=== PATIENT | male | born 1945 | race Caucasian/White ===

== ENCOUNTER 2019-06-19 06:55 | Outpatient (CLI) | payer MEDICARE, BC, OTHER, SELFPAY ==
[2019-06-19 07:14] VITALS: BMI 31.1
--- NOTE | 2019-06-19 07:23 | ECG_ITS ---
NAME OF STUDY: LEXISCAN SESTAMIBI STRESS TEST INDICATION: Chest Pain, PROCEDURE: At the baseline, the EKG revealed atrial fibrillation with a demand V paced rhythm. The baseline blood pressure was 126/98 mm Hg with a heart rate of 79 beats/min. Lexiscan was infused over a period of 20 seconds. A total of 0.4 milligrams of Lexiscan was infused. The stress phase was continued for a total of 5 minutes. Heart rate at the end of the stress phase was 100 with a blood pressure 103/78. The EKG at the peak infusion revealed no significant changes. Sestamibi was injected 20 seconds after the Lexiscan infusion. Blood pressure at the end of the recovery phase was 141/86 with a heart rate of 91 per minute. CONCLUSION: 1. No significant EKG changes with the LexiScan infusion 2. No LexiScan induced chest pain or cardiac arrhythmia 3. Normal blood pressure and heart rate response 4. Sestamibi/sestamibi perfusion scan pending; see separate report. Electronically Signed On 06-19-2019 20:36:27 PLUMBER PIPE FITTING by Alan Strickland M.D. [id number]
--- NOTE | 2019-06-19 07:24 | NMCV_ITS ---
NM sasha perf SPECT r/s* [id number] aRj Vega Age: 74 Gender: M : 1945 Exam Date: 06/19/2019 08:11 Ordering Phys: Alan Strickland MD ([email or web address]) Technologist: TEJAS Sparks Exam Location: [facility] Indications: CHEST PAIN STRESS TEST Please [facility] for [facility] IMAGE PROTOCOL Rest/Stress 1 Lexiscan Day Radiopharmaceutical Dose (mCi) Administration Site Administered by Rest: Tc-99m 10.6 IV TEJAS Welch Sestamibi Stress:Tc-99m 32.6 IV TEJAS Welch Sestamibi Rest: 19-Jun-2019 60 Discovery 630 Stress: 19-Jun-2019 30 Discovery 630 0.4mg Lexiscan. Images obtained in supine and prone position. SPECT RESULTS Technical Quality: Excellent Raw Data Analysis: Normal Image Corrections: No attenuation or motion correction applied Summed Stress Score: 23 Summed Rest Score: 14 Summed Difference Score: 9 PERFUSION FINDINGS Myocardial perfusion imaging revealing a large area of decreased aseptic, involving the basal, mid and apical inferior wall, basal and mid inferolateral, basal and mid anterolateral, apical segments including the apex. Some reversibility was noted in the mid anterolateral and inferolateral region. Very small area of reversible defects were noted in the apical segments. FUNCTIONAL RESULTS (calculated via Gated SPECT) Stress Image LV EF (%): 39 Stress EDV (mL):118 TID: 1 Stress ESV (mL):72 FUNCTIONAL FINDINGS: Segmental wall motion analysis revealed a somewhat dyskinetic septum and the apex with a hypokinetic inferior wall. IMPRESSIONS 1. Myocardial perfusion may revealing a large area of decreased tracer uptake in the inferior, inferolateral, anterolateral and apical segments with some reversibility in the inferolateral and anterolateral regions, suggestive of myocardial scarring with ischemia in the distribution of the right coronary artery and circumflex artery predominantly with some involvement the left and descending artery territory. 2. Diminished LV ejection fraction of 39%. 3. Wall motion normality as mentioned above. 4. Moderately dilated LV cavity with an end-systolic volume of 72 mL No similar previous studies are available for comparison Dr Alan Strickland MD FAC (Electronically Signed) Final Date: 19 June 2019 19:12 S
[2019-06-19] MEDS: regadenoson 0.4 Mg/5 ml Syringe IVP (08:55)
[2019-06-19 08:57] VITALS: BP 125/85; PULSE 82
== END 2019-06-19 06:56 | disposition home or self-care (01) ==
PROVIDERS: Family Provider Family Medicine; PCP Family Medicine; Visit Provider Internal Medicine Cardiovascular Disease
DX: R07.89 Other chest pain (principal)
CPT/HCPCS: 78452; 93017; A9500; J2785

== ENCOUNTER 2019-07-02 05:53 | Day surgery (SDC) | payer MEDICARE, BC, OTHER, SELFPAY ==
[2019-06-30 12:42] LABS: Basophils # 0.1 10^3/uL (0.0-0.1); Basophils % 1.3 %; Eosinophils # 0.2 10^3/uL (0.0-0.8); Hematocrit 43.3 % (42.0-52.0); Hemoglobin 14.3 g/dL (11.7-16.6); Lymphocytes # 2.6 10^3/uL (0.8-4.8); Lymphocytes % 32.2 %; Mean Corpuscular Hemoglobin 30.4 pg (28.0-34.0); Mean Corpuscular Volume 92.1 fL (80-94); Mean Platelet Volume 9.6 fL (7.4-10.4); Neutrophils % 50.2 %; Nucleated Red Blood Cells % 0 %; Platelet Count 223 10^3/cmm (130-400); Red Cell Distribution Width 13.3 % (12.1-15.1); White Blood Count 7.9 10^3/uL (4.0-10.0)
[2019-06-30 12:53] LABS: Alanine Aminotransferase 22 U/L (0-41); Albumin Level 4.4 g/dL (3.5-5.2); Alkaline Phosphatase 98 IU/L (40-130); Anion Gap 18.7 (5-19); Aspartate Amino Transferase 25 U/L (0-40); Blood Urea Nitrogen 36 mg/dL (8-23); Calcium 9.9 mg/dL (8.5-10.5); Carbon Dioxide 27 mmol/L (22-29); Chloride 98 mmol/L (98-107); Globulin 3.1 g/dL (1.3-4.6); Glucose 137 mg/dL (65-115); Potassium 4.7 mmol/L (3.5-5.1); Sodium 139 mmol/L (136-145); Total Bilirubin 0.9 mg/dL (0.15-1.2); Total Protein 7.5 g/dL (6.6-8.7)
[2019-07-01 13:00] VITALS: BMI 31.4
[2019-07-02] VITALS (15 sets, daily range): BP systolic 95–127; BP diastolic 65–85; PULSE 75–100; RESP 11–20; TEMP 36.8–36.9; O2SAT 93–99
--- NOTE | 2019-07-02 06:00 | XACV_ITS ---
Ht: 175 cm Wt: 97 kg BSA: 2.20 m2 Gender: Male : 1945 Any Known Allergies: Other Exam Priority: Routine Procedure(s): Procedure Description: Diagnostic procedure Procedure Description: Left ventriculography Procedure Description: Venous Graft Catheterization Procedure Description: SANCHEZ Graft Catheterization Procedure Description: Coronary Angiography Diagnostic Cath Status: Elective Diagnostic Findings LM has 0% stenosis. pLAD: Severe 80% stenosis, PÉREZ: 3 flow. 1st Diag: Moderate 70% stenosis, PÉREZ: 3 flow. pCIRC: Severe 100% stenosis, PÉREZ: 0 flow. mRCA: Severe 100% stenosis, PÉREZ: 0 flow. 4 grafts visualized. SANCHEZ to dLAD: patent. SVG to 1st Diag: patent. SVG to 1st OM: patent. SVG to dRCA: patent. Coronary angiography shows right dominance. PCI Status: Elective Conclusions This 74-year-old white male with history of coronary disease, status post coronary bypass surgery in 2015, present with increasing episodes of left-sided chest pain. He also been having shortness of breath and fatigue. The symptoms are somewhat atypical. He had a myocardial perfusion imaging which revealed areas of fixed defects with no significant reversible defects. Because of his ongoing symptoms and the history, for further evaluation of his coronary status as well as the graft status, a cardiac catheterization was recommended. Patient underwent left heart catheterization with left and right coronary angiogram and graft angiogram today. He had a SANCHEZ to the LAD, venous graft to the distal RCA, saphenous venous graft to the first diagonal and another venous graft to the obtuse marginal artery. The coronary angiogram revealed high-grade lesion in the proximal LAD and proximal segment of the first diagonal branch. The circumflex artery was found to be totally occluded after the first obtuse marginal branch. The right coronary artery also was found to be totally occluded after the first RV branch. All the venous grafts and SANCHEZ were found to be patent. The SANCHEZ was found to be attached to the distal LAD. The venetie ira coronary arteries were of relatively small caliber. Mild/moderate diffuse disease was noted in the other vessels. LVEDP was 5 mmHg. Diagnostic RX Recommendation: medical therapy and/or counseling LV EDP: 5 mmHg Left Ventriculography Findings: The LV gram was not performed because of the stage III renal failure. The LVEDP was 5 mmHg. Pressures Phase:Rest AO : 112 mmHg / 62 mmHg ( 80 mmHg ) @ 1:24:00 AM 120 mmHg / 66 mmHg ( 86 mmHg ) @ 1:47:00 AM 120 mmHg / 66 mmHg ( 86 mmHg ) @ 1:47:00 AM LV : 115 mmHg / -5 mmHg / @ 1:47:00 AM 116 mmHg / -4 mmHg / @ 1:47:00 AM Valves Phase:DefaultPhase AV : 0.0 mmHg @ 7:58:37 AM 0.0 mmHg @ 7:58:37 AM AV Mean Gradient: 0.0 mmHg @ 7:58:37 AM Clinical Evaluation EBL: 5mL-10mL Procedural Details Procedure Consent Obtained. Pre-Procedure Time Out. Identified patient by full name and date of as verbalized by the patient/guarantor. Does the consent match the physician's order: Yes. Accurate & Complete Informed Consent: Yes. Inpatient/Outpatient History & Physical on Chart: Yes. If H&P is completed, is and addenduem needed: No; If yes, is the addendum complete: N/A. Visualize and Verify Site with Patient/Guarantor: N/A. Relevant Radiology Images available: Yes. Pre-op teaching completed and patient verbalized understanding. The risks, benefits, and alternatives of sedation and/or procedure were discussed by physician. The patient agrees to continue. Procedure started. [facility] Clinical Fraility Score: 3: Managing Well. 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 Cardiovascular Instability: No. Correct patient, site and procedure confirmed by cath team. Current diagnosis: Chest Pain. PERRLA. Strong, equal hand roll form operator bilaterally. Lungs clear x 5 lobes. IV Site on Arrival: 18 gauge in the left forearm. IV Fluids: 0.9% NaCl at KVO. 0 mL infused prior to landscape laborer. Pre Procedural Pulses: bilateral dorsalis pedis was Doppled. Pre Procedural Pulses: bilateral posterior tibial was Doppled. Pre Procedural Pulses: bilateral radial was 2+. Oxygen started at 2liters/min via nasal canula. bilateral groins was prepped with chloroprep then draped in the usual sterile fashion. Baseline sample Acquired. HR: 75 BPM. Physician arrived. Equipment: 6F - Femoral. Cardiac Cath Pack. ACAppRedeem Manifold Kit Model BT 2000. Heparinized Saline (2 units/mL), 1000 mL bag. Kit, Micropuncture. Physician scrubbed in. Immediate Pre-Procedure Time Out. Correct Patient: Yes; Correct Procedure: Yes; Correct Site: Yes; Correct Patient Position: Yes; Correct Supplies: Yes; Dried Flammable Prep: Yes; Blood Products Available: No;. Lidocaine 1% infiltrated to the right groin. Arterial access obtained with micropuncture set. A 5 bhutanese JL4 catheter in over wire. Multiple views taken of left coronary artery. Catheter out. Multiple views taken of right coronary artery. SVG's to Diaganol visualized and patent. SVG's to OM visualized and patent. Catheter out. A 5 bhutanese IM catheter in over wire. SANCHEZ to LAD visualized. Catheter out. A 5 bhutanese RCB catheter in over wire. SVG's to RCA visualized and patent. Catheter out. A 5 bhutanese Angled Pig catheter in over wire. EDP Sample taken: LV 115/-5,5; HR: 68 BPM; SpO2: 97%. Pullback taken: LV 116/-5,8; AO 120/66(86); Mean: 0mmHg, Peak to Peak: 0mmHg, SEP: 7sec/min; HR: 73 BPM; SpO2: 97%. Sheath(s) sutured into position with 2-0 silk and sterile 4x4's and Op-site applied over the site. No oozing or signs and symptoms of hematoma noted. Arterial sheath flushed and connected to tranducer and pressure bag with heparinized saline. A Suture was successful obtaining hemostatsis at the Right Femoral artery insertion site. Post Procedure: Pulses reassessed and unchanged. PERRLA. Strong, equal hand roll form operator bilaterally. No VTE prophylaxis required. Medication's Wasted: Lidocaine 1% = 18 mL. Medication's Wasted: Heparin = 2500 units. Medication's Wasted: Other = Fentanyl 75mcg. Total IV fluids: 250 mL. Contrast type used: Omnipaque 300 mgI/mL, 500 mL bottle. Post-op diagnosis: CAD. Complications: None. Estimated blood loss: 5mL-10mL. Vital chart was stopped. Procedure completed. Patient transferred by bed to 1st floor. Site: Right Femoral artery Sheath Size: 5 Fr Hemostasis Method: Suture Hemostasis Success: Successful Procedure Medications Start: 7:09 AM Stop: 7:09 AM Medication: Benadryl Amount: 50 mg Route: I.V. Start: 7:12 AM Stop: 7:12 AM Medication: Versed Amount: 1 mg Route: I.V. Start: 7:27 AM Stop: 7:27 AM Medication: Heparin Amount: 1500 units Route: I.V. Start: 7:35 AM Stop: 7:35 AM Medication: Versed Amount: 1 mg Route: I.V. Start: 7:43 AM Stop: 7:43 AM Medication: Fentanyl Amount: 25 mcg Route: I.V. Start: 7:43 AM Stop: 7:43 AM Medication: 0.9% Saline Amount: 250 ml Route: I.V. bolus I, the attending physician, have reviewed and verified all procedure medications. Yes, all medications given per verbal order History/Risk Factors Hypertension: Yes Dyslipidemia: Yes Peripheral Arterial Disease (PAD): No Myocardial Infarction (PA): No Obesity: Yes Renal Disease: No Tobacco Use: Never Prior Interventions PCI: No CABG: Yes Valve Surgery: No Report Signatures Finalized by:Dr Alan Strickland MD [facility] on 07/02/2019 1:22:48 PM
[2019-07-02 06:59] LABS: Anion Gap 17.4 (5-19); Blood Urea Nitrogen 33 mg/dL (8-23); Calcium 9.6 mg/dL (8.5-10.5); Carbon Dioxide 24 mmol/L (22-29); Chloride 98 mmol/L (98-107); Glucose 152 mg/dL (65-115); Osmolality Calculated 280 mOsm/kg (285-295); Potassium 4.4 mmol/L (3.5-5.1); Sodium 135 mmol/L (136-145)
--- NOTE | 2019-07-02 08:07 | P.MISC_ITS ---
Miscellaneous Note Purpose of Documentation: This patient is being admitted to hospital following the cardiac authorization for IV hydration and close monitoring. He is known to have cardiomyopathy and chronic kidney disease. Note: Mr. Vega is a 74-year-old white male with a history of coronary disease and coronary artery bypass surgery in 2014. He had a SANCHEZ to the LAD, venous graft to the PDA, diagonal and obtuse marginal arteries. He was complaining of increasing episodes of atypical chest pains, fatigue and shortness of breath. He had a myocardial perfusion imaging which revealed areas of fixed defects with no significant reversible defects. Because of his ongoing symptoms, in order to further evaluate his coronary status as well as his graft status, he underwent left heart catheterization with left and right coronary angiogram and graft angiogram. He was found to have patent grafts. Severe diffuse disease of the [place] vessels. Based on the angiogram findings, it was opted to treat him medically. He was found to have an LVEDP of 5 mmHg. His BUN was 33 with a creatinine of 1.6. His labs are as follows Abnormal lab results 07/02/19 Range/Units 06:30 Sodium 135 L (136-145) mmol/L BUN 33 H (8-23) mg/dL Creatinine 1.6 H (0.7-1.2) mg/dL Glucose 152 H (65-115) mg/dL Calculated Osmolal ity 280 L (285-295) mOsm/k g Further details of his history and physical, please refer to the history and physical by me on 06/25/2019. Past medical history, family history, social history as outlined on 06/25/2019. On examination he is alert and oriented x3. Not in any acute distress. His blood pressure is 100/60 with a heart rate of 78/min respiratory rate of 16/min and he is afebrile. GENERAL: The patient is alert and oriented times three. Not in any acute distress. HEENT: No significant pallor, icterus or lymphadenopathy. Oral cavity: There are no mucous membrane lesions. NECK: Trachea appears to be central. No masses noted. No JVD or thyromegaly appreciated. No carotid bruit. RESPIRATORY: Chest is symmetrical. No intercostals muscle retraction or any accessory muscle activation. There is no chest wall tenderness. Breath sounds are heard bilaterally. No rales or rhonchi heard. No evidence of any consolidation. BREASTS: Deferred. HEART: The first heart sound is variable. Second heart sound is normal. Systolic murmur in the left sternal border. No diastolic murmurs. No pericardial rub. ABDOMEN: No vessel pulsations or distention. No tenderness. No organomegaly appreciated. No abdominal bruit. Bowel sounds are normally heard. : Deferred. RECTAL: Deferred. LYMPHATIC: No lymphadenopathy noted in the neck or groin. EXTREMITIES: No edema or cyanosis. No clubbing. Peripheral pulses are palpable and fairly good volume and amplitude MUSCULOSKELETAL: No acute joint deformities or swelling SKIN: There are no significant rashes. NEUROPSYCHIATRIC: The patient is alert and oriented x3. Appears to be in a good mood. The higher functions are grossly within normal limits. No tremors or rigidity noted. Assessment Atherosclerotic heart disease- bypass grafts with progression of disease in the bois [place]te vessels Chronic kidney disease Cardiomyopathy Atrial fibrillation History of hypertension History of dyslipidemia Plan Careful IV hydration Repeat BMP in the morning Possible discharge home in the morning
[2019-07-02] MEDS: fentaNYL 50 mcg/mL INJ 2mL 25 MCG IVP (10:08)
--- NOTE | 2019-07-02 10:49 | PC.NURSE ---
1015-SHEATH REMOVAL Explained procedure to pt. Pre-medicated w/ Fentanyl per order. Palpated right femoral artery. Hold pressure for 20 mins. Hemostasis achieved. No hematoma, swelling, bleeding noted. Instructed pt and at bedside to keep leg straight and bedrest for 6 hrs. to let nurse know for any bleeding, unusual pain or pressure at groin site. Pt ad verbalizes understanding. Pedal pulses palpable +3.
--- NOTE | 2019-07-02 11:40 | PC.CHAP ---
Pastoral Care Encounter/Spiritual Assessment Type of Contact [] Declined instrument tester visit [] Patient/Family/Request visit [] Outpatient visit [] Follow-up visit [] Physician referral [] Code/Alert [x] Routine visit [] Staff referral [] Actively dying [] Patient sleeping [x] Family support [] [] Out of room [] Palliative care [] [] Receiving care in room [] Pre-surgical visit [] Trauma [] Long length of stay [] ICU visit [] Other: Relational/Emotional Strength [] Patient feels connected with others/family/visitors/staff [] Distress [] Loneliness/isolation [] Abandonment Spirituality of Patient [x] Person of Lyric [] Attends Sikh of their Lyric [] Believes in Prayer [] Reads Bible or Mormonism materials [] There are Spiritual issues to be addressed Electric 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 Interventions [x] Prayer [] Active listening [] Non-anxious presence [] Spiritual/emotional support [] Crisis/trauma care [] Spiritual counseling [] Bereavement support [] Provided bereavement packet [] Provided Bible/devotional materials [] Provided toy/stuffed animal, coloring book to patient or family member [] Provided Communion [] Anointing/[place] [] Salvation [x] Completed spiritual assessment [] Other: Impact on Illness or Injury [] Angry [] Fearful [] Anxious [] Often cries [] Exhaustion [] Unable to work [] Unable to attend adventism [] Unable to walk/stand [] Unable to read [] Unable to drive [] Unable to eat/drink [] Unable to sleep [] Unable to be with family [] Patient intubated [] Other: Summary Time spent with patient 10min
[2019-07-02] MEDS: lactobacillus 1 Tablet 1 TAB PO (12:33)
[2019-07-02] MEDS: sodium chloride 0.9% 1,000 ML 150 ML IV (12:34)
[2019-07-02] MEDS: carvedilol 25 mg Tablet 37.5 MG PO (17:52)
[2019-07-02] MEDS: famotidine 20 mg Tablet 40 MG PO ×2 (17:53→21:15)
[2019-07-02] MEDS: magnesium oxide 400 mg tablet 800 MG PO (17:54)
--- NOTE | 2019-07-02 19:34 | PC.NURSE ---
Patient ambulated [address] down hallway and 175 feet back to room. Right groin site is without redness, dressing dry and intact, Pulse ox 96% on room air. Spouse at the patient's bedside. Call light within reach. Care Continued.
[2019-07-02] MEDS: ALPRAZolam 0.25 mg Tablet PO (21:16)
[2019-07-03] VITALS: BP 124/83; PULSE 90; RESP 17; TEMP 37; O2SAT 96
[2019-07-03 04:00] VITALS: BP 126/82; PULSE 86; RESP 22; TEMP 36.7; O2SAT 97
[2019-07-03 07:25] LABS: Anion Gap 15.1 (5-19); Blood Urea Nitrogen 25 mg/dL (8-23); Carbon Dioxide 25 mmol/L (22-29); Chloride 102 mmol/L (98-107); Glucose 133 mg/dL (65-115); Osmolality Calculated 285 mOsm/kg (285-295); Potassium 4.1 mmol/L (3.5-5.1); Sodium 138 mmol/L (136-145)
[2019-07-03 07:47] VITALS: BP 135/82; PULSE 90; RESP 15; O2SAT 96
[2019-07-03] MEDS: magnesium oxide 400 mg tablet 800 MG PO (09:27)
[2019-07-03] MEDS: cholecalciferol (vitamin D3) 1,000 unit Tablet 1000 UNIT PO (09:28)
[2019-07-03] MEDS: carvedilol 25 mg Tablet 37.5 MG PO (09:28)
[2019-07-03] MEDS: TORSEmide 20 mg Tablet 80 MG PO (09:28)
[2019-07-03] MEDS: lactobacillus 1 Tablet 1 TAB PO (09:28)
[2019-07-03] MEDS: aspirin 81 mg EC Tablet PO (09:29)
[2019-07-03] MEDS: spironolactone 25 mg Tablet PO (09:29)
[2019-07-03] MEDS: levothyroxine 100 mcg Tablet PO (09:29)
[2019-07-03] MEDS: atorvastatin 40 mg Tablet PO (09:29)
[2019-07-03] MEDS: iron polysaccharide complex 150 mg Capsule PO (09:36)
--- NOTE | 2019-07-03 09:52 | P.PN_ITS ---
Subjective Subjective: Interval history: This is a final progress note. Patient was admitted to hospital following his cardiac authorization, for IV hydration and close monitoring. He received IV hydration with normal saline. The BMP was repeated this morning. The BUN/creatinine has improved to 25/1.5. Vitals/I&O/Wt Last Vital Signs Temp 98.1 F 07/03/19 04:00 Pulse 90 07/03/19 07:47 Resp 15 07/03/19 07:47 BP 135/82 07/03/19 07:47 Pulse Ox 96 07/03/19 07:47 07/02/19 07/03/19 07/03/19 22:59 06:59 14:59 Intake Total 1240 / 1940 240 / 240 Output Total 400 / 2000 Balance 840 / -60 240 / 240 Weight last 48 hrs Weight 213 lb Physical Exam Narrative: EXAM NARRATIVE: GENERAL: The patient is alert and oriented times three. Not in any acute distress. HEENT: No significant pallor, icterus or lymphadenopathy.Oral cavity: There are no mucous membrane lesions. NECK: Trachea appears to be central. No masses noted. No JVD or thyromegaly appreciated. RESPIRATORY: Chest is symmetrical. No intercostals muscle retraction or any accessory muscle activation. There is no chest wall tenderness. Breath sounds are heard bilaterally. No rales or rhonchi heard. No evidence of any consolidation. BREASTS: Deferred. HEART: The heart sounds are normal. No S3 or S4. Short section systolic murmur at the base of the heart and an early systolic murmur in the left sternal border.]. No pericardial rub ABDOMEN: No vessel pulsations or distention. No tenderness. No organomegaly appreciated. Bowel sounds are normally heard. : Deferred. RECTAL: Deferred. LYMPHATIC: No lymphadenopathy noted in the neck or groin. EXTREMITIES: No edema or cyanosis. No clubbing. Peripheral pulses are palpated in fairly good volume and amplitude. Right groin has no hematoma or bleeding. MUSCULOSKELETAL: No acute joint deformities or swelling SKIN: There are no significant scars or skin rash noted. NEUROPSYCHIATRIC: The patient is alert and oriented x3. Appears to be in a good mood. No tremors or rigidity noted. Data : 06/30/19 12:30 07/03/19 06:31 Other Labs: Abnormal lab results 02/27/20 Range/Units 06:31 BUN 25 H (8-23) mg/dL Creatinine 1.5 H (0.7-1.2) mg/dL Glucose 133 H (65-115) mg/dL A&P Assessment and plan (1) Atherosclerotic heart disease of [place] coronary artery with other forms of angina pectoris: Currently stable. Advised to continue on the current medications. Status: Acute Code(s): I25.118 - Atherosclerotic heart disease of [place] coronary artery with other forms of angina pectoris (2) Atypical chest pain: Most likely related to GERD. Patient is on Pepcid. Advised to continue the same. Status: Acute Code(s): R07.89 - Other chest pain (3) Atrial fibrillation: Advised to go back on the Pradaxa. He may started taking the medicine this evening Status: Acute Qualifiers: Atrial fibrillation type: other persistent Qualified Code(s): I48.19 - Other persistent atrial fibrillation Code(s): I48.91 - Unspecified atrial fibrillation (4) Hyperlipidemia: Continue on the current medications Status: Acute Qualifiers: Hyperlipidemia type: mixed hyperlipidemia Qualified Code(s): E78.2 - Mixed hyperlipidemia Code(s): E78.5 - Hyperlipidemia, unspecified (5) Pacemaker: Patient will keep his follow-up appointments as scheduled Status: Acute Code(s): Z95.0 - Presence of cardiac pacemaker Additional A&P Information Patient may start taking the Pradaxa at this evening. The dose of the torsemide he is cut back to 40 mg p.o. 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
[2019-07-03] MEDS: ALPRAZolam 0.25 mg Tablet PO (10:30)
[2019-07-03 10:58] VITALS: BP 124/87; PULSE 86; RESP 23; O2SAT 95
[2019-07-03 12:40] VITALS: BP 130/85; PULSE 80; RESP 18; O2SAT 92
[2019-07-03 12:42] VITALS: BP 130/85; PULSE 80; RESP 18; TEMP 36.7; O2SAT 92
== END 2019-07-03 12:56 | disposition home or self-care (01) ==
LOC: CCL 05:53 → CSU 07-03 09:46 → OPCSU 07-04 10:21
PROVIDERS: Family Provider Family Medicine; PCP Family Medicine; Visit Provider Internal Medicine Cardiovascular Disease
DX: I25.118 Atherosclerotic heart disease of native coronary artery with other forms of angina pectoris (principal); R07.89 Other chest pain; I48.19 Other persistent atrial fibrillation; R78.5 Finding of other psychotropic drug in blood; Z95.0 Presence of cardiac pacemaker; Z95.1 Presence of aortocoronary bypass graft; I10 Essential (primary) hypertension; E66.9 Obesity, unspecified; Z68.31 Body mass index [BMI] 31.0-31.9, adult; E78.2 Mixed hyperlipidemia
CPT/HCPCS: 12345; 36415; 80048; 80053; 85025; 86850; 86900; 93459; C1769; C1887; C1894; J1200; J1644; J2001; J2250; J3010; J7030; Q9967

== ENCOUNTER → 2019-07-09 11:05 | Outpatient (BNVA) | payer MEDICARE, BC, OTHER, SELFPAY | PROVIDERS: Family Provider Family Medicine; PCP Family Medicine; Visit Provider Nurse Practitioner Family | DX: I25.118 Atherosclerotic heart disease of native coronary artery with other forms of angina pectoris (principal) | CPT/HCPCS: 80048 ==

== ENCOUNTER 2019-07-21 09:39 | Outpatient (REF) | payer MEDICARE, BC, OTHER, SELFPAY ==
[2019-07-21 09:55] LABS: Basophils # 0.2 10^3/uL (0.0-0.1); Basophils % 1.6 %; Eosinophils # 0.4 10^3/uL (0.0-0.8); Eosinophils % 3.9 %; Hematocrit 46.5 % (42.0-52.0); Hemoglobin 15.4 g/dL (11.7-16.6); Lymphocytes # 3.2 10^3/uL (0.8-4.8); Lymphocytes % 28.2 %; Mean Corpuscular HGB Conc 33.1 g/dL (30.0-36.0); Mean Corpuscular Hemoglobin 31.1 pg (28.0-34.0); Mean Corpuscular Volume 93.9 fL (80-94); Mean Platelet Volume 10.7 fL (7.4-10.4); Monocytes # 0.9 10^3/uL (0.2-0.9); Monocytes % 8.3 %; Neutrophils # 6.5 10^3/uL (1.8-7.7); Neutrophils % 57.7 %; Nucleated Red Blood Cells % 0 %; Platelet Count 218 10^3/cmm (130-400); Red Blood Count 4.95 10^6/uL (4.1-5.3); Red Cell Distribution Width 12.8 % (12.1-15.1); White Blood Count 11.3 10^3/uL (4.0-10.0)
[2019-07-21 10:05] LABS: Albumin Level 4.3 g/dL (3.5-5.2); Blood Urea Nitrogen 24 mg/dL (8-23); Calcium 9.8 mg/dL (8.5-10.5); Carbon Dioxide 28 mmol/L (22-29); Chloride 99 mmol/L (98-107); Glucose 208 mg/dL (65-115); Phosphorus 4.1 mg/dL (2.5-4.5); Sodium 139 mmol/L (136-145)
[2019-07-21 10:26] LABS: Urine Creatinine 92 mg/dL (39-259); Urine Protein Random 6 mg/dL
[2019-07-21 10:31] LABS: Calcium 9.8 mg/dL (8.5-10.5); Parathyroid Hormone 141.3 pg/mL (15-65)
[2019-07-21 10:39] LABS: UPRO/UCREAT Ratio 0.07 mg/mg CR
[2019-07-21 11:27] LABS: 25 Hydroxy Vitamin D 67 ng/mL (30-100)
== END 2019-07-21 09:40 | disposition home or self-care (01) ==
LOC: LAB 09:39
PROVIDERS: Family Provider Family Medicine; PCP Family Medicine; Visit Provider Internal Medicine Nephrology
DX: I25.118 Atherosclerotic heart disease of native coronary artery with other forms of angina pectoris (principal)
CPT/HCPCS: 80069; 82306; 82310; 82570; 83970; 84156; 85025

== ENCOUNTER → 2019-12-03 08:45 | Outpatient (BNVA) | payer MEDICARE, BC, OTHER, SELFPAY | PROVIDERS: Family Provider Family Medicine; PCP Family Medicine; Visit Provider Dermatology | DX: L21.9 Seborrheic dermatitis, unspecified (principal); L82.1 Other seborrheic keratosis; L57.0 Actinic keratosis; M1A.9XX1 Chronic gout, unspecified, with tophus (tophi); L85.3 Xerosis cutis; Z85.820 Personal history of malignant melanoma of skin | CPT/HCPCS: 17000; 17003; 99203; 99204 ==

== ENCOUNTER 2019-12-14 08:40 | Emergency (ER) | payer MEDICARE, BC, OTHER, SELFPAY ==
[2019-12-14] VITALS (10 sets, daily range): BP systolic 106–143; BP diastolic 64–96; PULSE 80–148; RESP 12–30; TEMP 36.9–38.8; O2SAT 95–99; BMI 32.5
--- NOTE | 2019-12-14 08:45 | CTR_ITS ---
PROCEDURE INFORMATION: Exam: CT Angiography Chest With Contrast Exam date and time: 12/14/2019 9:00 AM Age: 74 years old Clinical indication: Other: Hemoptysis; Prior surgery; Surgery date: 6+ months; Surgery type: Pacemaker TECHNIQUE: Imaging protocol: Computed tomographic angiography of the chest with intravenous contrast. 3D rendering: MIP and/or 3D reconstructed images were created by the technologist. Radiation optimization: All CT scans at this facility use at least one of these dose optimization techniques: automated exposure control; mA and/or kV adjustment per patient size (includes targeted exams where dose is matched to clinical indication); or iterative reconstruction. Contrast material: VISIPAQUE; Contrast volume: 320 ml; Contrast route: INTRAVENOUS (IV); COMPARISON: CT chest w con* [id number] 10/16/2014 10:39 AM RADIATION DOSE METRICS: Total DLP (mGy-cm): 633.13 FINDINGS: Tubes, catheters and devices: A dual lead AICD pacemaker is present. The right ventricular and coronary sinus leads appear to be in good position. Pulmonary arteries: Normal. No pulmonary emboli. Aorta: The pulmonary artery phase bolus is suboptimal for imaging of the aorta and systemic arteries, including coronary artery grafts. No thoracic aortic aneurysm. Mild aortic arch, branch, and descending thoracic aortic atherosclerotic calcification. Lungs: Multifocal consolidative densities right upper lobe. Bibasilar dependent mild pulmonary partial atelectasis is present. Pleural space: Minimal right pleural effusion. No pneumothorax. Heart: Flattening of the cardiac interventricular septum suggesting elevated right heart pressures. Cardiac left atrial enlargement measuring 6.4 cm AP dimension. LAD, LCx and RCA calcified coronary atherosclerosis. Lymph nodes: No enlarged lymph nodes. Gallbladder and bile ducts: The gallbladder is surgically absent, with metallic clips in the gallbladder fossa. Spleen: The spleen is borderline enlarged measuring 13.8 cm longitudinally. Intraperitoneal space: Free breathing artifacts are present throughout the examination. Bones/joints: The patient is status post median sternotomy with sternal cerclage wires. Diffuse osteopenia. Right lateral vertebral body marginal osteophytes are noted at lower thoracic spinal levels. Soft tissues: Moderate gynecomastia bilaterally. CT/CT angio chest PE protcl [id number] IMPRESSION: 1. Limitations of motion. 2. No central lower lobar pulmonary embolism identified, as visualized. Please see above limitations. 3. Multifocal consolidative densities right upper lobe. Pneumonitis versus alveolar hemorrhage. Clinical correlation is recommended. 4. Flattening of the cardiac interventricular septum suggesting elevated right heart pressures, new. 5. Cardiac left atrial enlargement. 6. Minimal right pleural effusion, interval decrease. 7. Coronary atherosclerosis. 8. Prior cholecystectomy. 9. Borderline splenomegaly. Radiation Dose CTDIVOL = (mGy): DLP = 633.13 (mGy-cm)
--- NOTE | 2019-12-14 08:46 | XRR_ITS ---
PROCEDURE INFORMATION: Exam: XR Chest, 1 View Exam date and time: 12/14/2019 8:58 AM Age: 74 years old Clinical indication: Cough TECHNIQUE: Imaging protocol: XR of the chest Views: Frontal portable upright view of the chest. COMPARISON: CR Chest 2 views* [id number] 12/03/2018 10:25 AM FINDINGS: Tubes, catheters and devices: A triple lead left subclavian permanent AICD pacemaker is present. The coronary sinus, right atrial and right ventricular leads appear to be in good position. Lungs: Dense consolidation right mid lung zone and parahilar region, additional mild airspace opacity medial right upper lobe and apex. The pulmonary vasculature remains congested. Mild right lateral basilar subsegmental atelectasis. Pleural space: Mild right pleural fibrosis, stable. No definite pleural effusion. No pneumothorax. Heart/Mediastinum: Coronary ostial markers are present. Borderline cardiomegaly. Vasculature: Mild aortic arch atherosclerotic calcification without ectasia. Bones/joints: The patient is status post median sternotomy with intact sternal cerclage wires. XR/XR chest 1V portable [id number] IMPRESSION: 1. Right-sided consolidative densities and pulmonary airspace infiltrates. Pneumonitis is difficult to exclude. Clinical correlation is recommended. 2. Persistent pulmonary vascular congestion. 3. Mild right pleural fibrosis, stable. 4. Mild right lateral basilar subsegmental atelectasis.
--- NOTE | 2019-12-14 08:47 | ECG_ITS ---
[facility] Test Date: 2019-12-14 Pat Name: Raj Vega Department: Room: Gender: Male Hall Clerk: : 1945 Requested By: Shira Schultz Order Number: [id number] Barlow MD: Margot Cardenas M.D. Measurements Intervals [place] Rate: 142 P: NV: -1 QRS: -35 QRSD: 126 T: 192 QT: 282 QTc: 435 Interpretive Statements Atrial fibrillation with rapid ventricular response ELECTRONIC VENTRICULAR PACEMAKER MODERATE INTRAVENTRICULAR CONDUCTION DELAY ST DEVIATION AND MODERATE T-WAVE ABNORMALITY, CONSIDER LATERAL ISCHEMIA ST DEVIATION AND MODERATE T-WAVE ABNORMALITY, CONSIDER INFERIOR ISCHEMIA Compared to ECG 12/03/2018 10:08:48 Left-axis deviation now present Intraventricular conduction delay now present T-wave abnormality now present Possible ischemia now present Electronically Signed On 12-15-2019 16:35:27 CDT by Margot Cardenas M.D. [id number]
[2019-12-14 09:04] LABS: ABG PCO2 36.2 mmHg (35-45); ABG PH Result 7.44 (7.35-7.45); Alveolar-Arterial Oxygen Gradi 2.3 mmHg (5-10); Arterial Blood Gas Hematocrit 41.6 % (42-52); Base Excess ABG 0.5 mmol/L (-2.0-2.0); Blood Gas Allen Test Pos; Blood Gas Operator Identificat MONRO; Blood Gas Sample Site Radial, left; Blood Gas Sample Type Arterial; Carboxyhemoglobin 1.3 %THgb (0.4-20.1); HCO3 ABG 24.4 mmol/L (22-26); HGB O2 Sat 95.8 % (95-100); Ionized Calcium Level - ABG 1.1 mmol/L (1.1-1.4); Methemoglobin 0.7 % (0.4-1.5); Oxygen Device NC; Oxygen Saturation ABG 97.8; PO2 ABG 87.2 mmHg (80.0-100.0); Total Hemoglobin 13.6 g/dL (14-18)
[2019-12-14 09:29] LABS: Basophils # 0.1 10^3/uL (0.0-0.1); Basophils % 0.6 %; Eosinophils # 0.1 10^3/uL (0.0-0.8); Eosinophils % 0.7 %; Hematocrit 41.1 % (42.0-52.0); Hemoglobin 13.2 g/dL (11.7-16.6); Lymphocytes # 1.9 10^3/uL (0.8-4.8); Lymphocytes % 10.7 %; Mean Corpuscular HGB Conc 32.1 g/dL (30.0-36.0); Mean Corpuscular Hemoglobin 31.4 pg (28.0-34.0); Mean Corpuscular Volume 97.6 fL (80-94); Mean Platelet Volume 9.8 fL (7.4-10.4); Monocytes # 0.9 10^3/uL (0.2-0.9); Monocytes % 5.1 %; Neutrophils # 14.94 10^3/uL (1.8-7.7); Neutrophils % 82.4 %; Nucleated Red Blood Cells % 0 %; Platelet Count 232 10^3/cmm (130-400); Red Blood Count 4.21 10^6/uL (4.1-5.3); Red Cell Distribution Width 14.6 % (12.1-15.1); White Blood Count 18.1 10^3/uL (4.0-10.0)
--- NOTE | 2019-12-14 09:40 | ED_ITS ---
HPI - SOB/Dyspnea General: Chief Complaint: Shortness of Breath/Dyspnea Stated Complaint: COUGHING UP BLOOD Time Seen by Provider: 12/14/19 08:41 Source: patient and EMS Mode of arrival: EMS Limitations: no limitations History of Present Illness: HPI Narrative: Raj is a nice 74-year-old male who comes in with report of coughing up blood. He states he is felt cold and chilled and subjectively feverish. EMS got a temperature of 102.[address] into the hospital. The patient is supposed to be on oxygen at home but they stated his concentrator was not working appropriately and the patient was found to be in the 80s with his pulse oximetry. The patient also has been coughing up small amounts of blood. He says he is on a blood thinner but he does not know the name. He denies any chest pain, back pain or headache. Patient states he felt fine when he went to bed the night before. He otherwise denies any complaints or concerns. Associated symptoms: Reports fever(s); Deny abdominal pain, chest congestion, chest pain, dizziness, extremity pain, lightheadedness, nausea, orthopnea, palpitations, syncope or vomiting Review of Systems Const: Reports: fever(s), chills, body aches, fatigue and malaise Eyes: Denies: change in vision, blurry vision, blind spots, photophobia, eye discharge or eye redness ENMT: Denies: throat pain, odynophagia, hoarseness, swelling of lips/tongue, oral sores, ear or mastoid pain, ear discharge, change in hearing or nasal discharge Card: Denies: chest pain, palpitations, irregular heart rhythm, edema, lightheadedness, syncope, pre-syncope, dyspnea on exertion or orthopnea Resp: Reports: dyspnea, productive cough and wheezing; Denies: non-productive cough or chest congestion GI: Denies: abdominal pain, nausea, vomiting, hematemesis, coffee ground emesis, heartburn, diarrhea, constipation, GI cramping, hematochezia or melena : Denies: flank pain, dysuria, urinary frequency, urinary urgency or hematuria Musc: Denies: neck pain, back pain, extremity pain, extremity swelling, joint pain, joint swelling, joint redness, joint warmth or joint stiffness Skin/Breast: Denies: rash, pruritus, erythema, skin tenderness or jaundice Neuro: Denies: headache(s), numbness in extremities, weakness in extremities, sensory changes, lack of coordination, difficulty walking, dizziness, vertigo, confusion, Slurred speech present or seizure-like activity Damien/Lymph: Denies: easy bruising, easy bleeding, petechiae, purpura or enlarged lymph nodes All/Imm: Denies: urticaria, throat swelling, tongue swelling, facial swelling or acute wheezing PFSH ED PFSH: Medical History Arthritis 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 Atrial fibrillation Cardiomyopathy Chronic kidney disease GERD (gastroesophageal reflux disease) History of malignant melanoma Hyperlipidemia Hyperparathyroidism Hypothyroid Pacemaker Pleural effusion Surgical History Hx of CABG Hx of cholecystectomy S/P removal of parathyroid gland Family History Other Cancer Stroke Social History Smoking and tobacco status: never smoked Alcohol intake: never Physical Exam Const: COMMON NORMALS: no acute distress, patient oriented x3, no limitations, healthy appearing and well nourished GENERAL APPEARANCE: cooperative, well kempt and well developed HENMT: COMMON NORMALS: normocephalic, atraumatic, external ears normal, EAC's normal and Normal external nose present HEAD & SCALP: normal to inspection, normocephalic and atraumatic FACE & SINUS: normal facial exam and face symmetric NOSE: Normal external nose present and Normal nares present EXTERNAL EAR: Yes external ears normal EXTERNAL AUDITORY CANAL: EAC's normal MOUTH: Normal oral and palatal mucosa present, lip normal and tongue normal Eye: COMMON NORMALS: Equal, round and reactive pupils present and conjunctivae normal GENERAL EYE: appearance normal, both eyes and all related structures ALIGNMENT: Yes alignment normal PERIORBITAL: periorbital findings normal EYELID: eyelids normal CONJUNCTIVA: Yes conjunctivae normal SCLERA: sclerae normal PUPIL: Yes Equal, round and reactive pupils present Neck/C-Spine: COMMON NORMALS: full ROM, no lymphadenopathy, supple, no meningeal signs and no JVD GENERAL: Yes normal visual inspection and Yes trachea midline Chest: COMMONS NORMALS: normal inspection of the chest and normal palpation of entire chest wall Resp: COMMON NORMALS: normal respiratory effort, No retractions and No use of accessory muscles EFFORT & INSPECTION: Yes able to speak in complete sentences and Yes symmetric chest movement AUSCULTATION: no crackles, no rales, rhonchi, wheezes and breath sounds absent Cardio: COMMON NORMALS: no JVD, regular rate, regular rhythm, S1 normal heart sound present and S2 normal heart sound present RATE: regular rate RHYTHM: regular rhythm HEART SOUNDS: S1 normal heart sound present, S2 normal heart sound present, no click, no gallops, no murmurs, no rubs and abnormal split S2 GI: COMMON NORMALS: Soft to palpation and No hepatosplenomegaly present PALPATION: Yes Soft to palpation, No Tenderness to palpation present (GI), No Guarding due to palpation present (GI), No Rigid due to palpation, Yes No hepatosplenomegaly present, No Hernia present, No Palpable mass present and No Pulsatile mass present : COMMON NORMALS: Yes no CVA tenderness BLADDER/KIDNEY EXAM: Yes no CVA tenderness Back/Pelvis: COMMON NORMALS: no CVA tenderness, thoracic and lumbar spine normal to inspection, no thoracic nor lumbar tenderness and thoraco-lumbar ROM normal Extremity: COMMON NORMALS: normal to inspection, full ROM, capillary refill normal, no joint enlargement, no clubbing, cyanosis or edema and no calf tenderness Neuro: COMMON NORMALS: patient oriented x3, CN's II-XII intact bilaterally, moves all extremities, no focal motor deficits and no sensory deficits noted MENINGEAL SIGNS: Yes no meningeal signs SPEECH: speech normal Psych: COMMON NORMALS: mental status grossly normal, Normal thought process present, cooperative, normal affect, speech normal and activity/motor behavior normal APPEARANCE: Yes well kempt SPEECH: Yes normal speech THOUGHT PROCESS: Normal thought process present Skin: COMMON NORMALS: no rashes or lesions noted, turgor normal, no jaundice, no petechiae and no mottling GENERAL SKIN EXAM: no rashes or lesions noted and turgor normal Course ED course: 1428 -patient still stable on 2 L nasal cannula oxygen. He still has had no further hemoptysis. Still awaiting a bed number from [facility]. Vital Signs: Vital signs: Vital Signs Temperature 98.5 F 12/14/19 10:35 Pulse Rate 108 H 12/14/19 11:29 Respiratory Rate 20 H 08/09/20 09:31 Blood Pressure 143/96 12/14/19 08:47 Pulse Oximetry 98 12/14/19 11:29 MDM - SOB/Dyspnea MDM Narrative: Medical decision making narrative: 914 -Case reviewed with Dr. Mehta, she will discussed the case with Dr. Renee to determine if the patient is okay to keep at this hospital. 1245 -Dr. Renee here to see the patient. The patient has been weaned off of BiPAP and now is on 2 L nasal cannula oxygen. Patient had no further hemopty sis. 0115 - Dr. Renee has seen and evaluated the patient here in the ER. He has discussed the case with the alliance director at [facility] and he agrees to accept the patient in transfer. Dr. Renee would like the patient to have [employer] to reverse his Pradaxa. Lab Data: Attestation: I reviewed the patient's lab results. Labs: Lab Results 12/14/19 12/14/19 12/14/19 Range/Units 08:50 09:15 09:15 WBC 18.1 H (4.0-10.0) 10^3/ uL RBC 4.21 (4.1-5.3) 10^6/u L Hgb 13.2 (11.7-16.6) g/dL Hct 41.1 L (42.0-52.0) % MCV 97.6 H (80-94) fL MCH 31.4 (28.0-34.0) pg MCHC 32.1 (30.0-36.0) g/dL RDW 14.6 (12.1-15.1) % Plt Count 232 (130-400) 10^3/c mm MPV 9.8 (7.4-10.4) fL Neut % (Auto) 82.4 % Lymph % (Auto) 10.7 % Calhoun % (Auto) 5.1 % Eos % (Auto) 0.7 % Baso % (Auto) 0.6 % Neut # (Auto) 14.94 H (1.8-7.7) 10^3/u L Lymph # (Auto) 1.9 (0.8-4.8) 10^3/u L Calhoun # (Auto) 0.9 (0.2-0.9) 10^3/u L Eos # (Auto) 0.1 (0.0-0.8) 10^3/u L Baso # (Auto) 0.1 (0.0-0.1) 10^3/u L Nucleated RBC % (a uto) 0 % Nucleated RBCs # 0.0 /100WBC PT 17.50 H (12.1-14.9) SECO NDS INR 1.38 H (0.8-1.2) APTT 73.8 H (23.9-36.7) SECO NDS D-Dimer 2.54 H (0-0.59) ug/mIFE U Specimen Type Arterial Sample Site Radial, left ABG pH 7.44 (7.35-7.45) ABG pCO2 36.2 (35-45) mmHg ABG pO2 87.2 (80.0-100.0) mmH g ABG HCO3 24.4 (22-26) mmol/L ABG O2 Saturation 97.8 ABG Base Excess 0.5 (-2.0-2.0) mmol/ L Benjamin Test Pos A-a O2 Gradient 2.3 L (5-10) mmHg Hematocrit 41.6 L (42-52) % Hgb O2 Saturation 95.8 (95-100) % Carboxyhemoglobin 1.3 (0.4-20.1) %THgb Methemoglobin 0.7 (0.4-1.5) % Total Hemoglobin 13.6 L (14-18) g/dL Sodium 141.0 (131-143) mmol/L Potassium 4.0 (3.5-5.0) mmol/L Glucose 170.0 H (70-115) mg/dL Ionized Calcium 1.1 (1.1-1.4) mmol/L O2 Delivery Device Nc O2 Liters/Min 2.0 % [employer] Finisher ID [place] Chloride (98-107) mmol/L Carbon Dioxide (22-29) mmol/L Anion Gap (5-19) BUN (8-23) mg/dL Creatinine (0.7-1.2) mg/dL GFR Calculation Calculated Osmolal ity (285-295) mOsm/k g Lactic Acid (0.5-2.2) mmol/L Lactic Acid (Sepsi s) (0.5-2.2) mmol/L Calcium (8.5-10.5) mg/dL Magnesium (1.7-2.3) mg/dL Total Bilirubin (0.15-1.2) mg/dL AST (0-40) U/L ALT (0-41) U/L Alkaline Phosphata se (40-130) IU/L Troponin T Baselin e (0-15) ng/L Troponin T 120 Min [place] (0-15) ng/L Delta Troponin T (0-10) ABS# Total Protein (6.6-8.7) g/dL Albumin (3.5-5.2) g/dL Globulin (1.3-4.6) g/dL Urine Color (Yellow) Urine Appearance (CLEAR) Urine pH (5-7) Ur Specific Gravit y (1.005-1.030) Urine Protein (Negative) Urine Glucose (UA) (Normal) Urine Ketones (Negative) Urine Blood (Negative) Urine Nitrate (Negative) Urine Bilirubin (NEGATIVE) Urine Urobilinogen (Negative) mg/dL Ur Leukocyte Jacklyn ase (Negative) Urine RBC (0-2) /hpf Urine WBC (0-5) /hpf Ur Squamous Epith Cells (0-5) Amorphous Sediment Urine Bacteria (NONE) Influenza Type A A g (Negative) Influenza Type B A g (Negative) SARS-CoV-2 Ag (Rap id) (Negative) 12/14/19 12/14/19 12/14/19 Range/Units 09:15 09:15 09:15 WBC (4.0-10.0) 10^3/ uL RBC (4.1-5.3) 10^6/u L Hgb (11.7-16.6) g/dL Hct (42.0-52.0) % MCV (80-94) fL MCH (28.0-34.0) pg MCHC (30.0-36.0) g/dL RDW (12.1-15.1) % Plt Count (130-400) 10^3/c mm MPV (7.4-10.4) fL Neut % (Auto) % Lymph % (Auto) % Calhoun % (Auto) % Eos % (Auto) % Baso % (Auto) % Neut # (Auto) (1.8-7.7) 10^3/u L Lymph # (Auto) (0.8-4.8) 10^3/u L Cal[place]oun # (Auto) (0.2-0.9) 10^3/u L Eos # (Auto) (0.0-0.8) 10^3/u L Baso # (Auto) (0.0-0.1) 10^3/u L Nucleated RBC % (a uto) % Nucleated RBCs # /100WBC PT (12.1-14.9) SECO NDS INR (0.8-1.2) APTT (23.9-36.7) SECO NDS D-Dimer (0-0.59) ug/mIFE U Specimen Type Sample Site ABG pH (7.35-7.45) ABG pCO2 (35-45) mmHg ABG pO2 (80.0-100.0) mmH g ABG HCO3 (22-26) mmol/L ABG O2 Saturation ABG Base Excess (-2.0-2.0) mmol/ L Benjamin Test A-a O2 Gradient (5-10) mmHg Hematocrit (42-52) % Hgb O2 Saturation (95-100) % Carboxyhemoglobin (0.4-20.1) %THgb Methemoglobin (0.4-1.5) % Total Hemoglobin (14-18) g/dL Sodium 139 (131-143) mmol/L Potassium 4.4 (3.5-5.0) mmol/L Glucose 168 H (70-115) mg/dL Ionized Calcium (1.1-1.4) mmol/L O2 Delivery Device O2 Liters/Min % [employer] Finisher ID Chloride 101 (98-107) mmol/L Carbon Dioxide 25 (22-29) mmol/L Anion Gap 17.4 (5-19) BUN 27 H (8-23) mg/dL Creatinine 1.7 H (0.7-1.2) mg/dL GFR Calculation Not Reportable Calculated Osmolal ity 289 (285-295) mOsm/k g Lactic Acid 2.3 H (0.5-2.2) mmol/L Lactic Acid (Sepsi s) (0.5-2.2) mmol/L Calcium 9.4 (8.5-10.5) mg/dL Magnesium 1.8 (1.7-2.3) mg/dL Total Bilirubin 1.1 (0.15-1.2) mg/dL AST 25 (0-40) U/L ALT 17 (0-41) U/L Alkaline Phosphata se 100 (40-130) IU/L Troponin T Baselin e (0-15) ng/L Troponin T 120 Min [place] (0-15) ng/L Delta Troponin T (0-10) ABS# Total Protein 7.2 (6.6-8.7) g/dL Albumin 4.1 (3.5-5.2) g/dL Globulin 3.1 (1.3-4.6) g/dL Urine Color (Yellow) Urine Appearance (CLEAR) Urine pH (5-7) Ur Specific Gravit y (1.005-1.030) Urine Protein (Negative) Urine Glucose (UA) (Normal) Urine Ketones (Negative) Urine Blood (Negative) Urine Nitrate (Negative) Urine Bilirubin (NEGATIVE) Urine Urobilinogen (Negative) mg/dL Ur Leukocyte Jacklyn ase (Negative) Urine RBC (0-2) /hpf Urine WBC (0-5) /hpf Ur Squamous Epith Cells (0-5) Amorphous Sediment Urine Bacteria (NONE) Influenza Type A A g (Negative) Influenza Type B A g (Negative) SARS-CoV-2 Ag (Rap id) Negative (Negative) 12/14/19 12/14/19 12/14/19 Range/Units 09:15 09:15 09:42 WBC (4.0-10.0) 10^3/ uL RBC (4.1-5.3) 10^6/u L Hgb (11.7-16.6) g/dL Hct (42.0-52.0) % MCV (80-94) fL MCH (28.0-34.0) pg MCHC (30.0-36.0) g/dL RDW (12.1-15.1) % Plt Count (130-400) 10^3/c mm MPV (7.4-10.4) fL Neut % (Auto) % Lymph % (Auto) % Calhoun % (Auto) % Eos % (Auto) % Baso % (Auto) % Neut # (Auto) (1.8-7.7) 10^3/u L Lymph # (Auto) (0.8-4.8) 10^3/u L [place]oun # (Auto) (0.2-0.9) 10^3/u L Eos # (Auto) (0.0-0.8) 10^3/u L Baso # (Auto) (0.0-0.1) 10^3/u L Nucleated RBC % (a uto) % Nucleated RBCs # /100WBC PT (12.1-14.9) SECO NDS INR (0.8-1.2) APTT (23.9-36.7) SECO NDS D-Dimer (0-0.59) ug/mIFE U Specimen Type Sample Site ABG pH (7.35-7.45) ABG pCO2 (35-45) mmHg ABG pO2 (80.0-100.0) mmH g ABG HCO3 (22-26) mmol/L ABG O2 Saturation ABG Base Excess (-2.0-2.0) mmol/ L Benjamin Test A-a O2 Gradient (5-10) mmHg Hematocrit (42-52) % Hgb O2 Saturation (95-100) % Carboxyhemoglobin (0.4-20.1) %THgb Methemoglobin (0.4-1.5) % Total Hemoglobin (14-18) g/dL Sodium (131-143) mmol/L Potassium (3.5-5.0) mmol/L Glucose (70-115) mg/dL Ionized Calcium (1.1-1.4) mmol/L O2 Delivery Device O2 Liters/Min % [employer] Finisher ID Chloride (98-107) mmol/L Carbon Dioxide (22-29) mmol/L Anion Gap (5-19) BUN (8-23) mg/dL Creatinine (0.7-1.2) mg/dL GFR Calculation Calculated Osmolal ity (285-295) mOsm/k g Lactic Acid (0.5-2.2) mmol/L Lactic Acid (Sepsi s) (0.5-2.2) mmol/L Calcium (8.5-10.5) mg/dL Magnesium (1.7-2.3) mg/dL Total Bilirubin (0.15-1.2) mg/dL AST (0-40) U/L ALT (0-41) U/L Alkaline Phosphata se (40-130) IU/L Troponin T Baselin e 37 H (0-15) ng/L Troponin T 120 Min [place] (0-15) ng/L Delta Troponin T (0-10) ABS# Total Protein (6.6-8.7) g/dL Albumin (3.5-5.2) g/dL Globulin (1.3-4.6) g/dL Urine Color Yellow (Yellow) Urine Appearance Clear (CLEAR) Urine pH 7 (5-7) Ur Specific Gravit y 1.005 (1.005-1.030) Urine Protein Neg (Negative) Urine Glucose (UA) Norm (Normal) Urine Ketones Negative (Negative) Urine Blood Neg (Negative) Urine Nitrate Negative (Negative) Urine Bilirubin Neg (NEGATIVE) Urine Urobilinogen Norm (Negative) mg/dL Ur Leukocyte Jacklyn ase Negative (Negative) Urine RBC None (0-2) /hpf Urine WBC None (0-5) /hpf Ur Squamous Epith Cells None (0-5) Amorphous Sediment Not Reportable Urine Bacteria None (NONE) Influenza Type A A g Negative (Negative) Influenza Type B A g Negative (Negative) SARS-CoV-2 Ag (Rap id) (Negative) 12/14/19 12/14/19 Range/Units 11:11 12:23 WBC (4.0-10.0) 10^3/ uL RBC (4.1-5.3) 10^6/u L Hgb (11.7-16.6) g/dL Hct (42.0-52.0) % MCV (80-94) fL MCH (28.0-34.0) pg MCHC (30.0-36.0) g/dL RDW (12.1-15.1) % Plt Count (130-400) 10^3/c mm MPV (7.4-10.4) fL Neut % (Auto) % Lymph % (Auto) % Calhoun % (Auto) % Eos % (Auto) % Baso % (Auto) % Neut # (Auto) (1.8-7.7) 10^3/u L Lymph # (Auto) (0.8-4.8) 10^3/u L Cal[place]oun # (Auto) (0.2-0.9) 10^3/u L Eos # (Auto) (0.0-0.8) 10^3/u L Baso # (Auto) (0.0-0.1) 10^3/u L Nucleated RBC % (a uto) % Nucleated RBCs # /100WBC PT (12.1-14.9) SECO NDS INR (0.8-1.2) APTT (23.9-36.7) SECO NDS D-Dimer (0-0.59) ug/mIFE U Specimen Type Sample Site ABG pH (7.35-7.45) ABG pCO2 (35-45) mmHg ABG pO2 (80.0-100.0) mmH g ABG HCO3 (22-26) mmol/L ABG O2 Saturation ABG Base Excess (-2.0-2.0) mmol/ L Benjamin Test A-a O2 Gradient (5-10) mmHg Hematocrit (42-52) % Hgb O2 Saturation (95-100) % Carboxyhemoglobin (0.4-20.1) %THgb Methemoglobin (0.4-1.5) % Total Hemoglobin (14-18) g/dL Sodium (131-143) mmol/L Potassium (3.5-5.0) mmol/L Glucose (70-115) mg/dL Ionized Calcium (1.1-1.4) mmol/L O2 Delivery Device O2 Liters/Min % [employer] Finisher ID Chloride (98-107) mmol/L Carbon Dioxide (22-29) mmol/L Anion Gap (5-19) BUN (8-23) mg/dL Creatinine (0.7-1.2) mg/dL GFR Calculation Calculated Osmolal ity (285-295) mOsm/k g Lactic Acid (0.5-2.2) mmol/L Lactic Acid (Sepsi s) 1.6 (0.5-2.2) mmol/L Calcium (8.5-10.5) mg/dL Magnesium (1.7-2.3) mg/dL Total Bilirubin (0.15-1.2) mg/dL AST (0-40) U/L ALT (0-41) U/L Alkaline Phosphata se (40-130) IU/L Troponin T Baselin e (0-15) ng/L Troponin T 120 Min [place] 34.93 H (0-15) ng/L Delta Troponin T -2.07 L (0-10) ABS# Total Protein (6.6-8.7) g/dL Albumin (3.5-5.2) g/dL Globulin (1.3-4.6) g/dL Urine Color (Yellow) Urine Appearance (CLEAR) Urine pH (5-7) Ur Specific Gravit y (1.005-1.030) Urine Protein (Negative) Urine Glucose (UA) (Normal) Urine Ketones (Negative) Urine Blood (Negative) Urine Nitrate (Negative) Urine Bilirubin (NEGATIVE) Urine Urobilinogen (Negative) mg/dL Ur Leukocyte Jacklyn ase (Negative) Urine RBC (0-2) /hpf Urine WBC (0-5) /hpf Ur Squamous Epith Cells (0-5) Amorphous Sediment Urine Bacteria (NONE) Influenza Type A A g (Negative) Influenza Type B A g (Negative) SARS-CoV-2 Ag (Rap id) (Negative) Imaging Data^: CXR: Attestation: I personally reviewed and interpreted this imaging study as follows: My impression: Focal right upper lobe infiltrate consistent with pneumonia. EKG Data^: EKG 1: Attestation: I personally reviewed and interpreted this EKG as follows: EKG Interpretation Date: 12/14/19 EKG interpretation time: 09:29 Interpretation: Atrial fibrillation with intermittently paced beats. ST segment depressions in aVF, V4 through V6. EKG 2: Attestation: I personally reviewed and interpreted this EKG as follows: EKG Interpretation Date: 12/14/19 EKG interpretation time: 11:17 Interpretation: Ventricular paced rhythm at 117 beats a minute, underlying beat shows ST segment depression and T wave inversion consistent with previous Discharge Plan Discharge Patient Disposition: Xfer Short-Term Hosp Clinical Impression: Pulmonary hemorrhage, Chronic anticoagulation Pneumonia Qualifiers: Pneumonia type: due to unspecified organism Laterality: right Lung location: upper lobe of lung Qualified Code(s): J18.9 - Pneumonia, unspecified organism Condition: Stable Referrals: Tiff Mckinney MD [Primary Care Provider] - Coding Level of Care Code ED Strap Cutter for [facility] Fwd Exam Comprehensive
[2019-12-14] MEDS: ipratropium-albuterol 3 mL Neb 9 ML INHALATION (09:46)
[2019-12-14 09:47] LABS: INR 1.38 (0.8-1.2)
[2019-12-14] MEDS: piperacillin-tazobactam 3.375 GM in sodium chloride 0.9% (plus) 50 ML IV (09:47)
[2019-12-14 09:51] LABS: D Dimer 2.54 ug/mIFEU (0-0.59)
[2019-12-14 09:55] LABS: Partial Thromboplastin Time 73.8 SECONDS (23.9-36.7)
[2019-12-14 09:56] LABS: Alanine Aminotransferase 17 U/L (0-41); Albumin Level 4.1 g/dL (3.5-5.2); Alkaline Phosphatase 100 IU/L (40-130); Anion Gap 17.4 (5-19); Aspartate Amino Transferase 25 U/L (0-40); Blood Urea Nitrogen 27 mg/dL (8-23); Calcium 9.4 mg/dL (8.5-10.5); Carbon Dioxide 25 mmol/L (22-29); Chloride 101 mmol/L (98-107); Globulin 3.1 g/dL (1.3-4.6); Glucose 168 mg/dL (65-115); Magnesium 1.8 mg/dL (1.7-2.3); Osmolality Calculated 289 mOsm/kg (285-295); Potassium 4.4 mmol/L (3.5-5.1); Sodium 139 mmol/L (136-145); Total Bilirubin 1.1 mg/dL (0.15-1.2); Total Protein 7.2 g/dL (6.6-8.7)
[2019-12-14 09:56] LABS: Bilirubin Urine Neg (NEGATIVE); Blood Urine Neg (Negative); Glucose Urine UA Norm (Normal); Ketones Urine Negative (Negative); Leukocyte Esterase Urine Negative (Negative); Nitrate Urine Negative (Negative); Protein Urine Neg (Negative); Specific Gravity, Urine 1.005 (1.005-1.030); Urine Appearance Clear (CLEAR); Urine Color Yellow (Yellow); Urobilinogen Urine Norm (Negative); pH Urine 7 (5-7)
[2019-12-14 09:57] LABS: Lactic Sepsis W/Reflex 2.3 mmol/L (0.5-2.2)
[2019-12-14 09:57] LABS: Add Urine Culture? No
[2019-12-14 09:59] LABS: Troponin(5th) Baseline 37 ng/L (0-15)
[2019-12-14 10:15] LABS: Influenza A by IFA Negative (Negative); Influenza B by IFA Negative (Negative); SARS Covid-2 Antigen Negative (Negative)
[2019-12-14] MEDS: iodixanol 320 mg/mL 100mL Btl IV (10:37)
--- NOTE | 2019-12-14 10:47 | ECG_ITS ---
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 Measurements Intervals [place] Rate: 117 P: 250 WA: 192 QRS: 248 QRSD: 155 T: 70 QT: 406 QTc: 567 Interpretive Statements Atrial fibrillation ELECTRONIC VENTRICULAR PACEMAKER ABNORMAL RHYTHM ECG Compared to ECG 12/14/2019 09:29:46 Left-axis deviation no longer present Intraventricular conduction delay no longer present T-wave abnormality no longer present Possible ischemia no longer present Electronically Signed On 12-15-2019 16:44:44 CDT by Margot Cardenas M.D. [id number]
[2019-12-14 11:07] LABS: Reflex Lactate Order REFLEX LACTIC ORDERD
[2019-12-14 11:47] LABS: Troponin 5 2HR 34.93 ng/L (0-15)
[2019-12-14 11:50] LABS: Troponin 5 2HR Delta -2.07 ABS# (0-10)
[2019-12-14 12:49] LABS: Lactic Acid level (Lactate) 1.6 mmol/L (0.5-2.2)
--- NOTE | 2019-12-14 14:47 | ECG_ITS ---
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 Measurements Intervals [place] Rate: 102 P: 248 SC: 257 QRS: 249 QRSD: 164 T: 63 QT: 435 QTc: 567 Interpretive Statements ELECTRONIC VENTRICULAR PACEMAKER ABNORMAL RHYTHM ECG Compared to ECG 12/14/2019 11:17:15 No significant changes Electronically Signed On 12-15-2019 16:41:22 CDT by Margot Cardenas M.D. [id number]
[2019-12-14 15:47] LABS: Troponin 5 6HR 28.65 ng/L (0-15)
[2019-12-14 15:56] LABS: Troponin 5 6HR Delta -8.35 ng/L (0-12)
--- NOTE | 2019-12-15 10:11 | P.CONIM_ITS ---
Providers/Reason For Consult Consulting Physican/Specialty*: Dr. Barry/ ER Reason for Consult*: Hemoptysis with possible DAH in a pt on chronic anticoagulation Primary Care Provider: Tiff Mckinney MD History of Present Illness History of Present Illness 74-year-old Mr. Raj Vega came to the hospital ED with the chief complaint of hemoptysis since last night. Patient has past medical history of significant CAD with history of CABG few years ago chronic atrial fibrillation on Pradaxa. Last time for Pradaxa is yesterday night. Patient also had fever 102 they need any chest pain shortness of breath, palpitations, leg swelling. Patient was saturating 88 and was placed on BiPAP ABG looked normal on 2 L oxygen. Still coughing out about 10 mL/h. Imaging revealed diffuse right infiltrate/GGO's suggestive of pneumonia/DAH. Laboratory testing negative in the emergency room. ED consulted to see if patient can be managed or needs transfer out. Review of Systems General: Reports: 10 or more systems reviewed and unremarkable except in HPI and below Meds/Allergies Home Medications and Allergies Home Medications Medication Instructions Recorded Confirmed Last Taken Type alprazolam 0.25 mg tablet 0.25 mg PO BID PRN 06/01/19 12/14/19 Unknown History aspirin 81 mg tablet,delayed 81 mg PO DAILY 06/01/19 12/14/19 07/02/19 05:00 History release dabigatran etexilate 150 mg capsule 150 mg PO BID 06/01/19 12/14/19 06/29/19 19:30 History levothyroxine 100 mcg capsule 100 mcg PO DAILY 06/01/19 12/14/19 12/14/19 Hi story nitroglycerin 0.4 mg sublingual 0.4 mg SUBLINGUAL Q5M PRN 06/01/19 12/14/19 Unknown History tablet spironolactone 25 mg tablet 25 mg PO DAILY 06/01/19 12/14/19 07/02/19 05:00 History polysaccharide iron complex 150 mg PO DAILY 07/01/19 12/14/19 07/02/19 05:00 History [Ferrex 150] magnesium oxide 400 mg (241.3 mg 400 mg PO BID #180 tab 07/28/19 12/14/19 Unknown Rx magnesium) tablet carvedilol 25 mg tablet 37.5 mg PO BID #90 tab 08/26/19 12/14/19 Unknown Rx allopurinol 100 mg tablet 200 mg PO DAILY tab 11/28/19 12/14/19 Unknown History ketoconazole 2 % shampoo 1 applic TOPICAL .3 times weekly 12/03/19 12/14/19 Unknown Rx #120 ml ketoconazole 2 % topical cream 1 applic TOPICAL BID #60 gm 12/03/19 12/14/19 Unknown Rx pantoprazole 20 mg tablet,delayed 20 mg PO DAILY 12/03/19 12/14/19 12/14/19 History release Crestor 10 mg PO DAILY 12/14/19 12/14/19 Unknown History L.acidoph,saliva-B.bif-S.therm 1 cap PO DAILY 12/14/19 12/14/19 Unknown History [Acidophilus Probiotic Blend] torsemide See Rx Instructions .ROUTE .COMPLEX 12/14/19 12/14/19 Unknown History Allergies Allergy/AdvReac Type Severity Reaction Status Date / Time metoclopramide [From Reglan] Allergy Unknown unknown Verified 09/30/19 08:13 pseudoephedrine Allergy Unknown nausea Verified 09/30/19 08:13 potassium Allergy ALGY-Rash Verified 09/30/19 08:13 prednisone Allergy Rash Verified 12/03/19 09:14 PFSH Acute PFSH: Medical History Arthritis Atherosclerotic heart disease of [place] coronary artery with other forms of angina pectoris Atrial fibrillation Cardiomyopathy Chronic kidney disease GERD (gastroesophageal reflux disease) History of malignant melanoma Hyperlipidemia Hyperparathyroidism Hypothyroid Pacemaker Pleural effusion Surgical History Hx of CABG Hx of cholecystectomy S/P removal of parathyroid gland Family History Other Cancer Stroke Social History Smoking and tobacco status: never smoked Alcohol intake: never Vitals/I&O/Wt Last Vital Signs Temp 98.5 F 12/14/19 10:35 Pulse 80 12/14/19 15:19 Resp 12 12/14/19 15:19 BP 143/70 12/14/19 15:19 Pulse Ox 97 12/14/19 15:19 Weight last 48 hrs Weight 220 lb Physical Exam Narrative: EXAM NARRATIVE: Physical exam: General: alert, NAD, on 2L NC HEENT: conj clear, EOMI, PERRL, mmm, Neck: supple, no meningismus Heme: no cervical LAP Pulmonary: CTAB, no wheezing, rhonchi, crackles Cardiovascular: rrr, nl s1s2, no mrg Abdomen: soft, nt, nd, no r/g, bs+ Extremities: pulses +, no edema, no c/c : no CVA tenderness MSK: no back or neck pain Neurologic: grossly intact Data Micro: Micro: Microbiology 12/14/19 09:18 Blood Culture - Pr eliminary Blood NEGATIVE TO FABIOLA E 12/14/19 09:15 Blood Culture - Pr eliminary Blood NEGATIVE TO FABIOLA E 12/14/19 09:15 Gram Stain - Final Sputum - Expector ated Sputum Sputum Culture - P reliminary A&P Assessment and plan (1) Pulmonary hemorrhage: Status: Acute (2) Chronic anticoagulation: Status: Acute (3) Pneumonia: Status: Acute Qualifiers: Laterality: right Lung location: upper lobe of lung Pneumonia type: due to unspecified organism Qualified Code(s): J18.9 - Pneumonia, unspecified organism Assessment and recommendations: #Hemoptysis likely secondary to pneumonia in patient who is on chronic anticoagulation # Pneumonia Imaging showed diffuse right lung GGO/infiltrate suggestive of pneumonia/DAH. Held Pradaxa; recommended ED physician to reverse Pradaxa For now patient is not in acute respiratory distress-saturating 97 on 2 L oxygen. Still coughing up 10 mL every hour. If hemoptysis worsens, given recent anticoagulation and half-life of Pradaxa 12-17 hours, compromising airway and leading to patient desaturation then pt needs emergency intubation with bronchial blockers or bronchial artery embolization. Safe to observe patient in an ICU setting with advanced interventions available. Personally spoke to [facility] and he agreed to accept the patient to their ICU. Also started on Zosyn to cover for pneumonia. Recommendations conveyed to ED physician. Consult Attestations Medical Necessity Statement: Hemoptysis in pt. on chronic anticoagulation and with possibel DAH Time Spent in Patient Care: Greater than 35 minutes (>than 50% of time spent in counselling and/or direct pt care on unit) . Critical Care Time: Critical Care Time (min): 45 Coding Level of Care Code New Pt Acute Exhaust Emissions Inspector for Chg Fwd Patient Type New History Detailed Exam Comprehensive Medical Decision Making High Complexity Diagnoses Pulmonary hemorrhage R04.89 Chronic anticoagulation Z79.01 Pneumonia J18.9 Laterality: right Lung location: upper lobe of lung Pneumonia type: due to unspecified organism Time Spent (min) 45
== END 2019-12-14 15:20 | disposition short-term general hospital (02) ==
PROVIDERS: Emergency Provider Emergency Medicine; PCP Family Medicine
DX: R04.89 Hemorrhage from other sites in respiratory passages (principal); J18.9 Pneumonia, unspecified organism; Z79.01 Long term (current) use of anticoagulants; I48.91 Unspecified atrial fibrillation; E78.5 Hyperlipidemia, unspecified; Z95.0 Presence of cardiac pacemaker; Z95.1 Presence of aortocoronary bypass graft
CPT/HCPCS: 12345; 36415; 36600; 71045; 71275; 80051; 80053; 81001; 82810; 83605; 83735; 83986; 84484; 85025; 85378; 85610; 85730; 87040; 87070; 87205; 87426; 87804; 93005; 94640; 96365; 96375; 99283; 99291; J0131; J2543; J2930; J7030; Q9967

== ENCOUNTER 2020-01-06 15:32 | Outpatient (CLI) | payer MEDICARE, BC, SELFPAY ==
--- NOTE | 2020-01-06 15:43 | XR_ITS ---
WS: [id number] ABDOMEN SERIES Supine and upright views of the abdomen CLINICAL INFORMATION: RIGHT LOWER QUADRANT PAIN COMPARISON: None. FINDINGS: Cholecystectomy clips. Osteopenia. Partially visualized cardiac pacer. Mild fecal retention in the ri ght colon and cecum. Lumbar curve convex left. Sternotomy. No free air on the upright view. A few air -fluid levels in small bowel on the upright view.. XR/XR abdomen min 2V [id number] IMPRESSION: 1. Mild constipation right colon and cecum. 2. No free air on the upright view. 3. A few air-fluid levels in small bowel in the upright view. No significant b owel distention. 4. Cholecystectomy clips.
== END 2020-01-06 15:33 | disposition home or self-care (01) ==
LOC: RADWPI 15:36
PROVIDERS: Family Provider Family Medicine; PCP Family Medicine; Visit Provider Nurse Practitioner Family
DX: R10.31 Right lower quadrant pain (principal); K59.00 Constipation, unspecified
CPT/HCPCS: 74019

== ENCOUNTER → 2021-07-18 09:27 | Outpatient (BNVA) | payer MEDICARE, BC, OTHER, SELFPAY | PROVIDERS: Family Provider Family Medicine; PCP Family Medicine; Visit Provider Internal Medicine Cardiovascular Disease | DX: E11.42 Type 2 diabetes mellitus with diabetic polyneuropathy (principal); I25.118 Atherosclerotic heart disease of native coronary artery with other forms of angina pectoris; I48.91 Unspecified atrial fibrillation; I25.5 Ischemic cardiomyopathy | CPT/HCPCS: 99214 ==

== ENCOUNTER → 2021-08-26 08:30 | Outpatient (BNVA) | payer MEDICARE, BC, OTHER, SELFPAY | PROVIDERS: Family Provider Family Medicine; PCP Family Medicine; Visit Provider Internal Medicine Cardiovascular Disease | DX: Z45.02 Encounter for adjustment and management of automatic implantable cardiac defibrillator (principal) | CPT/HCPCS: 93284 ==

== ENCOUNTER → 2021-11-25 08:50 | Outpatient (BNVA) | payer MEDICARE, BC, OTHER, SELFPAY | PROVIDERS: Family Provider Family Medicine; PCP Family Medicine; Visit Provider Internal Medicine Cardiovascular Disease | DX: Z45.02 Encounter for adjustment and management of automatic implantable cardiac defibrillator (principal) | CPT/HCPCS: 93284 ==

== ENCOUNTER 2022-01-13 08:57 | Emergency (ER) | payer MEDICARE, OTHER, BC, SELFPAY ==
--- NOTE | 2022-01-13 08:58 | XR_ITS ---
WS: [id number] Chest 2 views, 01/13/2022 Clinical Data: short of breath Comparison: Portable chest, 12/14/2019. Findings: No nodules or masses are seen. There is a minimal patchy opacity in the right upper lobe wh ich could represent minimal pneumonia. There is a right pleural effusion with atelectasis over the [place] rface of the right diaphragm. The heart is mildly enlarged. The pulmonary vascularity is not increase d. No pneumonia or pneumothorax is seen. Midline sternotomy sutures are present. There is a permanent pacemaker in good position with the generator overlying the left lateral chest. XR/XR chest 2V* [id number] Impression: 1. Atherosclerosis and cardiomegaly. 2. Minimal patchy right upper lobe opacity which may represent pneumonia. 3. Small right pleural effusion with linear atelectasis or surface of right sharon phragm.
[2022-01-13 09:00] VITALS: BP 113/75; PULSE 101; RESP 20; TEMP 36.1; O2SAT 94; BMI 30.1
--- NOTE | 2022-01-13 09:15 | W.ED.SOB ---
HPI - SOB/Dyspnea General: Chief Complaint: Shortness of Breath/Dyspnea Stated Complaint: SOB Time Seen by Provider: 01/13/22 09:15 Source: patient Mode of arrival: ambulatory Limitations: no limitations History of Present Illness: HPI Narrative: 76-year-old male presents emergency room complaining of shortness of breath. Patient states he is chronically short of breath he had bypass surgery in 2014 he states it began then. Patient has severe cardio myopathy and has an ICD in place.Angiogram done in 2019 showed bypass grafts were still patent had severe stenosis of [place] coronary arteries. Angiogram done at that time was due to increasing shortness of breath and fatigue. Patient is stating that today his symptoms seem to worsen some. He did not take any sublingual nitro. He denies any vomiting or diarrhea has not had any orthopnea. MD elicited complaint: shortness of breath Pertinent past history: congestive heart failure Onset (ago): minute(s) Timing: constant Severity: mild Exacerbating factors: nothing Relieving factors: nothing Associated symptoms: Reports chest pain; Deny abdominal pain, chest congestion, cough, diaphoresis, dizziness, extremity pain, fever(s), hemoptysis, lightheadedness, myalgias, nausea, orthopnea, palpitations, paresthesias, polydipsia, polyuria, rash, sense of impending doom, syncope or vomiting Treatment prior to arrival: none Review of Systems Const: Denies: fever(s), chills or diaphoresis ENMT: Denies: throat pain, ear or mastoid pain, nasal discharge or nasal congestion Card: Reports: chest pain; Denies: palpitations, lightheadedness, syncope or orthopnea Resp: Denies: hemoptysis or chest congestion GI: Denies: abdominal pain, nausea or vomiting : Denies: flank pain, dysuria, urinary frequency or urinary urgency Musc: Denies: neck pain, back pain, extremity pain or extremity swelling Skin/Breast: Denies: rash or pruritus Neuro: Denies: dizziness Endo: Denies: polyuria or polydipsia PFSH ED PFSH: Medical History Arthritis Atherosclerotic heart disease of [place] coronary artery with other forms of angina pectoris Atrial fibrillation Cardiomyopathy Chronic kidney disease GERD (gastroesophageal reflux disease) Hematuria History of malignant melanoma Hyperlipidemia Hyperparathyroidism Hypothyroid Pacemaker Pleural effusion Surgical History Hx of CABG Hx of cholecystectomy S/P removal of parathyroid gland Family History Mother Cancer Father Stroke Denies family history of Diabetes CAD (coronary artery disease) Clotting disorder Dementia Chronic kidney disease (CKD) Suicide Anesthesia complication Bleeding disorder Lung disease Social History Smoking and tobacco status: never smoked Alcohol intake: never Physical Exam Const: GENERAL APPEARANCE: cooperative and comfortable ORIENTATION/CONSCIOUSNESS: Yes awake, Yes oriented to person, Yes oriented to place and Yes oriented to time HENMT: COMMON NORMALS: normocephalic, atraumatic and hearing grossly normal bilaterally HEAD & SCALP: normocephalic and atraumatic Resp: COMMON NORMALS: normal respiratory effort, No retractions, No use of accessory muscles and clear to auscultation bilaterally AUSCULTATION: clear to auscultation bilaterally Cardio: COMMON NORMALS: regular rate, regular rhythm and No murmurs present (Cardio) RATE: regular rate RHYTHM: regular rhythm GI: COMMON NORMALS: Soft to palpation and No hepatosplenomegaly present AUSCULTATION: Yes normoactive bowel sounds PALPATION: Yes Soft to palpation, No Tenderness to palpation present (GI), No Guarding due to palpation present (GI) and Yes No hepatosplenomegaly present Extremity: COMMON NORMALS: normal to inspection, capillary refill normal, no clubbing, cyanosis or edema, no calf tenderness and no pedal edema Neuro: SENSORIUM/ORIENTATION: Yes oriented to person, Yes oriented to place and Yes oriented to time Skin: COMMON NORMALS: no rashes or lesions noted GENERAL SKIN EXAM: no rashes or lesions noted Course Vital Signs: Vital signs: Vital Signs Temperature 97.0 F L 01/13/22 09:00 Pulse Rate 90 01/13/22 14:26 Respiratory Rate 17 01/13/22 14:26 Blood Pressure 120/81 01/13/22 13:41 Pulse Oximetry 96 01/13/22 14:26 Oxygen Delivery Me thod 01/13/22 13:41 MDM - SOB/Dyspnea Medical Decision Making Patient has severe cardiomyopathy has end-stage renal disease labs imaging and EKG reviewed as found in the chart. Patient had angiogram in 2019 which they found no new lesions no lesions amenable to intervention and recommended medical management. Patient asymptomatic at this time discharge home follow-up with cardiology as soon as he is able. Suspect his shortness of breath is due to hisIschemic cardiomyopathy and congestive heart failure. Medical Records I reviewed the patient's medical records. Lab Data I reviewed the patient's lab results. : 01/13/22 09:40 01/13/22 09:40 Labs/Radiology: Radiology Impressions Chest X-Ray 01/13/22 08:58 Impression: 1. Atherosclerosis and cardiomegaly. 2. Minimal patchy right upper lobe opacity which may represent pneumonia. 3. Small right pleural effusion with linear atelectasis or surface of right diaphragm. Laboratory Results WBC 12.6 10^3/uL (4.0-10.0) H 01/13/22 09:40 RBC 4.34 10^6/uL (4.1-5.3) 01/13/22 09:40 Hgb 14.4 g/dL (11.7-16.6) 01/13/22 09:40 Hct 42.5 % (42.0-52.0) 01/13/22 09:40 MCV 97.9 fl (80-94) H 01/13/22 09:40 MCH 33.2 pg (28.0-34.0) 01/13/22 09:40 MCHC 33.9 g/dL (30.0-36.0) 01/13/22 09:40 RDW 13.9 % (12.1-15.1) 01/13/22 09:40 Plt Count 164 10^3/cmm (130-400) 01/13/22 09:40 MPV 10.6 fL (7.4-10.4) H 01/13/22 09:40 Neut % (Auto) 71.7 % 01/13/22 09:40 Lymph % (Auto) 20.0 % 01/13/22 09:40 [place] % (Auto) 6.3 % 01/13/22 09:40 Eos % (Auto) 0.7 % 01/13/22 09:40 Baso % (Auto) 0.8 % 01/13/22 09:40 Neut # (Auto) 9.07 10^3/uL (1.8-7.7) H 01/13/22 09:40 Lymph # (Auto) 2.5 10^3/uL (0.8-4.8) 01/13/22 09:40 [place] # (Auto) 0.8 10^3/uL (0.2-0.9) 01/13/22 09:40 Eos # (Auto) 0.1 10^3/uL (0.0-0.8) 01/13/22 09:40 Baso # (Auto) 0.1 10^3/uL (0.0-0.1) 01/13/22 09:40 Nucleated RBC % (auto) 0 % 01/13/22 09:40 Nucleated RBCs # 0.0 /100WBC 01/13/22 09:40 Sodium 132 mmol/L (136-145) L 01/13/22 09:40 Potassium 4.2 mmol/L (3.5-5.1) 01/13/22 09:40 Chloride 98 mmol/L (98-107) 01/13/22 09:40 Carbon Dioxide 19 mmol/L (22-29) L 01/13/22 09:40 Anion Gap 19.2 (5-19) H 01/13/22 09:40 BUN 32 mg/dL (8-23) H 01/13/22 09:40 Creatinine 1.5 mg/dL (0.7-1.2) H 01/13/22 09:40 GFR Calculation Not Reportable 01/13/22 09:40 Glucose 257 mg/dL (65-115) H 01/13/22 09:40 Calculated Osmolality 290 mOsm/kg (285-295) 01/13/22 09:40 Calcium 9.2 mg/dL (8.5-10.5) 01/13/22 09:40 Total Bilirubin 1.1 mg/dL (0.15-1.2) 01/13/22 09:40 AST 25 U/L (0-40) 01/13/22 09:40 ALT 19 U/L (0-41) 01/13/22 09:40 Alkaline Phosphatase 107 U/L (40-130) 01/13/22 09:40 Troponin T Baseline 28 ng/L (0-15) H 01/13/22 09:40 Troponin T 120 Minute 27.44 ng/L (0-15) H 01/13/22 11:45 Delta Troponin T -0.56 ABS# (0-10) L 01/13/22 11:45 NT-Pro-B Natriuret Pep 2063 pg/mL (0-450) H 01/13/22 09:40 Total Protein 7.1 g/dL (6.6-8.7) 01/13/22 09:40 Albumin 4.0 g/dL (3.5-5.2) 01/13/22 09:40 Globulin 3.1 g/dL (1.3-4.6) 01/13/22 09:40 Discharge Plan Discharge Patient Disposition: Home Clinical Impression: Cardiomyopathy, Congestive heart failure Condition: Stable Prescriptions: No Action alprazolam 0.25 mg tablet 0.25 mg PO BID PRN (Reason: Anxiety) nitroglycerin [Nitrostat] 0.4 mg tablet, sublingual 0.4 mg SUBLINGUAL Q5M PRN (Reason: Pain) pantoprazole [Protonix] 20 mg tablet,delayed release (DR/EC) 20 mg PO DAILY levothyroxine 112 mcg tablet 125 mcg PO DAILY allopurinol 100 mg tablet 200 mg PO DAILY carvedilol 25 mg tablet See Rx Instructions .ROUTE .COMPLEX Qty: 270 3RF Dose Instruction: TAKE 1&1/2 BY MOUTH TWICE DAILY Rx Instructions: TAKE 1&1/2 BY MOUTH TWICE DAILY Eliquis 5 mg tablet 5 mg PO BID torsemide 20 mg tablet See Rx Instructions .ROUTE .COMPLEX Qty: 270 2RF Dose Instruction: TAKE 2 TABLETS BY MOUTH EVERY MORNING alternating with FOUR EVERY MORNING EVERY OTHER DAY Rx Instructions: TAKE 2 TABLETS BY MOUTH EVERY MORNING alternating with FOUR EVERY MORNING EVERY OTHER DAY polysaccharide iron complex [Ferrex 150] 150 mg iron Capsule 150 mg PO DAILY L.acidoph,saliva-B.bif-S.therm [Acidophilus Probiotic Blend] 175 mg Capsule 1 cap PO DAILY albuterol sulfate 2.5 mg /3 mL (0.083 %) solution for nebulization 2.5 mg inhalation QID PRN (Reason: Shortness Of Breath Or Wheezing) magnesium oxide 400 mg (241.3 mg magnesium) tablet 400 mg PO BID rosuvastatin 10 mg tablet 10 mg PO BEDTIME Discharge Orders: Discharge ED (Routine); Ordered 01/13/22 Ordered By: Eduard Oseguera Referrals: Tiff Mckinney MD [Primary Care Provider] - Patient Instructions: Opioid Safety Activity Restrictions/Additional Instructions: Follow-up with cardiology as soon as you are able to schedule an appointment. Coding Level of Care Code ED Special Forces Engineer Sergeant for Chg Fwd Exam Detailed
--- NOTE | 2022-01-13 09:24 | ECG_ITS ---
[facility] Test Date: 2022-01-13 Pat Name: Raj Vega Department: Room: Gender: Male Insurance Account Representative: : 1945 Requested By: Eduard Lance Order Number: [id number] Cain MD: Elio Santos M.D. Measurements Intervals [place] Rate: 91 P: MO: QRS: 12 QRSD: 175 T: 251 QT: 439 QTc: 540 Interpretive Statements ELECTRONIC VENTRICULAR PACEMAKER -- CONTOUR ANALYSIS BASED ON INTRINSIC RHYTHM INTRAVENTRICULAR CONDUCTION DELAY [130+ ms QRS DURATION] Compared to ECG 12/14/2019 14:51:45 Intraventricular conduction delay now present Electronically Signed On 01-13-2022 14:26:21 CDT by Elio Santos M.D. [email or web address] ([email or web address]) [email or web address] va medical centerRainier Softwarekettering health preble.Undesk/store/OM/[id number]
[2022-01-13 09:35] VITALS: BP 129/80; PULSE 84; RESP 18; O2SAT 96
--- NOTE | 2022-01-13 09:41 | PC.PHAR ---
PT AND HIS STATE DR HAS PLACED SPIRONOLACTONE 25MG DAILY ON HOLD STARTING 01/10/22
[2022-01-13 09:49] LABS: Basophils # 0.1 10^3/uL (0.0-0.1); Basophils % 0.8 %; Eosinophils # 0.1 10^3/uL (0.0-0.8); Eosinophils % 0.7 %; Hematocrit 42.5 % (42.0-52.0); Hemoglobin 14.4 g/dL (11.7-16.6); Lymphocytes # 2.5 10^3/uL (0.8-4.8); Mean Corpuscular HGB Conc 33.9 g/dL (30.0-36.0); Mean Corpuscular Hemoglobin 33.2 pg (28.0-34.0); Mean Corpuscular Volume 97.9 fl (80-94); Mean Platelet Volume 10.6 fL (7.4-10.4); Monocytes # 0.8 10^3/uL (0.2-0.9); Monocytes % 6.3 %; Neutrophils # 9.07 10^3/uL (1.8-7.7); Neutrophils % 71.7 %; Nucleated Red Blood Cells % 0 %; Platelet Count 164 10^3/cmm (130-400); Red Blood Count 4.34 10^6/uL (4.1-5.3); Red Cell Distribution Width 13.9 % (12.1-15.1); White Blood Count 12.6 10^3/uL (4.0-10.0)
[2022-01-13 10:19] LABS: Troponin(5th) Baseline 28 ng/L (0-15)
[2022-01-13 10:26] LABS: Alanine Aminotransferase 19 U/L (0-41); Alkaline Phosphatase 107 U/L (40-130); Blood Urea Nitrogen 32 mg/dL (8-23); Calcium 9.2 mg/dL (8.5-10.5); Carbon Dioxide 19 mmol/L (22-29); Chloride 98 mmol/L (98-107); Globulin 3.1 g/dL (1.3-4.6); Glucose 257 mg/dL (65-115); NT Pro B Type Natriuretic Pept 2063 pg/mL (0-450); Osmolality Calculated 290 mOsm/kg (285-295); Sodium 132 mmol/L (136-145); Total Bilirubin 1.1 mg/dL (0.15-1.2); Total Protein 7.1 g/dL (6.6-8.7)
[2022-01-13 10:28] LABS: Anion Gap 19.2 (5-19); Aspartate Amino Transferase 25 U/L (0-40); Potassium 4.2 mmol/L (3.5-5.1)
[2022-01-13 11:49] VITALS: BP 110/81; PULSE 90; RESP 21; O2SAT 94
[2022-01-13 12:13] LABS: Troponin 5 2HR 27.44 ng/L (0-15)
[2022-01-13 12:16] LABS: Troponin 5 2HR Delta -0.56 ABS# (0-10)
[2022-01-13 13:41] VITALS: BP 120/81; PULSE 81; RESP 18; O2SAT 98
[2022-01-13 13:56] VITALS: O2SAT 94; O2SAT 95
[2022-01-13 14:26] VITALS: PULSE 90; RESP 17; O2SAT 96
== END 2022-01-13 14:29 | disposition home or self-care (01) ==
PROVIDERS: Physician Assistant; Emergency Provider Family Medicine; PCP Family Medicine
DX: I42.9 Cardiomyopathy, unspecified (principal); I11.0 Hypertensive heart disease with heart failure; I50.9 Heart failure, unspecified; Z79.01 Long term (current) use of anticoagulants; I25.10 Atherosclerotic heart disease of native coronary artery without angina pectoris; E78.5 Hyperlipidemia, unspecified; Z95.0 Presence of cardiac pacemaker; Z95.1 Presence of aortocoronary bypass graft
CPT/HCPCS: 71046; 80053; 83880; 84484; 85025; 93005; 94760; 99285

== ENCOUNTER → 2022-01-19 09:16 | Outpatient (BNVA) | payer MEDICARE, OTHER, BC, SELFPAY | PROVIDERS: PCP Family Medicine; Visit Provider Nurse Practitioner Family | DX: I50.9 Heart failure, unspecified (principal); Z95.0 Presence of cardiac pacemaker; I25.118 Atherosclerotic heart disease of native coronary artery with other forms of angina pectoris; I48.91 Unspecified atrial fibrillation; Z79.01 Long term (current) use of anticoagulants; Z95.1 Presence of aortocoronary bypass graft | CPT/HCPCS: 93284; 99214 ==

== ENCOUNTER → 2022-01-31 07:45 | Outpatient (BNVA) | payer MEDICARE, OTHER, BC, SELFPAY | PROVIDERS: PCP Family Medicine; Visit Provider Podiatrist Foot & Ankle Surgery | DX: E11.8 Type 2 diabetes mellitus with unspecified complications (principal); I73.9 Peripheral vascular disease, unspecified; L60.3 Nail dystrophy | CPT/HCPCS: 11721 ==

== ENCOUNTER → 2022-02-21 12:35 | Outpatient (BNVA) | payer MEDICARE, BC, OTHER, SELFPAY | PROVIDERS: PCP Family Medicine; Visit Provider Internal Medicine Cardiovascular Disease | DX: R06.02 Shortness of breath (principal); I42.9 Cardiomyopathy, unspecified; I48.91 Unspecified atrial fibrillation; I50.9 Heart failure, unspecified; I25.118 Atherosclerotic heart disease of native coronary artery with other forms of angina pectoris; Z95.0 Presence of cardiac pacemaker; E78.2 Mixed hyperlipidemia; E03.9 Hypothyroidism, unspecified; N18.30 Chronic kidney disease, stage 3 unspecified | CPT/HCPCS: 36415; 80048; 83880; 99214 ==

== ENCOUNTER → 2022-03-03 09:02 | Outpatient (BNVA) | payer MEDICARE, BC, OTHER, SELFPAY | PROVIDERS: PCP Family Medicine; Visit Provider Internal Medicine Cardiovascular Disease | DX: Z45.02 Encounter for adjustment and management of automatic implantable cardiac defibrillator (principal) | CPT/HCPCS: 93284 ==

== ENCOUNTER → 2022-03-09 09:44 | Outpatient (BNVA) | payer MEDICARE, BC, OTHER, SELFPAY | PROVIDERS: PCP Family Medicine; Visit Provider Nurse Practitioner Family | DX: I50.9 Heart failure, unspecified (principal); I42.9 Cardiomyopathy, unspecified; E78.5 Hyperlipidemia, unspecified | CPT/HCPCS: 36415; 80048; 83880; 99214 ==

== ENCOUNTER → 2022-03-23 09:46 | Outpatient (BNVA) | payer MEDICARE, BC, OTHER, SELFPAY | PROVIDERS: PCP Family Medicine; Visit Provider Nurse Practitioner Family | DX: I50.9 Heart failure, unspecified (principal); I42.9 Cardiomyopathy, unspecified; Z95.810 Presence of automatic (implantable) cardiac defibrillator | CPT/HCPCS: 93284; 99213 ==

== ENCOUNTER 2022-03-25 17:43 | Inpatient (IN) | payer MEDICARE, OTHER, BC, SELFPAY ==
[2022-03-25] VITALS (46 sets, daily range): BP systolic 64–133; BP diastolic 52–92; PULSE 78–210; RESP 12–32; TEMP 36.8; O2SAT 95–98; BMI 33.3
--- NOTE | 2022-03-25 17:59 | XRR_ITS ---
PROCEDURE INFORMATION: Exam: XR Chest Exam date and time: 03/25/2022 7:06 PM Age: 77 years old Clinical indication: Dyspnea TECHNIQUE: Imaging protocol: Radiologic exam of the chest. Views: 1 view. COMPARISON: CT angio chest PE protcl [id number] 12/14/2019 10:30 AM FINDINGS: Tubes, catheters and devices: Stable left pacemaker. Lungs: Resolution of previously noted severe right upper lobe pneumonia. Stable COPD . Pleural spaces: Unremarkable. No pleural effusion. No pneumothorax. Heart/Mediastinum: Unremarkable. No cardiomegaly. Bones/joints: Stable sternotomy. XR/XR chest 1V portable [id number] IMPRESSION: 1. Resolution of previously noted severe right upper lobe pneumonia. 2. Stable COPD .
--- NOTE | 2022-03-25 17:59 | ECG_ITS ---
[facility] Test Date: 2022-03-25 Pat Name: Raj Vega Department: Room: Gender: Male Financial Market Dealer: : 1945 Requested By: Cal Slater Order Number: [id number] Cain MD: Elio Santos M.D. Measurements Intervals [place] Rate: 98 P: 0 MD: 0 QRS: 266 QRSD: 172 T: 80 QT: 419 QTc: 535 Interpretive Statements ELECTRONIC VENTRICULAR PACEMAKER Compared to ECG 01/13/2022 09:24:43 Intraventricular conduction delay no longer present Electronically Signed On 03-27-2022 18:20:37 TOOL/DIE MAKER by Elio Santos M.D. [email or web address] Commerce/store/[id number] f
--- NOTE | 2022-03-25 18:00 | ECG_ITS ---
[facility] Test Date: 2022-03-25 Pat Name: Raj Vega Department: Room: Gender: Male Stagecraft Teacher: : 1945 Requested By: Cal Slater Order Number: [id number] Cain MD: Elio Santos M.D. Measurements Intervals [place] Rate: 219 P: 0 MO: 0 QRS: 99 QRSD: 253 T: -68 QT: 307 QTc: 587 Interpretive Statements VENTRICULAR TACHYCARDIA Compared to ECG 01/13/2022 09:24:43 VENTRICULAR TACHYCARDIA IS NOW PRESENT Electronically Signed On 03-27-2022 18:21:50 CONTROL ANALYST by Elio Santos M.D. [email or web address] Capitalfranklin county memorial hospitalSST Inc. (Formerly [employer])nationwide children's hospitalSalesGossip/store/NU/[id number] f
[2022-03-25 18:09] LABS: Basophils % 1.2 %; Eosinophils % 1.7 %; Hematocrit 41.7 % (42.0-52.0); Hemoglobin 13.5 g/dL (11.7-16.6); Lymphocytes # 1.6 10^3/uL (0.8-4.8); Lymphocytes % 65.6 %; Mean Corpuscular HGB Conc 32.4 g/dL (30.0-36.0); Mean Corpuscular Volume 98.8 fl (80-94); Monocytes # 0.2 10^3/uL (0.2-0.9); Monocytes % 6.6 %; Neutrophils % 24.1 %; Nucleated Red Blood Cells % 0 %; Platelet Count 158 10^3/cmm (130-400); Red Blood Count 4.22 10^6/uL (4.1-5.3); Red Cell Distribution Width 13.3 % (12.1-15.1); White Blood Count 2.4 10^3/uL (4.0-10.0)
--- NOTE | 2022-03-25 18:20 | PC.NURSE ---
Pt arrives via EMS, pacemaker malfunctioning. Pt states he was shocked 7 times before arrival. EMS attempted cardioversion as pt HR was 210. Pt arrived to ER in [place], HR 223. Pt was given 6 adenosine 1746. Pt was given 12 adenosine 175. Pt was given 150mg amiodarone 175. Pt converted to normal sinus rhythm, HR 83.
[2022-03-25 18:21] LABS: Partial Thromboplastin Time 51.7 SECONDS (23.9-36.7)
--- NOTE | 2022-03-25 18:23 | W.ED.ARRPALP ---
Documented by User: Cal Mckenzie MD 03/25/22 18:32 HPI - Arrhythmia/Palpitations General: Chief Complaint: Arrhythmia/Palpitations Stated Complaint: ELEVATED HEART RATE Time Seen by Provider: 03/25/22 17:59 Source: patient and EMS Mode of arrival: EMS Limitations: other (Moderate malaise) History of Present Illness: See nursing assessment. Patient presents with severe tachycardia and general malaise and mild shortness of breath. States he felt like he had tachycardia starting around 430 this afternoon. He does have an AICD. He reports that the AICD fired a few times. states that he is scheduled for battery replacement of his AICD soon. Patient denies any chest pain. Denies any additional electrolyte medications. States he did have a change in one of his cardiac medications recently but he does not know which 1 of that is. EMS states that they did attempt cardioversion at [facility] Aide states that no change in rhythm after the cardioversion. Associated symptoms: Reports anxiety (Mild); Deny nausea or vomiting Review of Systems Const: Denies: fever(s) or chills Eyes: Denies: change in vision ENMT: Denies: throat pain Card: Reports: palpitations and other (Tachycardia); Denies: chest pain Resp: Reports: dyspnea; Denies: non-productive cough or wheezing GI: Denies: abdominal pain, nausea or vomiting : Denies: flank pain Musc: Denies: neck pain or back pain Skin/Breast: Denies: rash or pruritus Neuro: Denies: headache(s) or numbness in extremities Psych: Reports: anxiety (Mild) Damien/Lymph: Denies: enlarged lymph nodes [facility] ED PFSH: Medical History (Updated 03/26/22 @ 14:05 by Fausto Martinez MD) Arthritis 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 Atrial fibrillation Cardiomyopathy Chronic kidney disease GERD (gastroesophageal reflux disease) Hematuria History of malignant melanoma Hyperlipidemia Hyperparathyroidism Hypothyroid ICD (implantable cardioverter-defibrillator), biventricular, in situ Pacemaker Pleural effusion Surgical History Hx of CABG Hx of cholecystectomy S/P removal of parathyroid gland Family History Mother Cancer Father Stroke Denies family history of Diabetes CAD (coronary artery disease) Clotting disorder Dementia Chronic kidney disease (CKD) Suicide Anesthesia complication Bleeding disorder Lung disease Social History Smoking and tobacco status: never smoked Alcohol intake: never Physical Exam Const: COMMON NORMALS: patient oriented x3, alert and well nourished GENERAL APPEARANCE: cooperative HENMT: COMMON NORMALS: normocephalic and atraumatic HEAD & SCALP: normocephalic and atraumatic Eye: COMMON NORMALS: EOMs intact bilaterally Neck/C-Spine: COMMON NORMALS: full ROM, no lymphadenopathy, supple and no JVD Lymph: LYMPHATIC: no lymphadenopathy noted Chest: COMMONS NORMALS: normal inspection of the chest and normal palpation of entire chest wall Resp: COMMON NORMALS: normal respiratory effort, No retractions, No use of accessory muscles and clear to auscultation bilaterally AUSCULTATION: clear to auscultation bilaterally Cardio: COMMON NORMALS: no JVD, regular rhythm and Peripheral pulses 2+ throughout RHYTHM: regular rhythm PERIPHERAL PULSES: Peripheral pulses 2+ throughout OTHER: Patient has severe tachycardia with heart rate around 210-220. Peripheral pulses are normal. GI: COMMON NORMALS: Normal to inspection, nondistended, normoactive bowel sounds present, Soft to palpation and non-tender PALPATION: Yes Soft to palpation Extremity: COMMON NORMALS: normal to inspection and full ROM Neuro: COMMON NORMALS: patient oriented x3, CN's II-XII intact bilaterally, moves all extremities, no focal motor deficits and no sensory deficits noted SENSORIUM/ORIENTATION: Yes alert Psych: COMMON NORMALS: mental status grossly normal, Normal thought process present, cooperative, normal affect and speech normal SPEECH: Yes normal speech THOUGHT PROCESS: Normal thought process present Skin: COMMON NORMALS: no rashes or lesions noted GENERAL SKIN EXAM: no rashes or lesions noted Course Vital Signs: Vital signs: Vital Signs Temperature 98.4 F 03/26/22 04:00 Pulse Rate 82 03/26/22 13:48 Respiratory Rate 21 H 03/26/22 13:00 Blood Pressure 112/82 03/26/22 12:00 Pulse Oximetry 100 03/26/22 12:00 Oxygen Delivery Me thod 03/26/22 10:19 Oxygen Flow Rate 1.5 03/26/22 10:19 MDM - Arrhythmia/Palpitations Medical Decision Making SVT versus rapid atrial fibrillation versus ventricular tachycardia with pulse. Patient was hypotensive with the tachycardia when in manual blood pressure was taken. Manual blood pressure was 60s over 50s. I was about to attempt cardioversion after initial amiodarone 150 mg IV dose was given. However, patient converted to paced rhythm with heart rate of 90 before Versed or cardioversion was given. Patient improved immediately with blood pressure 117 over 60s. Patient either was in rapid A. fib or ventricular tachycardia with pulse 1830: Care transition to Dr. Cervantes at shift change. Lab Data 03/25/22 18:01 03/25/22 18:01 Radiology Impressions Chest X-Ray 03/25/22 17:59 IMPRESSION: 1. Resolution of previously noted severe right upper lobe pneumonia. 2. Stable COPD . Laboratory Results WBC 2.4 10^3/uL (4.0-10.0) L 03/25/22 18: RBC 4.22 10^6/uL (4.1-5.3) 03/25/22 18:01 Hgb 13.5 g/dL (11.7-16.6) 03/25/22 18: Hct 41.7 % (42.0-52.0) L 03/25/22 18: MCV 98.8 fl (80-94) H 03/25/22 18:01 MCH 32.0 pg (28.0-34.0) 03/25/22 18: MCHC 32.4 g/dL (30.0-36.0) 03/25/22 18: RDW 13.3 % (12.1-15.1) 03/25/22 18: Plt Count 158 10^3/cmm (130-400) 03/25/22 18:01 MPV 10.0 fL (7.4-10.4) 03/25/22 18: Neut % (Auto) 24.1 % 03/25/22 18: Lymph % (Auto) 65.6 % 03/25/22 18: Bee % (Auto) 6.6 % 03/25/22 18: Eos % (Auto) 1.7 % 03/25/22 18: Baso % (Auto) 1.2 % 03/25/22 18:01 Neut # (Auto) 0.58 10^3/uL (1.8-7.7) L* 03/25/22 18: Lymph # (Auto) 1.6 10^3/uL (0.8-4.8) 03/25/22 18:01 Bee # (Auto) 0.2 10^3/uL (0.2-0.9) 03/25/22 18:01 Eos # (Auto) 0.0 10^3/uL (0.0-0.8) 03/25/22 18:01 Baso # (Auto) 0.0 10^3/uL (0.0-0.1) 03/25/22 18: Nucleated RBC % (auto) 0 % 03/25/22 18: Nucleated RBCs # 0.0 /100WBC 03/25/22 18: APTT 51.7 SECONDS (23.9-36.7) H 03/25/22 18:01 Sodium 127 mmol/L (136-145) L 03/25/22 18: Potassium 4.1 mmol/L (3.5-5.1) 03/25/22 18: Chloride 92 mmol/L (98-107) L 03/25/22 18:01 Carbon Dioxide 23 mmol/L (22-29) 03/25/22 18:01 Anion Gap 16.1 (5-19) 03/25/22 18:01 BUN 26 mg/dL (8-23) H 03/25/22 18: Creatinine 1.2 mg/dL (0.7-1.2) 03/25/22 18: GFR Calculation Not Reportable 03/25/22 18: Glucose 236 mg/dL (65-115) H 03/25/22 18: Calculated Osmolality 276 mOsm/kg (285-295) L 03/25/22 18: Calcium 8.9 mg/dL (8.5-10.5) 03/25/22 18: Phosphorus 3.0 mg/dL (2.5-4.5) 03/25/22 18:01 Magnesium 1.8 mg/dL (1.7-2.3) 03/25/22 18:01 Troponin T Baseline 30 ng/L (0-15) H 03/25/22 18:01 NT-Pro-B Natriuret Pep 3504 pg/mL (0-450) H 03/25/22 18:01 TSH 5.05 uIU/mL (0.27-4.20) H 03/25/22 18:01 EKG Data EKG 1: I personally reviewed and interpreted this EKG as follows: EKG interpretation date: 03/25/22 EKG interpretation time: 17:53 Prior EKG tracings: not available for review Interpretation: Initial EKG shows tachycardia with wide-complex that appears to be possibly SVT versus rapid A. fib. However possibility of V. tach is possible. Left bundle branch block. Right axis. Nonspecific ST-T changes. Other EKG comments: Chest X-Ray 03/25/22 17:59 IMPRESSION: 1. Resolution of previously noted severe right upper lobe pneumonia. 2. Stable COPD . EKG 2: I personally reviewed and interpreted this EKG as follows: EKG interpretation date: 03/25/22 EKG interpretation time: 18:29 Prior EKG tracings: available for review Interpretation: Repeat EKG at 1755 shows conversion from tachycardia to paced rhythm. Ventricular pacemaker spikes evident. Patient has left bundle branch block. Nonspecific ST-T changes throughout. Other EKG comments: Chest X-Ray 03/25/22 17:59 IMPRESSION: 1. Resolution of previously noted severe right upper lobe pneumonia. 2. Stable COPD . Critical Care Time Critical Care Time: Critical Care Time: Yes Total Critical Care Time: 45 Attestation: See orders. IV amiodarone. Discussion with EMS. 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 Atrial fibrillation Cardiomyopathy Chronic kidney disease GERD (gastroesophageal reflux disease) Hematuria History of malignant melanoma Hyperlipidemia Hyperparathyroidism Hypothyroid ICD (implantable cardioverter-defibrillator), biventricular, in situ Pacemaker Pleural effusion Surgical History Hx of CABG Hx of cholecystectomy S/P removal of parathyroid gland Family History Mother Cancer Father Stroke Denies family history of Diabetes CAD (coronary artery disease) Clotting disorder Dementia Chronic kidney disease (CKD) Suicide Anesthesia complication Bleeding disorder Lung disease Social History Smoking and tobacco status: never smoked Alcohol intake: never Course Vital Signs: Vital signs: Vital Signs Temperature 98.4 F 03/26/22 04:00 Pulse Rate 82 03/26/22 13:48 Respiratory Rate 21 H 03/26/22 13:00 Blood Pressure 112/82 03/26/22 12:00 Pulse Oximetry 100 03/26/22 12:00 Oxygen Delivery Me thod 03/26/22 10:19 Oxygen Flow Rate 1.5 03/26/22 10:19 MDM - Arrhythmia/Palpitations Medical Decision Making SVT versus rapid atrial fibrillation versus ventricular tachycardia with pulse. Patient was hypotensive with the tachycardia when in manual blood pressure was taken. Manual blood pressure was 60s over 50s. I was about to attempt cardioversion after initial amiodarone 150 mg IV dose was given. However, patient converted to paced rhythm with heart rate of 90 before Versed or cardioversion was given. Patient improved immediately with blood pressure 117 over 60s. Patient either was in rapid A. fib or ventricular tachycardia with pulse 1830: Care transition to Dr. Cervantes at shift change. Patient checked out to me by the previous physician at shift change. amiodarone drip had not been started yet, and the patient had several runs of nonsustained ventricular tachycardia. Because of this, another bolus of 150 milligrams of amiodarone was given prior to starting the drip. Following this, he did not seem to have any more sustained or significant nonsustained runs of arrhythmia. He left for the ICU in sinus rhythm. He was feeling much improved. His white blood cell count is low with a low neutrophil count, although not critically. His sodium is low at 127. Potassium is normal at 4.1. Magnesium and phosphorus are normal. Baseline troponin is elevated at 30. BNP is 3500. Hospitalist aware, and cardiology has been consulted. Pacer interrogation is underway. Lab Data 03/25/22 18:03/25/22 18: Radiology Impressions Chest X-Ray 03/25/22 17:59 IMPRESSION: 1. Resolution of previously noted severe right upper lobe pneumonia. 2. Stable COPD . Laboratory Results WBC 2.4 10^3/uL (4.0-10.0) L 03/25/22 18: RBC 4.22 10^6/uL (4.1-5.3) 03/25/22 18: Hgb 13.5 g/dL (11.7-16.6) 03/25/22 18: Hct 41.7 % (42.0-52.0) L 03/25/22 18: MCV 98.8 fl (80-94) H 03/25/22 18: MCH 32.0 pg (28.0-34.0) 03/25/22 18: MCHC 32.4 g/dL (30.0-36.0) 03/25/22 18: RDW 13.3 % (12.1-15.1) 03/25/22 18: Plt Count 158 10^3/cmm (130-400) 03/25/22 18: MPV 10.0 fL (7.4-10.4) 03/25/22 18: Neut % (Auto) 24.1 % 03/25/22 18: Lymph % (Auto) 65.6 % 03/25/22 18: Bee % (Auto) 6.6 % 03/25/22 18: Eos % (Auto) 1.7 % 03/25/22 18: Baso % (Auto) 1.2 % 03/25/22 18: Neut # (Auto) 0.58 10^3/uL (1.8-7.7) L* 03/25/22 18: Lymph # (Auto) 1.6 10^3/uL (0.8-4.8) 03/25/22 18:01 Bee # (Auto) 0.2 10^3/uL (0.2-0.9) 03/25/22 18:01 Eos # (Auto) 0.0 10^3/uL (0.0-0.8) 03/25/22 18: Baso # (Auto) 0.0 10^3/uL (0.0-0.1) 03/25/22 18:01 Nucleated RBC % (auto) 0 % 03/25/22 18: Nucleated RBCs # 0.0 /100WBC 03/25/22 18: APTT 51.7 SECONDS (23.9-36.7) H 03/25/22 18:01 Sodium 127 mmol/L (136-145) L 03/25/22 18: Potassium 4.1 mmol/L (3.5-5.1) 03/25/22 18: Chloride 92 mmol/L (98-107) L 03/25/22 18: Carbon Dioxide 23 mmol/L (22-29) 03/25/22 18: Anion Gap 16.1 (5-19) 03/25/22 18: BUN 26 mg/dL (8-23) H 03/25/22 18: Creatinine 1.2 mg/dL (0.7-1.2) 03/25/22 18: GFR Calculation Not Reportable 03/25/22 18: Glucose 236 mg/dL (65-115) H 03/25/22 18: Calculated Osmolality 276 mOsm/kg (285-295) L 03/25/22 18: Calcium 8.9 mg/dL (8.5-10.5) 03/25/22 18: Phosphorus 3.0 mg/dL (2.5-4.5) 03/25/22 18: Magnesium 1.8 mg/dL (1.7-2.3) 03/25/22 18: Troponin T Baseline 30 ng/L (0-15) H 03/25/22 18: NT-Pro-B Natriuret Pep 3504 pg/mL (0-450) H 03/25/22 18: TSH 5.05 uIU/mL (0.27-4.20) H 03/25/22 18:01 EKG Data EKG 1: Other EKG comments: Chest X-Ray 03/25/22 17:59 IMPRESSION: 1. Resolution of previously noted severe right upper lobe pneumonia. 2. Stable COPD . EKG 2: Other EKG comments: Chest X-Ray 03/25/22 17:59 IMPRESSION: 1. Resolution of previously noted severe right upper lobe pneumonia. 2. Stable COPD . Discharge Plan Discharge Patient Disposition: Admitted As Inpatient Admit Provider: Mia Mehta Clinical Impression: Ventricular tachycardia Condition: Stable Coding Level of Care Code ED Senior Database Administrator for Chg Fwd Exam Comprehensive
[2022-03-25 18:29] LABS: Troponin(5th) Baseline 30 ng/L (0-15)
[2022-03-25] MEDS: aspirin 325 mg Tablet PO (18:35)
[2022-03-25 18:38] LABS: Anion Gap 16.1 (5-19); Blood Urea Nitrogen 26 mg/dL (8-23); Calcium 8.9 mg/dL (8.5-10.5); Carbon Dioxide 23 mmol/L (22-29); Chloride 92 mmol/L (98-107); Glucose 236 mg/dL (65-115); Magnesium 1.8 mg/dL (1.7-2.3); NT Pro B Type Natriuretic Pept 3504 pg/mL (0-450); Osmolality Calculated 276 mOsm/kg (285-295); Potassium 4.1 mmol/L (3.5-5.1); Sodium 127 mmol/L (136-145); Thyroid Stimulating Hormone 5.05 uIU/mL (0.27-4.20)
[2022-03-25] MEDS: amiodarone 50 mg/mL SDV 3 mL 150 MG IVP (18:43)
[2022-03-25 19:11] LABS: Slide Review Slide Review Perform
[2022-03-25 19:12] LABS: Neutrophils # 0.58 10^3/uL (1.8-7.7)
--- NOTE | 2022-03-25 20:00 | ECG_ITS ---
[facility] Test Date: 2022-03-25 Pat Name: Raj Vega Department: Room: Gender: Male [place]: : 1945 Requested By: Cal Slater Order Number: [id number] Cain MD: Elio Santos M.D. Measurements Intervals [place] Rate: 86 P: 94 [place]: 268 QRS: -66 QRSD: 126 T: 224 QT: 391 QTc: 470 Interpretive Statements ELECTRONIC VENTRICULAR PACEMAKER Compared to ECG 03/25/2022 17:55:57 No significant changes Electronically Signed On 03-27-2022 18:30:01 AMPOULE FILLER by Elio Santos M.D. [id number]
[2022-03-25 20:58] LABS: Troponin 5 2HR 59.39 ng/L (0-15)
[2022-03-25 21:08] LABS: Troponin 5 2HR Delta 29.39 ABS# (0-10)
--- NOTE | 2022-03-25 23:02 | PC.NURSE ---
Patient arrived in ICU from ED at 2203. CM shows paced rhythm at 85 beats per minute. No reports of chest pain or shortness of breath. O2 saturation 95-98% on 2L NC. at bedside. Notified Dr. Mehta at 2228 that patient had arrived in ICU.
--- NOTE | 2022-03-25 23:23 | PC.NURSE ---
Notified Dr. Mehta that patient also does not have a code status or VTE prevention ordered.
[2022-03-26] VITALS (31 sets, daily range): BP systolic 99–133; BP diastolic 63–96; PULSE 75–102; RESP 13–32; TEMP 36.8–37.1; O2SAT 92–100
--- NOTE | 2022-03-26 | ECG_ITS ---
[facility] Test Date: 2022-03-25 Pat Name: Raj Vega Department: Room: [facility] Gender: Male Color Expert: : 1945 Requested By: Cal Slater Order Number: [id number] Cain MD: Elio Santos M.D. Measurements Intervals [place] Rate: 83 P: 63 [place]: 257 QRS: -56 QRSD: 138 T: 196 QT: 417 QTc: 491 Interpretive Statements ELECTRONIC VENTRICULAR PACEMAKER ABNORMAL RHYTHM ECG Compared to ECG 03/25/2022 20:20:58 No significant changes Electronically Signed On 03-27-2022 18:29:28 PHARMACIST IN CHARGE OWNER by Elio Santos M.D. [id number]
[2022-03-26 00:09] LABS: Adenovirus Not Detected (NOT DETECT); Chlamydia Pneumoniae Not Detected (NOT DETECT); Coronavirus 229E,HKU1,NL63,OC4 Not Detected (NOT DETECT); Human Metapneumovirus Not Detected (NOT DETECT); Human Rhinovirus/Enterovirus Not Detected (NOT DETECT); Influenza A Not Detected (NOT DETECT); Influenza A H1 Not Detected (NOT DETECT); Influenza A H1-2009 Not Detected (NOT DETECT); Influenza A H3 Not Detected (NOT DETECT); Influenza B Not Detected (NOT DETECT); Mycoplasma Pneumoniae Not Detected (NOT DETECT); Parainfluenza Virus Type 1 Not Detected (NOT DETECT); Parainfluenza Virus Type 2 Not Detected (NOT DETECT); Parainfluenza Virus Type 3 Not Detected (NOT DETECT); Parainfluenza Virus Type 4 Not Detected (NOT DETECT); Respiratory Syncytial Virus A Not Detected (NOT DETECT); Respiratory Syncytial Virus B Not Detected (NOT DETECT); SARS-COV-2 Not Detected (NOT DETECT)
[2022-03-26 01:27] LABS: Troponin 5 6HR 84.36 ng/L (0-15)
[2022-03-26 01:32] LABS: Troponin 5 6HR Delta 54.36 ng/L (0-12)
--- NOTE | 2022-03-26 03:07 | P.HP_ITS ---
Providers/Chief Complaint Admitting Physician: Mia Mehta MD Primary Care Provider: Tiff Mckinney MD Chief Complaint: ELEVATED HEART RATE History of Present Illness Raj Vega is a 77 year old male atherosclerotic heart disease, CKD stage 3, Afib, cardiomyopathy echo from 2020 at 25%, AICD/pacemaker in place, and hyperlipidemia. He presents to the emergency room as he started experiencing palpitations, chest discomfort and shortness of breath at home, heart rate was in excess of 200 and he felt his AICD shocked shocked him at least 4-5 times. Upon EMS arrival he was found to be in V. tach for which they attempted cardioversion at 200 J, however there was no change in rhythm after the cardioversion. Upon arrival here patient was noted to be in V. tach he was hypotensive with systolic blood pressure ranging 50-60. prior to attempting cardioversion he received initial amiodarone 150 mg IV bolus following which patient converted into a paced rhythm and since then has been ranging a heart rate between 70-90 and blood pressure ranging between 100-1 10 systolic now. He has been brought to ICU on an amiodarone infusion for further evaluation and management. Review of system is positive for runny nose, slight cough, hoarseness of voice,subjective fever over the last 3 to 4 days. Per review of outpatient records it appears that plans were being made to uptitrate his Entresto for which he had been recommended to reduce carvedilol to 12.5 mg p.o. twice daily. An echocardiogram has also been ordered over the past month but has not yet completed. He denies any fever. Review of Systems General: Reports: 10 or more systems reviewed and unremarkable except in HPI and below Const: Denies: fever(s), chills or body aches Eyes: Denies: change in vision, blurry vision or photophobia ENMT: Reports: hoarseness; Denies: throat pain, enlarged tonsils, odynophagia or nasal congestion Card: Denies: chest pain, palpitations, irregular heart rhythm, edema, swelling of feet/ankles, lightheadedness, pre-syncope, dyspnea on exertion or orthopnea Resp: Denies: dyspnea, productive cough, non-productive cough, wheezing, stridor, pain on inspiration, change in phlegm color, hemoptysis or chest congestion GI: Denies: abdominal pain, nausea, vomiting, hematemesis, coffee ground emesis, dysphagia, heartburn, diarrhea, constipation, GI cramping, change in stool character, hematochezia or melena : Denies: flank pain, dysuria, urinary frequency, urinary urgency, urinary hesitancy or hematuria Musc: Denies: neck pain, back pain, extremity pain, joint swelling, joint warmth or deformity Neuro: Denies: headache(s), numbness in extremities, weakness in extremities, sensory changes, difficulty walking, frequent falls, dizziness, vertigo, behavioral changes, Slurred speech present or seizure-like activity Psych: Denies: anxiety, depression, suicidal ideation or homicidal ideation Endo: Denies: polyuria, polydipsia, tired all the time, cold intolerance or hot flashes Damien/Lymph: Denies: easy bruising or easy bleeding Medications/Allergies Home Medications Medication Instructions Recorded Confirmed Last Taken Type alprazolam 0.25 mg tablet 0.25 mg PO BID PRN Anxiety 06/01/19 03/25/22 03/25/22 History nitroglycerin 0.4 mg sublingual 0.4 mg sublingual Q5M PRN Pain 06/01/19 03/25/22 Unknown History tablet (Nitrostat) polysaccharide iron complex 150 mg 150 mg PO DAILY 07/01/19 03/25/22 03/25/22 History iron capsule (Ferrex) allopurinol 100 mg tablet 200 mg PO DAILY 11/28/19 03/25/22 03/25/22 History pantoprazole 20 mg tablet,delayed 20 mg PO DAILY 12/03/19 03/25/22 03/25/22 History release (Protonix) L.acidophil,salivari-Bifido 1 cap PO DAILY 12/14/19 03/25/22 03/25/22 History bifidum-Strep thermoph 175 mg capsule (Acidophilus Probiotic Blend) levothyroxine 112 mcg tablet 125 mcg PO DAILY 06/28/21 03/25/22 03/25/22 History apixaban 5 mg tablet (Eliquis) 5 mg PO BID 07/21/21 03/25/22 03/25/22 History torsemide 20 mg tablet See Rx Instructions .Route 10/10/21 03/25/22 03/25/22 Rx .COMPLEX #270 tabs 2 TABS albuterol sulfate 2.5 mg/3 mL 2.5 mg inhalation QID PRN 01/13/22 03/25/22 01/13/22 History (0.083 %) solution for nebulization Shortness Of Breath Or Wheezing magnesium oxide 400 mg (241.3 mg 400 mg PO BID 01/13/22 03/25/22 03/25/22 History magnesium) tablet rosuvastatin 10 mg tablet 10 mg PO BEDTIME 01/13/22 03/25/22 03/24/22 History spironolactone 25 mg tablet 25 mg PO DAILY 02/21/22 03/25/22 03/25/22 History carvedilol 12.5 mg tablet 12.5 mg PO BID #180 tabs 03/09/22 03/25/22 Unknown Rx carvedilol 25 mg tablet 37.5 mg PO BID 03/25/22 03/25/22 03/25/22 History doxycycline hyclate 100 mg tablet 100 mg PO BID 5 days #10 tabs 03/25/22 03/25/22 Unknown Rx Allergies Allergy/AdvReac Type Severity Reaction Status Date / Time metoclopramide [From Reglan] Allergy Unknown unknown Verified 03/25/22 12:10 pseudoephedrine Allergy Unknown nausea Verified 03/25/22 12:10 potassium Allergy ALGY-Rash Verified 03/25/22 12:10 prednisone Allergy Rash Verified 03/25/22 12:10 PFSH Acute PFSH: Medical History Arthritis Atherosclerotic heart disease of [place] coronary artery with other forms of angina pectoris Atrial fibrillation Cardiomyopathy Chronic kidney disease GERD (gastroesophageal reflux disease) Hematuria History of malignant melanoma Hyperlipidemia Hyperparathyroidism Hypothyroid Pacemaker Pleural effusion Surgical History Hx of CABG Hx of cholecystectomy S/P removal of parathyroid gland Family History Mother Cancer Father Stroke Denies family history of Diabetes CAD (coronary artery disease) Clotting disorder Dementia Chronic kidney disease (CKD) Suicide Anesthesia complication Bleeding disorder Lung disease Social History Smoking and tobacco status: never smoked Alcohol intake: never Vitals/I&O/Wt Last Vital Signs Temp 98.8 F 03/26/22 02:00 Pulse 75 03/26/22 02:30 Resp 23 H 03/26/22 02:30 BP 102/72 03/26/22 02:30 Pulse Ox 97 03/26/22 02:30 O2 Del Method 03/26/22 02:00 O2 Flow Rate 2 03/26/22 02:00 Weight last 48 hrs Weight 102.285 kg Physical Exam Narrative: General: No acute distress, AO x3 HEENT: PERRLA, pupils bilaterally equal and reactive, pallors not present Chest: Normal vesicular breath sounds, no added sounds, equal good air entry bilaterally CVS: S1-S2 regular, no murmurs, no tachycardia, no gallops, no rubs Abdomen: Soft, nontender, no organomegaly, bowel sounds present Neuro: No focal deficits, no facial deformity, AO x3, power 5/5 in all limbs Data 03/25/22 18:01 03/25/22 18:01 A&P Assessment and plan (1) Ventricular tachycardia: (2) Congestive heart failure with cardiomyopathy: Plan Patient with past medical history as above, AICD pacemaker in place, presenting today with palpitations, V. fib at home, shocked by AICD multiple times prior to ER presentation. Here noted to be in V. tach with heart rate in the 200s, converted back to paced rhythm with amiodarone infusion which continues till now. AICD interrogation ordered. Continue amiodarone infusion Recently reduced dose of carvedilol from 37.5 mg twice daily to 12.5 mg twice daily in anticipation of increasing Entresto. However I do not see Entresto on his current list of medications. For now we will continue Coreg 37.5 mg twice a day and monitor his blood pressure. Last echocardiogram with a EF of 25%, does not appear to have been repeated since 2019. We will check echocardiogram now to assess for any interval worsening. Troponins elevated with delta as of 29 and 54 at 2 and 6 hours. Mild elevation may be related to being shocked, having V. fib, however due to concerns for ACS, will change his Eliquis to full dose Lovenox for now while awaiting cardiology evaluation. Noted to have new neutropenia with ANC of 0.58, WBC 2.4 of unclear duration. Also has symptoms of upper respiratory tract infection with runny nose, mild cough and sore throat. Will check COVID and influenza panel. Check tick panel. Chest x-ray without any gross consolidation. Started on levofloxacin 500 mg daily as prophylactic therapy while persistent neutropenia. Hold allopurinol until neutropenia improves. Cardiology consult placed. Attestations Medical Necessity Statement*: Anticipate greater than 2 midnight admission for above defined care. Critical Care Time: The high probability of a clinically significant, sudden or life threatening deterioration of the patient's [cardiac] system(s) required my full and direct attention, intervention and personal management. The critical care time is as shown. This time is in addition to time spent performing any reported procedures but includes the following: [x] Data and vital sign review and interpretation [x] Patient assessment, examination and intervention [x] Documentation [x] Medication orders and management Critical Care Time (min): 35 Coding Level of Care Code Acute Shoemaker Custom for g Fwd Diagnoses Ventricular tachycardia I47.20 Congestive heart failure with cardiomyopathy I50.9; I42.9
[2022-03-26 05:38] LABS: Alanine Aminotransferase 22 U/L (0-41); Albumin Level 3.7 g/dL (3.5-5.2); Alkaline Phosphatase 107 U/L (40-130); Aspartate Amino Transferase 28 U/L (0-40); Blood Urea Nitrogen 27 mg/dL (8-23); Calcium 8.8 mg/dL (8.5-10.5); Carbon Dioxide 26 mmol/L (22-29); Chloride 98 mmol/L (98-107); Globulin 2.9 g/dL (1.3-4.6); Glucose 159 mg/dL (65-115); Magnesium 1.9 mg/dL (1.7-2.3); Osmolality Calculated 286 mOsm/kg (285-295); Sodium 134 mmol/L (136-145); Total Bilirubin 1.3 mg/dL (0.15-1.2); Total Protein 6.6 g/dL (6.6-8.7)
--- NOTE | 2022-03-26 06:06 | PC.NURSE ---
Dr. Mehta to bedside for update on patient. Current v/s and heart rhythm reviewed, pacemaker interrogation report reviewed.
--- NOTE | 2022-03-26 06:39 | USCV_ITS ---
Raj Vega Age: 77 Gender: M : 1945 Exam Date: 03/26/2022 11:15 Ordering Phys: Mia Mehta MD Technologist: JIMMIE Exam Location: [facility] [place] Indication: CHF NSTEMI BP: 113 / 77 HR: 61 Rhythm: Sinus Technical Quality: Adequate MEASUREMENTS (Male / Female) Normal Values 2D ECHO LV Diastolic Diameter PLAX 5.8 cm 4.2 - 5.9 / 3.9 - 5.3 cm LV Systolic Diameter PLAX 4.8 cm IVS Diastolic Thickness 0.9 cm 0.6 - 1.0 / 0.6 - 0.9 cm IVS Systolic Thickness 1.0 cm LVPW Diastolic Thickness 0.9 cm 0.6 - 1.0 / 0.6 - 0.9 cm LVPW Systolic Thickness 1.1 cm LVOT Diameter 2.2 cm LV Ejection Fraction 2D Teich 34.3 % LV Ejection Fraction MOD 2C 36.6 % LV Ejection Fraction 2C AL 36.2 % LA Diameter 6.3 cm IVC Diameter 2.6 cm M-MODE Aortic Annulus Diameter 3.2 cm LA Ao Ratio MM 2.0 MV E Point Septal Separation 1.2 cm DOPPLER AV Peak Velocity 121.0 cm/s LVOT Peak Velocity 74.0 cm/s AV Area Cont Eq vti 2.6 cm squared AV Area Cont Eq pk 2.3 cm squared MV Area PHT 4.0 cm squared Mitral E to A Ratio 2.0 MV E' Velocity 59.5 cm/s Mitral E to MV E' Ratio 10.7 Mitral E to LV E' Lateral Ratio 10.2 Mitral E to LV E' Septal Ratio 11.4 TR Peak Velocity 252.7 cm/s TR Peak Gradient 25.5 mmHg TV Peak E Velocity 73.0 cm/s Right Atrial Pressure 3.0 mmHg Pulmonary Artery Systolic Pressu 28.5 mmHg PV Peak Velocity 62.0 cm/s FINDINGS Left Ventricle Left ventricle is dilated. LV systolic function is severely reduced with EF of 25 to 30%. Severe global hypokinesis is seen. Right Ventricle RV is dilated and severely hypokinetic. Pacemaker lead is seen. Right Atrium Dilated Left Atrium Dilated Mitral Valve Structurally normal mitral valve. Moderate mitral regurgitation. Aortic Valve Structurally normal aortic valve. No significant stenosis or regurgitation seen. Tricuspid Valve Mild to moderate tricuspid regurgitation. RVSP is 25 to 30 mmHg. Pulmonary artery systolic pressure is normal. Pulmonic Valve Mild pulmonic regurgitation. Pericardium Normal Aorta Normal in size IVC IVC appears to be normal CONCLUSIONS Left ventricle is dilated. LV systolic function is severely reduced with EF of 25 to 30% RV is dilated and severely hypokinetic Biatrial enlargement Moderate mitral regurgitation Mild to moderate tricuspid regurgitation. Mild pulmonic regurgitation Compared to prior echocardiogram from 2015, mitral regurgitation is more significant and is moderate now. Elio Santos MD (Electronically Signed) Final Date: 26 March 2022 12:40 S
[2022-03-26 07:09] LABS: Basophils # 0.1 10^3/uL (0.0-0.1); Basophils % 0.9 %; Eosinophils % 0.3 %; Hematocrit 38.4 % (42.0-52.0); Hemoglobin 12.5 g/dL (11.7-16.6); Lymphocytes # 2.6 10^3/uL (0.8-4.8); Lymphocytes % 39.6 %; Mean Corpuscular HGB Conc 32.6 g/dL (30.0-36.0); Mean Corpuscular Hemoglobin 32.1 pg (28.0-34.0); Mean Corpuscular Volume 98.5 fl (80-94); Mean Platelet Volume 10.1 fL (7.4-10.4); Monocytes # 0.8 10^3/uL (0.2-0.9); Monocytes % 12.4 %; Neutrophils # 3.01 10^3/uL (1.8-7.7); Neutrophils % 46.3 %; Nucleated Red Blood Cells % 0 %; Platelet Count 134 10^3/cmm (130-400); Red Cell Distribution Width 13.4 % (12.1-15.1); White Blood Count 6.5 10^3/uL (4.0-10.0)
[2022-03-26 07:28] LABS: Alanine Aminotransferase 21 U/L (0-41); Albumin Level 3.8 g/dL (3.5-5.2); Alkaline Phosphatase 103 U/L (40-130); Anion Gap 14.8 (5-19); Aspartate Amino Transferase 28 U/L (0-40); Blood Urea Nitrogen 27 mg/dL (8-23); Calcium 8.8 mg/dL (8.5-10.5); Carbon Dioxide 25 mmol/L (22-29); Chloride 99 mmol/L (98-107); Globulin 2.6 g/dL (1.3-4.6); Glucose 165 mg/dL (65-115); Osmolality Calculated 289 mOsm/kg (285-295); Potassium 3.8 mmol/L (3.5-5.1); Sodium 135 mmol/L (136-145); Total Bilirubin 1.1 mg/dL (0.15-1.2); Total Protein 6.4 g/dL (6.6-8.7)
[2022-03-26 07:35] LABS: Slide Review Slide Review Perform
[2022-03-26] MEDS: levothyroxine 125 mcg Tablet PO (08:11)
[2022-03-26] MEDS: carvedilol 25 mg Tablet 37.5 MG PO ×2 (08:11→17:29)
[2022-03-26] MEDS: spironolactone 25 mg Tablet PO (08:11)
[2022-03-26] MEDS: magnesium oxide 400 mg tablet PO ×2 (08:11→17:29)
[2022-03-26] MEDS: levoFLOXacin 500 mg Tablet PO (08:11)
[2022-03-26] MEDS: enoxaparin 100 mg/mL Syringe SUBCUT ×2 (08:11→18:00)
[2022-03-26] MEDS: pantoprazole DR 40 mg Tablet PO (08:11)
[2022-03-26] MEDS: TORSEmide 20 mg Tablet 80 MG PO (08:59)
[2022-03-26] MEDS: iron polysaccharide complex 150 mg Capsule PO (09:00)
[2022-03-26 10:12] LABS: Iron 39 ug/dL (59-158); Percent Saturation 12.1 % (20-50); Total Iron Binding Capacity 320 mcg/dl; Unsaturated Iron Binding 281 ug/dL (112-347)
[2022-03-26 10:45] LABS: Free T4 Free Thyroxine 1.26 ng/dL (0.82-1.77); T3 Free 1.9 PG/ML (2.0-4.4)
--- NOTE | 2022-03-26 12:52 | PM.CONSULT ---
Providers/Reason For Consult Consulting Physician/Specialty*: Elio Santos MD/ Cardiology Reason for Consult*: Ventricular tachycardia/ ICD shocks Requesting Physician: Dr Martinez Attending Physician: Fausto Martinez MD Primary Care Provider: Tiff Mckinney MD History of Present Illness History of Present Illness Raj Vega is a 77 year old male with past medical history of atrial fibrillation, CKD, ICD in place, ischemic cardiomyopathy with EF of 25%, history of CABFG who presented to the hospital after experiencing shortness of breath and heart rates in the 200s. He felt a multiple shocks. In the emergency room he was found to be in VT and cardioversion was unsuccessful. However after initiation of amiodarone drip, his rhythm became sinus rhythm. Patient had gone to urgent care earlier in the day for symptoms of runny nose and hoarseness of his voice. Also was not feeling well. Repeat echocardiogram shows similar EF of 25% compared to 2015. He is denying any chest pain. Feeling well overall. Review of Systems General: Reports: 10 or more systems reviewed and unremarkable except in HPI and below Const: Denies: fever(s), chills or body aches Eyes: Denies: change in vision, blurry vision or photophobia ENMT: Reports: hoarseness; Denies: throat pain, enlarged tonsils, odynophagia or nasal congestion Card: Denies: chest pain, palpitations, irregular heart rhythm, edema, swelling of feet/ankles, lightheadedness, pre-syncope, dyspnea on exertion or orthopnea Resp: Denies: dyspnea, productive cough, non-productive cough, wheezing, stridor, pain on inspiration, change in phlegm color, hemoptysis or chest congestion GI: Denies: abdominal pain, nausea, vomiting, hematemesis, coffee ground emesis, dysphagia, heartburn, diarrhea, constipation, GI cramping, change in stool character, hematochezia or melena : Denies: flank pain, dysuria, urinary frequency, urinary urgency, urinary hesitancy or hematuria Musc: Denies: neck pain, back pain, extremity pain, joint swelling, joint warmth or deformity Neuro: Denies: headache(s), numbness in extremities, weakness in extremities, sensory changes, difficulty walking, frequent falls, dizziness, vertigo, behavioral changes, Slurred speech present or seizure-like activity Psych: Denies: anxiety, depression, suicidal ideation or homicidal ideation Endo: Denies: polyuria, polydipsia, tired all the time, cold intolerance or hot flashes Damien/Lymph: Denies: easy bruising or easy bleeding Medications/Allergies Home Medications Medication Instructions Recorded Confirmed Last Taken Type alprazolam 0.25 mg tablet 0.25 mg PO BID PRN Anxiety 06/01/19 03/25/22 03/25/22 History nitroglycerin 0.4 mg sublingual 0.4 mg sublingual Q5M PRN Pain 06/01/19 03/25/22 Unknown History tablet (Nitrostat) polysaccharide iron complex 150 mg 150 mg PO DAILY 07/01/19 03/25/22 03/25/22 History iron capsule (Ferrex) allopurinol 100 mg tablet 200 mg PO DAILY 11/28/19 03/25/22 03/25/22 History pantoprazole 20 mg tablet,delayed 20 mg PO DAILY 12/03/19 03/25/22 03/25/22 History release (Protonix) L.acidophil,salivari-Bifido 1 cap PO DAILY 12/14/19 03/25/22 03/25/22 History bifidum-Strep thermoph 175 mg capsule (Acidophilus Probiotic Blend) levothyroxine 112 mcg tablet 125 mcg PO DAILY 06/28/21 03/25/22 03/25/22 History apixaban 5 mg tablet (Eliquis) 5 mg PO BID 07/21/21 03/25/22 03/25/22 History torsemide 20 mg tablet See Rx Instructions .Route 10/10/21 03/25/22 03/25/22 Rx .COMPLEX #270 tabs 2 TABS albuterol sulfate 2.5 mg/3 mL 2.5 mg inhalation QID PRN 01/13/22 03/25/22 01/13/22 History (0.083 %) solution for nebulization Shortness Of Breath Or Wheezing magnesium oxide 400 mg (241.3 mg 400 mg PO BID 01/13/22 03/25/22 03/25/22 History magnesium) tablet rosuvastatin 10 mg tablet 10 mg PO BEDTIME 01/13/22 03/25/22 03/24/22 History spironolactone 25 mg tablet 25 mg PO DAILY 02/21/22 03/25/22 03/25/22 History carvedilol 12.5 mg tablet 12.5 mg PO BID #180 tabs 03/09/22 03/25/22 Unknown Rx carvedilol 25 mg tablet 37.5 mg PO BID 03/25/22 03/25/22 03/25/22 History doxycycline hyclate 100 mg tablet 100 mg PO BID 5 days #10 tabs 03/25/22 03/25/22 Unknown Rx Allergies Allergy/AdvReac Type Severity Reaction Status Date / Time metoclopramide [From Reglan] Allergy Unknown unknown Verified 03/25/22 12:10 pseudoephedrine Allergy Unknown nausea Verified 03/25/22 12:10 potassium Allergy ALGY-Rash Verified 03/25/22 12:10 prednisone Allergy Rash Verified 03/25/22 12:10 Current Medications Generic Name Dose Route Start Last Admin Trade Name Freq PRN Reason Stop Dose Admin Carvedilol 37.5 mg 03/26/22 09:00 03/26/22 08:11 Carvedilol 25 Mg Tablet PO 03/27/22 23:00 37.5 mg BID [facility] Administration Enoxaparin Sodium 100 mg 03/26/22 07:00 03/26/22 08:11 Enoxaparin 100 Mg/Ml Syringe 1 mg/kg (100 mg) 100 mg SUBCUT Administration Q12H [facility] Amiodarone HCl 900 mg/ 518 mls @ 17.267 mls/hr 03/25/22 18:30 03/25/22 18:43 Dextrose/ IV Miscellaneous IV 0.5 mg/min Supplies CONT DOROTHY 17.27 mls/hr Administration 0.5 MG/MIN Levofloxacin 500 mg 03/26/22 06:45 03/26/22 08:11 Levofloxacin 500 Mg Tablet PO 500 mg DAILY@0600 [facility] Administration Protocol Levothyroxine Sodium 125 mcg 03/26/22 09:00 03/26/22 08:11 Levothyroxine 125 Mcg Tablet PO 125 mcg DAILY [facility] Administration Magnesium Oxide 400 mg 03/26/22 09:00 03/26/22 08:11 Magnesium Oxide 400 Mg Tablet PO 400 mg BID DOROTHY Administration Pantoprazole Sodium 40 mg 03/26/22 09:00 03/26/22 08:[address] 40 Mg Tablet PO 40 mg DAILY [facility] Administration Polysaccharide Iron Complex 150 mg 03/26/22 09:00 03/26/22 09:00 Iron Polysaccharide Complex 150 Mg Capsule PO 150 mg DAILY DOROTHY Administration Spironolactone 25 mg 03/26/22 09:00 03/26/22 08:11 Spironolactone 25 Mg Tablet PO 25 mg DAILY DOROTHY Administration Torsemide 80 mg 03/26/22 09:00 03/26/22 08:59 Torsemide 20 Mg Tablet PO 80 mg EVERY OTHER DAY DOROTHY Administration PFSH Acute PFSH: Medical History Arthritis Atherosclerotic heart disease of [place] coronary artery with other forms of angina pectoris Atrial fibrillation Cardiomyopathy Chronic kidney disease GERD (gastroesophageal reflux disease) Hematuria History of malignant melanoma Hyperlipidemia Hyperparathyroidism Hypothyroid ICD (implantable cardioverter-defibrillator), biventricular, in situ Pacemaker Pleural effusion Surgical History Hx of CABG Hx of cholecystectomy S/P removal of parathyroid gland Family History Mother Cancer Father Stroke Denies family history of Diabetes CAD (coronary artery disease) Clotting disorder Dementia Chronic kidney disease (CKD) Suicide Anesthesia complication Bleeding disorder Lung disease Social History Smoking and tobacco status: never smoked Alcohol intake: never Vitals/I&O/Wt Last Vital Signs Temp 98.4 F 03/26/22 04:00 Pulse 79 03/26/22 10:19 Resp 24 H 03/26/22 09:00 BP 119/69 03/26/22 09:00 Pulse Ox 99 03/26/22 10:19 O2 Del Method 03/26/22 10:19 O2 Flow Rate 1.5 03/26/22 10:19 03/25/22 03/26/22 03/26/22 22:59 06:59 14:59 Intake Total 750 / 750 360 / 360 Output Total 475 / 475 Balance 275 / 275 360 / 360 Weight last 48 hrs Weight 225 lb 14.4 oz Weight 225 lb 8 oz Physical Exam Narrative: GENERAL: Patient is alert, awake and oriented x3. [] NECK: No jugular vein distension. [] HEENT: No cyanosis. No icterus. No pallor. [] HEART: Regular S1 and S2. No murmur, rub or gallop. [] LUNGS: Clear to auscultate bilaterally. [] ABDOMEN: Soft, nontender and nondistended. Positive bowel sounds. No guarding, rebound or tenderness. [] CENTRAL NERVOUS SYSTEM: Grossly nonfocal. [] EXTREMITIES: Lower extremities with 1+ edema bilaterally. Pulses palpable in the lower extremities, both dorsalis pedis and posterior tibial. [] Data 03/26/22 06:46 03/26/22 06:46 Micro: Microbiology 03/26/22 06:47 Blood Culture - Preliminary Blood SPECIMEN COLLECTED 03/26/22 06:46 Blood Culture - Preliminary Blood SPECIMEN COLLECTED A&P Assessment and plan (1) AICD discharge: (2) Ventricular tachycardia: (3) Congestive heart failure with cardiomyopathy: (4) Peripheral arterial disease: (5) Atrial fibrillation: Qualifiers: Atrial fibrillation type: unspecified Qualified Code(s): I48.91 - Unspecified atrial fibrillation (6) Cardiomyopathy: (7) Hyperlipidemia: Qualifiers: Hyperlipidemia type: mixed hyperlipidemia Qualified Code(s): E78.2 - Mixed hyperlipidemia Plan Patient had 3 shocks delivered on day of admission. Also had 3-4 rounds of ATP. Underlying rhythm was V. fib/V. tach. Troponins have trended up mildly however can be secondary to demand ischemia in setting of very fast heart rates. Denies any chest pain prior or after the arrhythmias. Device interrogation also shows explant signal. Will discuss with his primary director funeral, Dr Strickland, regarding timing for generator change out Heart rate and rhythm are controlled on amiodarone drip. We will continue with it for now. Keep electrolytes in normal range with K> 4 and Mg> 2 Continue Coreg If no chest pain or further arrhythmias, can consider ischemic workup with stress test Thank you for involving us with care of this patient. We will continue to follow. Please call with questions Consult Attestations Medical Necessity Statement: Care expected to cross 2 midnights. Coding Level of Care Code Acute Preschool Teacher'S Assistant for g Fwd Diagnoses AICD discharge Z45.02 Ventricular tachycardia I47.20 Congestive heart failure with cardiomyopathy I50.9; I42.9 Peripheral arterial disease I73.9 Atrial fibrillation I48.91 Atrial fibrillation type: unspecified Cardiomyopathy I42.9 Hyperlipidemia E78.2 Hyperlipidemia type: mixed hyperlipidemia
--- NOTE | 2022-03-26 13:43 | P.PN_ITS ---
Subjective Subjective: Admitted overnight. H&P and labs appreciated. Seen in ICU today with spouse at bedside. Patient denies any nausea, vomiting, headache. Continued on amiodarone drip of 0.5. No further episodes of sustained or nonsustained V. tach. Does have occasional VPCs. Patient himself denies of any complaints. Vitals/I&O/Wt Last Vital Signs Temp 98.4 F 03/26/22 04:00 Pulse 86 03/26/22 13:00 Resp 21 H 03/26/22 13:00 BP 112/82 03/26/22 12:00 Pulse Ox 100 03/26/22 12:00 O2 Del Method 03/26/22 10:19 O2 Flow Rate 1.5 03/26/22 10:19 03/25/22 03/26/22 03/26/22 22:59 06:59 14:59 Intake Total 750 / 750 600 / 600 Output Total 475 / 475 Balance 275 / 275 600 / 600 Weight last 48 hrs Weight 102.467 kg Weight 102.285 kg Physical Exam Narrative: General: No acute distress, AO x3 HEENT: PERRLA, pupils bilaterally equal and reactive, pallors not present Chest: Normal vesicular breath sounds, no added sounds, equal good air entry bilaterally CVS: S1-S2 regular, no murmurs, no tachycardia, no gallops, no rubs Abdomen: Soft, nontender, no organomegaly, bowel sounds present Neuro: No focal deficits, no facial deformity, AO x3, power 5/5 in all limbs Data 03/26/22 06:46 03/26/22 06:46 Micro: Microbiology 03/26/22 06:47 Blood Culture - Preliminary Blood SPECIMEN COLLECTED 03/26/22 06:46 Blood Culture - Preliminary Blood SPECIMEN COLLECTED A&P Assessment and plan (1) AICD discharge: (2) Ventricular tachycardia: (3) Congestive heart failure with cardiomyopathy: (4) ICD (implantable cardioverter-defibrillator), biventricular, in situ: (5) Atrial fibrillation: Qualifiers: Atrial fibrillation type: unspecified Qualified Code(s): I48.91 - Unspecified atrial fibrillation (6) Chronic kidney disease: Qualifiers: Chronic kidney disease stage: stage 3 (moderate) Qualified Code(s): N18.3 - Chronic kidney disease, stage 3 (moderate) (7) Cardiomyopathy: (8) Pacemaker: (9) Diabetic peripheral neuropathy associated with type 2 diabetes mellitus: Plan Patient with past medical history as above, AICD pacemaker in place, presenting today with palpitations, V. fib at home, shocked by AICD multiple times prior to ER presentation. Here noted to be in V. tach with heart rate in the 200s, converted back to paced rhythm with amiodarone infusion which continues till now. Monitor electrolytes. Keep potassium around 4, magnesium over 2. Will replete 20 mg of oral potassium and 1 mg of IV magnesium. AICD interrogation requested. Continue with amiodarone infusion. Repeat echocardiogram. Cardiology recommendations appreciated. Will discuss with cardiology regarding the possibility of a repeat angiogram. Last angiogram from June 2019. Respiratory viral negative. Tick panel elevated. Continue with home dose of Coreg of 37.5 mg twice daily for now. Patient was been transitioned to higher dose of Entresto while lowering the dose of Coreg as an outpatient. As per patient and spouse he is still taking Coreg at 37.5 mg twice daily as he is awaiting for approval of a higher dose of Entresto. Last Entresto taken on . Today is Sunday. Neutropenia: Seem to have resolved. Unsure of etiology. Hold off on any further prophylactic levofloxacin for now. Continue to holding off on allopurinol. Continue other chronic medications including home dose of torsemide, levothyroxine, Xanax. Full code. Cardiac diet. Protonix for PUD prophylaxis. Full dose Lovenox will suffice for DVT prophylaxis. Attestations Medical Necessity Statement*: Requires further hospitalization for management of recurrent episodes of ventricular tachycardia leading to ICD firing Critical Care Time: The high probability of a clinically significant, sudden or life threatening deterioration of the patient's [Cardiac] system(s) required my full and direct attention, intervention and personal management. The critical care time is as shown. This time is in addition to time spent performing any reported procedures but includes the following: [x] Data and vital sign review and interpretation [x] Patient assessment, examination and intervention [x] Documentation [x] Medication orders and management 60 Coding Level of Care Code Acute Farm Equipment Maintenance Supervisor for [facility] Fwd Diagnoses AICD discharge Z45.02 Ventricular tachycardia I47.20 Congestive heart failure with cardiomyopathy I50.9; I42.9 ICD (implantable cardioverter-defibrillator), biventricular, in situ Z95.810 Atrial fibrillation I48.91 Atrial fibrillation type: unspecified Chronic kidney disease N18.3 Chronic kidney disease stage: stage 3 (moderate) Cardiomyopathy I42.9 Pacemaker Z95.0 Diabetic peripheral neuropathy associated with type 2 diabetes mellitus E11.42
[2022-03-26] MEDS: potassium chloride ER 20 mEq Tablet 40 MEQ PO (15:59)
[2022-03-26] MEDS: atorvastatin 40 mg Tablet PO (20:16)
--- NOTE | 2022-03-26 20:21 | PC.NURSE ---
Pt is concerned about their gout medication. Dr. Mehta updated. No new orders at this time.
[2022-03-26 22:50] LABS: Add Urine Microscopic? NO; Charge for UA Resulting for Rev
[2022-03-26 23:03] LABS: Bilirubin Urine Neg (Negative); Blood Urine Neg (Negative); Glucose Urine UA Norm (Normal); Ketones Urine Negative (Negative); Nitrate Urine Negative (Negative); Protein Urine Neg (Negative); Urine Appearance Clear (CLEAR); Urine Color Colorless (Yellow); Urobilinogen Urine Neg (Negative); pH Urine 5 (5-7)
[2022-03-26 23:04] LABS: Leukocyte Esterase Urine Negative (Negative)
[2022-03-26] MEDS: acetaminophen 325 mg Tablet 650 MG PO (23:15)
[2022-03-27] VITALS (25 sets, daily range): BP systolic 96–131; BP diastolic 66–91; PULSE 78–885; RESP 18–29; TEMP 36.9; O2SAT 92–96
[2022-03-27] MEDS: levoFLOXacin 500 mg Tablet PO (05:10)
[2022-03-27 05:20] LABS: Basophils # 0.1 10^3/uL (0.0-0.1); Basophils % 0.7 %; Eosinophils % 0.3 %; Hematocrit 39.9 % (42.0-52.0); Hemoglobin 12.9 g/dL (11.7-16.6); Lymphocytes # 3.4 10^3/uL (0.8-4.8); Lymphocytes % 37.5 %; Mean Corpuscular HGB Conc 32.3 g/dL (30.0-36.0); Mean Corpuscular Hemoglobin 32.3 pg (28.0-34.0); Mean Corpuscular Volume 99.8 fl (80-94); Mean Platelet Volume 10.9 fL (7.4-10.4); Monocytes # 1.4 10^3/uL (0.2-0.9); Monocytes % 15.6 %; Neutrophils % 45.6 %; Nucleated Red Blood Cells % 0 %; Platelet Count 143 10^3/cmm (130-400); Red Cell Distribution Width 13.5 % (12.1-15.1)
[2022-03-27 05:45] LABS: Chol HDL Ratio 3.12 mg/dL (1.0-5.00); Cholesterol 103 mg/dL (0-200); HDL Cholesterol 33 mg/dL (60-100); LDL Cholesterol Calculated 49 mg/dL (50-129); Magnesium 1.8 mg/dL (1.7-2.3); Triglycerides 107 mg/dL (0-150); VLDL Cholestrol Calculation 21 mg/dL (0-30)
[2022-03-27 05:46] LABS: Alanine Aminotransferase 25 U/L (0-41); Albumin Level 3.8 g/dL (3.5-5.2); Alkaline Phosphatase 109 U/L (40-130); Anion Gap 14.5 (5-19); Aspartate Amino Transferase 25 U/L (0-40); Blood Urea Nitrogen 31 mg/dL (8-23); Calcium 9.4 mg/dL (8.5-10.5); Carbon Dioxide 29 mmol/L (22-29); Chloride 98 mmol/L (98-107); Globulin 3.3 g/dL (1.3-4.6); Glucose 142 mg/dL (65-115); Osmolality Calculated 293 mOsm/kg (285-295); Potassium 4.5 mmol/L (3.5-5.1); Sodium 137 mmol/L (136-145); Total Protein 7.1 g/dL (6.6-8.7)
[2022-03-27 05:53] LABS: Estmated Average Glucose 128; Hemoglobin A1C 6.1 % (4.0-6.0)
[2022-03-27] MEDS: enoxaparin 100 mg/mL Syringe SUBCUT ×2 (06:21→18:19)
--- NOTE | 2022-03-27 08:30 | P.PN_ITS ---
Subjective Subjective: This patient is admitted to the hospital over the weekend with recurrent ICD discharges. Device had ATP x4 followed by DC shock x3. Apparently it could not convert the rhythm. External cardioversion also was attempted in the ambulance, according to reports. He was started on IV amiodarone in the emergency room which finally converted the rhythm back into the baseline atrial fibrillation with a demand V pacing. Patient has not had a recurrence of VT since the hospital admission. Medications: Medication Review Details: Current Medications Acetaminophen (Acetaminophen 325 Mg Tablet) 650 mg PO Q6H PRN PRN Reason: Mild/Mod Pain Or Temp >/= 101 Last Admin: 03/26/22 23:15 Dose: 650 mg Albuterol Sulfate (Albuterol 2.5 Mg/3 Ml Neb) 2.5 mg INHALATION QID PRN PRN Reason: Shortness Of Breath Or Wheezing Alprazolam (Alprazolam 0.5 Mg Tablet) 0.25 mg PO BID PRN PRN Reason: Anxiety Atorvastatin Calcium (Atorvastatin 40 Mg Tablet) 40 mg PO BEDTIME [facility] Last Admin: 03/26/22 20:16 Dose: 40 mg Carvedilol (Carvedilol 25 Mg Tablet) 37.5 mg PO BID [facility] Stop: 03/27/22 23:00 Last Admin: 03/26/22 17:29 Dose: 37.5 mg Enoxaparin Sodium (Enoxaparin 100 Mg/Ml Syringe) 100 mg 1 mg/kg (100 mg) SUBCUT Q12H [facility] Last Admin: 03/27/22 06:21 Dose: 100 mg Amiodarone HCl 900 mg/Dextrose/ IV Miscellaneous Supplies 518 mls @ 17.267 mls/hr IV CONT [facility] Last Admin: 03/27/22 02:45 Dose: 0.5 mg/min, 17.27 mls/hr Levofloxacin (Levofloxacin 500 Mg Tablet) 500 mg PO DAILY@0600 [facility]; Protocol Last Admin: 03/27/22 05:10 Dose: 500 mg Levothyroxine Sodium (Levothyroxine 125 Mcg Tablet) 125 mcg PO DAILY [facility] Last Admin: 03/26/22 08:11 Dose: 125 mcg Magnesium Oxide (Magnesium Oxide 400 Mg Tablet) 400 mg PO BID [facility] Last Admin: 03/26/22 17:29 Dose: 400 mg Nitroglycerin (Nitroglycerin 0.4 Mg Sublingual Tablet) 0.4 mg SUBLINGUAL Q5M PRN PRN Reason: Pain Ondansetron HCl (Ondansetron 2 Mg/Ml Sdv 2 Ml) 4 mg IVP Q8H PRN PRN Reason: vomiting, or N/V if npo Pantoprazole Sodium (Pantoprazole Dr 40 Mg Tablet) 40 mg PO DAILY [facility] Last Admin: 03/26/22 08:11 Dose: 40 mg Polysaccharide Iron Complex (Iron Polysaccharide Complex 150 Mg Capsule) 150 mg PO DAILY [facility] Last Admin: 03/26/22 09:00 Dose: 150 mg Spironolactone (Spironolactone 25 Mg Tablet) 25 mg PO DAILY [facility] Last Admin: 03/26/22 08:11 Dose: 25 mg Torsemide (Torsemide 20 Mg Tablet) 80 mg PO EVERY OTHER DAY [facility] Last Admin: 03/26/22 08:59 Dose: 80 mg Torsemide (Torsemide 20 Mg Tablet) 40 mg PO EVERY OTHER DAY [facility] Vitals/I&O/Wt Last Vital Signs Temp 98.5 F 03/27/22 04:00 Pulse 78 03/27/22 06:00 Resp 23 H 03/27/22 05:00 BP 103/72 03/27/22 05:00 Pulse Ox 94 03/27/22 05:00 O2 Del Method 03/27/22 05:00 O2 Flow Rate 1.5 03/26/22 10:19 03/26/22 03/27/22 03/27/22 22:59 06:59 14:59 Intake Total 292 / 892 518 / 1410 Output Total 400 / 400 Balance -108 / 492 518 / 1010 Weight last 48 hrs Weight 225 lb 9.6 oz Weight 225 lb 14.4 oz Weight 225 lb 8 oz Physical Exam Narrative: GENERAL: The patient is alert and oriented times three. Not in any acute distress. HEENT: No significant pallor, icterus or lymphadenopathy.Oral cavity: There are no mucous membrane lesions. NECK: Trachea appears to be central. No masses noted. No JVD or thyromegaly appreciated. RESPIRATORY: Chest is symmetrical. No intercostals muscle retraction or any acc essory muscle activation. There is no chest wall tenderness. Breath sounds are heard bilaterally. No rales or rhonchi heard. No evidence of any consolidation. BREASTS: Deferred. HEART: The heart sounds are normal. No S3 or S4. No significant murmurs. No pericardial rub ABDOMEN: No vessel pulsations or distention. No tenderness. No organomegaly appreciated. Bowel sounds are normally heard. : Deferred. RECTAL: Deferred. LYMPHATIC: No lymphadenopathy noted in the neck. EXTREMITIES: No edema or cyanosis. No clubbing. MUSCULOSKELETAL: No acute joint deformities or swelling SKIN: There are no significant rashes or ecchymosis NEUROPSYCHIATRIC: The patient is alert and oriented x3. Appears to be in a good mood. No tremors or rigidity noted. Data 03/27/22 03:35 03/27/22 03:35 Other Labs: Laboratory Last Values WBC 9.0 10^3/uL (4.0-10.0) 03/27/22 03:35 RBC 4.00 10^6/uL (4.1-5.3) L 03/27/22 03:35 Hgb 12.9 g/dL (11.7-16.6) 03/27/22 03:35 Hct 39.9 % (42.0-52.0) L 03/27/22 03:35 MCV 99.8 fl (80-94) H 03/27/22 03:35 MCH 32.3 pg (28.0-34.0) 03/27/22 03:35 MCHC 32.3 g/dL (30.0-36.0) 03/27/22 03:35 RDW 13.5 % (12.1-15.1) 03/27/22 03:35 Plt Count 143 10^3/cmm (130-400) 03/27/22 03:35 MPV 10.9 fL (7.4-10.4) H 03/27/22 03:35 Neut % (Auto) 45.6 % 03/27/22 03:35 Lymph % (Auto) 37.5 % 03/27/22 03:35 Sharp % (Auto) 15.6 % 03/27/22 03:35 Eos % (Auto) 0.3 % 03/27/22 03:35 Baso % (Auto) 0.7 % 03/27/22 03:35 Neut # (Auto) 4.10 10^3/uL (1.8-7.7) 03/27/22 03:35 Lymph # (Auto) 3.4 10^3/uL (0.8-4.8) 03/27/22 03:35 Sharp # (Auto) 1.4 10^3/uL (0.2-0.9) H 03/27/22 03:35 Eos # (Auto) 0.0 10^3/uL (0.0-0.8) 03/27/22 03:35 Baso # (Auto) 0.1 10^3/uL (0.0-0.1) 03/27/22 03:35 Nucleated RBC % (auto) 0 % 03/27/22 03:35 Nucleated RBCs # 0.0 /100WBC 03/27/22 03:35 APTT 51.7 SECONDS (23.9-36.7) H 03/25/22 18:01 Sodium 137 mmol/L (136-145) 03/27/22 03:35 Potassium 4.5 mmol/L (3.5-5.1) 03/27/22 03:35 Chloride 98 mmol/L (98-107) 03/27/22 03:35 Carbon Dioxide 29 mmol/L (22-29) 03/27/22 03:35 Anion Gap 14.5 (5-19) 03/27/22 03:35 BUN 31 mg/dL (8-23) H 03/27/22 03:35 Creatinine 1.4 mg/dL (0.7-1.2) H 03/27/22 03:35 GFR Calculation Not Reportable 03/27/22 03:35 Glucose 142 mg/dL (65-115) H 03/27/22 03:35 Estimat Average Glucose 128 03/27/22 03:35 Hemoglobin A1c 6.1 % (4.0-6.0) H 03/27/22 03:35 Calculated Osmolality 293 mOsm/kg (285-295) 03/27/22 03:35 Calcium 9.4 mg/dL (8.5-10.5) 03/27/22 03:35 Phosphorus 3.0 mg/dL (2.5-4.5) 03/25/22 18:01 Magnesium 1.8 mg/dL (1.7-2.3) 03/27/22 03:35 Iron 39 ug/dL (59-158) L 03/26/22 06:46 TIBC 320 mcg/dl 03/26/22 06:46 % Saturation 12.1 % (20-50) L 03/26/22 06:46 Unsat Iron Binding 281 ug/dL (112-347) 03/26/22 06:46 Total Bilirubin 1.0 mg/dL (0.15-1.2) 03/27/22 03:35 AST 25 U/L (0-40) 03/27/22 03:35 ALT 25 U/L (0-41) 03/27/22 03:35 Alkaline Phosphatase 109 U/L (40-130) 03/27/22 03:35 Troponin T Baseline 30 ng/L (0-15) H 03/25/22 18:01 Troponin T 120 Minute 59.39 ng/L (0-15) H 03/25/22 20:34 Delta Troponin T 29.39 ABS# (0-10) H* 03/25/22 20:34 Troponin T Hi Sens 6Hr 84.36 ng/L (0-15) H 03/26/22 00:40 Troponin T Hi Sens 6Hr Delta 54.36 ng/L (0-12) H* 03/26/22 00:40 NT-Pro-B Natriuret Pep 3504 pg/mL (0-450) H 03/25/22 18:01 Total Protein 7.1 g/dL (6.6-8.7) 03/27/22 03:35 Albumin 3.8 g/dL (3.5-5.2) 03/27/22 03:35 Globulin 3.3 g/dL (1.3-4.6) 03/27/22 03:35 Triglycerides 107 mg/dL (0-150) 03/27/22 03:35 Cholesterol 103 mg/dL (0-200) 03/27/22 03:35 LDL Cholesterol, Calc 49 mg/dL (50-129) L 03/27/22 03:35 Total VLDL Cholesterol 21 mg/dL (0-30) 03/27/22 03:35 HDL Cholesterol 33 mg/dL (60-100) L 03/27/22 03:35 Cholesterol/HDL Ratio 3.12 mg/dL (1.0-5.00) 03/27/22 03:35 TSH 5.05 uIU/mL (0.27-4.20) H 03/25/22 18:01 Free T4 1.26 ng/dL (0.82-1.77) 03/26/22 06:46 Free T3 1.9 PG/ML (2.0-4.4) L 03/26/22 06:46 Urine Color Colorless (Yellow) 03/26/22 22:40 Urine Appearance Clear (CLEAR) 03/26/22 22:40 Urine pH 5 (5-7) 03/26/22 22:40 Ur Specific [place] 1.010 (1.005-1.030) 03/26/22 22:40 Urine Protein Neg (Negative) 03/26/22 22:40 Urine Glucose (UA) Norm (Normal) 03/26/22 22:40 Urine Ketones Negative (Negative) 03/26/22 22:40 Urine Blood Neg (Negative) 03/26/22 22:40 Urine Nitrate Negative (Negative) 03/26/22 22:40 Urine Bilirubin Neg (Negative) 03/26/22 22:40 Urine Urobilinogen Neg mg/dL (Negative) 03/26/22 22:40 Ur Leukocyte Esterase Negative (Negative) 03/26/22 22:40 Nasal Influ A H1 2009 PCR Not detected (NOT DETECT) 03/25/22 22:15 Adenovirus (PCR) Not detected (NOT DETECT) 03/25/22 22:15 C. pneumoniae DNA (PCR) Not detected (NOT DETECT) 03/25/22 22:15 Coronavirus 229E (PCR) Not detected (NOT DETECT) 03/25/22 22:15 Human Metapneumovir PCR Not detected (NOT DETECT) 03/25/22 22:15 Influenza A (H1) PCR Not detected (NOT DETECT) 03/25/22 22:15 Influenza A (H3) PCR Not detected (NOT DETECT) 03/25/22 22:15 Influenza Type A (PCR) Not detected (NOT DETECT) 03/25/22 22:15 Influenza Type B (PCR) Not detected (NOT DETECT) 03/25/22 22:15 M. pneumoniae (PCR) Not detected (NOT DETECT) 03/25/22 22:15 Parainfluenza 1 (PCR) Not detected (NOT DETECT) 03/25/22 22:15 Parainfluenza 2 (PCR) Not detected (NOT DETECT) 03/25/22 22:15 Parainfluenza 3 (PCR) Not detected (NOT DETECT) 03/25/22 22:15 Parainfluenza 4 (PCR) Not detected (NOT DETECT) 03/25/22 22:15 RSV Type A (PCR) Not detected (NOT DETECT) 03/25/22 22:15 RSV Type B (PCR) Not detected (NOT DETECT) 03/25/22 22:15 Entero/Rhino (PCR) Not detected (NOT DETECT) 03/25/22 22:15 SARS-CoV-2 (PCR) Not detected (NOT DETECT) 03/25/22 22:15 Micro: Microbiology 03/26/22 06:47 Blood Culture - Preliminary Blood NEGATIVE TO DATE 03/26/22 06:46 Blood Culture - Preliminary Blood NEGATIVE TO DATE A&P Assessment and plan (1) Failure of cardiac resynchronization therapy defibrillator (TIMBER SETTER-D) lead: This is the first time that his device had a discharge since its implantation. Apparently the ICD shocks during work. Exact reasons are not known. The device also has FIONA. Device requires a DFT, due to device exchange. If there is a problem with the RV lead that may need to be revised. (2) Ventricular tachycardia: Patient is currently on amiodarone .has not had a recurrence of V. tach. Possibility of underlying coronary ischemia causing the arrhythmia is a consideration. We may consider doing a Myocardial perfusion imaging versus cardiac catheterization to evaluate for any significant ischemia. For the time being, he may be continued on the IV amiodarone (3) Congestive heart failure with cardiomyopathy: Patient is known to have LV ejection fraction around 25%. Currently has no evidence of any decompensation. (4) Atherosclerotic heart disease of [place] coronary artery with other forms of angina pectoris: As mentioned above. Patient may require a cardiac catheterization to evaluate for any underlying coronary ischemia. I will go ahead do EKG to look for any new ischemic changes. He had most recent cardiac catheterization in 2019 and w as found to have no revascularizable lesions at that time. It was opted to treat her medically. (5) Chronic kidney disease: Patient is known to have chronic stage III kidney disease. BUN and creatinine seems to be stable. Qualifiers: Chronic kidney disease stage: stage 3 (moderate) Qualified Code(s): N18.3 - Chronic kidney disease, stage 3 (moderate) (6) Atrial fibrillation: Patient is on long-term oral anticoagulation. He took the last dose of Eliquis on Sunday morning. Currently is on Lovenox. Qualifiers: Atrial fibrillation type: unspecified Qualified Code(s): I48.91 - Unspecified atrial fibrillation Plan We will keep him n.p.o. for the time being. May consider cardiac catheterization this evening Attestations Medical Necessity Statement*: Patient requires continued hospital stay for close monitoring and further management Coding Level of Care Code Acute Technician Test Systems for [facility] Fwd History Detailed Exam Detailed Medical Decision Making High Complexity Diagnoses Failure of cardiac resynchronization therapy defibrillator (TIMBER SETTER-D) lead T82.198A Ventricular tachycardia I47.20 Congestive heart failure with cardiomyopathy I50.9; I42.9 Atherosclerotic heart disease of [place] coronary artery with other forms of angina pectoris I25.118 Chronic kidney disease N18.3 Chronic kidney disease stage: stage 3 (moderate) Atrial fibrillation I48.91 Atrial fibrillation type: unspecified
[2022-03-27] MEDS: spironolactone 25 mg Tablet PO (08:32)
[2022-03-27] MEDS: magnesium oxide 400 mg tablet PO ×2 (08:32→17:27)
[2022-03-27] MEDS: pantoprazole DR 40 mg Tablet PO (08:32)
[2022-03-27] MEDS: carvedilol 25 mg Tablet 37.5 MG PO ×2 (08:32→17:27)
[2022-03-27] MEDS: iron polysaccharide complex 150 mg Capsule PO (08:32)
[2022-03-27] MEDS: levothyroxine 125 mcg Tablet PO (08:33)
[2022-03-27] MEDS: TORSEmide 20 mg Tablet 40 MG PO (08:33)
[2022-03-27 09:17] LABS: Troponin T (5th) Once 68 ng/L (0-15)
--- NOTE | 2022-03-27 10:21 | PC.CHAP ---
Pastoral Care Encounter/Spiritual Assessment Type of Contact [] Declined ticketer visit [] Patient/Family/Request visit [] Outpatient visit [] Follow-up visit [] Physician referral [] Code/Alert [x] Routine visit [] Staff referral [] Actively dying [] Patient sleeping [x] Family support [] [] Out of room [] Palliative care [] [] Receiving care in room [] Pre-surgical visit [] Trauma [] Long length of stay [x] ICU visit [x] Other: rested well.. preparing for additional tests Relational/Emotional Strength [] Patient feels connected with others/family/visitors/staff [] Distress [] Loneliness/isolation [] Abandonment Spirituality of Patient [x] Person of Lyric [] Attends Rastafarian of their Lyric [] Believes in Prayer [] Reads Bible or Tenriism materials [] There are Spiritual issues to be addressed In Classroom Tutor Interventions [x] Prayer [] Active listening [] Non-anxious presence [] Spiritual/emotional support [] Crisis/trauma care [] Spiritual counseling [] Bereavement support [] Provided bereavement packet [] Provided Bible/devotional materials [] Provided toy/stuffed animal, coloring book to patient or family member [] Provided Communion [] Anointing/[place] [] Salvation [x] Completed spiritual assessment [] Other: Impact on Illness or Injury [] Angry [] Fearful [] Anxious [] Often cries [] Exhaustion [] Unable to work [] Unable to attend mandaen [] Unable to walk/stand [] Unable to read [] Unable to drive [] Unable to eat/drink [] Unable to sleep [] Unable to be with family [] Patient intubated [] Other: Summary Time spent with patient
--- NOTE | 2022-03-27 11:16 | ECG_ITS ---
[facility] Test Date: 2022-03-27 Pat Name: Raj Vega Department: Room: ICU07 Gender: Male Director [place] [employer]: : 1945 Requested By: Alan Strickland Order Number: [id number] Cain MD: Elio Santos M.D. Measurements Intervals Strang Rate: 79 P: 0 ME: 0 QRS: 259 QRSD: 178 T: 48 QT: 480 QTc: 552 Interpretive Statements ELECTRONIC VENTRICULAR PACEMAKER Compared to ECG 03/25/2022 23:41:44 No significant changes Electronically Signed On 03-27-2022 18:28:23 COMMUNITY SUPPORT PROFESSIONAL by Elio Santos M.D. [id number]
[2022-03-27] MEDS: acetaminophen 325 mg Tablet 650 MG PO ×3 (12:04→23:35)
[2022-03-27 14:54] LABS: Lyme AB Screen <0.90 index
--- NOTE | 2022-03-27 16:58 | PM.PN ---
Subjective Subjective: Having some mild discomfort in his chest but hesitated to even characterize it as pain or pressure, not palpitations. Denies trouble breathing. Vitals/I&O/Wt Last Vital Signs Temp 98.5 F 03/27/22 04:00 Pulse 84 03/27/22 16:00 Resp 22 H 03/27/22 16:00 BP 115/79 03/27/22 16:00 Pulse Ox 95 03/27/22 16:00 O2 Del Method 03/27/22 05:00 O2 Flow Rate 1.5 03/26/22 10:19 03/27/22 03/27/22 03/27/22 06:59 14:59 22:59 Intake Total 518 / 1410 360 / 360 Balance 518 / 1010 360 / 360 Weight last 48 hrs Weight 102.33 kg Weight 102.467 kg Weight 102.285 kg Physical Exam Narrative: Accompanied by his . Const: COMMON NORMALS: patient oriented x3 and alert GENERAL APPEARANCE: cooperative ORIENTATION/CONSCIOUSNESS: Yes awake HENMT: COMMON NORMALS: oropharynx normal Neck/C-Spine: COMMON NORMALS: no JVD Resp: COMMON NORMALS: normal respiratory effort AUSCULTATION: diminished lung sounds Cardio: COMMON NORMALS: no JVD, regular rhythm, S1 normal heart sound present, S2 normal heart sound present and No murmurs present (Cardio) RHYTHM: regular rhythm HEART SOUNDS: S1 normal heart sound present and S2 normal heart sound present GI: COMMON NORMALS: Normal to inspection, nondistended, normoactive bowel sounds present, Soft to palpation and non-tender PALPATION: Yes Soft to palpation Extremity: COMMON NORMALS: no joint enlargement and no pedal edema Neuro: COMMON NORMALS: patient oriented x3 and moves all extremities SENSORIUM/ORIENTATION: Yes alert Skin: COMMON NORMALS: no rashes or lesions noted GENERAL SKIN EXAM: no rashes or lesions noted Data 03/27/22 03:35 03/27/22 03:35 Micro: Microbiology 03/26/22 06:47 Blood Culture - Preliminary Blood NEGATIVE TO DATE 03/26/22 06:46 Blood Culture - Preliminary Blood NEGATIVE TO DATE A&P Assessment and plan (1) AICD discharge: Discussions with cardiology, consideration of additional evaluation possibly with angiogram were considered, although for now per cardiology would likely culprit given recent angiogram in the beginning of 2020. Further consideration of other causes of ICD discharge, including consideration whether there could be RV lead malfunction. Further consideration of assessment by EP with consideration whether device revision may be needed. Noted FIONA. Per cardiology requires DFT due to device exchange. Cardiology considering whether transfer may be necessary for these reasons to higher level facility. (2) Ventricular tachycardia: As per cardiology recommendations continue amiodarone. Will give 1 g magnesium. Recheck mag level. (3) Congestive heart failure with cardiomyopathy: Monitor for decompensation. Underlying EF 25-20%. (4) ICD (implantable cardioverter-defibrillator), biventricular, in situ: (5) Atrial fibrillation: Qualifiers: Atrial fibrillation type: unspecified Qualified Code(s): I48.91 - Unspecified atrial fibrillation (6) Chronic kidney disease: Qualifiers: Chronic kidney disease stage: stage 3 (moderate) Qualified Code(s): N18.3 - Chronic kidney disease, stage 3 (moderate) (7) Cardiomyopathy: Continue with home dose of Coreg of 37.5 mg twice daily for now. Patient was been transitioned to higher dose of Entresto while lowering the dose of Coreg as an outpatient. As per patient and spouse he is still taking Coreg at 37.5 mg twice daily as he is awaiting for approval of a higher dose of Entresto. Last Entresto taken on . Today is Sunday. (8) Pacemaker: Device interrogation revealed 3 shocks delivered on day of admission, as well as 3-4 rounds of ATP. Underlying rhythm of V. fib/V. tach. Device tradition also indicating FIONA. (9) Diabetic peripheral neuropathy associated with type 2 diabetes mellitus: Diabetes, A1c 6.1. Plan Respiratory viral negative. Tick panel pending. Neutropenia: resolved. Unsure of etiology. Hold off on any further prophylactic levofloxacin for now. Gout: Allopurinol has been on hold Continue other chronic medications including home dose of torsemide, levothyroxine, Xanax. Full code. Cardiac diet. Protonix for PUD prophylaxis. Full dose Lovenox will suffice for DVT prophylaxis. Attestations Medical Necessity Statement*: Continue admission for further cardiac evaluation due to recurrent ICD shocks in a gentleman with underlying cardiomyopathy, EF 25-30%. CAD. A. fib. And other comorbidities. Coding Level of Care Code Acute Rural Mail Carrier for [facility] Fwd Exam Comprehensive Diagnoses AICD discharge Z45.02 Ventricular tachycardia I47.20 Congestive heart failure with cardiomyopathy I50.9; I42.9 ICD (implantable cardioverter-defibrillator), biventricular, in situ Z95.810 Atrial fibrillation I48.91 Atrial fibrillation type: unspecified Chronic kidney disease N18.3 Chronic kidney disease stage: stage 3 (moderate) Cardiomyopathy I42.9 Pacemaker Z95.0 Diabetic peripheral neuropathy associated with type 2 diabetes mellitus E11.42
[2022-03-27] MEDS: atorvastatin 40 mg Tablet PO (20:12)
--- NOTE | 2022-03-27 20:47 | PC.NURSE ---
Unable to accurately measure urine output, pt refusing to use a urinal or a bedside commode, pt insisting that they use the toilet. Pt educated on their fall precautions and call light use.
--- NOTE | 2022-03-27 20:57 | PC.NURSE ---
Pt has expiratory wheezes. SpO2 95%. Pt states that they use a nebulizer once a day @ home. Dr. Otto notified. No new orders at this time.
[2022-03-28] VITALS (26 sets, daily range): BP systolic 109–160; BP diastolic 67–95; PULSE 79–119; RESP 15–31; TEMP 36.9; O2SAT 91–95
[2022-03-28 03:31] LABS: Basophils # 0.1 10^3/uL (0.0-0.1); Eosinophils # 0.1 10^3/uL (0.0-0.8); Hematocrit 40.1 % (42.0-52.0); Hemoglobin 12.6 g/dL (11.7-16.6); Lymphocytes # 3.4 10^3/uL (0.8-4.8); Lymphocytes % 40.6 %; Mean Corpuscular HGB Conc 31.4 g/dL (30.0-36.0); Mean Corpuscular Hemoglobin 31.4 pg (28.0-34.0); Mean Platelet Volume 10.4 fL (7.4-10.4); Monocytes # 1.2 10^3/uL (0.2-0.9); Neutrophils # 3.59 10^3/uL (1.8-7.7); Nucleated Red Blood Cells % 0 %; Platelet Count 144 10^3/cmm (130-400); Red Blood Count 4.01 10^6/uL (4.1-5.3); Red Cell Distribution Width 13.5 % (12.1-15.1); White Blood Count 8.3 10^3/uL (4.0-10.0)
[2022-03-28 03:48] LABS: Blood Urea Nitrogen 38 mg/dL (8-23); Calcium 9.5 mg/dL (8.5-10.5); Carbon Dioxide 26 mmol/L (22-29); Chloride 98 mmol/L (98-107); Glucose 145 mg/dL (65-115); Osmolality Calculated 296 mOsm/kg (285-295); Sodium 137 mmol/L (136-145)
[2022-03-28] MEDS: levoFLOXacin 500 mg Tablet PO (06:31)
[2022-03-28] MEDS: acetaminophen 325 mg Tablet 650 MG PO ×2 (06:31→20:59)
[2022-03-28] MEDS: enoxaparin 100 mg/mL Syringe SUBCUT (06:32)
--- NOTE | 2022-03-28 06:43 | NMCV_ITS ---
NM sasha perf SPECT r/s* [id number] Raj Vega Age: 77 Gender: M : 1945 Exam Date: 03/28/2022 09:39 Ordering Phys: Alan Strickland MD ([email or web address]) Technologist: TEJAS Sparks Exam Location: [facility] Indications: CHEST PAIN STRESS TEST Please [facility] IMAGE PROTOCOL Rest/Stress 1 Lexiscan Day Radiopharmaceutical Dose (mCi) Administration Site Administered by Rest: Tc-99m 10.8 IV TEJAS Welch Sestamibi Stress:Tc-99m 32.1 IV TEJAS Welch Sestamibi Rest: 28-Mar-2022 60 Discovery 630 Stress: 28-Mar-2022 30 Discovery 630 0.4mg Lexiscan. Images obtained in supine and prone position. SPECT RESULTS Technical Quality: Excellent Raw Data Analysis: Normal Image Corrections: No attenuation or motion correction applied Summed Stress Score: 24 Summed Rest Score: 21 Summed Difference Score: 5 PERFUSION FINDINGS A large area of moderate to severely decreased tracer uptake was noted in the anterolateral, inferolateral, inferior, apical and mid inferoseptal regions. Small areas of reversibility was noted in the anterolateral, basal inferior and apical anterior regions. FUNCTIONAL RESULTS (calculated via Gated SPECT) Stress Image LV EF (%): 35 Stress EDV (mL):161 TID: 0.95 Stress ESV (mL):104 FUNCTIONAL FINDINGS: Segmental wall motion analysis revealed a severe diffuse hypokinesia of the inferior wall, apex and septum. The LV cavity is moderately dilated. IMPRESSIONS 1. Myocardial perfusion imaging revealing large area of persistent decreases uptake in the inferior, inferolateral, anterolateral and apical regions with small areas of reversibility in the anterolateral, basal inferior and apical anterior regions, suggesting extensive myocardial scarring in the distribution of all the 3 coronary arteries with some small areas of keila-infarction ischemia. 2. Diminished LV ejection fraction of 35%. 3. Multiple wall motion abnormalities as mentioned above. 4. Moderately dilated LV cavity with an end-systolic volume of 104 mm Compared to the study from 06/19/2019, the ischemic burden appears to be less Dr Alan Strickland MD FAC (Electronically Signed) Final Date: 28 March 2022 12:50 S
--- NOTE | 2022-03-28 06:45 | ECG_ITS ---
[facility] Test Date: 2022-03-28 Pat Name: Raj Vega Department: Room: ICU07 Gender: Male Medical Housekeeper: : 1945 Requested By: Alan Strickland Order Number: [id number] Cain MD: Alan Strickland M.D. Interpretive Statements NAME OF STUDY: LEXISCAN SESTAMIBI STRESS TEST INDICATION: Chest Pain, PROCEDURE: At the baseline, the EKG revealed atrial fibrillation with a demand V paced rhythm. Diffuse nonspecific ST-T changes. The baseline heart was 83 bpm with a blood pressue of 135/86 mm of Hg Lexiscan was infused over a period of 20 seconds. A total of 0.4 milligrams of Lexiscan was infused. The stress phase was continued for a total of 5 minutes. Heart rate at the end of the stress phase was 86 bpm with a blood pressure 114/60 mm of Hg. The EKG at the peak infusion revealed no significant changes Sestamibi was injected 20 seconds after the Lexiscan infusion. Heart rate at the end of the recovery phase was 86 bpm with a blood pressure of 116/68 mm of Hg. CONCLUSION: 1. No significant EKG changes with the LexiScan infusion 2. No LexiScan induced chest pain or cardiac arrhythmia 3. Normal blood pressure and heart rate response 4. Sestamibi/sestamibi perfusion scan pending; see separate report. Electronically Signed On 03-30-2022 12:21:54 BUG TRIMMER by Alan Strickland M.D. [id number]
--- NOTE | 2022-03-28 06:47 | PC.NURSE ---
Dr. Strickland called unit and gave new orders for Marquita scan stress test. Pt is now NPO. Orders entered.
[2022-03-28] MEDS: TORSEmide 20 mg Tablet 80 MG PO (07:59)
[2022-03-28] MEDS: spironolactone 25 mg Tablet PO (07:59)
[2022-03-28] MEDS: levothyroxine 125 mcg Tablet PO (07:59)
[2022-03-28] MEDS: pantoprazole DR 40 mg Tablet PO (07:59)
[2022-03-28] MEDS: iron polysaccharide complex 150 mg Capsule PO (08:00)
[2022-03-28] MEDS: magnesium oxide 400 mg tablet PO ×2 (08:00→17:19)
--- NOTE | 2022-03-28 09:57 | PC.NURSE ---
Patient is in CDL for stress test
[2022-03-28] MEDS: regadenoson 0.4 Mg/5 ml Syringe IVP (10:24)
--- NOTE | 2022-03-28 11:33 | PC.CHAP ---
Pastoral Care Encounter/Spiritual Assessment Type of Contact [] Declined physical therapy nurse visit [] Patient/Family/Request visit [] Outpatient visit [] Follow-up visit [] Physician referral [] Code/Alert [x] Routine visit [] Staff referral [] Actively dying [] Patient sleeping [x] Family support [] [x] Out of room [] Palliative care [] [] Receiving care in room [] Pre-surgical visit [] Trauma [] Long length of stay [x] ICU visit [] Other: Relational/Emotional Strength [] Patient feels connected with others/family/visitors/staff [] Distress [] Loneliness/isolation [] Abandonment Spirituality of Patient [] Person of Lyric [] Attends Religious of their Lyric [] Believes in Prayer [] Reads Bible or Zoroastrian materials [] There are Spiritual issues to be addressed Director [place] Interventions [x] Prayer [] Active listening [] Non-anxious presence [] Spiritual/emotional support [] Crisis/trauma care [] Spiritual counseling [] Bereavement support [] Provided bereavement packet [] Provided Bible/devotional materials [] Provided toy/stuffed animal, coloring book to patient or family member [] Provided Communion [] Anointing/[place] [] Salvation [x] Completed spiritual assessment [] Other: Impact on Illness or Injury [] Angry [] Fearful [] Anxious [] Often cries [] Exhaustion [] Unable to work [] Unable to attend roman catholic [] Unable to walk/stand [] Unable to read [] Unable to drive [] Unable to eat/drink [] Unable to sleep [] Unable to be with family [] Patient intubated [] Other: Summary Time spent with patient
--- NOTE | 2022-03-28 15:28 | PM.PN ---
Subjective Subjective: Today he is not having chest pain or pressure. However, has been having nasal congestion, due to this also could not sleep very well. He has had a wheeze. Prefers to take breathing treatment, and due to recent episodes of tachycardia. Currently prefers not to take a sleeping medicine. Vitals/I&O/Wt Last Vital Signs Temp 98.5 F 03/27/22 20:00 Pulse 88 03/28/22 15:04 Resp 21 H 03/28/22 12:00 BP 109/83 03/28/22 12:00 Pulse Ox 92 03/28/22 15:04 O2 Del Method 03/28/22 15:04 O2 Flow Rate 1.5 03/26/22 10:19 03/28/22 03/28/22 03/28/22 06:59 14:59 22:59 Intake Total 423.403 / 1195.403 240 / 240 Output Total 500 / 800 Balance -76.597 / 395.403 240 / 240 Weight last 48 hrs Weight 116.029 kg Weight 102.33 kg Physical Exam Narrative: Accompanied by his . Const: COMMON NORMALS: patient oriented x3 and alert GENERAL APPEARANCE: cooperative ORIENTATION/CONSCIOUSNESS: Yes awake HENMT: COMMON NORMALS: oropharynx normal Neck/C-Spine: COMMON NORMALS: no JVD Resp: COMMON NORMALS: normal respiratory effort and clear to auscultation bilaterally AUSCULTATION: clear to auscultation bilaterally and diminished lung sounds Cardio: COMMON NORMALS: no JVD, regular rhythm, S1 normal heart sound present, S2 normal heart sound present and No murmurs present (Cardio) RHYTHM: regular rhythm HEART SOUNDS: S1 normal heart sound present and S2 normal heart sound present GI: COMMON NORMALS: Normal to inspection, nondistended, normoactive bowel sounds present, Soft to palpation and non-tender PALPATION: Yes Soft to palpation Extremity: COMMON NORMALS: no joint enlargement and no pedal edema Neuro: COMMON NORMALS: patient oriented x3 and moves all extremities SENSORIUM/ORIENTATION: Yes alert Skin: COMMON NORMALS: no rashes or lesions noted GENERAL SKIN EXAM: no rashes or lesions noted Data 03/28/22 02:45 03/28/22 02:45 A&P Assessment and plan (1) AICD discharge: He discussed with cardiology further assessment with stress testing which she underwent today. Noted area diffusion of tracer uptake in inferior, inferolateral and anterolateral apical regions with small areas of reversibility. Small risk for infection ischemia suspected prescription for aortic mechanical ischemia not the likely trigger of his arrhythmias. Cardiology further looking into transfer to higher level facility for further assessment of his device in consultation with EP. Discussions with cardiology, consideration of additional evaluation possibly with angiogram were considered, although for now per cardiology would likely culprit given recent angiogram in the beginning of 2019. Further consideration of other causes of ICD discharge, including consideration whether there could be RV lead malfunction. Further consideration of assessment by EP with consideration whether device revision may be needed. Noted FIONA. Per cardiology requires DFT due to device exchange. Cardiology considering whether transfer may be necessary for these reasons to higher level facility. (2) Ventricular tachycardia: As per cardiology recommendations continue amiodarone. Received magnesium replacement. (3) Congestive heart failure with cardiomyopathy: Monitor for decompensation. Underlying EF 25-20%. (4) ICD (implantable cardioverter-defibrillator), biventricular, in situ: (5) Atrial fibrillation: Qualifiers: Atrial fibrillation type: unspecified Qualified Code(s): I48.91 - Unspecified atrial fibrillation (6) Chronic kidney disease: Qualifiers: Chronic kidney disease stage: stage 3 (moderate) Qualified Code(s): N18.3 - Chronic kidney disease, stage 3 (moderate) (7) Cardiomyopathy: Continue with home dose of Coreg of 37.5 mg twice daily for now. Patient was been transitioned to higher dose of Entresto while lowering the dose of Coreg as an outpatient. As per patient and spouse he is still taking Coreg at 37.5 mg twice daily as he is awaiting for approval of a higher dose of Entresto. Last Entresto taken on . (8) Pacemaker: Device interrogation revealed 3 shocks delivered on day of admission, as well as 3-4 rounds of ATP. Underlying rhythm of V. fib/V. tach. Device tradition also indicating FIONA. (9) Diabetic peripheral neuropathy associated with type 2 diabetes mellitus: Diabetes, A1c 6.1. Plan Respiratory viral panel negative. Tick panel pending. Neutropenia: resolved. Unsure of etiology. Hold off on any further prophylactic levofloxacin for now. Gout: Allopurinol has been on hold Continue other chronic medications including home dose of torsemide, levothyroxine, Xanax. Full code. Cardiac diet. Protonix for PUD prophylaxis. Full dose Lovenox will suffice for DVT prophylaxis. Attestations Medical Necessity Statement*: Continue assessment management by cardiology due to multiple defibrillator discharges, concern for lead malfunction, device with FIONA, continue IV amiodarone. Coding Level of Care Code Acute Bus Repair Supervisor for [facility] Fwd Diagnoses AICD discharge Z45.02 Ventricular tachycardia I47.20 Congestive heart failure with cardiomyopathy I50.9; I42.9 ICD (implantable cardioverter-defibrillator), biventricular, in situ Z95.810 Atrial fibrillation I48.91 Atrial fibrillation type: unspecified Chronic kidney disease N18.3 Chronic kidney disease stage: stage 3 (moderate) Cardiomyopathy I42.9 Pacemaker Z95.0 Diabetic peripheral neuropathy associated with type 2 diabetes mellitus E11.42
[2022-03-28] MEDS: fluticasone nasal spray 16gm Btl 1 SPRAY NASAL (16:17)
[2022-03-28] MEDS: ALPRAZolam 0.5 mg Tablet 0.25 MG PO (16:17)
--- NOTE | 2022-03-28 17:06 | P.PN_ITS ---
Subjective Subjective: Patient had a Myocardial perfusion imaging today. He was found to have small areas of possible keila-infarction ischemia. The ischemic burden was much less compared to what he had in 2020. Patient remains asymptomatic with no chest pain or any other specific ischemic symptoms. Telemetry shows atrial fibrillation with demand V pacing. Has not had any recurrence of V. tach. He is back on the IV amiodarone. Medications: Medication Review Details: Current Medications Acetaminophen (Acetaminophen 325 Mg Tablet) 650 mg PO Q6H PRN PRN Reason: Mild/Mod Pain Or Temp >/= 101 Last Admin: 03/28/22 06:31 Dose: 650 mg Albuterol Sulfate (Albuterol 2.5 Mg/3 Ml Neb) 2.5 mg INHALATION QID PRN PRN Reason: Shortness Of Breath Or Wheezing Alprazolam (Alprazolam 0.5 Mg Tablet) 0.25 mg PO BID PRN PRN Reason: Anxiety Last Admin: 03/28/22 16:17 Dose: 0.25 mg Aminophylline (Aminophylline 25 Mg/Ml Sdv 10 Ml) 25 mg IVP Q2M PRN PRN Reason: see dose instructions Stop: 03/29/22 07:01 Atorvastatin Calcium (Atorvastatin 40 Mg Tablet) 40 mg PO BEDTIME [facility] Last Admin: 03/27/22 20:12 Dose: 40 mg Enoxaparin Sodium (Enoxaparin 100 Mg/Ml Syringe) 100 mg 1 mg/kg (100 mg) SUBCUT Q12H [facility] Last Admin: 03/28/22 06:32 Dose: 100 mg Fluticasone Propionate (Fluticasone Nasal [place] 16gm Btl) 1 spray NASAL DAILY S Last Admin: 03/28/22 16:17 Dose: 1 spray Amiodarone HCl 900 mg/Dextrose/ IV Miscellaneous Supplies 518 mls @ 17.267 mls/hr IV CONT [facility] Last Admin: 03/28/22 03:16 Dose: 0.5 mg/min, 17.27 mls/hr Levofloxacin (Levofloxacin 500 Mg Tablet) 500 mg PO DAILY@0600 [facility]; Protocol Last Admin: 03/28/22 06:31 Dose: 500 mg Levothyroxine Sodium (Levothyroxine 125 Mcg Tablet) 125 mcg PO DAILY [facility] Last Admin: 03/28/22 07:59 Dose: 125 mcg Magnesium Oxide (Magnesium Oxide 400 Mg Tablet) 400 mg PO BID [facility] Last Admin: 03/28/22 08:00 Dose: 400 mg Nitroglycerin (Nitroglycerin 0.4 Mg Sublingual Tablet) 0.4 mg SUBLINGUAL Q5M PRN PRN Reason: Pain Nitroglycerin (Nitroglycerin 0.4 Mg Sublingual Tablet) 0.4 mg SUBLINGUAL Q5M PRN PRN Reason: CHEST PAIN Stop: 03/29/22 07:01 Ondansetron HCl (Ondansetron 2 Mg/Ml Sdv 2 Ml) 4 mg IVP Q8H PRN PRN Reason: vomiting, or N/V if npo Ondansetron HCl (Ondansetron 2 Mg/Ml Sdv 2 Ml) 4 mg IVP Q2M PRN PRN Reason: NAUSEA Pantoprazole Sodium (Pantoprazole Dr 40 Mg Tablet) 40 mg PO DAILY [facility] Last Admin: 03/28/22 07:59 Dose: 40 mg Polysaccharide Iron Complex (Iron Polysaccharide Complex 150 Mg Capsule) 150 mg PO DAILY [facility] Last Admin: 03/28/22 08:00 Dose: 150 mg Sodium Chloride (Saline Nasal [place] 44ml Btl) 1 spray NASAL PRN PRN PRN Reason: DRYNESS Spironolactone (Spironolactone 25 Mg Tablet) 25 mg PO DAILY [facility] Last Admin: 03/28/22 07:59 Dose: 25 mg Torsemide (Torsemide 20 Mg Tablet) 80 mg PO EVERY OTHER DAY [facility] Last Admin: 03/28/22 07:59 Dose: 80 mg Torsemide (Torsemide 20 Mg Tablet) 40 mg PO EVERY OTHER DAY [facility] Last Admin: 03/27/22 08:33 Dose: 40 mg Vitals/I&O/Wt Last Vital Signs Temp 98.5 F 03/27/22 20:00 Pulse 83 03/28/22 16:00 Resp 19 H 03/28/22 16:00 BP 126/76 03/28/22 16:00 Pulse Ox 93 03/28/22 16:00 O2 Del Method 03/28/22 15:04 O2 Flow Rate 1.5 03/26/22 10:19 03/28/22 03/28/22 03/28/22 06:59 14:59 22:59 Intake Total 423.403 / 1195.403 240 / 240 Output Total 500 / 800 Balance -76.597 / 395.403 240 / 240 Weight last 48 hrs Weight 255 lb 12.8 oz Weight 225 lb 9.6 oz Physical Exam Narrative: GENERAL: The patient is alert and oriented times three. Not in any acute distress. HEENT: No significant pallor, icterus or lymphadenopathy.Oral cavity: There are no mucous membrane lesions. NECK: Trachea appears to be central. No masses noted. No JVD or thyromegaly appreciated. RESPIRATORY: Chest is symmetrical. No intercostals muscle retraction or any accessory muscle activation. There is no chest wall tenderness. Breath sounds are heard bilaterally. No rales or rhonchi heard. No evidence of any consolidation. BREASTS: Deferred. HEART: The heart sounds are normal. No S3 or S4. No significant murmurs. No pericardial rub ABDOMEN: No vessel pulsations or distention. No tenderness. No organomegaly appreciated. Bowel sounds are normally heard. : Deferred. RECTAL: Deferred. LYMPHATIC: No lymphadenopathy noted in the neck. EXTREMITIES: No edema or cyanosis. No clubbing. MUSCULOSKELETAL: No acute joint deformities or swelling SKIN: There are no significant rashes or ecchymosis NEUROPSYCHIATRIC: The patient is alert and oriented x3. Appears to be in a good mood. No tremors or rigidity noted. Data 03/28/22 02:45 03/28/22 02:45 A&P Assessment and plan (1) Failure of cardiac resynchronization therapy defibrillator (SALES ASSOCIATE KEY HOLDER-D) lead: Since ICD discharges did not help the cardioversion the patient requests DFT testing prior to the revision of the device. I contacted the EP service of the [facility]. They do not have any beds available at this time. The [facility] also do not have any beds available for transfer. I talked to elastic assembler at the [facility] in [facility]. I was told that the usual practice is to wait for a week or two with the amiodarone treatment before going ahead with the DFT. So at this point, we will start the patient on oral amiodarone once the current IV infusion is finished. If he continues to remain stable, he may be discharged home on oral amiodarone. Then we will make arrangements for him to be seen by an EP physician for the DFT and and the device revision. (2) Ventricular tachycardia: We will start on amiodarone 400 mg p.o. twice daily once the IV infusion is finished. Patient will be closely monitored. (3) Congestive heart failure with cardiomyopathy: Patient is known to have LV ejection fraction around 25%. Currently has no ev idence of any decompensation. We will continue on the current medications. (4) Atherosclerotic heart disease of [place] coronary artery with other forms of angina pectoris: The results of the myocardial perfusion imaging were discussed with the patient and family in detail which they understood well. Patient apparently did not have any revascularizable lesions by the cardiac catheterization in 2019. Since he remains stable, it was decided to continue on the current treatment. (5) Chronic kidney disease: Patient is known to have chronic stage III kidney disease. BUN and creatinine seems to be stable. Qualifiers: Chronic kidney disease stage: stage 3 (moderate) Qualified Code(s): N18.3 - Chronic kidney disease, stage 3 (moderate) (6) Atrial fibrillation: We will discontinue the Lovenox and start him on Eliquis 5 mg p.o. twice daily. Qualifiers: Atrial fibrillation type: unspecified Qualified Code(s): I48.91 - Unspecified atrial fibrillation Plan Patient will be watched on telemetry with the p.o. amiodarone tomorrow Attestations Medical Necessity Statement*: Possible discharge home tomorrow evening or morning Coding Level of Care Code Acute Aircraft Skin Burnisher for Chg Fwd History Expanded Problem Focused Exam Expanded Problem Focused Medical Decision Making Moderate Complexity Diagnoses Failure of cardiac resynchronization therapy defibrillator (SALES ASSOCIATE KEY HOLDER-D) lead T82.198A Ventricular tachycardia I47.20 Congestive heart failure with cardiomyopathy I50.9; I42.9 Atherosclerotic heart disease of [place] coronary artery with other forms of angina pectoris I25.118 Chronic kidney disease N18.3 Chronic kidney disease stage: stage 3 (moderate) Atrial fibrillation I48.91 Atrial fibrillation type: unspecified
--- NOTE | 2022-03-28 19:03 | PC.NURSE ---
Dr. Strickland notified of 5 minute run of v-tach. Telephone order for Metoprolol 5 mg IVP ONCE NOW start Metoprolol 25mg PO BID now.
[2022-03-28] MEDS: metoprolol tartrate 1 mg/1 mL SDV 5 mL 5 MG IVP (19:19)
[2022-03-28] MEDS: apixaban 5 mg Tablet PO (20:58)
[2022-03-28] MEDS: atorvastatin 40 mg Tablet PO (20:58)
[2022-03-28] MEDS: metoprolol tartrate 25 mg Tablet PO (20:59)
[2022-03-29] VITALS (41 sets, daily range): BP systolic 102–135; BP diastolic 63–90; PULSE 75–86; RESP 12–29; TEMP 36.4–36.7; O2SAT 90–96
[2022-03-29] MEDS: acetaminophen 325 mg Tablet 650 MG PO ×3 (03:26→23:38)
[2022-03-29 03:49] LABS: Basophils # 0.1 10^3/uL (0.0-0.1); Basophils % 0.9 %; Eosinophils # 0.1 10^3/uL (0.0-0.8); Hematocrit 40.1 % (42.0-52.0); Hemoglobin 13.1 g/dL (11.7-16.6); Lymphocytes # 4.2 10^3/uL (0.8-4.8); Lymphocytes % 48.6 %; Mean Corpuscular HGB Conc 32.7 g/dL (30.0-36.0); Mean Corpuscular Hemoglobin 32.2 pg (28.0-34.0); Mean Corpuscular Volume 98.5 fl (80-94); Mean Platelet Volume 10.7 fL (7.4-10.4); Monocytes # 1.2 10^3/uL (0.2-0.9); Monocytes % 13.6 %; Neutrophils # 3.07 10^3/uL (1.8-7.7); Neutrophils % 35.6 %; Nucleated Red Blood Cells % 0 %; Platelet Count 161 10^3/cmm (130-400); Red Blood Count 4.07 10^6/uL (4.1-5.3); Red Cell Distribution Width 13.5 % (12.1-15.1); White Blood Count 8.6 10^3/uL (4.0-10.0)
[2022-03-29 04:09] LABS: Anion Gap 17.8 (5-19); Blood Urea Nitrogen 42 mg/dL (8-23); Calcium 9.5 mg/dL (8.5-10.5); Carbon Dioxide 28 mmol/L (22-29); Chloride 96 mmol/L (98-107); Glucose 126 mg/dL (65-115); Osmolality Calculated 298 mOsm/kg (285-295); Potassium 3.8 mmol/L (3.5-5.1); Sodium 138 mmol/L (136-145)
[2022-03-29] MEDS: levoFLOXacin 500 mg Tablet PO (05:50)
[2022-03-29] MEDS: ALPRAZolam 0.5 mg Tablet 0.25 MG PO (05:50)
[2022-03-29] MEDS: apixaban 5 mg Tablet PO ×2 (09:05→20:48)
[2022-03-29] MEDS: pantoprazole DR 40 mg Tablet PO (09:05)
[2022-03-29] MEDS: metoprolol tartrate 25 mg Tablet PO ×2 (09:05→20:48)
[2022-03-29] MEDS: spironolactone 25 mg Tablet PO (09:05)
[2022-03-29] MEDS: iron polysaccharide complex 150 mg Capsule PO (09:05)
[2022-03-29] MEDS: fluticasone nasal spray 16gm Btl 1 SPRAY NASAL (09:06)
[2022-03-29] MEDS: magnesium oxide 400 mg tablet PO ×2 (09:06→17:56)
[2022-03-29] MEDS: amiodarone 200 mg Tablet 400 MG PO ×2 (09:06→20:47)
[2022-03-29] MEDS: levothyroxine 125 mcg Tablet PO (09:06)
--- NOTE | 2022-03-29 09:27 | PM.PN ---
Subjective Subjective: This patient had a few episodes of ventricular tachycardia last evening. He spontaneously converted to atrial fibrillation/paced ventricular rhythm. He was given 5 mg of IV Lopressor followed by oral metoprolol 25 mg p.o. twice daily. Has not had a recurrence of V. tach since then. Currently he seems to be doing okay. No chest pain or shortness of breath. Medications: Medication Review Details: Current Medications Acetaminophen (Acetaminophen 325 Mg Tablet) 650 mg PO Q6H PRN PRN Reason: Mild/Mod Pain Or Temp >/= 101 Last Admin: 03/29/22 03:26 Dose: 650 mg Albuterol Sulfate (Albuterol 2.5 Mg/3 Ml Neb) 2.5 mg INHALATION QID PRN PRN Reason: Shortness Of Breath Or Wheezing Alprazolam (Alprazolam 0.5 Mg Tablet) 0.25 mg PO BID PRN PRN Reason: Anxiety Last Admin: 03/29/22 05:50 Dose: 0.25 mg Amiodarone HCl (Amiodarone 200 Mg Tablet) 400 mg PO Q12H [facility] Last Admin: 03/29/22 09:06 Dose: 400 mg Apixaban (Apixaban 5 Mg Tablet) 5 mg PO BID@0900,2100 [facility] Last Admin: 03/29/22 09:05 Dose: 5 mg Atorvastatin Calcium (Atorvastatin 40 Mg Tablet) 40 mg PO BEDTIME [facility] Last Admin: 03/28/22 20:58 Dose: 40 mg Fluticasone Propionate (Fluticasone Nasal [place] 16gm Btl) 1 spray NASAL DAILY [facility] Last Admin: 03/29/22 09:06 Dose: 1 spray Levofloxacin (Levofloxacin 500 Mg Tablet) 500 mg PO DAILY@0600 [facility]; Protocol Last Admin: 03/29/22 05:50 Dose: 500 mg Levothyroxine Sodium (Levothyroxine 125 Mcg Tablet) 125 mcg PO DAILY [facility] Last Admin: 03/29/22 09:06 Dose: 125 mcg Magnesium Oxide (Magnesium Oxide 400 Mg Tablet) 400 mg PO BID [facility] Last Admin: 03/29/22 09:06 Dose: 400 mg Metoprolol Tartrate (Metoprolol Tartrate 25 Mg Tablet) 25 mg PO BID@0900,2100 [facility] Last Admin: 03/29/22 09:05 Dose: 25 mg Nitroglycerin (Nitroglycerin 0.4 Mg Sublingual Tablet) 0.4 mg SUBLINGUAL Q5M PRN PRN Reason: Pain Ondansetron HCl (Ondansetron 2 Mg/Ml Sdv 2 Ml) 4 mg IVP Q8H PRN PRN Reason: vomiting, or N/V if npo Ondansetron HCl (Ondansetron 2 Mg/Ml Sdv 2 Ml) 4 mg IVP Q2M PRN PRN Reason: NAUSEA Pantoprazole Sodium (Pantoprazole Dr 40 Mg Tablet) 40 mg PO DAILY [facility] Last Admin: 03/29/22 09:05 Dose: 40 mg Polysaccharide Iron Complex (Iron Polysaccharide Complex 150 Mg Capsule) 150 mg PO DAILY [facility] Last Admin: 03/29/22 09:05 Dose: 150 mg Sodium Chloride (Saline Nasal [place] 44ml Btl) 1 spray NASAL PRN PRN PRN Reason: DRYNESS Spironolactone (Spironolactone 25 Mg Tablet) 25 mg PO DAILY [facility] Last Admin: 03/29/22 09:05 Dose: 25 mg Torsemide (Torsemide 20 Mg Tablet) 80 mg PO EVERY OTHER DAY [facility] Last Admin: 03/28/22 07:59 Dose: 80 mg Torsemide (Torsemide 20 Mg Tablet) 40 mg PO EVERY OTHER DAY [facility] Last Admin: 03/27/22 08:33 Dose: 40 mg Vitals/I&O/Wt Last Vital Signs Temp 97.8 F 03/29/22 04:30 Pulse 81 03/29/22 09:00 Resp 18 03/29/22 09:00 BP 121/76 03/29/22 09:00 Pulse Ox 95 03/29/22 08:00 O2 Del Method 03/29/22 01:00 O2 Flow Rate 1.5 03/26/22 10:19 03/28/22 03/29/22 03/29/22 22:59 06:59 14:59 Intake Total 240 / 480 480 / 960 400 / 400 Balance 240 / 480 480 / 960 400 / 400 Weight last 48 hrs Weight 214 lb 8 oz Weight 255 lb 12.8 oz Physical Exam Narrative: GENERAL: The patient is alert and oriented times three. Not in any acute distress. HEENT: No significant pallor, icterus or lymphadenopathy.Oral cavity: There are no mucous membrane lesions. NECK: Trachea appears to be central. No masses noted. No JVD or thyromegaly appreciated. RESPIRATORY: Chest is symmetrical. No intercostals muscle retraction or any accessory muscle activation. There is no chest wall tenderness. Breath sounds are heard bilaterally. No rales or rhonchi heard. No evidence of any consolidation. BREASTS: Deferred. HEART: The heart sounds are normal. No S3 or S4. No significant murmurs. No pericardial rub ABDOMEN: No vessel pulsations or distention. No tenderness. No organomegaly appreciated. Bowel sounds are normally heard. : Deferred. RECTAL: Deferred. LYMPHATIC: No lymphadenopathy noted in the neck. EXTREMITIES: No edema or cyanosis. No clubbing. MUSCULOSKELETAL: No acute joint deformities or swelling SKIN: There are no significant rashes or ecchymosis NEUROPSYCHIATRIC: The patient is alert and oriented x3. Appears to be in a good mood. No tremors or rigidity noted. Data 03/29/22 02:31 03/29/22 02:31 A&P Assessment and plan (1) Failure of cardiac resynchronization therapy defibrillator (MANDOLIN REPAIRER-D) lead: Since ICD discharges did not help the cardioversion the patient requires DFT testing prior to the revision of the device. I contacted the EP service of the [facility]. They do not have any beds available at this time. The [facility] also do not have any beds available for transfer. I talked to line closer at the [facility] in [facility]. I was told that the usual practice is to wait for a week or two with the amiodarone treatment before going ahead with the DFT. We are going to start him on amiodarone 400 mg p.o. twice daily along with metoprolol 25 mg p.o. twice daily. Since he had the recurrence of V. tach yesterday, we may watch him on telemetry with the medications today. If he has no more recurrence, may be discharged home tomorrow. Then we will make arrangements for him to be evaluated by the line closer (2) Ventricular tachycardia: We will start on amiodarone 400 mg p.o. twice daily once the IV infusion is finished. Patient will be closely monitored. Patient also started on metoprolol 25 mg p.o. twice daily. Depending on the blood pressure tolerance, we may try to gradually advance the dose (3) Congestive heart failure with cardiomyopathy: Patient is known to have LV ejection fraction around 25%. Currently has no evidence of any decompensation. We will continue on the current medications. (4) Atherosclerotic heart disease of [place] coronary artery with other forms of angina pectoris: The results of the myocardial perfusion imaging were discussed with the patient and family in detail which they understood well. Patient apparently did not have any revascularizable lesions by the cardiac catheterization in 2019. Since he remains stable, it was decided to continue on the current treatment. (5) Chronic kidney disease: Patient is known to have chronic stage III kidney disease. BUN and creatinine seems to be stable. Qualifiers: Chronic kidney disease stage: stage 3 (moderate) Qualified Code(s): N18.3 - Chronic kidney disease, stage 3 (moderate) (6) Atrial fibrillation: May be continued on the Eliquis Qualifiers: Atrial fibrillation type: unspecified Qualified Code(s): I48.91 - Unspecified atrial fibrillation Plan Patient may be transferred to the medical for this afternoon. We will let him ambulate on telemetry. If he continues to remain stable, may be discharged home tomorrow. Attestations Medical Necessity Statement*: Patient requires continued hospital stay for close monitoring and further management Coding Level of Care Code Acute Microbiological Laboratory Technician for [facility] Fwd Medical Decision Making Moderate Complexity Diagnoses Failure of cardiac resynchronization therapy defibrillator (MANDOLIN REPAIRER-D) lead T82.198A Ventricular tachycardia I47.20 Congestive heart failure with cardiomyopathy I50.9; I42.9 Atherosclerotic heart disease of [place] coronary artery with other forms of angina pectoris I25.118 Chronic kidney disease N18.3 Chronic kidney disease stage: stage 3 (moderate) Atrial fibrillation I48.91 Atrial fibrillation type: unspecified
--- NOTE | 2022-03-29 10:22 | PC.CHAP ---
Pastoral Care Encounter/Spiritual Assessment Type of Contact [] Declined log hauler visit [] Patient/Family/Request visit [] Outpatient visit [] Follow-up visit [] Physician referral [] Code/Alert [x] Routine visit [] Staff referral [] Actively dying [x] Patient sleeping [x] Family support [] [] Out of room [] Palliative care [] [] Receiving care in room [] Pre-surgical visit [] Trauma [] Long length of stay [x] ICU visit [] Other: Relational/Emotional Strength [] Patient feels connected with others/family/visitors/staff [] Distress [] Loneliness/isolation [] Abandonment Spirituality of Patient [] Person of Lyric [] Attends Spiritism of their Lyric [] Believes in Prayer [] Reads Bible or Restorationism materials [] There are Spiritual issues to be addressed Sports Bookmaker Interventions [x] Prayer [] Active listening [] Non-anxious presence [] Spiritual/emotional support [] Crisis/trauma care [] Spiritual counseling [] Bereavement support [] Provided bereavement packet [] Provided Bible/devotional materials [] Provided toy/stuffed animal, coloring book to patient or family member [] Provided Communion [] Anointing/[place] [] Salvation [x] Completed spiritual assessment [] Other: Impact on Illness or Injury [] Angry [] Fearful [] Anxious [] Often cries [] Exhaustion [] Unable to work [] Unable to attend druze [] Unable to walk/stand [] Unable to read [] Unable to drive [] Unable to eat/drink [] Unable to sleep [] Unable to be with family [] Patient intubated [] Other: Summary Time spent with patient
--- NOTE | 2022-03-29 14:53 | P.PN_ITS ---
Subjective Subjective: Continues feeling little bit better. No chest pain or pressure. Chest congestion, wheezing has improved. Nasal congestion has improved. He did get some sleep last night. Vitals/I&O/Wt Last Vital Signs Temp 97.8 F 03/29/22 04:30 Pulse 79 03/29/22 13:30 Resp 23 H 03/29/22 13:30 BP 128/79 03/29/22 13:30 Pulse Ox 93 03/29/22 08:00 O2 Del Method 03/29/22 08:00 O2 Flow Rate 1.5 03/26/22 10:19 03/28/22 03/29/22 03/29/22 22:59 06:59 14:59 Intake Total 240 / 480 480 / 960 900 / 900 Balance 240 / 480 480 / 960 900 / 900 Weight last 48 hrs Weight 97.296 kg Weight 116.029 kg Physical Exam Narrative: Accompanied by his . Const: COMMON NORMALS: patient oriented x3 and alert GENERAL APPEARANCE: cooperative ORIENTATION/CONSCIOUSNESS: Yes awake HENMT: COMMON NORMALS: oropharynx normal Neck/C-Spine: COMMON NORMALS: no JVD Resp: COMMON NORMALS: normal respiratory effort and clear to auscultation bilaterally AUSCULTATION: clear to auscultation bilaterally Cardio: COMMON NORMALS: no JVD, regular rhythm, S1 normal heart sound present, S2 normal heart sound present and No murmurs present (Cardio) RHYTHM: regular rhythm HEART SOUNDS: S1 normal heart sound present and S2 normal heart sound present GI: COMMON NORMALS: Normal to inspection, nondistended, normoactive bowel sounds present, Soft to palpation and non-tender PALPATION: Yes Soft to palpation Extremity: COMMON NORMALS: no joint enlargement and no pedal edema Neuro: COMMON NORMALS: patient oriented x3 and moves all extremities SENSORIUM/ORIENTATION: Yes alert Skin: COMMON NORMALS: no rashes or lesions noted GENERAL SKIN EXAM: no rashes or lesions noted Data 03/29/22 02:31 03/29/22 02:31 A&P Assessment and plan (1) AICD discharge: He had discussed stress testing results with his software validation technician this morning, we went over them again today. They had also planned additionally to transition to oral amiodarone today, continue monitoring through today. Last night 2 episodes of ventricular tachycardia, converted to atrial fibrillation/paced ventricular rhythm. Was given 5 mg IV Lopressor followed by 25 mg p.o. metoprolol twice daily. Without further episodes. Kidney continue care on cardiac stepdown. He will need further assessment of ICD device, and per discussions with cardiology for assistance with plan to occur on outpatient basis after a week of oral treatment with amiodarone, metoprolol. In case he continues to do well, tentatively possible discharge tomorrow. (2) Ventricular tachycardia: Continue p.o. amiodarone 400 mg twice daily. Continue metoprolol 25 mg twice daily. May be advanced as per cardiac recommendation. (3) Congestive heart failure with cardiomyopathy: Monitor for decompensation. Underlying EF 25-20%. (4) ICD (implantable cardioverter-defibrillator), biventricular, in situ: (5) Atrial fibrillation: Qualifiers: Atrial fibrillation type: unspecified Qualified Code(s): I48.91 - Unspecified atrial fibrillation (6) Chronic kidney disease: Qualifiers: Chronic kidney disease stage: stage 3 (moderate) Qualified Code(s): N18.3 - Chronic kidney disease, stage 3 (moderate) (7) Cardiomyopathy: Continue with home dose of Coreg of 37.5 mg twice daily for now. Patient was been transitioned to higher dose of Entresto while lowering the dose of Coreg as an outpatient. As per patient and spouse he is still taking Coreg at 37.5 mg twice daily as he is awaiting for approval of a higher dose of Entresto. Last Entresto taken on . (8) Pacemaker: Device interrogation revealed 3 shocks delivered on day of admission, as well as 3-4 rounds of ATP. Underlying rhythm of V. fib/V. tach. Device tradition also indicating FIONA. (9) Diabetic peripheral neuropathy associated with type 2 diabetes mellitus: Diabetes, A1c 6.1. (10) Acute kidney injury superimposed on CKD: Creatinine up to 1.8. Baseline appears to be around 1.6. BUN with increased to 42. Does not appear in fluid overload. Hold torsemide for now. Plan Rhinosinusitis, bronchitis: Yesterday complained of some worsening congestion of sinuses, worsening chest congestion, wheezing, cough, today this is cleared up. Complains of congested sinuses yesterday, was given saline spray as needed, fluticasone. Respiratory viral panel negative. Albuterol as needed. Neutropenia: resolved. Unsure of etiology. Hold off on any further prophylactic levofloxacin for now. Gout: Allopurinol has been on hold Continue other chronic medications including home dose of torsemide, levothyro xine, Xanax. Full code. Cardiac diet. Protonix for PUD prophylaxis. Full dose Lovenox will suffice for DVT prophylaxis. Attestations Medical Necessity Statement*: Continue admission for optimization of control of recurrent ventricular tachycardia, AICD discharge, arrangements for further postdischarge assessment and care. Coding Level of Care Code Acute Napper Grinder for Chg Fwd Diagnoses AICD discharge Z45.02 Ventricular tachycardia I47.20 Congestive heart failure with cardiomyopathy I50.9; I42.9 ICD (implantable cardioverter-defibrillator), biventricular, in situ Z95.810 Atrial fibrillation I48.91 Atrial fibrillation type: unspecified Chronic kidney disease N18.3 Chronic kidney disease stage: stage 3 (moderate) Cardiomyopathy I42.9 Pacemaker Z95.0 Diabetic peripheral neuropathy associated with type 2 diabetes mellitus E11.42 Acute kidney injury superimposed on CKD N17.9; N18.9
[2022-03-29] MEDS: atorvastatin 40 mg Tablet PO (20:48)
[2022-03-30] VITALS: PULSE 80; RESP 17; O2SAT 96
[2022-03-30 04:01] LABS: Basophils # 0.1 10^3/uL (0.0-0.1); Basophils % 0.6 %; Eosinophils # 0.1 10^3/uL (0.0-0.8); Eosinophils % 1.5 %; Hematocrit 40.3 % (42.0-52.0); Hemoglobin 13.2 g/dL (11.7-16.6); Lymphocytes # 4.1 10^3/uL (0.8-4.8); Lymphocytes % 44.1 %; Mean Corpuscular HGB Conc 32.8 g/dL (30.0-36.0); Mean Corpuscular Volume 97.8 fl (80-94); Mean Platelet Volume 10.3 fL (7.4-10.4); Monocytes # 1.1 10^3/uL (0.2-0.9); Monocytes % 11.2 %; Neutrophils # 3.96 10^3/uL (1.8-7.7); Neutrophils % 42.4 %; Nucleated Red Blood Cells % 0 %; Platelet Count 164 10^3/cmm (130-400); Red Blood Count 4.12 10^6/uL (4.1-5.3); Red Cell Distribution Width 13.4 % (12.1-15.1); White Blood Count 9.4 10^3/uL (4.0-10.0)
[2022-03-30 04:22] LABS: Blood Urea Nitrogen 38 mg/dL (8-23); Calcium 9.4 mg/dL (8.5-10.5); Carbon Dioxide 28 mmol/L (22-29); Chloride 96 mmol/L (98-107); Glucose 139 mg/dL (65-115); Magnesium 2.2 mg/dL (1.7-2.3); Osmolality Calculated 293 mOsm/kg (285-295); Sodium 136 mmol/L (136-145)
[2022-03-30 05:10] LABS: Slide Review Slide Review Perform
[2022-03-30] MEDS: acetaminophen 325 mg Tablet 650 MG PO (05:56)
[2022-03-30 06:00] VITALS: PULSE 81
[2022-03-30] MEDS: ALPRAZolam 0.5 mg Tablet 0.25 MG PO (06:41)
[2022-03-30] MEDS: levoFLOXacin 500 mg Tablet 250 MG PO (06:41)
[2022-03-30 07:17] VITALS: BP 122/82; PULSE 79; RESP 22; TEMP 37.2; O2SAT 94
[2022-03-30 08:10] VITALS: PULSE 85; RESP 16; O2SAT 96
[2022-03-30] MEDS: iron polysaccharide complex 150 mg Capsule PO (09:00)
[2022-03-30] MEDS: apixaban 5 mg Tablet PO (09:00)
[2022-03-30] MEDS: pantoprazole DR 40 mg Tablet PO (09:00)
[2022-03-30] MEDS: spironolactone 25 mg Tablet PO (09:01)
[2022-03-30] MEDS: magnesium oxide 400 mg tablet PO (09:01)
[2022-03-30] MEDS: amiodarone 200 mg Tablet 400 MG PO (09:01)
[2022-03-30] MEDS: levothyroxine 125 mcg Tablet PO (09:01)
[2022-03-30] MEDS: metoprolol tartrate 25 mg Tablet PO (09:01)
[2022-03-30] MEDS: fluticasone nasal spray 16gm Btl 1 SPRAY NASAL ×2 (09:04→09:05)
--- NOTE | 2022-03-30 10:05 | PM.PN ---
Subjective Subjective: The patient is remaining stable with no recurrence of ventricular arrhythmia. No chest pain or shortness of breath. Vital signs remained stable. Has been ambulating on telemetry without any specific complaints. Medications: Medication Review Details: Current Medications Acetaminophen (Acetaminophen 325 Mg Tablet) 650 mg PO Q6H PRN PRN Reason: Mild/Mod Pain Or Temp >/= 101 Last Admin: 03/30/22 05:56 Dose: 650 mg Albuterol Sulfate (Albuterol 2.5 Mg/3 Ml Neb) 2.5 mg INHALATION QID PRN PRN Reason: Shortness Of Breath Or Wheezing Amiodarone HCl (Amiodarone 200 Mg Tablet) 400 mg PO Q12H [facility] Last Admin: 03/30/22 09:01 Dose: 400 mg Apixaban (Apixaban 5 Mg Tablet) 5 mg PO BID@0900,2100 [facility] Last Admin: 03/30/22 09:00 Dose: 5 mg Atorvastatin Calcium (Atorvastatin 40 Mg Tablet) 40 mg PO BEDTIME [facility] Last Admin: 03/29/22 20:48 Dose: 40 mg Fluticasone Propionate (Fluticasone Nasal [place] 16gm Btl) 1 spray NASAL DAILY [facility] Last Admin: 03/30/22 09:05 Dose: 1 spray Levofloxacin (Levofloxacin 500 Mg Tablet) 250 mg PO DAILY@0600 [facility]; Protocol Last Admin: 03/30/22 06:41 Dose: 250 mg Levothyroxine Sodium (Levothyroxine 125 Mcg Tablet) 125 mcg PO DAILY [facility] Last Admin: 03/30/22 09:01 Dose: 125 mcg Magnesium Oxide (Magnesium Oxide 400 Mg Tablet) 400 mg PO BID [facility] Last Admin: 03/30/22 09:01 Dose: 400 mg Metoprolol Tartrate (Metoprolol Tartrate 25 Mg Tablet) 25 mg PO BID@0900,2100 [facility] Last Admin: 03/30/22 09:01 Dose: 25 mg Nitroglycerin (Nitroglycerin 0.4 Mg Sublingual Tablet) 0.4 mg SUBLINGUAL Q5M PRN PRN Reason: Pain Ondansetron HCl (Ondansetron 2 Mg/Ml Sdv 2 Ml) 4 mg IVP Q8H PRN PRN Reason: vomiting, or N/V if npo Ondansetron HCl (Ondansetron 2 Mg/Ml Sdv 2 Ml) 4 mg IVP Q2M PRN PRN Reason: NAUSEA Pantoprazole Sodium (Pantoprazole Dr 40 Mg Tablet) 40 mg PO DAILY [facility] Last Admin: 03/30/22 09:00 Dose: 40 mg Polysaccharide Iron Complex (Iron Polysaccharide Complex 150 Mg Capsule) 150 mg PO DAILY [facility] Last Admin: 03/30/22 09:00 Dose: 150 mg Sodium Chloride (Saline Nasal [place] 44ml Btl) 1 spray NASAL PRN PRN PRN Reason: DRYNESS Spironolactone (Spironolactone 25 Mg Tablet) 25 mg PO DAILY [facility] Last Admin: 03/30/22 09:01 Dose: 25 mg Torsemide (Torsemide 20 Mg Tablet) 80 mg PO EVERY OTHER DAY [facility] Last Admin: 03/28/22 07:59 Dose: 80 mg Torsemide (Torsemide 20 Mg Tablet) 40 mg PO EVERY OTHER DAY [facility] Last Admin: 03/27/22 08:33 Dose: 40 mg Vitals/I&O/Wt Last Vital Signs Temp 98.9 F 03/30/22 07:17 Pulse 85 03/30/22 08:10 Resp 16 03/30/22 08:10 BP 122/82 03/30/22 07:17 Pulse Ox 96 03/30/22 08:10 O2 Del Method 03/30/22 08:10 O2 Flow Rate 1.5 03/26/22 10:19 03/29/22 03/30/22 03/30/22 22:59 06:59 14:59 Intake Total 480 / 1380 480 / 480 Balance 480 / 1380 480 / 480 Weight last 48 hrs Weight 217 lb 2 oz Weight 214 lb 8 oz Physical Exam Narrative: GENERAL: The patient is alert and oriented times three. Not in any acute distress. HEENT: No significant pallor, icterus or lymphadenopathy.Oral cavity: There are no mucous membrane lesions. NECK: Trachea appears to be central. No masses noted. No JVD or thyromegaly appreciated. RESPIRATORY: Chest is symmetrical. No intercostals muscle retraction or any accessory muscle activation. There is no chest wall tenderness. Breath sounds are heard bilaterally. No rales or rhonchi heard. No evidence of any consolidation. BREASTS: Deferred. HEART: The heart sounds are normal. No S3 or S4. No significant murmurs. No pericardial rub ABDOMEN: No vessel pulsations or distention. No tenderness. No organomegaly appreciated. Bowel sounds are normally heard. : Deferred. RECTAL: Deferred. LYMPHATIC: No lymphadenopathy noted in the neck. EXTREMITIES: No edema or cyanosis. No clubbing. MUSCULOSKELETAL: No acute joint deformities or swelling SKIN: There are no significant rashes or ecchymosis NEUROPSYCHIATRIC: The patient is alert and oriented x3. Appears to be in a good mood. No tremors or rigidity noted. Data 03/30/22 03:40 03/30/22 03:40 A&P Assessment and plan (1) Failure of cardiac resynchronization therapy defibrillator (COW WASHER-D) lead: The patient requires ICD revision. He also requires a DFT testing prior to revision. Since he is remaining stable, may be discharged home today on amiodarone and metoprolol. We will make the arrangements for him to be seen by an art conservator in [place] or [place] to have further intervention for the device. (2) Ventricular tachycardia: The patient seems to be tolerating the amiodarone so far well. May currently on the current dose and need to taper down the dose as described below. Also may take the metoprolol 37.5 mg p.o. twice daily (3) Congestive heart failure with cardiomyopathy: Patient is known to have LV ejection fraction around 25%. Currently has no evidence of any decompensation. We will continue on the current medications. (4) Atherosclerotic heart disease of [place] coronary artery with other forms of angina pectoris: Since the patient is remaining stable, may not require any further intervention. May continue on the current treatment measures. (5) Chronic kidney disease: Patient is known to have chronic stage III kidney disease. BUN and creatinine seems to be stable. Qualifiers: Chronic kidney disease stage: stage 3 (moderate) Qualified Code(s): N18.3 - Chronic kidney disease, stage 3 (moderate) (6) Atrial fibrillation: May be continued on the Eliquis Qualifiers: Atrial fibrillation type: unspecified Qualified Code(s): I48.91 - Unspecified atrial fibrillation Plan If the patient continues remain stable, may be discharged home today. May be discharged home on the following medications in addition to the other ones Amiodarone 400 mg p.o. twice daily for 7 days, followed by 400 mg p.o. daily Metoprolol 37.5 mg p.o. twice daily Stay off the carvedilol Appointment the [facility] to be seen by nurse practitioner in 1 week Will make arrangements for him to be seen by the art conservator by my office Attestations Medical Necessity Statement*: Possible discharge home today Coding Level of Care Code Acute Cushion Stuffer for Ianjaylene Hickey Medical Decision Making Moderate Complexity Diagnoses Failure of cardiac resynchronization therapy defibrillator (COW WASHER-D) lead T82.198A Ventricular tachycardia I47.20 Congestive heart failure with cardiomyopathy I50.9; I42.9 Atherosclerotic heart disease of [place] coronary artery with other forms of angina pectoris I25.118 Chronic kidney disease N18.3 Chronic kidney disease stage: stage 3 (moderate) Atrial fibrillation I48.91 Atrial fibrillation type: unspecified
--- NOTE | 2022-03-30 10:39 | PM.DCS ---
Discharge Providers Date of Admission: 03/25/22 20:28 Date of Discharge: March 30, 2022 Attending Provider at Admission: Mia Mehta MD Attending Provider at Discharge: Juan Thorpe Primary Care Provider: Tiff Mckinney MD Diagnoses at Discharge Discharge Diagnosis (1) Failure of cardiac resynchronization therapy defibrillator (CONTRACT GRAPHIC DESIGNER-D) lead: Status: Acute (2) Ventricular tachycardia: Status: Acute (3) Congestive heart failure with cardiomyopathy: Status: Acute (4) Atherosclerotic heart disease of [place] coronary artery with other forms of angina pectoris: Status: Acute Permanent problem details: Patient had a cardiac catheterization followed by four-vessel coronary bypass surgery in 2015. #1.? Placement of intra-aortic balloon pump utilizing modified Seldinger technique through right femoral artery #2.? Stapling of left atrial appendage #3.? Coronary artery bypass grafting x4 (1 artery and 3 veins) utilizing in situ left internal mammary artery to left anterior descending artery, reverse saphenous vein graft from aorta to distal right coronary artery, reverse saphenous vein graft from aorta to the diagonal artery, and reverse saphenous vein graft from aorta to the obtuse marginal branch of the circumflex artery. #4.? Endoscopic saphenous vein harvesting from the left thigh and leg. (5) Chronic kidney disease: Status: Acute Qualifiers: Chronic kidney disease stage: stage 3 (moderate) Qualified Code(s): N18.3 - Chronic kidney disease, stage 3 (moderate) (6) Atrial fibrillation: Status: Acute Qualifiers: Atrial fibrillation type: unspecified Qualified Code(s): I48.91 - Unspecified atrial fibrillation Reason for Visit Reason for Visit: ELEVATED HEART RATE Hospital Course Hospital Course Pleasant 77-year-old gentleman with history of CAD, CABG, ischemic cardiomyopathy, HFrEF 25%, AICD in place, A. fib on anticoagulation with Eliquis, CKD 3, HLD, other comorbidities, presented to the hospital after experiencing shortness of breath, heart rates in the 200s, multiple ICD discharges. In ER found to be in [place] with unsuccessful cardioversion attempt in EMS. Started on amiodarone subsequently converted into NSR. Earlier had visit to urgent care with some malaise, runny nose, dysphonia. Minimal chest discomfort, no chest pain or pressure. Respiratory viral panel was negative. Tick panel was obtained and pending. Minimal abnormality of electrolytes, potassium, magnesium, replaced, but not likely etiology. Coreg dose was going to be decreased outpatient while home dose Entresto was being increased. Still taking higher dose of Coreg 37.5 mg twice daily. Currently not taking Entresto. Was assessed by cardiology, echocardiogram was obtained. Device interrogation revealed 3 shocks delivered on day of admission, as well as 3-4 rounds of ATP. Underlying rhythm of V. fib/V. tach. Mild uptrend of troponins thought to be likely due to tachycardia. Device tradition also indicating FIONA. Additional evaluation with coronary angiography was considered as well, but he has had evaluation in June 2019 and given on overall clinical picture yield was considered to be likely low not outweighing the risk with coronary angiogram initially considered, but deferred currently. However, considering to be in need of further evaluation and would benefit from ablation by EP, with consideration of whether there may be dysfunction contributing to the multiple discharges, device needing DFT given also FIONA, cardiology currently. Considering transfer to higher level facility for evaluation by EP, consideration of need of device revision. While in the hospital was treated with amiodarone drip, carvedilol switched over to metoprolol 25 mg twice daily. Evaluated by cardiology, underwent assessment by TTE which showed EF 25 to 30%, RV dilated and severely hypokinetic, biatrial enlargement, moderate mitral regurgitation, mild to moderate tricuspid regurgitation, pulmonic regurgitation, with worsening of mitral regurgitation compared to prior echo. Additional consideration was given to coronary angiography for further assessment with history of CAD, but has had 1 done in 2019. Underwent stress testing which showed large area of persistent decreased uptake in inferior, inferolateral, anterolateral and apical regions with small areas of reversibility in the anterolateral, basal inferior and apical anterior regions suggesting extensive myocardial scarring in the distribution of all 3 coronary arteries with some small areas of keila-infarction ischemia. This was not thought likely because of recurrent V. fib/V. tach. Consideration of malfunctioning ICD lead, on interrogation ICD also showing FIONA. Recommendation per cardiology to undergo DFT as well as generator exchange.: Amiodarone infusion was transitioned to oral amiodarone, and asked to continue at 400 mg twice daily for 7 days then transition to 400 mg daily. Continues on oral metoprolol escalated to 37.5 mg twice daily. Arrangements underway for him to follow-up with electrophysiology. Tick panel is pending. Mild BARBIE noted in the hospital creatinine up to 1.8, currently better down to 1.7 after holding diuretics yesterday. For now torsemide dose is decreased to 40 mg daily. Please reassess renal function, volume status, adjust medications accordingly. Continue follow-up regarding CKD and other chronic conditions. While in the hospital also had complaint of cough, noted to have mild wheezing, diagnosed with bronchitis. Also rhinosinusitis with nasal congestion. Viral respiratory panel was negative. Symptoms improved with symptomatic measures with nasal saline, nasal fluticasone. He preferred to avoid breathing treatment. Physical Exam Narrative: with him at bedside. Const: COMMON NORMALS: patient oriented x3 and alert GENERAL APPEARANCE: cooperative ORIENTATION/CONSCIOUSNESS: Yes awake HENMT: COMMON NORMALS: oropharynx normal Neck/C-Spine: COMMON NORMALS: no JVD Resp: COMMON NORMALS: normal respiratory effort and clear to auscultation bilaterally AUSCULTATION: clear to auscultation bilaterally Cardio: COMMON NORMALS: no JVD, regular rhythm, S1 normal heart sound present, S2 normal heart sound present and No murmurs present (Cardio) RHYTHM: regular rhythm HEART SOUNDS: S1 normal heart sound present and S2 normal heart sound present GI: COMMON NORMALS: Normal to inspection, nondistended, normoactive bowel sounds present, Soft to palpation and non-tender PALPATION: Yes Soft to palpation Extremity: COMMON NORMALS: no joint enlargement and no pedal edema Neuro: COMMON NORMALS: patient oriented x3 and moves all extremities SENSORIUM/ORIENTATION: Yes alert Skin: COMMON NORMALS: no rashes or lesions noted GENERAL SKIN EXAM: no rashes or lesions noted Discharge Data Studies Completed and Pending Completed Studies During Hospitalization Category Date Time Status Cardiac Stress Test MIBI [Sestamibi Stress Test Request Exams 03/28/22 06:45 Draft ] Routine XR chest 1V portable [id number] Urgent Exams 03/25/22 17:59 Completed NM sasha perf SPECT r/s* [id number] Routine Nuc Med 03/28/22 06:43 Completed CV. echo complete* [id number] Routine Ultrasound 03/26/22 06:39 Completed Pending at discharge Category Date Time Status Cardiac Stress Test MIBI [Sestamibi Stress Test Request Exams 03/28/22 06:45 Ordered ] Routine Blood Culture Stat Lab 03/26/22 06:47 Results Tick Panel Routine Lab 03/26/22 06:46 Results Radiology Impressions Chest X-Ray 03/25/22 17:59 IMPRESSION: 1. Resolution of previously noted severe right upper lobe pneumonia. 2. Stable COPD . Laboratory Results WBC 9.4 10^3/uL (4.0-10.0) 03/30/22 03:40 RBC 4.12 10^6/uL (4.1-5.3) 03/30/22 03:40 Hgb 13.2 g/dL (11.7-16.6) 03/30/22 03:40 Hct 40.3 % (42.0-52.0) L 03/30/22 03:40 MCV 97.8 fl (80-94) H 03/30/22 03:40 MCH 32.0 pg (28.0-34.0) 03/30/22 03:40 MCHC 32.8 g/dL (30.0-36.0) 03/30/22 03:40 RDW 13.4 % (12.1-15.1) 03/30/22 03:40 Plt Count 164 10^3/cmm (130-400) 03/30/22 03:40 MPV 10.3 fL (7.4-10.4) 03/30/22 03:40 Neut % (Auto) 42.4 % 03/30/22 03:40 Lymph % (Auto) 44.1 % 03/30/22 03:40 White % (Auto) 11.2 % 03/30/22 03:40 Eos % (Auto) 1.5 % 03/30/22 03:40 Baso % (Auto) 0.6 % 03/30/22 03:40 Neut # (Auto) 3.96 10^3/uL (1.8-7.7) 03/30/22 03:40 Lymph # (Auto) 4.1 10^3/uL (0.8-4.8) 03/30/22 03:40 White # (Auto) 1.1 10^3/uL (0.2-0.9) H 03/30/22 03:40 Eos # (Auto) 0.1 10^3/uL (0.0-0.8) 03/30/22 03:40 Baso # (Auto) 0.1 10^3/uL (0.0-0.1) 03/30/22 03:40 Nucleated RBC % (auto) 0 % 03/30/22 03:40 Nucleated RBCs # 0.0 /100WBC 03/30/22 03:40 APTT 51.7 SECONDS (23.9-36.7) H 03/25/22 18:01 Sodium 136 mmol/L (136-145) 03/30/22 03:40 Potassium 4.0 mmol/L (3.5-5.1) 03/30/22 03:40 Chloride 96 mmol/L (98-107) L 03/30/22 03:40 Carbon Dioxide 28 mmol/L (22-29) 03/30/22 03:40 Anion Gap 16.0 (5-19) 03/30/22 03:40 BUN 38 mg/dL (8-23) H 03/30/22 03:40 Creatinine 1.7 mg/dL (0.7-1.2) H 03/30/22 03:40 GFR Calculation Not Reportable 03/30/22 03:40 Glucose 139 mg/dL (65-115) H 03/30/22 03:40 Estimat Average Glucose 128 03/27/22 03:35 Hemoglobin A1c 6.1 % (4.0-6.0) H 03/27/22 03:35 Calculated Osmolality 293 mOsm/kg (285-295) 03/30/22 03:40 Calcium 9.4 mg/dL (8.5-10.5) 03/30/22 03:40 Phosphorus 3.0 mg/dL (2.5-4.5) 03/25/22 18:01 Magnesium 2.2 mg/dL (1.7-2.3) 03/30/22 03:40 Iron 39 ug/dL (59-158) L 03/26/22 06:46 TIBC 320 mcg/dl 03/26/22 06:46 % Saturation 12.1 % (20-50) L 03/26/22 06:46 Unsat Iron Binding 281 ug/dL (112-347) 03/26/22 06:46 Total Bilirubin 1.0 mg/dL (0.15-1.2) 03/27/22 03:35 AST 25 U/L (0-40) 03/27/22 03:35 ALT 25 U/L (0-41) 03/27/22 03:35 Alkaline Phosphatase 109 U/L (40-130) 03/27/22 03:35 Troponin T Gen 5 ng/L 68 ng/L (0-15) H 03/27/22 03:35 Troponin T Baseline 30 ng/L (0-15) H 03/25/22 18:01 Troponin T 120 Minute 59.39 ng/L (0-15) H 03/25/22 20:34 Delta Troponin T 29.39 ABS# (0-10) H* 03/25/22 20:34 Troponin T Hi Sens 6Hr 84.36 ng/L (0-15) H 03/26/22 00:40 Troponin T Hi Sens 6Hr Delta 54.36 ng/L (0-12) H* 03/26/22 00:40 NT-Pro-B Natriuret Pep 3504 pg/mL (0-450) H 03/25/22 18:01 Total Protein 7.1 g/dL (6.6-8.7) 03/27/22 03:35 Albumin 3.8 g/dL (3.5-5.2) 03/27/22 03:35 Globulin 3.3 g/dL (1.3-4.6) 03/27/22 03:35 Triglycerides 107 mg/dL (0-150) 03/27/22 03:35 Cholesterol 103 mg/dL (0-200) 03/27/22 03:35 LDL Cholesterol, Calc 49 mg/dL (50-129) L 03/27/22 03:35 Total VLDL Cholesterol 21 mg/dL (0-30) 03/27/22 03:35 HDL Cholesterol 33 mg/dL (60-100) L 03/27/22 03:35 Cholesterol/HDL Ratio 3.12 mg/dL (1.0-5.00) 03/27/22 03:35 TSH 5.05 uIU/mL (0.27-4.20) H 03/25/22 18:01 Free T4 1.26 ng/dL (0.82-1.77) 03/26/22 06:46 Free T3 1.9 PG/ML (2.0-4.4) L 03/26/22 06:46 Urine Color Colorless (Yellow) 03/26/22 22:40 Urine Appearance Clear (CLEAR) 03/26/22 22:40 Urine pH 5 (5-7) 03/26/22 22:40 Ur Specific [place] 1.010 (1.005-1.030) 03/26/22 22:40 Urine Protein Neg (Negative) 03/26/22 22:40 Urine Glucose (UA) Norm (Normal) 03/26/22 22:40 Urine Ketones Negative (Negative) 03/26/22 22:40 Urine Blood Neg (Negative) 03/26/22 22:40 Urine Nitrate Negative (Negative) 03/26/22 22:40 Urine Bilirubin Neg (Negative) 03/26/22 22:40 Urine Urobilinogen Neg mg/dL (Negative) 03/26/22 22:40 Ur Leukocyte Esterase Negative (Negative) 03/26/22 22:40 Nasal Influ A H1 2009 PCR Not detected (NOT DETECT) 03/25/22 22:15 Adenovirus (PCR) Not detected (NOT DETECT) 03/25/22 22:15 Lyme Ab (Western Blot) <0.90 index 03/26/22 06:46 C. pneumoniae DNA (PCR) Not detected (NOT DETECT) 03/25/22 22:15 Coronavirus 229E (PCR) Not detected (NOT DETECT) 03/25/22 22:15 Human Metapneumovir PCR Not detected (NOT DETECT) 03/25/22 22:15 Influenza A (H1) PCR Not detected (NOT DETECT) 03/25/22 22:15 Influenza A (H3) PCR Not detected (NOT DETECT) 03/25/22 22:15 Influenza Type A (PCR) Not detected (NOT DETECT) 03/25/22 22:15 Influenza Type B (PCR) Not detected (NOT DETECT) 03/25/22 22:15 M. pneumoniae (PCR) Not detected (NOT DETECT) 03/25/22 22:15 Parainfluenza 1 (PCR) Not detected (NOT DETECT) 03/25/22 22:15 Parainfluenza 2 (PCR) Not detected (NOT DETECT) 03/25/22 22:15 Parainfluenza 3 (PCR) Not detected (NOT DETECT) 03/25/22 22:15 Parainfluenza 4 (PCR) Not detected (NOT DETECT) 03/25/22 22:15 RSV Type A (PCR) Not detected (NOT DETECT) 03/25/22 22:15 RSV Type B (PCR) Not detected (NOT DETECT) 03/25/22 22:15 Entero/Rhino (PCR) Not detected (NOT DETECT) 03/25/22 22:15 SARS-CoV-2 (PCR) Not detected (NOT DETECT) 03/25/22 22:15 Vitals Last Vital Signs Temp 98.9 F 03/30/22 07:17 Pulse 85 03/30/22 08:10 Resp 16 03/30/22 08:10 BP 122/82 03/30/22 07:17 Pulse Ox 96 03/30/22 08:10 O2 Del Method 03/30/22 08:10 O2 Flow Rate 1.5 03/26/22 10:19 Discharge Plan Discharge Patient Disposition: Home Condition: Stable Prescriptions: New fluticasone propionate 50 mcg/actuation Mathews,Suspension 1 spray nasal DAILY 14 Days Qty: 16 0RF amiodarone [Pacerone] 200 mg Tablet See Rx Instructions .ROUTE .COMPLEX Qty: 360 0RF Rx Instructions: 400 mg twice daily for 7 days, followed by 400 mg daily metoprolol tartrate 25 mg Tablet 37.5 mg PO BID@0900,2100 Qty: 270 0RF [place] Nasal 0.65 % Aerosol,M[place]ws 1 spray nasal PRN PRN (Reason: Dryness) Qty: 44 0RF Continued alprazolam 0.25 mg tablet 0.25 mg PO BID PRN (Reason: Anxiety) nitroglycerin [Nitrostat] 0.4 mg tablet, sublingual 0.4 mg SUBLINGUAL Q5M PRN (Reason: Pain) pantoprazole [Protonix] 20 mg tablet,delayed release (DR/EC) 20 mg PO DAILY levothyroxine 112 mcg tablet 125 mcg PO DAILY spironolactone 25 mg tablet 25 mg PO DAILY allopurinol 100 mg tablet 200 mg PO DAILY Eliquis 5 mg tablet 5 mg PO BID polysaccharide iron complex [Ferrex 150] 150 mg iron Capsule 150 mg PO DAILY L.acidoph,saliva-B.bif-S.therm [Acidophilus Probiotic Blend] 175 mg Capsule 1 cap PO DAILY albuterol sulfate 2.5 mg /3 mL (0.083 %) solution for nebulization 2.5 mg inhalation QID PRN (Reason: Shortness Of Breath Or Wheezing) magnesium oxide 400 mg (241.3 mg magnesium) tablet 400 mg PO BID rosuvastatin 10 mg tablet 10 mg PO BEDTIME Changed torsemide 20 mg tablet See Rx Instructions .ROUTE .COMPLEX Qty: 270 2RF Dose Instruction: TAKE 2 TABLETS BY MOUTH EVERY MORNING alternating with FOUR EVERY MORNING EVERY OTHER DAY Rx Instructions: 2 TABLETS PO EVERY DAY Discontinued doxycycline hyclate 100 mg tablet 100 mg PO BID 5 Days Qty: 10 0RF carvedilol 12.5 mg tablet 12.5 mg PO BID Qty: 180 3RF Rx Instructions: TO START ON 03/28 AND DISCONTINUE 25 MG carvedilol 25 mg tablet 37.5 mg PO BID Rx Instructions: STOP TAKING ON 03/28 AND BEGIN TAKING 12.5MG BID Discharge Orders: Discharge Order (Routine); Ordered 03/30/22 Ordered By: Juan Thorpe Referrals: Tiff Mckinney MD [Primary Care Provider] - 4-7 days Yumi Del Toro FNP [Nurse Practitioner] - 1 week Discharge Diet: Cardiac Patient Instructions: Amiodarone (By mouth), Acute Bronchitis (GEN), Tachycardia (GEN), Opioid Safety Activity Restrictions/Additional Instructions: Amiodarone 400 mg p.o. twice daily for 7 days, followed by 400 mg p.o. daily Metoprolol 37.5 mg p.o. twice daily Stay off the carvedilol Dr Strickland will make arrangements by his office for you to be seen by the elevator troubleshooter Follow-up with your primary doctor for reassessment recovery from acute bronchitis, rhinosinusitis. For now decreased diuretic dose to 40 mg torsemide daily. Have your primary doctor reassess kidney function and volume status and reassess diuretic dose. Continue follow-up regarding chronic kidney disease and other chronic issues. Follow-up with primary doctor and java j2ee application developer for reassessment while on amiodarone therapy, with reassessments of any adverse effects on lungs, liver, eyes, thyroid due to risks of injury to his organs. Discharge Attestations Time Spent in Discharge Care*: greater than 30 min Quality Metrics Clinical Quality Measures [ No reported AMI, CVA or VTE this stay] Coding Level of Care Code Acute Chg FW DC note Diagnoses Failure of cardiac resynchronization therapy defibrillator (CONTRACT GRAPHIC DESIGNER-D) lead T82.198A Ventricular tachycardia I47.20 Congestive heart failure with cardiomyopathy I50.9; I42.9 Atherosclerotic heart disease of [place] coronary artery with other forms of angina pectoris I25.118 Chronic kidney disease N18.3 Chronic kidney disease stage: stage 3 (moderate) Atrial fibrillation I48.91 Atrial fibrillation type: unspecified
[2022-03-30 11:08] VITALS: PULSE 85; RESP 16; O2SAT 96
[2022-03-30 11:11] VITALS: BP 138/82; PULSE 78; RESP 16; TEMP 37; O2SAT 98
--- NOTE | 2022-03-30 11:54 | PC.NURSE ---
Patient was discharged at 1154 AM. Patient was given discharge instructions and education as well as home medications he will need tonight since all pharmacies are closed. patient verbalized understanding. Patient was taken via wheelchair to the surgical services entrance.
[2022-04-01 21:53] LABS: RMSF IGG NOT DETECTED; RMSF IGM NOT DETECTED
[2022-04-03 17:33] LABS: E. Chaffeensis AB IGG <1:64; E. Chaffeensis AB IGM <1:20
== END 2022-03-30 11:53 | disposition home or self-care (01) | DRG 308 ==
LOC: ER 20:04 → ICU 20:58 → CSU 03-29 17:45
PROVIDERS: Family Medicine; Internal Medicine Cardiovascular Disease; Student in an Organized Health Care Education/Training Program; Admitting Provider Student in an Organized Health Care Education/Training Program; Emergency Provider Emergency Medicine; PCP Family Medicine; Visit Provider Internal Medicine
DX: T82.190A Other mechanical complication of cardiac electrode, initial encounter (principal); I49.01 Ventricular fibrillation; I24.8 Other forms of acute ischemic heart disease; I42.9 Cardiomyopathy, unspecified; I47.20 Ventricular tachycardia, unspecified; I50.22 Chronic systolic (congestive) heart failure; N17.9 Acute kidney failure, unspecified; Y71.8 Miscellaneous cardiovascular devices associated with adverse incidents, not elsewhere classified; I25.10 Atherosclerotic heart disease of native coronary artery without angina pectoris; Z95.1 Presence of aortocoronary bypass graft; E11.22 Type 2 diabetes mellitus with diabetic chronic kidney disease; N18.30 Chronic kidney disease, stage 3 unspecified; I48.91 Unspecified atrial fibrillation; Z95.810 Presence of automatic (implantable) cardiac defibrillator; E78.2 Mixed hyperlipidemia; K21.9 Gastro-esophageal reflux disease without esophagitis; Z85.820 Personal history of malignant melanoma of skin; E89.2 Postprocedural hypoparathyroidism; E11.51 Type 2 diabetes mellitus with diabetic peripheral angiopathy without gangrene; D70.9 Neutropenia, unspecified; Z79.51 Long term (current) use of inhaled steroids; Z79.01 Long term (current) use of anticoagulants; J32.9 Chronic sinusitis, unspecified; J40 Bronchitis, not specified as acute or chronic; M10.9 Gout, unspecified
CPT/HCPCS: 36415; 71045; 78452; 80048; 80053; 80061; 81003; 83036; 83540; 83550; 83735; 83880; 84100; 84439; 84443; 84481; 84484; 85025; 85730; 86618; 86666; 86757; 87040; 87486; 87581; 87633; 93005; 93017; 93284; 93306; 96372; 96374; 99213; 99285; A9500; J0282; J1650; J2785; J3475; J3490; J7060

== ENCOUNTER → 2022-04-12 08:45 | Outpatient (BNVA) | payer MEDICARE, OTHER, BC, SELFPAY | PROVIDERS: PCP Family Medicine; Visit Provider Nurse Practitioner Family | DX: I47.20 Ventricular tachycardia, unspecified (principal); Z95.810 Presence of automatic (implantable) cardiac defibrillator; I50.9 Heart failure, unspecified; I42.9 Cardiomyopathy, unspecified; E78.5 Hyperlipidemia, unspecified | CPT/HCPCS: 36415; 80048; 83880; 99214 ==

== ENCOUNTER → 2022-05-09 07:52 | Outpatient (BNVA) | payer MEDICARE, OTHER, BC, SELFPAY | PROVIDERS: PCP Family Medicine; Visit Provider Podiatrist Foot & Ankle Surgery | DX: I73.9 Peripheral vascular disease, unspecified (principal); L60.3 Nail dystrophy; E11.8 Type 2 diabetes mellitus with unspecified complications | CPT/HCPCS: 11721 ==

== ENCOUNTER → 2022-06-02 09:20 | Outpatient (BNVA) | payer MEDICARE, OTHER, BC, SELFPAY | PROVIDERS: PCP Family Medicine; Visit Provider Internal Medicine Cardiovascular Disease | DX: Z45.02 Encounter for adjustment and management of automatic implantable cardiac defibrillator (principal) | CPT/HCPCS: 93284 ==

== ENCOUNTER → 2022-06-28 11:18 | Outpatient (BNVA) | payer MEDICARE, OTHER, BC, SELFPAY | PROVIDERS: PCP Family Medicine; Visit Provider Internal Medicine Cardiovascular Disease | DX: R06.02 Shortness of breath (principal); I25.10 Atherosclerotic heart disease of native coronary artery without angina pectoris; I25.118 Atherosclerotic heart disease of native coronary artery with other forms of angina pectoris; Z95.810 Presence of automatic (implantable) cardiac defibrillator; I47.20 Ventricular tachycardia, unspecified; I50.9 Heart failure, unspecified; I42.9 Cardiomyopathy, unspecified; I73.9 Peripheral vascular disease, unspecified; E11.42 Type 2 diabetes mellitus with diabetic polyneuropathy; N18.30 Chronic kidney disease, stage 3 unspecified | CPT/HCPCS: 36415; 80048; 83880; 99214 ==

== ENCOUNTER 2022-07-14 08:10 | Outpatient (CLI) | payer MEDICARE, OTHER, BC, SELFPAY ==
[2022-07-14 09:18] LABS: Anion Gap 12.2 (5-19); Blood Urea Nitrogen 34 mg/dL (8-23); Calcium 9.5 mg/dL (8.5-10.5); Carbon Dioxide 30 mmol/L (22-29); Chloride 96 mmol/L (98-107); Glucose 153 mg/dL (65-115); NT Pro B Type Natriuretic Pept 1862 pg/mL (0-450); Osmolality Calculated 289 mOsm/kg (285-295); Potassium 4.2 mmol/L (3.5-5.1); Sodium 134 mmol/L (136-145)
== END 2022-07-14 08:11 | disposition home or self-care (01) ==
LOC: LAB 08:14
PROVIDERS: PCP Family Medicine; Visit Provider Internal Medicine Cardiovascular Disease
DX: I42.9 Cardiomyopathy, unspecified (principal); I50.9 Heart failure, unspecified; I73.9 Peripheral vascular disease, unspecified
CPT/HCPCS: 36415; 80048; 83880

== ENCOUNTER → 2022-08-10 07:49 | Outpatient (BNVA) | payer MEDICARE, OTHER, BC, SELFPAY | PROVIDERS: PCP Family Medicine; Visit Provider Podiatrist Foot & Ankle Surgery | DX: I73.9 Peripheral vascular disease, unspecified (principal); E11.8 Type 2 diabetes mellitus with unspecified complications; L60.3 Nail dystrophy | CPT/HCPCS: 11721 ==

== ENCOUNTER 2022-09-12 12:48 | Emergency (ER) | payer MEDICARE, OTHER, BC, SELFPAY ==
[2022-09-12] VITALS (8 sets, daily range): BP systolic 118–128; BP diastolic 86–89; PULSE 85; RESP 14–18; TEMP 36.5; O2SAT 93–96
--- NOTE | 2022-09-12 13:17 | ECG_ITS ---
[facility] Test Date: 2022-09-12 Pat Name: Raj Vega Department: Room: Gender: Male [employer] Protection Specialist: : 1945 Requested By: Benny Caraballo Order Number: [id number] Cain MD: Elio Santos M.D. Measurements Intervals [place] Rate: 84 P: 0 VT: 0 QRS: -58 QRSD: 175 T: 119 QT: 457 QTc: 543 Interpretive Statements SINUS RHYTHM WITH UNDERSENSING INTRAVENTRICULAR CONDUCTION DELAY [130+ ms QRS DURATION] INFERIOR MYOCARDIAL INFARCTION , OF INDETERMINATE AGE [40+ ms Q WAVE AND/OR ST/T ABNORMALITY IN II/aVF] Compared to ECG 03/27/2022 11:16:57 Intraventricular conduction delay now present Myocardial infarct finding now present Ventricular-paced complex(es) or rhythm no longer present Electronically Signed On 09-12-2022 16:56:27 CDT by Elio Santos M.D. [email or web address]
[2022-09-12 14:50] LABS: Hemoglobin 16.7 g/dL (11.7-16.6); Mean Corpuscular HGB Conc 32.7 g/dL (30.0-36.0); Mean Corpuscular Hemoglobin 31.6 pg (28.0-34.0); Mean Corpuscular Volume 96.6 fl (80-94); Mean Platelet Volume 9.7 fL (7.4-10.4); Platelet Count 192 10^3/cmm (130-400); Red Blood Count 5.28 10^6/uL (4.1-5.3); Red Cell Distribution Width 14.1 % (12.1-15.1); White Blood Count 11.8 10^3/uL (4.0-10.0)
[2022-09-12 15:15] LABS: Absolute Eosinophils 0.1 10^3/cmm (0.0-0.7); Absolute Segmented Neutrophil 4.2 10/cmm (1.6-7.1); Band Neutrophils Absolute 0.2 10^3/cmm (0.0-1.2); Eosinophils 1 %; Lymphocytes 30 %; Monocytes Absolute 0.6 10^3/cmm (0.1-0.6); Segmented Neutrophils 36 %; Slide Review Slide Review Perform; Total Cells Counted 100 (0-100)
[2022-09-12 15:16] LABS: Absolute Neutrophil 4.5 10^3/cmm (1.4-6.5); Lymphocytes Absolute 6.6 10^3/cmm (1.2-3.4); Platelet Estimate Decreased (Normal)
[2022-09-12 15:31] LABS: Alanine Aminotransferase 62 U/L (0-41); Albumin Level 4.3 g/dL (3.5-5.2); Alkaline Phosphatase 117 U/L (40-130); Anion Gap 16.5 (5-19); Aspartate Amino Transferase 63 U/L (0-40); Blood Urea Nitrogen 41 mg/dL (8-23); Calcium 9.4 mg/dL (8.5-10.5); Carbon Dioxide 28 mmol/L (22-29); Chloride 96 mmol/L (98-107); Glucose 150 mg/dL (65-115); Magnesium 2.4 mg/dL (1.7-2.3); NT Pro B Type Natriuretic Pept 2216 pg/mL (0-450); Osmolality Calculated 295 mOsm/kg (285-295); Potassium 4.5 mmol/L (3.5-5.1); Sodium 136 mmol/L (136-145); Total Protein 7.3 g/dL (6.6-8.7)
[2022-09-12 15:35] LABS: Creatinine Clr Calc Pharmacy 41.3517
--- NOTE | 2022-09-12 16:33 | ED_ITS ---
Documented by User: Eduard Oseguera DO 09/13/22 06:07 HPI - Weakness General: Chief complaint: Weakness Stated complaint: abnomoral Pacemaker readings, dizzy, head pain Time Seen by Provider: 09/12/22 16:21 Source: patient Mode of arrival: ambulatory History of Present Illness: 77-year-old male presents emergency room complaining of weakness generalized fatigue. He felt his heart rate has been varying quite a bit it goes from at times to the 70s with activity of go up to 110. He has a known ischemic cardiomyopathy with ejection fraction 25 to 30% he has a ICD in place that was recently put there. He complains of numbness in his legs and on for 3 weeks that is not new or changed for over 3 weeks he has some discomfort in his left axilla. He did have an angiogram in 2020 which showed bypass grafts patent. He had a stress test in March 2022 that did not show any significant revers ibility but did show significant dilation of the left ventricle and diminished ejection fraction. He is not having any chest pain at this time he does have some moderate orthopnea. MD Complaint: generalized weakness Onset (ago): week(s) Duration: intermittent Location: generalized Relieving factors: none Exacerbating factors: none Associated symptoms: Denies chest pain, chills, confusion, melena, decreased appetite, diaphoresis, dysuria, easy bruising, fever(s), headache(s), myalgias, nausea, rash, short of breath, syncope or vomiting Review of Systems Const: Denies: fever(s), chills, fatigue, malaise or diaphoresis ENMT: Denies: throat pain, ear or mastoid pain, nasal discharge or nasal congestion Card: Reports: dyspnea on exertion and orthopnea; Denies: chest pain, palpitations, irregular heart rhythm, edema, swelling of feet/ankles or syncope Resp: Denies: dyspnea, productive cough or non-productive cough GI: Denies: nausea, vomiting or melena : Denies: dysuria Skin/Breast: Denies: rash or pruritus Neuro: Denies: headache(s) or confusion Damien/Lymph: Denies: easy bruising PFSH ED PFSH: Medical History Arthritis Atherosclerotic heart disease of [place] coronary artery with other forms of angina pectoris Patient had a cardiac catheterization followed by four-vessel coronary bypass surgery in 2015. #1.? Placement of intra-aortic balloon pump utilizing modified Seldinger technique through right femoral artery #2.? Stapling of left atrial appendage #3.? Coronary artery bypass grafting x4 (1 artery and 3 veins) utilizing in situ left internal mammary artery to left anterior descending artery, reverse saphenous vein graft from aorta to distal right coronary artery, reverse saphenous vein graft from aorta to the diagonal artery, and reverse saphenous vein graft from aorta to the obtuse marginal branch of the circumflex artery. #4.? Endoscopic saphenous vein harvesting from the left thigh and leg. Atrial fibrillation Cardiomyopathy Chronic kidney disease GERD (gastroesophageal reflux disease) Hematuria History of malignant melanoma Hyperlipidemia Hyperparathyroidism Hypothyroid ICD (implantable cardioverter-defibrillator), biventricular, in situ Pacemaker Pleural effusion Surgical History Hx of CABG Hx of cholecystectomy S/P removal of parathyroid gland Family History Mother Cancer Father Stroke Denies family history of Diabetes CAD (coronary artery disease) Clotting disorder Dementia Chronic kidney disease (CKD) Suicide Anesthesia complication Bleeding disorder Lung disease Social History Smoking and tobacco status: never smoked Alcohol intake: never Substance/Drug Use: never Physical Exam Const: COMMON NORMALS: no acute distress GENERAL APPEARANCE: cooperative and comfortable ORIENTATION/CONSCIOUSNESS: Yes awake, Yes oriented to person, Yes oriented to place and Yes oriented to time HENMT: COMMON NORMALS: normocephalic, atraumatic and hearing grossly normal bilaterally HEAD & SCALP: normocephalic and atraumatic Resp: COMMON NORMALS: normal respiratory effort, No retractions, No use of accessory muscles and clear to auscultation bilaterally AUSCULTATION: clear to auscultation bilaterally Cardio: COMMON NORMALS: regular rate, regular rhythm and No murmurs present (Cardio) RATE: regular rate RHYTHM: regular rhythm GI: COMMON NORMALS: Soft to palpation and No hepatosplenomegaly present AUSCULTATION: Yes normoactive bowel sounds PALPATION: Yes Soft to palpation, No Tenderness to palpation present (GI), No Guarding due to palpation present (GI) and Yes No hepatosplenomegaly present Extremity: COMMON NORMALS: normal to inspection, capillary refill normal, no clubbing, cyanosis or edema, no calf tenderness and no pedal edema Neuro: SENSORIUM/ORIENTATION: Yes oriented to person, Yes oriented to place and Yes oriented to time Skin: COMMON NORMALS: no rashes or lesions noted GENERAL SKIN EXAM: no rashes or lesions noted Course Vital Signs: Vital signs: Vital Signs Temperature 97.7 F 09/12/22 12:54 Pulse Rate 85 09/12/22 19:00 Respiratory Rate 14 09/12/22 19:00 Blood Pressure 118/86 09/12/22 19:00 Pulse Oximetry 94 09/12/22 19:00 Oxygen Delivery Me thod Room Air 09/12/22 19:00 MDM - Weakness Medical Decision Making Care signed out to Dr. Barriga at change of shift. See final notes for diagnosis and disposition. Patient presents there is some weakness along with concerns about his AICD his interrogation here is normal blood work here is all normal he is well-appearing here and stable for discharge she is to follow-up with spring encaser Dr. Strickland and return if worsening. Lab Data 09/12/22 14:40 09/12/22 14:40 Radiology Impressions Chest X-Ray 09/12/22 16:47 IMPRESSION: 1. No acute findings. 2. Elevated right hemidiaphragm 3. Metallic sternotomy wires are present 4. Cardiac device left anterior chest in good position Laboratory Results WBC 11.8 10^3/uL (4.0-10.0) H 09/12/22 14:40 RBC 5.28 10^6/uL (4.1-5.3) 09/12/22 14:40 Hgb 16.7 g/dL (11.7-16.6) H 09/12/22 14:40 Hct 51.0 % (42.0-52.0) 09/12/22 14:40 MCV 96.6 fl (80-94) H 09/12/22 14:40 MCH 31.6 pg (28.0-34.0) 09/12/22 14:40 MCHC 32.7 g/dL (30.0-36.0) 09/12/22 14:40 RDW 14.1 % (12.1-15.1) 09/12/22 14:40 Plt Count 192 10^3/cmm (130-400) 09/12/22 14:40 MPV 9.7 fL (7.4-10.4) 09/12/22 14:40 Lymph % (Auto) Not Reportable 09/12/22 14:40 [place] % (Auto) Not Reportable 09/12/22 14:40 Lymph # (Auto) Not Reportable 09/12/22 14:40 [place] # (Auto) Not Reportable 09/12/22 14:40 Total Counted 100 (0-100) 09/12/22 14:40 Atypical Lymphs % 26.0 % (0-5) H 09/12/22 14:40 Absolute Neutrophils 4.5 10^3/cmm (1.4-6.5) 09/12/22 14:40 Segmented Neutrophils 36 % 09/12/22 14:40 Abs Segm Neuts (Man) 4.2 10/cmm (1.6-7.1) 09/12/22 14:40 Band Neutrophils 2.0 % 09/12/22 14:40 Abs Band Neuts (Man) 0.2 10^3/cmm (0.0-1.2) 09/12/22 14:40 Absolute Lymphocytes 6.6 10^3/cmm (1.2-3.4) H 09/12/22 14:40 Lymphocytes (Manual) 30 % 09/12/22 14:40 Monocytes (Manual) 5.0 % 09/12/22 14:40 Absolute Monocytes 0.6 10^3/cmm (0.1-0.6) 09/12/22 14:40 Eosinophils (Manual) 1 % 09/12/22 14:40 Absolute Eosinophils 0.1 10^3/cmm (0.0-0.7) 09/12/22 14:40 Basophils (Manual) 0.0 % 09/12/22 14:40 Absolute Basophils 0.0 10^3/cmm (0.0-0.2) 09/12/22 14:40 Platelet Estimate Decreased (Normal) 09/12/22 14:40 Sodium 136 mmol/L (136-145) 09/12/22 14:40 Potassium 4.5 mmol/L (3.5-5.1) 09/12/22 14:40 Chloride 96 mmol/L (98-107) L 09/12/22 14:40 Carbon Dioxide 28 mmol/L (22-29) 09/12/22 14:40 Anion Gap 16.5 (5-19) 09/12/22 14:40 BUN 41 mg/dL (8-23) H 09/12/22 14:40 Creatinine 1.7 mg/dL (0.7-1.2) H 09/12/22 14:40 GFR Calculation Not Reportable 09/12/22 14:40 Glucose 150 mg/dL (65-115) H 09/12/22 14:40 Calculated Osmolality 295 mOsm/kg (285-295) 09/12/22 14:40 Calcium 9.4 mg/dL (8.5-10.5) 09/12/22 14:40 Magnesium 2.4 mg/dL (1.7-2.3) H 09/12/22 14:40 Total Bilirubin 1.0 mg/dL (0.15-1.2) 09/12/22 14:40 AST 63 U/L (0-40) H 09/12/22 14:40 ALT 62 U/L (0-41) H 09/12/22 14:40 Alkaline Phosphatase 117 U/L (40-130) 09/12/22 14:40 NT-Pro-B Natriuret Pep 2216 pg/mL (0-450) H 09/12/22 14:40 Total Protein 7.3 g/dL (6.6-8.7) 09/12/22 14:40 Albumin 4.3 g/dL (3.5-5.2) 09/12/22 14:40 Globulin 3.0 g/dL (1.3-4.6) 09/12/22 14:40 Discharge Plan Discharge Patient Disposition: Home Clinical Impression: Weakness Condition: Stable Prescriptions: No Action alprazolam 0.25 mg tablet 0.125 mg PO QAM pantoprazole [Protonix] 20 mg tablet,delayed release (DR/EC) 20 mg PO QAM spironolactone 25 mg tablet 25 mg PO QAM allopurinol 100 mg tablet 200 mg PO QPM Eliquis 5 mg tablet 5 mg PO BID polysaccharide iron complex [Ferrex 150] 150 mg iron Capsule 150 mg PO QAM L.acidoph,saliva-B.bif-S.therm [Acidophilus Probiotic Blend] 175 mg Capsule 1 cap PO QAM rosuvastatin 10 mg tablet 10 mg PO BEDTIME albuterol sulfate 2.5 mg /3 mL (0.083 %) solution for nebulization 2.5 mg inhalation Q4H PRN (Reason: Shortness Of Breath) Tylenol Ex Str Rapid Release 500 mg Tablet 1,000 mg PO QAM levothyroxine 125 mcg tablet 125 mcg PO QAM Nitrostat 0.4 mg Tablet, Sublingual 0.4 mg SUBLINGUAL Q5M PRN (Reason: Chest Pain) Rx Instructions: do not exceed 3 doses per episode albuterol sulfate 90 mcg/actuation Hfa Aerosol Inhaler 2 puff INHALATION QID PRN (Reason: Shortness Of Breath) torsemide 20 mg tablet See Rx Instructions .ROUTE .COMPLEX Rx Instructions: 60mg (3 tabs) po qam and 40mg (2 tabs) po qpm Pacerone 200 mg tablet 400 mg PO QAM magnesium oxide 400 mg (241.3 mg magnesium) tablet 400 mg PO BID metoprolol tartrate 25 mg tablet 50 mg PO BID potassium chloride 20 mEq tablet extended release 20 meq PO QAM Deep Sea Nasal 0.65 % Aerosol,[place] 1 spray nasal PRN PRN (Reason: Dryness) Qty: 44 0RF Discharge Orders: Discharge ED (Routine); Ordered 09/12/22 Ordered By: Milena Barriga Referrals: Tiff Mckinney MD [Primary Care Provider] - 1-3 days Discharge Diet: Advance as tolerated Discharge Activity: Resume usual activity Patient Instructions: Weakness (ED) Coding Level of Care Code ED Winding Rack Operator for Chg Fwd Documented by User: Milena Barriga MD 09/12/22 19:16 HPI - Weakness General: Chief complaint: Weakness Stated complaint: abnomoral Pacemaker readings, dizzy, head pain Time Seen by Provider: 09/12/22 16:21 PFSH ED PFSH: Medical History Arthritis Atherosclerotic heart disease of [place] coronary artery with other forms of angina pectoris Patient had a cardiac catheterization followed by four-vessel coronary bypass surgery in 2015. #1.? Placement of intra-aortic balloon pump utilizing modified Seldinger technique through right femoral artery #2.? Stapling of left atrial appendage #3.? Coronary artery bypass grafting x4 (1 artery and 3 veins) utilizing in s itu left internal mammary artery to left anterior descending artery, reverse saphenous vein graft from aorta to distal right coronary artery, reverse saphenous vein graft from aorta to the diagonal artery, and reverse saphenous vein graft from aorta to the obtuse marginal branch of the circumflex artery. #4.? Endoscopic saphenous vein harvesting from the left thigh and leg. Atrial fibrillation Cardiomyopathy Chronic kidney disease GERD (gastroesophageal reflux disease) Hematuria History of malignant melanoma Hyperlipidemia Hyperparathyroidism Hypothyroid ICD (implantable cardioverter-defibrillator), biventricular, in situ Pacemaker Pleural effusion Surgical History Hx of CABG Hx of cholecystectomy S/P removal of parathyroid gland Family History Mother Cancer Father Stroke Denies family history of Diabetes CAD (coronary artery disease) Clotting disorder Dementia Chronic kidney disease (CKD) Suicide Anesthesia complication Bleeding disorder Lung disease Social History Smoking and tobacco status: never smoked Alcohol intake: never Substance/Drug Use: never Course Vital Signs: Vital signs: Vital Signs Temperature 97.7 F 09/12/22 12:54 Pulse Rate 85 09/12/22 19:00 Respiratory Rate 14 09/12/22 19:00 Blood Pressure 118/86 09/12/22 19:00 Pulse Oximetry 94 09/12/22 19:00 Oxygen Delivery Me thod Room Air 09/12/22 19:00 MDM - Weakness Medical Decision Making Patient presents there is some weakness along with concerns about his AICD his interrogation here is normal blood work here is all normal he is well-appearing here and stable for discharge she is to follow-up with spring encaser Dr. Strickland and return if worsening. Medical Records I reviewed the patient's medical records. Lab Data 09/12/22 14:40 09/12/22 14:40 Radiology Impressions Chest X-Ray 09/12/22 16:47 IMPRESSION: 1. No acute findings. 2. Elevated right hemidiaphragm 3. Metallic sternotomy wires are present 4. Cardiac device left anterior chest in good position Laboratory Results WBC 11.8 10^3/uL (4.0-10.0) H 09/12/22 14:40 RBC 5.28 10^6/uL (4.1-5.3) 09/12/22 14:40 Hgb 16.7 g/dL (11.7-16.6) H 09/12/22 14:40 Hct 51.0 % (42.0-52.0) 09/12/22 14:40 MCV 96.6 fl (80-94) H 09/12/22 14:40 MCH 31.6 pg (28.0-34.0) 09/12/22 14:40 MCHC 32.7 g/dL (30.0-36.0) 09/12/22 14:40 RDW 14.1 % (12.1-15.1) 09/12/22 14:40 Plt Count 192 10^3/cmm (130-400) 09/12/22 14:40 MPV 9.7 fL (7.4-10.4) 09/12/22 14:40 Lymph % (Auto) Not Reportable 09/12/22 14:40 [place] % (Auto) Not Reportable 09/12/22 14:40 Lymph # (Auto) Not Reportable 09/12/22 14:40 [place] # (Auto) Not Reportable 09/12/22 14:40 Total Counted 100 (0-100) 09/12/22 14:40 Atypical Lymphs % 26.0 % (0-5) H 09/12/22 14:40 Absolute Neutrophils 4.5 10^3/cmm (1.4-6.5) 09/12/22 14:40 Segmented Neutrophils 36 % 09/12/22 14:40 Abs Segm Neuts (Man) 4.2 10/cmm (1.6-7.1) 09/12/22 14:40 Band Neutrophils 2.0 % 09/12/22 14:40 Abs Band Neuts (Man) 0.2 10^3/cmm (0.0-1.2) 09/12/22 14:40 Absolute Lymphocytes 6.6 10^3/cmm (1.2-3.4) H 09/12/22 14:40 Lymphocytes (Manual) 30 % 09/12/22 14:40 Monocytes (Manual) 5.0 % 09/12/22 14:40 Absolute Monocytes 0.6 10^3/cmm (0.1-0.6) 09/12/22 14:40 Eosinophils (Manual) 1 % 09/12/22 14:40 Absolute Eosinophils 0.1 10^3/cmm (0.0-0.7) 09/12/22 14:40 Basophils (Manual) 0.0 % 09/12/22 14:40 Absolute Basophils 0.0 10^3/cmm (0.0-0.2) 09/12/22 14:40 Platelet Estimate Decreased (Normal) 09/12/22 14:40 Sodium 136 mmol/L (136-145) 09/12/22 14:40 Potassium 4.5 mmol/L (3.5-5.1) 09/12/22 14:40 Chloride 96 mmol/L (98-107) L 09/12/22 14:40 Carbon Dioxide 28 mmol/L (22-29) 09/12/22 14:40 Anion Gap 16.5 (5-19) 09/12/22 14:40 BUN 41 mg/dL (8-23) H 09/12/22 14:40 Creatinine 1.7 mg/dL (0.7-1.2) H 09/12/22 14:40 GFR Calculation Not Reportable 09/12/22 14:40 Glucose 150 mg/dL (65-115) H 09/12/22 14:40 Calculated Osmolality 295 mOsm/kg (285-295) 09/12/22 14:40 Calcium 9.4 mg/dL (8.5-10.5) 09/12/22 14:40 Magnesium 2.4 mg/dL (1.7-2.3) H 09/12/22 14:40 Total Bilirubin 1.0 mg/dL (0.15-1.2) 09/12/22 14:40 AST 63 U/L (0-40) H 09/12/22 14:40 ALT 62 U/L (0-41) H 09/12/22 14:40 Alkaline Phosphatase 117 U/L (40-130) 09/12/22 14:40 NT-Pro-B Natriuret Pep 2216 pg/mL (0-450) H 09/12/22 14:40 Total Protein 7.3 g/dL (6.6-8.7) 09/12/22 14:40 Albumin 4.3 g/dL (3.5-5.2) 09/12/22 14:40 Globulin 3.0 g/dL (1.3-4.6) 09/12/22 14:40 Discharge Plan Discharge Patient Disposition: Home Clinical Impression: Weakness Condition: Stable Prescriptions: No Action alprazolam 0.25 mg tablet 0.125 mg PO QAM pantoprazole [Protonix] 20 mg tablet,delayed release (DR/EC) 20 mg PO QAM spironolactone 25 mg tablet 25 mg PO QAM allopurinol 100 mg tablet 200 mg PO QPM Eliquis 5 mg tablet 5 mg PO BID polysaccharide iron complex [Ferrex 150] 150 mg iron Capsule 150 mg PO QAM L.acidoph,saliva-B.bif-S.therm [Acidophilus Probiotic Blend] 175 mg Capsule 1 cap PO QAM rosuvastatin 10 mg tablet 10 mg PO BEDTIME albuterol sulfate 2.5 mg /3 mL (0.083 %) solution for nebulization 2.5 mg inhalation Q4H PRN (Reason: Shortness Of Breath) Tylenol Ex Str Rapid Release 500 mg Tablet 1,000 mg PO QAM levothyroxine 125 mcg tablet 125 mcg PO QAM Nitrostat 0.4 mg Tablet, Sublingual 0.4 mg SUBLINGUAL Q5M PRN (Reason: Chest Pain) Rx Instructions: do not exceed 3 doses per episode albuterol sulfate 90 mcg/actuation Hfa Aerosol Inhaler 2 puff INHALATION QID PRN (Reason: Shortness Of Breath) torsemide 20 mg tablet See Rx Instructions .ROUTE .COMPLEX Rx Instructions: 60mg (3 tabs) po qam and 40mg (2 tabs) po qpm Pacerone 200 mg tablet 400 mg PO QAM magnesium oxide 400 mg (241.3 mg magnesium) tablet 400 mg PO BID metoprolol tartrate 25 mg tablet 50 mg PO BID potassium chloride 20 mEq tablet extended release 20 meq PO QAM [place] Nasal 0.65 % Aerosol,[place] 1 spray nasal PRN PRN (Reason: Dryness) Qty: 44 0RF Discharge Orders: Discharge ED (Routine); Ordered 09/12/22 Ordered By: Milena Barriga Referrals: Tiff Mckinney MD [Primary Care Provider] - 1-3 days Discharge Diet: Advance as tolerated Discharge Activity: Resume usual activity Patient Instructions: Weakness (ED) Coding Level of Care Code ED Winding Rack Operator for [place]ic[place]
--- NOTE | 2022-09-12 16:45 | PC.PHAR ---
pts verified pts medications-pts states the pt takes metoprolol tartrate 50mg bid ext med history show last filled 07/18/22 90d/s 37.5mg bid-rx filled for toremide 40mg bid on 07/18/22 90d/s pts states Dr.L Mckinney increased to 60mg qam and 40mg qpm-notes are made in the pharmacy comments
--- NOTE | 2022-09-12 16:47 | XRR_ITS ---
PROCEDURE INFORMATION: Exam: XR Chest Exam date and time: 09/12/2022 4:54 PM Age: 77 years old Clinical indication: Other: Pacemaker issues; Prior surgery; Surgery date: 6+ months; Surgery type: Pacer; Additional info: Dyspnea/cough TECHNIQUE: Imaging protocol: Radiologic exam of the chest. Views: 1 view. COMPARISON: CR XR chest 1V portable [id number] 03/25/2022 7:06 PM FINDINGS: Tubes, catheters and devices: Cardiac device left anterior chest in good position Lungs: Unremarkable. No consolidation. Pleural spaces: Elevated right hemidiaphragm No pleural effusion. No pneumothorax. Heart/Mediastinum: Unremarkable. No cardiomegaly. Bones/joints: Metallic sternotomy wires are present. XR/XR chest 1V portable [id number] IMPRESSION: 1. No acute findings. 2. Elevated right hemidiaphragm 3. Metallic sternotomy wires are present 4. Cardiac device left anterior chest in good position
--- NOTE | 2022-09-12 19:00 | PC.NURSE ---
Report from PAOLO Drummond. Repositioned pt in bed. Pacemaker interrogation report given to Dr. Barriga.
== END 2022-09-12 19:26 | disposition home or self-care (01) ==
PROVIDERS: Emergency Medicine; Emergency Provider Emergency Medicine; PCP Family Medicine
DX: R53.1 Weakness (principal); Z79.01 Long term (current) use of anticoagulants; I25.10 Atherosclerotic heart disease of native coronary artery without angina pectoris; N18.9 Chronic kidney disease, unspecified; E78.5 Hyperlipidemia, unspecified; Z95.0 Presence of cardiac pacemaker; Z95.1 Presence of aortocoronary bypass graft
CPT/HCPCS: 36415; 71045; 80053; 83735; 83880; 85007; 85025; 93005; 99285

== ENCOUNTER → 2022-09-19 13:37 | Outpatient (BNVA) | payer MEDICARE, OTHER, BC, SELFPAY | PROVIDERS: PCP Family Medicine; Visit Provider Internal Medicine Cardiovascular Disease | DX: R53.1 Weakness (principal); I25.118 Atherosclerotic heart disease of native coronary artery with other forms of angina pectoris; Z95.810 Presence of automatic (implantable) cardiac defibrillator; I47.20 Ventricular tachycardia, unspecified; I48.91 Unspecified atrial fibrillation; E78.2 Mixed hyperlipidemia; E03.9 Hypothyroidism, unspecified; I50.9 Heart failure, unspecified; I42.9 Cardiomyopathy, unspecified; Z95.1 Presence of aortocoronary bypass graft | CPT/HCPCS: 99214 ==

== ENCOUNTER → 2022-11-09 07:36 | Outpatient (BNVA) | payer MEDICARE, OTHER, BC, SELFPAY | PROVIDERS: PCP Family Medicine; Visit Provider Podiatrist Foot & Ankle Surgery | DX: I73.9 Peripheral vascular disease, unspecified (principal); L60.8 Other nail disorders; L60.3 Nail dystrophy | CPT/HCPCS: 11721 ==

== ENCOUNTER 2022-11-21 08:48 | Observation (INO) | payer MEDICARE, OTHER, BC, SELFPAY ==
[2022-11-20 08:48] VITALS: BMI 32.0
[2022-11-21] VITALS (8 sets, daily range): BP systolic 105–129; BP diastolic 76–98; PULSE 74–87; RESP 15–22; TEMP 36.6–36.7; O2SAT 91–96; BMI 32.0
[2022-11-21] MEDS: diphenhydrAMINE 50 mg Capsule PO (06:01)
[2022-11-21 06:21] LABS: Hematocrit 49.1 % (42.0-52.0); Hemoglobin 15.9 g/dL (11.7-16.6); Mean Corpuscular HGB Conc 32.4 g/dL (30.0-36.0); Mean Corpuscular Hemoglobin 31.9 pg (28.0-34.0); Mean Corpuscular Volume 98.4 fl (80-94); Platelet Count 190 10^3/cmm (130-400); Red Blood Count 4.99 10^6/uL (4.1-5.3); Red Cell Distribution Width 14.1 % (12.1-15.1); White Blood Count 12.8 10^3/uL (4.0-10.0)
[2022-11-21 06:21] LABS: Glucose Point of Care 159 mg/dL (70-110)
[2022-11-21 06:43] LABS: Anion Gap 18.5 (5-19); Blood Urea Nitrogen 34 mg/dL (8-23); Calcium 9.7 mg/dL (8.5-10.5); Carbon Dioxide 27 mmol/L (22-29); Chloride 100 mmol/L (98-107); Glucose 157 mg/dL (65-115); Osmolality Calculated 303 mOsm/kg (285-295); Potassium 4.5 mmol/L (3.5-5.1); Sodium 141 mmol/L (136-145)
[2022-11-21 06:56] LABS: Slide Review Slide Review Perform
[2022-11-21 06:57] LABS: Absolute Segmented Neutrophil 5.2 10/cmm (1.6-7.1); Lymphocytes 27 %; Segmented Neutrophils 41 %; Total Cells Counted 100 (0-100)
[2022-11-21 06:58] LABS: Absolute Neutrophil 5.2 10^3/cmm (1.4-6.5); Eosinophils 0 %; Lymphocytes Absolute 6.4 10^3/cmm (1.2-3.4); Monocytes Absolute 1.2 10^3/cmm (0.1-0.6); Platelet Estimate Normal (Normal)
--- NOTE | 2022-11-21 07:00 | XACV_ITS ---
Exam Room: 2 Ht: 175 cm Wt: 98 kg BSA: 2.22 m2 Gender: Male : 1945 Any Known Allergies: Other Exam Priority: Routine Procedure(s): Procedure Description: Diagnostic procedure Procedure Description: Left Heart Catheterization Procedure Description: Venous Graft Catheterization Procedure Description: SANCHEZ Graft Catheterization Procedure Description: Coronary Angiography Marco A LANDAVERDE; Diagnostic Cath Status: Elective Diagnostic Findings * Left main is a medium caliber vessel with Leno was found to have minimal intimal irregularities with no significant stenosis. * The left anterior descending artery is a small to medium caliber vessel with moderate diffuse disease in the midsegment. Relative flow was noted in the distal vessel. The artery appears to taper off to his the LV apex. The first diagonal branch was found to have moderate diffuse disease proximally. The second diagonal branch was found to have the distal anastomosis of the venous graft with some retrograde flow into the graft. * The. * The circumflex artery is a medium caliber vessel which gives off a high obtuse marginal branch which is found mild diffuse disease proximally. Artery appears to be totally occluded at the mid segment.. * Right coronary artery is a medium to large caliber vessel which was found to have mild to moderate disease proximally. After the second RV branch, the artery appears to be totally occluded. * The venous graft to the diagonal branch was found to be widely patent with no significant stenotic lesions. * The venous graft to the obtuse marginal artery was found to be patent with no significant stenotic lesions. * The saphenous venous graft to the distal RCA was found to be widely patent. The PDA and the PLV branches are found to mild diffuse disease with no significant stenotic lesions. * SANCHEZ to LAD was found to be a relatively small caliber vessel which was found to be widely patent and was attached to the distal LAD. No significant lesions were noted at the anastomotic site or distal to the anastomosis. Conclusions 1. 77-year-old white male with history of coronary disease, high blood pressure, dyslipidemia, type 2 diabetes and chronic kidney disease, presenting with increasing shortness of breath, left arm numbness and fatigue. He had a Myocardial perfusion imaging which revealed areas of fixed events with some small areas of reversible defect. In view of the patient's worsening symptoms, in order to further evaluate the coronary status as well as the graft status, a repeat cardiac catheterization was recommended. Patient underwent left heart catheterization with a left and right coronary angiogram and graft angiogram today. The findings are as follows. 2. 1. Mild disease in the left main. #2 moderate diffuse disease in the mid LAD and first diagonal branch. 3. Total occlusion of the mid circumflex artery. 4. Total occlusion of the mid RCA. 5. Patent venous graft to the diagonal, obtuse marginal and right coronary artery. Patent SANCHEZ to the distal LAD. Diagnostic RX Recommendation: medical therapy and/or counseling LV EDP: 9 mmHg Left Ventriculography Findings: * LV gram was not performed because the patient is a chronic kidney disease. Pressures Phase:Rest AO : 102 / 77 ( 89 ) @ 8:38:00 AM 102 / 78 ( 90 ) @ 8:52:00 AM 118 / 67 ( 87 ) @ 9:00:00 AM 123 / 56 ( 86 ) @ 9:00:00 AM LV : 119 / -2 / 9 @ 9:00:00 AM 117 / -2 / 9 @ 9:00:00 AM Valves Phase:DefaultPhase AV : 0.0 @ 8:10:13 AM 0.0 @ 8:10:13 AM AV Mean Gradient: 0.0 @ 8:10:13 AM 0.0 @ 8:10:13 AM Clinical Evaluation EBL: 5mL-10mL Procedural Details Procedure Consent Obtained. Pre-Procedure Time Out. Identified patient by full name and date of as verbalized by the patient/guarantor. Does the consent match the physician's order: Yes. Accurate & Complete Informed Consent: Yes. Inpatient/Outpatient History & Physical on Chart: Yes. If H&P is completed, is and addenduem needed: No. Visualize and Verify Site with Patient/Guarantor: N/A. Relevant Radiology Images available: Yes. The risks, benefits, and alternatives of sedation and/or procedure were discussed by physician. The patient agrees to continue. [facility] Clinical Fraility Score: 4: Vulnerable. Real Estate Services Coordinator Indications: Worsening Angina. Chest Pain Symptom Assessment: Atypical Angina. Cardiovascular Instability: No. Correct patient, site and procedure confirmed by cath team. PERRLA. 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 Lungs clear x 5 lobes. IV Site on Arrival: 20 gauge in the right anticubital. IV Fluids: 0.9% NaCl at KVO. 0 mL infused prior to medical laboratory assistant. Pre Procedural Pulses: bilateral dorsalis pedis was 2+. Pre Procedural Pulses: bilateral posterior tibial was 1+. Oxygen started at 2liters/min via nasal canula. bilateral groins was prepped with chloroprep then draped in the usual sterile fashion. Physician notified. Procedure started. Patient's family in CPRU room 3. Dr. Strickland will update at the completion of the procedure. Equipment: 5F - Femoral. Heparinized Saline (2 units/mL), 1000 mL bag. Kit, Micropuncture. Cardiac Cath Pack. ACIST Manifold Kit Model BT 2000. Inventory is JJ 5F 11cm Ese Plus Sheath. Physician arrived. Baseline sample Acquired. HR: 87 BPM. Physician scrubbed in. Immediate Pre-Procedure Time Out. Correct Patient: Yes; Correct Procedure: Yes; Correct Site: Yes; Correct Patient Position: Yes; Correct Supplies: Yes; Dried Flammable Prep: Yes; Blood Products Available: N/A;. Lidocaine 1% infiltrated to the right groin. Arterial access obtained with micropuncture set. A 5 nauruan JL4 catheter in over the standard J wire. Multiple views taken of left coronary artery. Catheter removed over the standard J wire. A 5 nauruan JR4 catheter in over the standard J wire. Cineography of the RCA performed. Catheter redirected to SVG. SVG's to OM visualized. SVG's to Diaganol visualized. Catheter redirected to the SANCHEZ. SANCHEZ to LAD visualized. Catheter removed over the standard J wire. A 5 nauruan RCB catheter in over the standard J wire. Catheter removed over the standard J wire. A 5 nauruan JR4 catheter in over the standard J wire. SVG's to RCA visualized. Catheter redirected to the LV. EDP Sample taken: LV 119/-3,9; HR: 63 BPM; SpO2: 96%. Pullback taken: LV 117/-3,9; AO 118/67(87); Mean: 0mmHg, Peak to Peak: 0mmHg, SEP: 19sec/min; HR: 74 BPM; SpO2: 96%. Catheter removed over the standard J wire. Physician scrubbed out. A Suture was successful obtaining hemostatsis at the Right Femoral artery insertion site. Sheath(s) sutured into position with 2-0 silk and sterile 4x4's and Op-site applied over the site. No oozing or signs and symptoms of hematoma noted. Arterial sheath flushed and connected to tranducer and pressure bag with heparinized saline. Post Procedure: Pulses reassessed and unchanged. PERRLA. 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 No VTE prophylaxis required. Medication's Wasted: Heparin = 2500 Units. Medication's Wasted: Other = Versed 1 mg. Medication's Wasted: Other = Fentanyl 75 mcg. Total IV fluids: 290 mL. Post-op diagnosis: Non-obstructive CAD. Complications: none. Estimated blood loss: 5mL-10mL. Responsiveness - Normal response to verbal stimuli; alert and oriented, PERRLA. Airway - Unaffected, no intervention required; spontaneous ventilation. Circulation: W/N/L, pulses unchanged. Nausea/Vomiting: No. Procedure completed. Patient transferred by bed to CPRU. Vital chart was stopped. Access Site Site: Right Femoral artery Sheath Size: 5 Fr Hemostasis Method: Suture Hemostasis Success: Successful Procedure Medications Start: 7:19 AM Stop: 7:19 AM Medication: 0.9% Saline Amount: 250 ml Route: I.V. bolus Start: 7:20 AM Stop: 7:20 AM Medication: Versed Amount: 1 mg Route: I.V. Start: 7:20 AM Stop: 7:20 AM Medication: Fentanyl Amount: 25 mcg Route: I.V. Start: 7:41 AM Stop: 7:41 AM Medication: Heparin Amount: 1500 units Route: I.V. I, the attending physician, have reviewed and verified all procedure medications. Yes, all medications given per verbal order History/Risk Factors Hypertension: No Dyslipidemia: Yes Peripheral Arterial Disease (PAD): Yes Myocardial Infarction (FL): No Obesity: Yes Renal Disease: No Tobacco Use: Never Prior Interventions PCI: No CABG: Yes Valve Surgery: No Report Signatures Finalized by Dr Alan Strickland MD [facility] on 11/21/2022 07:32 PM
--- NOTE | 2022-11-21 07:14 | P.HP_ITS ---
Providers/Chief Complaint Admitting Physician: Dr SILVIO Strickland Primary Care Provider: Tiff Mckinney MD Chief Complaint: I47.20 History of Present Illness Raj Vega is a 77 year old male with a history of, ASHD, status post four- vessel coronary artery bypass surgery, is presenting with complaints of left numbness, fatigue and shortness of breath. He had a Myocardial perfusion imaging which revealed multiple areas of fixed and reversible defects suggesting myocardial scarring with areas of keila-infarction ischemia. Patient is known to have LV dysfunction and had a PHILOSOPHY SPECIALIST-D placement. He also is known to have intermittent decompensated heart failure. In view of his ongoing symptoms and the abnormal objective findings, in order to further evaluate his coronary stat us as well as the graft status, a cardiac catheterization was recommended. Patient also has a history of chronic atrial fibrillation, on long-term oral anticoagulation, high blood pressure, dyslipidemia, chronic kidney disease of stage III, diabetes, hypothyroidism, diabetic neuropathy. Currently he denies any chest pain. No unusual shortness of breath. No orthopnea or PND. No fever or chills. No dysuria. No abdominal pain. Review of Systems Narrative: CONSTITUTIONAL: No fever or chills. EYES: No blurring of vision or other visual disturbances lately. ENT: No hoarseness of voice, auditory disturbances or sore throat. CARDIOVASCULAR: As mentioned above. RESPIRATORY: Has some shortness of breath with activities GASTROINTESTINAL: No hematemesis or melena. GENITOURINARY: Chronic kidney disease as mentioned above INTEGUMENTARY: No skin rashes or history of skin cancer. NEURO: History of diabetic neuropathy PSYCHIATRIC: No history of psychosis or major depression. HEMATOLOGIC: No bleeding disorders or significant anemia. ENDOCRINE: Type 2 diabetes MUSCULOSKELETAL: No recent joint pain or swelling. ALLERGY/IMMUNOLOGY: As mentioned above. Medications/Allergies Home Medications Medication Instructions Recorded Confirmed Last Taken Type alprazolam 0.25 mg tablet 0.125 mg PO QAM 06/01/19 11/20/22 11/21/22 05:00 History polysaccharide iron complex 150 mg 150 mg PO QAM 07/01/19 11/20/22 11/21/22 05:00 History iron capsule (Ferrex) allopurinol 100 mg tablet 200 mg PO QPM 11/28/19 11/20/22 11/21/22 05:00 History pantoprazole 20 mg tablet,delayed 20 mg PO QAM 12/03/19 11/20/22 11/21/22 05:00 History release (Protonix) L.acidophil,salivari-Bifido 1 cap PO QAM 12/14/19 11/20/22 11/21/22 05:00 History bifidum-Strep thermoph 175 mg capsule (Acidophilus Probiotic Blend) apixaban 5 mg tablet (Eliquis) 5 mg PO BID 07/21/21 11/20/22 11/16/22 History spironolactone 25 mg tablet 25 mg PO QAM 02/21/22 11/20/22 11/21/22 05:00 History sodium chloride 0.65 % nasal spray 1 spray nasal PRN PRN Dryness #44 03/30/22 11/20/22 11/21/22 05:00 Rx aerosol (Deep Sea Nasal) mL acetaminophen 500 mg tablet 1,000 mg PO QAM 09/12/22 11/21/22 11/20/22 05:00 History albuterol sulfate 2.5 mg/3 mL 2.5 mg inhalation Q4H PRN 09/12/22 11/20/22 Unknown History (0.083 %) solution for nebulization Shortness Of Breath albuterol sulfate 90 mcg/actuation 2 puff inhalation QID PRN 09/12/22 11/20/22 11/21/22 05:00 History aerosol inhaler Shortness Of Breath amiodarone 200 mg tablet (Pacerone) 400 mg PO QAM 09/12/22 11/20/22 11/21/22 05:00 History levothyroxine 125 mcg tablet 125 mcg PO QAM 09/12/22 11/20/22 11/21/22 05:00 History magnesium oxide 400 mg (241.3 mg 400 mg PO BID 09/12/22 11/20/22 11/21/22 05:00 History magnesium) tablet metoprolol tartrate 25 mg tablet 50 mg PO BID 09/12/22 11/20/22 11/21/22 05:00 History nitroglycerin 0.4 mg sublingual 0.4 mg sublingual Q5M PRN Chest 09/12/22 11/20/22 Unknown History tablet (Nitrostat) Pain potassium chloride 20 mEq 20 meq PO QAM 09/12/22 11/20/22 11/21/22 05:00 History tablet,extended release rosuvastatin 10 mg tablet See Rx Instructions .Route 10/06/22 11/20/22 11/21/22 05:00 Rx .COMPLEX #90 tabs torsemide 20 mg tablet 20 mg PO DIRECTED #450 tabs 10/16/22 11/20/22 11/21/22 05:00 Rx enoxaparin 100 mg/mL subcutaneous 100 mg SUBCUT Q12H 3 days #6 mL 11/08/2211/2011/19/22 Rx syringe (Lovenox) Allergies Allergy/AdvReac Type Severity Reaction Status Date / Time metoclopramide [From Reglan] Allergy Unknown unknown Verified 11/09/22 07:48 pseudoephedrine Allergy Unknown nausea Verified 11/09/22 07:48 potassium Allergy ALGY-Rash Verified 11/09/22 07:48 prednisone Allergy Rash Verified 11/09/22 07:48 tetracycline Allergy Unknown Verified 11/09/22 07:48 cetirizine [From Zyrtec] AdvReac Unknown Verified 11/09/22 07:48 PFSH Acute PFSH: Medical History Arthritis Atherosclerotic heart disease of [place] coronary artery with other forms of kaplana na pectoris Patient had a cardiac catheterization followed by four-vessel coronary bypass surgery in 2014. #1.? Placement of intra-aortic balloon pump utilizing modified Seldinger technique through right femoral artery #2.? Stapling of left atrial appendage #3.? Coronary artery bypass grafting x4 (1 artery and 3 veins) utilizing in situ left internal mammary artery to left anterior descending artery, reverse saphenous vein graft from aorta to distal right coronary artery, reverse saphenous vein graft from aorta to the diagonal artery, and reverse saphenous vein graft from aorta to the obtuse marginal branch of the circumflex artery. #4.? Endoscopic saphenous vein harvesting from the left thigh and leg. Atrial fibrillation Cardiomyopathy Chronic kidney disease GERD (gastroesophageal reflux disease) Hematuria History of malignant melanoma Hyperlipidemia Hyperparathyroidism Hypothyroid ICD (implantable cardioverter-defibrillator), biventricular, in situ Pacemaker Pleural effusion Surgical History Hx of CABG Hx of cholecystectomy S/P removal of parathyroid gland Family History Mother Cancer Father Stroke Denies family history of Diabetes CAD (coronary artery disease) Clotting disorder Dementia Chronic kidney disease (CKD) Suicide Anesthesia complication Bleeding disorder Lung disease Social History Smoking and tobacco status: never smoked Alcohol intake: never Substance/Drug Use: never Vitals/I&O/Wt Last Vital Signs Temp 98.0 F 11/21/22 06:23 Pulse 87 11/21/22 06:23 Resp 18 11/21/22 06:23 BP 129/98 11/21/22 06:23 Pulse Ox 95 11/21/22 06:23 O2 Del Method Room Air 11/21/22 06:23 Weight last 48 hrs Weight 217 lb Weight 217 lb Data 11/21/22 06:10 11/21/22 06:10 Other Labs: Laboratory Last Values WBC 12.8 10^3/uL (4.0-10.0) H 11/21/22 06:10 RBC 4.99 10^6/uL (4.1-5.3) 11/21/22 06:10 Hgb 15.9 g/dL (11.7-16.6) 11/21/22 06:10 Hct 49.1 % (42.0-52.0) 11/21/22 06:10 MCV 98.4 fl (80-94) H 11/21/22 06:10 MCH 31.9 pg (28.0-34.0) 11/21/22 06:10 MCHC 32.4 g/dL (30.0-36.0) 11/21/22 06:10 RDW 14.1 % (12.1-15.1) 11/21/22 06:10 Plt Count 190 10^3/cmm (130-400) 11/21/22 06:10 MPV 10.0 fL (7.4-10.4) 11/21/22 06:10 Lymph % (Auto) Not Reportable 11/21/22 06:10 [place] % (Auto) Not Reportable 11/21/22 06:10 Lymph # (Auto) Not Reportable 11/21/22 06:10 [place] # (Auto) Not Reportable 11/21/22 06:10 Total Counted 100 (0-100) 11/21/22 06:10 Atypical Lymphs % 23.0 % (0-5) H 11/21/22 06:10 Absolute Neutrophils 5.2 10^3/cmm (1.4-6.5) 11/21/22 06:10 Segmented Neutrophils 41 % 11/21/22 06:10 Abs Segm Neuts (Man) 5.2 10/cmm (1.6-7.1) 11/21/22 06:10 Band Neutrophils 0.0 % 11/21/22 06:10 Abs Band Neuts (Man) 0.0 10^3/cmm (0.0-1.2) 11/21/22 06:10 Absolute Lymphocytes 6.4 10^3/cmm (1.2-3.4) H 11/21/22 06:10 Lymphocytes (Manual) 27 % 11/21/22 06:10 Monocytes (Manual) 9.0 % 11/21/22 06:10 Absolute Monocytes 1.2 10^3/cmm (0.1-0.6) H 11/21/22 06:10 Eosinophils (Manual) 0 % 11/21/22 06:10 Absolute Eosinophils 0.0 10^3/cmm (0.0-0.7) 11/21/22 06:10 Basophils (Manual) 0.0 % 11/21/22 06:10 Absolute Basophils 0.0 10^3/cmm (0.0-0.2) 11/21/22 06:10 Metamyelocytes 0.0 % 11/21/22 06:10 Myelocytes 0.0 % 11/21/22 06:10 Promyelocytes 0.0 % 11/21/22 06:10 Blast Cells Global Compensation Director 11/21/22 06:10 Platelet Estimate Normal (Normal) 11/21/22 06:10 Sodium 141 mmol/L (136-145) 11/21/22 06:10 Potassium 4.5 mmol/L (3.5-5.1) 11/21/22 06:10 Chloride 100 mmol/L (98-107) 11/21/22 06:10 Carbon Dioxide 27 mmol/L (22-29) 11/21/22 06:10 Anion Gap 18.5 (5-19) 11/21/22 06:10 BUN 34 mg/dL (8-23) H 11/21/22 06:10 Creatinine 2.0 mg/dL (0.7-1.2) H 11/21/22 06:10 GFR Calculation Not Reportable 11/21/22 06:10 Glucose 157 mg/dL (65-115) H 11/21/22 06:10 POC Glucose 159 mg/dL (70-110) H 11/21/22 06:13 Calculated Osmolality 303 mOsm/kg (285-295) H 11/21/22 06:10 Calcium 9.7 mg/dL (8.5-10.5) 11/21/22 06:10 A&P Assessment and plan (1) Atherosclerotic heart disease of [place] coronary artery with other forms of angina pectoris: (2) ICD (implantable cardioverter-defibrillator), biventricular, in situ: (3) Ischemic cardiomyopathy: (4) Atrial fibrillation: Qualifiers: Atrial fibrillation type: unspecified Qualified Code(s): I48.91 - Unspecified atrial fibrillation (5) Hyperlipidemia: Qualifiers: Hyperlipidemia type: mixed hyperlipidemia Qualified Code(s): E78.2 - Mixed hyperlipidemia (6) Hypothyroid: Qualifiers: Hypothyroidism type: acquired Qualified Code(s): E03.9 - Hypothyroidism, unspecified (7) Ventricular tachycardia: (8) Elevated white blood cell count: The etiology is unclear. Possibly stress-induced. Patient has no signs of infection clinically. No cough, fever, chills or abdominal pain. No dysuria. Plan In view of the patient's ongoing symptom of fatigue, shortness of breath, left arm numbness, abnormal Myocardial perfusion imaging, in order to further evaluate his coronary status as well as the graft status, a cardiac catheterization would be appropriate. Because of his chronic kidney disease, he carries a higher risk for contrast-induced nephropathy. This was discussed in detail with the patient and his which they understood well and consented to proceed. We will try to use the minimal amount of dye. The risk of bleeding, hematoma, vascular injury, myocardial infarction, myocardial perforation, malignant cardiac arrhythmias ,CVA, renal failure and other concomitant complications were explained in detail. Patient and the family understood this well and consented to proceed. Based on the angiogram findings, further recomm endations will be made Attestations Medical Necessity Statement*: Patient will be admitted to the hospital for IV hydration and close management after the procedure Coding Level of Care Code 82759 Diagnoses Atherosclerotic heart disease of [place] coronary artery with other forms of angina pectoris I25.118 ICD (implantable cardioverter-defibrillator), biventricular, in situ Z95.810 Ischemic cardiomyopathy I25.5 Atrial fibrillation I48.91 Atrial fibrillation type: unspecified Hyperlipidemia E78.2 Hyperlipidemia type: mixed hyperlipidemia Hypothyroid E03.9 Hypothyroidism type: acquired Ventricular tachycardia I47.20 Elevated white blood cell count D72.829
--- NOTE | 2022-11-21 07:23 | W.PM.OPSUD ---
Surgery/Procedure H&P Update DATE OF PROCEDURE: November 21, 2022 DATE H&P PERFORMED: 11/21/22 H&P UPDATE INFORMATION: I have reviewed H&P completed within last 30 days, I have examined patient prior to procedure and No changes to prior documentation PREOP DIAGNOSIS: ASHD PRIMARY INDICATION FOR PROCEDURE: Abnormal Myocardial perfusion imaging/ CKD/status post four-vessel bypass surgery fatigue and shortness of breath PLANNED PROCEDURE: Operation Date: 11/21/22 07:00 Proposed Procedures p [[facility] w/ w/o 74373, R07.89,I48.91,I42.9,E78.2, I50.9,I47.20(Left) - Alan Strickland MD PATIENT REASSESSED PRIOR TO SEDATION, WITH NO CHANGE NOTED: Yes PHYSICAL EXAM: alert, oriented x 3, clear to auscultation bilaterally and regular rate & rhythm AIRWAY EVAL/ANESTHESIA PLAN: normal airway, see other exam findings, ASA IV, Monitored Anesthesia, Local Anesthesia, Risks, benefits & alternatives of sedation and/or procedure discussed and Patient agrees to continue as planned
[2022-11-21] MEDS: sodium chloride 0.9% 1,000 ML 100 ML IV ×2 (08:30→18:43)
--- NOTE | 2022-11-21 08:50 | PC.NURSE ---
Pt transferred to CSU room 111-2 via bed. Pt has sutured in sheath right groin to pressure bag. Site asymptomatic. Pulses present. Pt denies pain. Report was given by Roderick Keene RN to PAOLO Rivas.
[2022-11-21] MEDS: magnesium oxide 400 mg tablet PO (18:18)
[2022-11-21] MEDS: allopurinol 100 mg Tablet 200 MG PO (18:18)
[2022-11-21] MEDS: metoprolol tartrate 50 mg Tablet PO (18:18)
[2022-11-22 00:16] VITALS: BP 106/70; PULSE 77; RESP 19; TEMP 36.9; O2SAT 97
[2022-11-22 04:15] VITALS: BP 109/75; PULSE 78; RESP 18; TEMP 36.6; O2SAT 96
[2022-11-22 04:58] VITALS: PULSE 80
[2022-11-22 05:02] LABS: Anion Gap 14.5 (5-19); Blood Urea Nitrogen 32 mg/dL (8-23); Calcium 8.8 mg/dL (8.5-10.5); Carbon Dioxide 27 mmol/L (22-29); Chloride 100 mmol/L (98-107); Glucose 120 mg/dL (65-115); Osmolality Calculated 292 mOsm/kg (285-295); Potassium 4.5 mmol/L (3.5-5.1); Sodium 137 mmol/L (136-145)
[2022-11-22] MEDS: amiodarone 200 mg Tablet 400 MG PO (05:31)
[2022-11-22] MEDS: levothyroxine 125 mcg Tablet PO (05:31)
[2022-11-22] MEDS: potassium chloride ER 20 mEq Tablet PO (05:32)
[2022-11-22] MEDS: iron polysaccharide complex 150 mg Capsule PO (05:32)
[2022-11-22] MEDS: spironolactone 25 mg Tablet PO (05:32)
[2022-11-22] MEDS: acetaminophen 500 mg Tablet 1000 MG PO (05:32)
[2022-11-22] MEDS: pantoprazole DR 40 mg Tablet PO (05:32)
[2022-11-22] MEDS: sodium chloride 0.9% 1,000 ML 100 ML IV (05:34)
[2022-11-22 09:35] LABS: Basophils # 0.1 10^3/uL (0.0-0.1); Basophils % 0.6 %; Eosinophils # 0.1 10^3/uL (0.0-0.8); Eosinophils % 0.8 %; Hematocrit 45.6 % (42.0-52.0); Hemoglobin 14.4 g/dL (11.7-16.6); Lymphocytes # 6.2 10^3/uL (0.8-4.8); Lymphocytes % 48.7 %; Mean Corpuscular HGB Conc 31.6 g/dL (30.0-36.0); Mean Corpuscular Hemoglobin 31.8 pg (28.0-34.0); Mean Corpuscular Volume 100.7 fl (80-94); Mean Platelet Volume 10.3 fL (7.4-10.4); Monocytes % 8.1 %; Neutrophils # 5.27 10^3/uL (1.8-7.7); Neutrophils % 41.4 %; Nucleated Red Blood Cells % 0 %; Platelet Count 173 10^3/cmm (130-400); Red Blood Count 4.53 10^6/uL (4.1-5.3); Red Cell Distribution Width 14.4 % (12.1-15.1); White Blood Count 12.7 10^3/uL (4.0-10.0)
[2022-11-22] MEDS: apixaban 5 mg Tablet PO (09:47)
[2022-11-22] MEDS: atorvastatin 40 mg Tablet PO (09:48)
[2022-11-22] MEDS: magnesium oxide 400 mg tablet PO (09:48)
[2022-11-22] MEDS: TORSEmide 20 mg Tablet 60 MG PO (09:48)
[2022-11-22] MEDS: metoprolol tartrate 50 mg Tablet PO (09:49)
[2022-11-22 10:22] LABS: Slide Review Slide Review Perform
[2022-11-22 11:00] VITALS: PULSE 80
--- NOTE | 2022-11-22 11:21 | P.SS_ITS ---
Short Stay Summary Providers Date of Admit/Discharge: 11/22/22 Attending Provider: Alan Strickland MD Consults: none Primary Care Provider: Tiff Mckinney MD Chief Complaint: I47.20 HPI History of Present Illness Raj Vega is a 77 year old male was admitted to hospital following the cardiac catheterization for IV hydration and close monitoring. Patient is known to have chronic kidney disease and cardiomyopathy. He remained stable throughout the hospital course. He had a repeat BMP this morning. His BUN was 32 with a creatinine of 1.8. These numbers are looking better than yesterday. He also had a elevated white cell count of 12.8 and the repeat 1 was 12.7. Urine for urinalysis. He had no fever. No cough or unusual shortness of breath. Review of Systems Narrative: CONSTITUTIONAL: No fever or chills. [] EYES: No blurring of vision or other visual disturbances lately. [] ENT: No hoarseness of voice, auditory disturbances or sore throat. CARDIOVASCULAR: As mentioned above. RESPIRATORY: Has some amount of dyspnea on exertion GASTROINTESTINAL: No hematemesis or melena. GENITOURINARY: No dysuria or hematuria. INTEGUMENTARY: No skin rashes or history of skin cancer. NEURO: No transient ischemic attacks or amaurosis. PSYCHIATRIC: No history of psychosis or major depression. HEMATOLOGIC: No bleeding disorders or significant anemia. ENDOCRINE: Type 2 diabetes MUSCULOSKELETAL: No recent joint pain or swelling. ALLERGY/IMMUNOLOGY: As mentioned above. Home Meds/Allergies Home Medications and Allergies Home Medications Medication Instructions Recorded Confirmed Type alprazolam 0.25 mg tablet 0.125 mg PO QAM 06/01/19 11/20/22 History polysaccharide iron complex 150 mg 150 mg PO QAM 07/01/19 11/20/22 History iron capsule (Ferrex) allopurinol 100 mg tablet 200 mg PO QPM 11/28/19 11/20/22 History pantoprazole 20 mg tablet,delayed 20 mg PO QAM 12/03/19 11/20/22 History release (Protonix) L.acidophil,salivari-Bifido 1 cap PO QAM 12/14/19 11/20/22 History bifidum-Strep thermoph 175 mg capsule (Acidophilus Probiotic Blend) apixaban 5 mg tablet (Eliquis) 5 mg PO BID 07/21/21 11/20/22 History spironolactone 25 mg tablet 25 mg PO QAM 02/21/22 11/20/22 History acetaminophen 500 mg tablet 1,000 mg PO QAM 09/12/22 11/21/22 History albuterol sulfate 2.5 mg/3 mL 2.5 mg inhalation Q4H PRN 09/12/22 11/20/22 History (0.083 %) solution for nebulization Shortness Of Breath albuterol sulfate 90 mcg/actuation 2 puff inhalation QID PRN 09/12/22 11/20/22 History aerosol inhaler Shortness Of Breath amiodarone 200 mg tablet (Pacerone) 400 mg PO QAM 09/12/22 11/20/22 History levothyroxine 125 mcg tablet 125 mcg PO QAM 09/12/22 11/20/22 History magnesium oxide 400 mg (241.3 mg 400 mg PO BID 09/12/22 11/20/22 History magnesium) tablet metoprolol tartrate 25 mg tablet 50 mg PO BID 09/12/22 11/20/22 History nitroglycerin 0.4 mg sublingual 0.4 mg sublingual Q5M PRN Chest 09/12/22 11/20/22 History tablet (Nitrostat) Pain potassium chloride 20 mEq 20 meq PO QAM 09/12/22 11/20/22 History tablet,extended release Allergies Allergy/AdvReac Type Severity Reaction Status Date / Time metoclopramide [From Reglan] Allergy Unknown unknown Verified 11/09/22 07:48 pseudoephedrine Allergy Unknown nausea Verified 11/09/22 07:48 potassium Allergy ALGY-Rash Verified 11/09/22 07:48 prednisone Allergy Rash Verified 11/09/22 07:48 tetracycline Allergy Unknown Verified 11/09/22 07:48 cetirizine [From Zyrte] AdvReac Unknown Verified 11/09/22 07:48 PFSH Acute PFSH: Medical History Arthritis 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 #1.? Placement of intra-aortic balloon pump utilizing modified Seldinger technique through right femoral artery #2.? Stapling of left atrial appendage #3.? Coronary artery bypass grafting x4 (1 artery and 3 veins) utilizing in situ left internal mammary artery to left anterior descending artery, reverse saphenous vein graft from aorta to distal right coronary artery, reverse saphenous vein graft from aorta to the diagonal artery, and reverse saphenous vein graft from aorta to the obtuse marginal branch of the circumflex artery. #4.? Endoscopic saphenous vein harvesting from the left thigh and leg. Atrial fibrillation Cardiomyopathy Chronic kidney disease GERD (gastroesophageal reflux disease) Hematuria History of malignant melanoma Hyperlipidemia Hyperparathyroidism Hypothyroid ICD (implantable cardioverter-defibrillator), biventricular, in situ Pacemaker Pleural effusion Surgical History Hx of CABG Hx of cholecystectomy S/P removal of parathyroid gland Family History Mother Cancer Father Stroke Denies family history of Diabetes CAD (coronary artery disease) Clotting disorder Dementia Chronic kidney disease (CKD) Suicide Anesthesia complication Bleeding disorder Lung disease Social History Smoking and tobacco status: never smoked Alcohol intake: never Substance/Drug Use: never Vitals/I&O/Wt Last Vital Signs Temp 97.8 F 11/22/22 04:15 Pulse 80 11/22/22 11:00 Resp 18 11/22/22 04:15 BP 109/75 11/22/22 04:15 Pulse Ox 96 11/22/22 04:15 O2 Del Method Room Air 11/22/22 09:39 O2 Flow Rate 2 11/21/22 18:00 11/21/22 11/22/22 11/22/22 22:59 06:59 14:59 Intake Total 1804 / 2734 1100 / 3834 480 / 480 Balance 1804 / 2034 1100 / 3134 480 / 480 Weight last 48 hrs Weight 217 lb Physical Exam Narrative: GENERAL: The patient is alert and oriented times three. Not in any acute distress. HEENT: No significant pallor, icterus or lymphadenopathy.Oral cavity: There are no mucous membrane lesions. NECK: Trachea appears to be central. No masses noted. No JVD or thyromegaly appreciated. RESPIRATORY: Chest is symmetrical. No intercostals muscle retraction or any accessory muscle activation. There is no chest wall tenderness. Breath sounds are heard bilaterally. No rales or rhonchi heard. No evidence of any consolidation. BREASTS: Deferred. HEART: The heart sounds are normal. No S3 or S4. Short systolic murmur in the left heart border no pericardial rub ABDOMEN: No vessel pulsations or distention. No tenderness. No organomegaly appreciated. Bowel sounds are normally heard. : Deferred. RECTAL: Deferred. LYMPHATIC: No lymphadenopathy noted in the neck. EXTREMITIES: Right groin has no hematoma bleeding. No edema or cyanosis. No clubbing. MUSCULOSKELETAL: No acute joint deformities or swelling SKIN: There are no significant rashes or ecchymosis NEUROPSYCHIATRIC: The patient is alert and oriented x3. Appears to be in a good mood. No tremors or rigidity noted. Hospital Course Discharge Summary Patient remained stable throughout the hospital course. He was treated with IV fluid. His repeat BMP is looking better than yesterday. He has a slightly elevated persistent white cell count. Etiology is unclear. He has no clinical signs of infection. We will do a urinalysis today. We will follow-up on the results. See remaining stable with no other complaints, he is being discharged home today. Be seen in the clinic in a week by the nurse practitioner. SSS Data Data Completed and Pending: Completed Studies During Hospitalization Category Date Time Status PORTFOLIO ADMINISTRATOR request for service Routin e Exams 11/21/22 07:00 Completed Diagnoses at Discharge Discharge Diagnosis (1) Atherosclerotic heart disease of [place] coronary artery with other forms of angina pectoris: Details from hospital stay: Patient had a cardiac dilatation yesterday. He was found to have patent venous grafts and SANCHEZ to the LAD. No significant changes from the previous cardiac catheterization. Status: Acute Permanent problem details: Patient had a cardiac catheterization followed by four-vessel coronary bypass surgery in 2014. #1.? Placement of intra-aortic balloon pump utilizing modified Seldinger technique through right femoral artery #2.? Stapling of left atrial appendage #3.? Coronary artery bypass grafting x4 (1 artery and 3 veins) utilizing in situ left internal mammary artery to left anterior descending artery, reverse saphenous vein graft from aorta to distal right coronary artery, reverse saphenous vein graft from aorta to the diagonal artery, and reverse saphenous vein graft from aorta to the obtuse marginal branch of the circumflex artery. #4.? Endoscopic saphenous vein harvesting from the left thigh and leg. (2) ICD (implantable cardioverter-defibrillator), biventricular, in situ: Details from hospital stay: Functioning was found to be appropriate. Status: Acute (3) Ischemic cardiomyopathy: Details from hospital stay: Currently stable with no evidence of decompensation. Status: Acute (4) Atrial fibrillation: Details from hospital stay: Patient was placed back on the oral anticoagulation. Status: Acute Qualifiers: Atrial fibrillation type: unspecified Qualified Code(s): I48.91 - Unspecified atrial fibrillation (5) Hyperlipidemia: Details from hospital stay: We will continue on the current medications. Status: Acute Qualifiers: Hyperlipidemia type: mixed hyperlipidemia Qualified Code(s): E78.2 - Mixed hyperlipidemia (6) Hypothyroid: Details from hospital stay: Continue on the current medication Status: Acute Qualifiers: Hypothyroidism type: acquired Qualified Code(s): E03.9 - Hypothyroidism, unspecified (7) Ventricular tachycardia: Details from hospital stay: Continue on the current medication. Status: Acute (8) Elevated white blood cell count: Details from hospital stay: We will do a urinalysis today and we will follow-up on the results. Status: Acute Discharge Plan Discharge Patient Disposition: Home Condition: Stable Prescriptions: Continued alprazolam 0.25 mg tablet 0.125 mg PO QAM pantoprazole [Protonix] 20 mg tablet,delayed release (DR/EC) 20 mg PO QAM spironolactone 25 mg tablet 25 mg PO QAM allopurinol 100 mg tablet 200 mg PO QPM Eliquis 5 mg tablet 5 mg PO BID rosuvastatin 10 mg tablet See Rx Instructions .ROUTE .COMPLEX Qty: 90 3RF Dose Instruction: TAKE 1 TABLET BY MOUTH EVERY DAY Rx Instructions: TAKE 1 TABLET BY MOUTH EVERY DAY torsemide 20 mg tablet 20 mg PO DIRECTED Qty: 450 3RF Rx Instructions: 3 tabs (60mg) in AM 2 tabs (40 mg) afternoon polysaccharide iron complex [Ferrex 150] 150 mg iron Capsule 150 mg PO QAM L.acidoph,saliva-B.bif-S.therm [Acidophilus Probiotic Blend] 175 mg Capsule 1 cap PO QAM albuterol sulfate 2.5 mg /3 mL (0.083 %) solution for nebulization 2.5 mg inhalation Q4H PRN (Reason: Shortness Of Breath) acetaminophen [Tylenol Ex Str Rapid Release] 500 mg Tablet 1,000 mg PO QAM levothyroxine 125 mcg tablet 125 mcg PO QAM nitroglycerin [Nitrostat] 0.4 mg Tablet, Sublingual 0.4 mg SUBLINGUAL Q5M PRN (Reason: Chest Pain) Rx Instructions: do not exceed 3 doses per episode albuterol sulfate 90 mcg/actuation Hfa Aerosol Inhaler 2 puff INHALATION QID PRN (Reason: Shortness Of Breath) amiodarone [Pacerone] 200 mg tablet 400 mg PO QAM magnesium oxide 400 mg (241.3 mg magnesium) tablet 400 mg PO BID metoprolol tartrate 25 mg tablet 50 mg PO BID potassium chloride 20 mEq tablet extended release 20 meq PO QAM [place] Nasal 0.65 % Aerosol,[place] 1 spray nasal PRN PRN (Reason: Dryness) Qty: 44 0RF Discontinued enoxaparin [Lovenox] 100 mg/mL syringe 100 mg SUBCUT Q12H 3 Days Qty: 6 0RF Discharge Orders: Discharge Order (Routine); Ordered 11/22/22 Ordered By: Alan Strickland Referrals: Tiff Mckinney MD [Primary Care Provider] - 12/11/22 2:15 am (Please keep your appointment scheduled for Dec.11 at 2:15P.M. ) Yumi Del Toro FNP [Nurse Practitioner] - 11/29/22 9:00 am Discharge Diet: Diabetic and Low Cholesterol Discharge Activity: Increase activity as tolerated Patient Instructions: DASH Eating Plan (DC), Heart Catheterization (DC), Opioid Safety, Post Angiogram Home Care Instructions Activity Restrictions/Additional Instructions: Please make an appointment to be seen at the [facility] in 1 week by the nurse practitioner. Repeat BMP in the office Appoint with me in the office as scheduled Attestations Medical Necessity Statement*: Discharge home today Time Spent in Patient Care*: less than 30 min Quality Metrics Clinical Quality Measures: [ No reported AMI, CVA or VTE this stay ] Coding Level of Care Code Acute Code for g Fwd Diagnoses Atherosclerotic heart disease of [place] coronary artery with other forms of angina pectoris I25.118 ICD (implantable cardioverter-defibrillator), biventricular, in situ Z95.810 Ischemic cardiomyopathy I25.5 Atrial fibrillation I48.91 Atrial fibrillation type: unspecified Hyperlipidemia E78.2 Hyperlipidemia type: mixed hyperlipidemia Hypothyroid E03.9 Hypothyroidism type: acquired Ventricular tachycardia I47.20 Elevated white blood cell count D72.829
[2022-11-22 11:36] VITALS: BP 120/89; PULSE 79; RESP 27; TEMP 36.7; O2SAT 95
== END 2022-11-22 12:06 | disposition home or self-care (01) ==
LOC: CSU 08:48
PROVIDERS: Admitting Provider Internal Medicine Cardiovascular Disease; PCP Family Medicine; Visit Provider Internal Medicine Cardiovascular Disease
DX: I25.118 Atherosclerotic heart disease of native coronary artery with other forms of angina pectoris (principal); I47.20 Ventricular tachycardia, unspecified; I48.91 Unspecified atrial fibrillation; E03.9 Hypothyroidism, unspecified; I25.5 Ischemic cardiomyopathy; N18.9 Chronic kidney disease, unspecified; D72.829 Elevated white blood cell count, unspecified; Z95.810 Presence of automatic (implantable) cardiac defibrillator; Z95.1 Presence of aortocoronary bypass graft; Z79.01 Long term (current) use of anticoagulants; E11.22 Type 2 diabetes mellitus with diabetic chronic kidney disease; N18.30 Chronic kidney disease, stage 3 unspecified; E11.40 Type 2 diabetes mellitus with diabetic neuropathy, unspecified; E78.2 Mixed hyperlipidemia
CPT/HCPCS: 36415; 36416; 80048; 82962; 85007; 85025; 93459; 96361; 96365; 96367; 96376; 99152; 99153; C1769; C1887; C1894; G0378; J0461; J1644; J2250; J3010; J7030; Q0163; Q9967

== ENCOUNTER → 2022-11-27 09:04 | Outpatient (BNVA) | payer MEDICARE, OTHER, BC, SELFPAY | PROVIDERS: PCP Family Medicine; Visit Provider Nurse Practitioner Family | DX: L81.4 Other melanin hyperpigmentation (principal); D22.5 Melanocytic nevi of trunk; L85.3 Xerosis cutis; L57.8 Other skin changes due to chronic exposure to nonionizing radiation; L72.0 Epidermal cyst; L57.0 Actinic keratosis; L21.8 Other seborrheic dermatitis; D69.2 Other nonthrombocytopenic purpura; Z85.820 Personal history of malignant melanoma of skin; Z85.828 Personal history of other malignant neoplasm of skin | CPT/HCPCS: 17004; 99214 ==

== ENCOUNTER → 2022-11-29 08:32 | Outpatient (BNVA) | payer MEDICARE, BC, OTHER, SELFPAY | PROVIDERS: PCP Family Medicine; Visit Provider Nurse Practitioner Family | DX: I25.118 Atherosclerotic heart disease of native coronary artery with other forms of angina pectoris (principal); I25.5 Ischemic cardiomyopathy; I12.9 Hypertensive chronic kidney disease with stage 1 through stage 4 chronic kidney disease, or unspecified chronic kidney disease; N18.9 Chronic kidney disease, unspecified | CPT/HCPCS: 36415; 80048; 85007; 85025; 99214 ==

== ENCOUNTER 2023-01-05 12:33 | Emergency (ER) | payer MEDICARE, BC, OTHER, SELFPAY ==
[2023-01-05] VITALS (7 sets, daily range): BP systolic 116–142; BP diastolic 79–89; PULSE 63–91; RESP 17–22; TEMP 36.7; O2SAT 95–96; BMI 31.4
--- NOTE | 2023-01-05 13:17 | ECG_ITS ---
[facility] Test Date: 2023-01-05 Pat Name: Raj Vega Department: Room: Gender: Male [employer]: : 1945 Requested By: Eduard Lance Order Number: [id number] Cain MD: Leonel Gilliland Measurements Intervals [place] Rate: 90 P: 0 [place]: 0 QRS: 123 QRSD: 205 T: -64 QT: 456 QTc: 561 Interpretive Statements Sinus rhythm first degree AV block with undersensing/capture RIGHT AXIS DEVIATION [QRS AXIS > 100] INTRAVENTRICULAR CONDUCTION DELAY [130+ ms QRS DURATION] Compared to ECG 09/12/2022 16:21:28 Right-axis deviation now present Sinus rhythm no longer present Myocardial infarct finding no longer present Electronically Signed On 01-06-2023 15:58:07 CDT by Leonel Gilliland [id number]
--- NOTE | 2023-01-05 13:37 | XR_ITS ---
WS: [id number] Exam: XR chest 1V portable [id number] Date/Time of Exam: 01/05/2023 1:37 PM Reason For Exam: shortness of breath Comparison 09/12/2022. The lungs are fully expanded. Mild plaque atelectasis in the RIGHT base. No consolidating infiltrates . Chronic eventration of the RIGHT diaphragm. No pleural effusion. The heart is enlarged but unchange d in size. Cardiac pacer superimposes the LEFT chest. Median sternotomy and signs of previous CABG hinton rgery. Bony structures are intact. IMPRESSION: 1. Cardiac enlargement. No acute cardiopulmonary finding.
[2023-01-05 14:20] LABS: Basophils # 0.1 10^3/uL (0.0-0.1); Basophils % 0.7 %; Eosinophils # 0.1 10^3/uL (0.0-0.8); Hematocrit 45.3 % (37-53); Lymphocytes # 4.6 10^3/uL (0.8-4.8); Mean Corpuscular HGB Conc 31.3 g/dL (30-55); Mean Corpuscular Hemoglobin 31.2 pg (27-33); Mean Corpuscular Volume 99.6 fl (82-101); Mean Platelet Volume 9.9 fL (7.4-10.4); Monocytes % 9.5 %; Neutrophils # 4.84 10^3/uL (1.8-7.7); Neutrophils % 45.3 %; Nucleated Red Blood Cells % 0 %; Platelet Count 175 10^3/cmm (157-399); Red Blood Count 4.55 10^6/uL (3.85-5.65); Red Cell Distribution Width 14.4 % (12.1-15.1)
--- NOTE | 2023-01-05 14:31 | W.ED.SOB ---
HPI - SOB/Dyspnea General: Chief Complaint: Shortness of Breath/Dyspnea Stated Complaint: sob Time Seen by Provider: 01/05/23 14:24 Source: patient Mode of arrival: EMS History of Present Illness: HPI Narrative: 77-year-old male presents emergency room complaining of shortness of breath intermittently will feel like he is gasping for air. He feels some intermittent pressure in his chest littlest last for a few seconds he is exacerbated by coughing he has not noticed any association with exertion. He has a known history of coronary artery disease in late November he had an abnormal stress test and had a angiogram done which showed multivessel disease but unchanged no reversible areas. He denies fever sweats or chills or productive cough he says he feels like he needs to cough something up but cannot get it out. MD elicited complaint: shortness of breath and cough Pertinent past history: COPD Onset (ago): day(s) Timing: intermittent Exacerbating factors: coughing Relieving factors: nothing Associated symptoms: Deny abdominal pain, chest congestion, chest pain, cough, diaphoresis, dizziness, extremity pain, fever(s), hemoptysis, lightheadedness, myalgias, nausea, orthopnea, palpitations, paresthesias, polydipsia, polyuria, rash, sense of impending doom, syncope or vomiting Treatment prior to arrival: none Review of Systems Const: Denies: fever(s), chills, fatigue, malaise or diaphoresis ENMT: Denies: throat pain, ear or mastoid pain, nasal discharge or nasal congestion Card: Denies: chest pain, palpitations, lightheadedness, syncope or orthopnea Resp: Reports: dyspnea and non-productive cough; Denies: hemoptysis or chest congestion GI: Denies: abdominal pain, nausea or vomiting : Denies: flank pain, dysuria, urinary frequency or urinary urgency Musc: Denies: extremity pain Skin/Breast: Denies: rash or pruritus Neuro: Denies: dizziness Endo: Denies: polyuria or polydipsia PFS ED PFSH: Medical History Arthritis Atherosclerotic heart disease of [place] coronary artery with other forms of angina pectoris Patient had a cardiac catheterization followed by four-vessel coronary bypass surgery in 2014. #1.? Placement of intra-aortic balloon pump utilizing modified Seldinger technique through right femoral artery #2.? Stapling of left atrial appendage #3.? Coronary artery bypass grafting x4 (1 artery and 3 veins) utilizing in situ left internal mammary artery to left anterior descending artery, reverse saphenous vein graft from aorta to distal right coronary artery, reverse saphenous vein graft from aorta to the diagonal artery, and reverse saphenous vein graft from aorta to the obtuse marginal branch of the circumflex artery. #4.? Endoscopic saphenous vein harvesting from the left thigh and leg. Atrial fibrillation Cardiomyopathy Chronic kidney disease Elevated white blood cell count GERD (gastroesophageal reflux disease) Hematuria History of malignant melanoma Hyperlipidemia Hyperparathyroidism Hypothyroid ICD (implantable cardioverter-defibrillator), biventricular, in situ Pacemaker Pleural effusion Surgical History Hx of CABG Hx of cholecystectomy S/P removal of parathyroid gland Family History Mother Cancer Father Stroke Denies family history of Diabetes CAD (coronary artery disease) Clotting disorder Dementia Chronic kidney disease (CKD) Suicide Anesthesia complication Bleeding disorder Lung disease Social History Smoking and tobacco status: never smoked Alcohol intake: never Substance/Drug Use: never Physical Exam Const: GENERAL APPEARANCE: cooperative and comfortable ORIENTATION/CONSCIOUSNESS: Yes awake, Yes oriented to person, Yes oriented to place and Yes oriented to time HENMT: COMMON NORMALS: normocephalic, atraumatic and hearing grossly normal bilaterally HEAD & SCALP: normocephalic and atraumatic Resp: COMMON NORMALS: normal respiratory effort, No retractions, No use of accessory muscles and clear to auscultation bilaterally AUSCULTATION: clear to auscultation bilaterally Cardio: COMMON NORMALS: regular rate, regular rhythm and No murmurs present (Cardio) RATE: regular rate RHYTHM: regular rhythm GI: COMMON NORMALS: Soft to palpation and No hepatosplenomegaly present AUSCULTATION: Yes normoactive bowel sounds PALPATION: Yes Soft to palpation, No Tenderness to palpation present (GI), No Guarding due to palpation present (GI) and Yes No hepatosplenomegaly present Extremity: COMMON NORMALS: normal to inspection, capillary refill normal, no clubbing, cyanosis or edema, no calf tenderness and no pedal edema Neuro: SENSORIUM/ORIENTATION: Yes oriented to person, Yes oriented to place and Yes oriented to time Skin: COMMON NORMALS: no rashes or lesions noted GENERAL SKIN EXAM: no rashes or lesions noted Course Vital Signs: Vital signs: Vital Signs Temperature 98.0 F 01/05/23 13:17 Pulse Rate 84 01/05/23 17:42 Respiratory Rate 18 01/05/23 17:42 Blood Pressure 127/89 01/05/23 17:42 Pulse Oximetry 95 01/05/23 17:42 Oxygen Delivery Me thod Room Air 01/05/23 14:28 MDM - SOB/Dyspnea Medical Decision Making Labs imaging and EKGs reviewed. No acute changes in EKGs cardiac enzymes negative patient is having intermittent shortness of breath and dizziness is likely related to his underlying known diagnosis. No decompensated congestive heart failure at this time he recently had a heart catheterization. Report reviewed. We will discharge patient home set him up for Holter monitor 48-hour as well as an echocardiogram follow-up with primary care and with cardiology. Return if has further problems. Medical Records I reviewed the patient's medical records. Lab Data I reviewed the patient's lab results. 01/05/23 14:09 01/05/23 14:09 Labs/Radiology: Laboratory Results WBC 10.70 10^3/uL (3.29-11.43) 01/05/23 14:09 RBC 4.55 10^6/uL (3.85-5.65) 01/05/23 14:09 Hgb 14.20 g/dL (11.27-16.99) 01/05/23 14:09 Hct 45.3 % (37-53) 01/05/23 14:09 MCV 99.6 fl (82-101) 01/05/23 14:09 MCH 31.2 pg (27-33) 01/05/23 14:09 MCHC 31.3 g/dL (30-55) 01/05/23 14:09 RDW 14.4 % (12.1-15.1) 01/05/23 14:09 Plt Count 175 10^3/cmm (157-399) 01/05/23 14:09 MPV 9.9 fL (7.4-10.4) 01/05/23 14:09 Neut % (Auto) 45.3 % 01/05/23 14:09 Lymph % (Auto) 43.0 % 01/05/23 14:09 [place] % (Auto) 9.5 % 01/05/23 14:09 Eos % (Auto) 1.0 % 01/05/23 14:09 Baso % (Auto) 0.7 % 01/05/23 14:09 Neut # (Auto) 4.84 10^3/uL (1.8-7.7) 01/05/23 14:09 Lymph # (Auto) 4.6 10^3/uL (0.8-4.8) 01/05/23 14:09 [place] # (Auto) 1.0 10^3/uL (0.2-0.9) H 01/05/23 14:09 Eos # (Auto) 0.1 10^3/uL (0.0-0.8) 01/05/23 14:09 Baso # (Auto) 0.1 10^3/uL (0.0-0.1) 01/05/23 14:09 Nucleated RBC % (auto) 0 % 01/05/23 14:09 Nucleated RBCs # 0.0 /100WBC 01/05/23 14:09 Sodium 138 mmol/L (136-145) 01/05/23 14:09 Potassium 4.7 mmol/L (3.5-5.1) 01/05/23 14:09 Chloride 101 mmol/L (98-107) 01/05/23 14:09 Carbon Dioxide 24 mmol/L (22-29) 01/05/23 14:09 Anion Gap 17.7 (5-19) 01/05/23 14:09 BUN 34 mg/dL (8-23) H 01/05/23 14:09 Creatinine 1.7 mg/dL (0.7-1.2) H 01/05/23 14:09 GFR Calculation Not Reportable 01/05/23 14:09 Glucose 156 mg/dL (65-115) H 01/05/23 14:09 Calculated Osmolality 297 mOsm/kg (285-295) H 01/05/23 14:09 Calcium 8.7 mg/dL (8.5-10.5) 01/05/23 14:09 Magnesium 2.2 mg/dL (1.7-2.3) 01/05/23 14:09 Total Bilirubin 1.0 mg/dL (0.15-1.2) 01/05/23 14:09 AST 59 U/L (0-40) H 01/05/23 14:09 ALT 44 U/L (0-41) H 01/05/23 14:09 Alkaline Phosphatase 125 U/L (40-130) 01/05/23 14:09 Troponin T Baseline 26 ng/L (0-15) H 01/05/23 14:09 Troponin T 120 Minute 28.46 ng/L (0-15) H 01/05/23 16:27 Delta Troponin T 2.46 ABS# (0-10) 01/05/23 16:27 Total Protein 6.8 g/dL (6.6-8.7) 01/05/23 14:09 Albumin 3.8 g/dL (3.5-5.2) 01/05/23 14:09 Globulin 3.0 g/dL (1.3-4.6) 01/05/23 14:09 Discharge Plan Discharge Patient Disposition: Home Clinical Impression: Dyspnea, Atrial fibrillation, Congestive heart failure with cardiomyopathy, Ischemic cardiomyopathy Condition: Stable Prescriptions: No Action alprazolam 0.25 mg tablet 0.125 mg PO .EVERY OTHER DAY pantoprazole [Protonix] 20 mg tablet,delayed release (DR/EC) 20 mg PO QAM spironolactone 25 mg tablet 25 mg PO QAM allopurinol 100 mg tablet 200 mg PO QPM Eliquis 5 mg tablet 5 mg PO BID L.acidoph,saliva-B.bif-S.therm [Acidophilus Probiotic Blend] 175 mg Capsule 1 cap PO QAM albuterol sulfate 2.5 mg /3 mL (0.083 %) solution for nebulization 2.5 mg inhalation QID PRN (Reason: Wheezing) acetaminophen 500 mg Tablet 1,000 mg PO QAM levothyroxine 125 mcg tablet 125 mcg PO QAM nitroglycerin [Nitrostat] 0.4 mg Tablet, Sublingual 0.4 mg SUBLINGUAL Q5M PRN (Reason: Chest Pain) Rx Instructions: do not exceed 3 doses per episode albuterol sulfate 90 mcg/actuation Hfa Aerosol Inhaler 2 puff INHALATION QID PRN (Reason: Shortness Of Breath) amiodarone [Pacerone] 200 mg tablet 400 mg PO QAM magnesium oxide 400 mg (241.3 mg magnesium) tablet 400 mg PO BID metoprolol tartrate 25 mg tablet 50 mg PO BID potassium chloride 20 mEq tablet extended release 20 meq PO QAM ketoconazole 2 % shampoo See Rx Instructions .ROUTE .COMPLEX Rx Instructions: apply TO scalp/face WASH two to three times a week. set FOR FIVE minutes before rinsing iFerex 150 150 mg iron capsule 150 mg PO QAM torsemide 20 mg tablet See Rx Instructions .ROUTE .COMPLEX Rx Instructions: 3 tabs (60mg) po in AM and 2 tabs (40 mg) po afternoon Deep Sea Nasal 0.65 % aerosol,spray 2 spray nasal QID PRN (Reason: Dryness) rosuvastatin 10 mg tablet 10 mg PO QPM Discharge Orders: Discharge ED (Routine); Ordered 01/05/23 Ordered By: Eduard Oseguera Referrals: Tiff Mckinney MD [Primary Care Provider] - Discharge Diet: Usual diet Discharge Activity: Resume usual activity Patient Instructions: Opioid Safety, Pain Management Activity Restrictions/Additional Instructions: Case management make arrangements for you to follow-up with a outpatient echocardiogram and a 48-hour Holter monitor. Return if you have further problems follow-up with your primary care doctor next week contact Dr. Strickland's office for follow-up with him as well. Coding Level of Care Code ED [facility] Assistant Director for Gray Hickey
[2023-01-05 14:38] LABS: Alanine Aminotransferase 44 U/L (0-41); Albumin Level 3.8 g/dL (3.5-5.2); Alkaline Phosphatase 125 U/L (40-130); Anion Gap 17.7 (5-19); Aspartate Amino Transferase 59 U/L (0-40); Blood Urea Nitrogen 34 mg/dL (8-23); Calcium 8.7 mg/dL (8.5-10.5); Carbon Dioxide 24 mmol/L (22-29); Chloride 101 mmol/L (98-107); Glucose 156 mg/dL (65-115); Magnesium 2.2 mg/dL (1.7-2.3); Osmolality Calculated 297 mOsm/kg (285-295); Potassium 4.7 mmol/L (3.5-5.1); Sodium 138 mmol/L (136-145); Total Protein 6.8 g/dL (6.6-8.7)
[2023-01-05 14:46] LABS: Slide Review Slide Review Perform
--- NOTE | 2023-01-05 15:20 | ECG_ITS ---
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1945 Requested By: Mk Morgan Order Number: [id number] Cain MD: Leonel Gilliland Measurements Intervals Moran Rate: 90 P: 219 DC: 225 QRS: -59 QRSD: 206 T: 118 QT: 481 QTc: 590 Interpretive Statements Sinus rhythm first degree AV block with undersensing/capture LEFT AXIS DEVIATION [QRS AXIS < -30] POSSIBLE RIGHT VENTRICULAR CONDUCTION DELAY [RSR (QR) IN V1/V2] LEFT BUNDLE BRANCH BLOCK [120+ ms QRS DURATION, 80+ ms Q/S IN V1/V2, 85+ ms R IN I/aVL/V5/V6] Compared to ECG 01/05/2023 13:23:46 First degree AV block now present Left-axis deviation now present Left bundle-branch block now present Right-axis deviation no longer present Intraventricular conduction delay no longer present Electronically Signed On 01-06-2023 16:00:03 CDT by Leonel Gilliland [id number]
[2023-01-05 15:25] LABS: Troponin(5th) Baseline 26 ng/L (0-15)
--- NOTE | 2023-01-05 16:59 | PC.NURSE ---
PT PLACED ON CONTINUOUS NIBP ,SPO2, AND CM
[2023-01-05 17:09] LABS: Troponin 5 2HR 28.46 ng/L (0-15)
[2023-01-05 17:15] LABS: Troponin 5 2HR Delta 2.46 ABS# (0-10)
--- NOTE | 2023-01-08 09:16 | DCPLANNER ---
Addendum entered by Francesca Florence 01/12/23 09:41: Patient has an outpatient echo cardiogram scheduled for Monday, January 23, 2023 at 8:30 Addendum entered by Francesca Florence 01/09/23 14:30: Patient has a follow up appointment scheduled for January at 9:00 at heart care for a 48 hour halter monitor. Original Note: population health manager had message to schedule an outpatient echocardiogram and a 48 hour halter monitor for patient. population health manager faxed signed orders to centralized scheduling and heart care, who will call patient with appointment information.
== END 2023-01-05 17:43 | disposition home or self-care (01) ==
PROVIDERS: Emergency Medicine; Emergency Provider Family Medicine; PCP Family Medicine
DX: R06.00 Dyspnea, unspecified (principal); I48.91 Unspecified atrial fibrillation; I25.5 Ischemic cardiomyopathy; Z79.01 Long term (current) use of anticoagulants; I25.10 Atherosclerotic heart disease of native coronary artery without angina pectoris; I13.0 Hypertensive heart and chronic kidney disease with heart failure and stage 1 through stage 4 chronic kidney disease, or unspecified chronic kidney disease; N18.9 Chronic kidney disease, unspecified; I50.9 Heart failure, unspecified; E78.5 Hyperlipidemia, unspecified; Z95.0 Presence of cardiac pacemaker; Z95.1 Presence of aortocoronary bypass graft
CPT/HCPCS: 36415; 71045; 80053; 83735; 84484; 85025; 93005; 99285

== ENCOUNTER → 2023-01-18 08:34 | Outpatient (BNVA) | payer MEDICARE, BC, OTHER, SELFPAY | PROVIDERS: PCP Family Medicine; Visit Provider Internal Medicine Cardiovascular Disease | DX: I48.91 Unspecified atrial fibrillation (principal); R06.02 Shortness of breath | CPT/HCPCS: 93225 ==

== ENCOUNTER 2023-01-22 19:38 | Emergency (ER) | payer MEDICARE, BC, OTHER, SELFPAY ==
[2023-01-22 19:43] VITALS: BP 145/96; PULSE 73; RESP 17; TEMP 36.7; O2SAT 95; BMI 31.4
--- NOTE | 2023-01-22 20:11 | ED_ITS ---
HPI - Epistaxis General: Chief complaint: Epistaxis Stated complaint: nose bleed Time Seen by Provider: 01/22/23 19:54 History of Present Illness: 78 years old male with a history of coronary disease, GERD, hyperlipidemia, atrial fib on Eliquis, cardiomyopathy hypertension, thyroid disorder and COPD. Patient presents emergency room with nasal bleeding within the past few hours. Reveals bleeding from the right side. Denies any trauma or fall no injury. Associated symptoms: Deny fever(s) Review of Systems General: Reports: 10 or more systems reviewed and unremarkable except in HPI and below Const: Denies: fever(s), chills, body aches, change in appetite, change in weight, fatigue, malaise or night sweats ENMT: Reports: epistaxis; Denies: uvular edema, enlarged tonsils, odynophagia, hoarseness, mouth pain, swelling of lips/tongue, oral sores, bleeding gums, dental pain, dry mouth, halitosis, ear or mastoid pain, ear discharge, disequilibrium, nasal discharge, nasal congestion or nasal obstruction Resp: Denies: dyspnea, productive cough, non-productive cough, wheezing, stridor or pain on inspiration PFSH ED PFSH: Medical History Arthritis Atherosclerotic heart disease of [place] coronary artery with other forms of angina pectoris Patient had a cardiac catheterization followed by four-vessel coronary bypass surgery in 2014. #1.? Placement of intra-aortic balloon pump utilizing modified Seldinger technique through right femoral artery #2.? Stapling of left atrial appendage #3.? Coronary artery bypass grafting x4 (1 artery and 3 veins) utilizing in situ left internal mammary artery to left anterior descending artery, reverse saphenous vein graft from aorta to distal right coronary artery, reverse saphenous vein graft from aorta to the diagonal artery, and reverse saphenous vein graft from aorta to the obtuse marginal branch of the circumflex artery. #4.? Endoscopic saphenous vein harvesting from the left thigh and leg. Atrial fibrillation Cardiomyopathy Chronic kidney disease Elevated white blood cell count GERD (gastroesophageal reflux disease) Hematuria History of malignant melanoma Hyperlipidemia Hyperparathyroidism Hypothyroid ICD (implantable cardioverter-defibrillator), biventricular, in situ Pacemaker Pleural effusion Surgical History Hx of CABG Hx of cholecystectomy S/P removal of parathyroid gland Family History Mother Cancer Father Stroke Denies family history of Diabetes CAD (coronary artery disease) Clotting disorder Dementia Chronic kidney disease (CKD) Suicide Anesthesia complication Bleeding disorder Lung disease Social History Smoking and tobacco status: never smoked Alcohol intake: never Substance/Drug Use: never Physical Exam Const: COMMON NORMALS: no acute distress, average body habitus, patient oriented x3, no limitations, healthy appearing, alert and well nourished HENMT: COMMON NORMALS: Normal external nose present NOSE: Normal external nose present, Normal nares present and Epistaxis present on the right; no Nasal polyp present THROAT: no uvular edema Neck/C-Spine: COMMON NORMALS: full ROM, no lymphadenopathy, supple, no meningeal signs, no JVD, Thyroid normal and No carotid bruits THYROID: Thyroid normal Chest: COMMONS NORMALS: normal inspection of the chest, normal palpation of entire chest wall, normal inspection of the breasts and normal palpation of the breasts Breast/axilla inspection: Yes normal inspection of the breasts BREAST/AXILLA PALPATION: Yes normal palpation of the breasts Resp: COMMON NORMALS: normal respiratory effort, No retractions, No use of accessory muscles, clear to auscultation bilaterally and percussion normal AUSCULTATION: clear to auscultation bilaterally PERCUSSION: percussion normal Cardio: COMMON NORMALS: no JVD Neuro: COMMON NORMALS: patient oriented x3 SENSORIUM/ORIENTATION: Yes alert MENINGEAL SIGNS: Yes no meningeal signs Skin: COMMON NORMALS: no rashes or lesions noted, no wounds, turgor normal, no jaundice, no petechiae and no mottling GENERAL SKIN EXAM: no rashes or lesions noted and turgor normal Procedures Epistaxis Control Nostril: right Nose Prepped With: oxymetazoline Direct Inspection: yes and posterior source indentified Clots Removed by: blowing nose Cautery Used: none Device Inserted: hemostatic balloon Device Size: 1 Patient Tolerated Procedure: well Course Vital Signs: Vital signs: Vital Signs Temperature 98.1 F 01/22/23 19:43 Pulse Rate 73 01/22/23 19:43 Respiratory Rate 17 01/22/23 19:43 Blood Pressure 145/96 01/22/23 19:43 Pulse Oximetry 95 01/22/23 19:43 Oxygen Delivery Me thod Room Air 01/22/23 19:43 MDM - Epistaxis Medical Decision Making Patient made comfortable emergency room. Afrin applied to the right side. Nasal rocket applied to the area with pressure. Patient was monitored here for about 30 to 40 minutes and no bleeding prior to discharge. Patient was instructed to return to emergency room or follow-up with PCP to 3 days for removal. Differential Diagnosis Likely nasal bone fracture, anterior epistaxis and posterior epistaxis No radiology studies performed this visit Discharge Plan Discharge Patient Disposition: Home Clinical Impression: Epistaxis Condition: Stable Prescriptions: No Action alprazolam 0.25 mg tablet 0.125 mg PO .EVERY OTHER DAY pantoprazole [Protonix] 20 mg tablet,delayed release (DR/EC) 20 mg PO QAM spironolactone 25 mg tablet 25 mg PO QAM allopurinol 100 mg tablet 200 mg PO QPM Eliquis 5 mg tablet 5 mg PO BID L.acidoph,saliva-B.bif-S.therm [Acidophilus Probiotic Blend] 175 mg Capsule 1 cap PO QAM albuterol sulfate 2.5 mg /3 mL (0.083 %) solution for nebulization 2.5 mg inhalation QID PRN (Reason: Wheezing) acetaminophen 500 mg Tablet 1,000 mg PO QAM levothyroxine 125 mcg tablet 125 mcg PO QAM nitroglycerin [Nitrostat] 0.4 mg Tablet, Sublingual 0.4 mg SUBLINGUAL Q5M PRN (Reason: Chest Pain) Rx Instructions: do not exceed 3 doses per episode albuterol sulfate 90 mcg/actuation Hfa Aerosol Inhaler 2 puff INHALATION QID PRN (Reason: Shortness Of Breath) amiodarone [Pacerone] 200 mg tablet 400 mg PO QAM magnesium oxide 400 mg (241.3 mg magnesium) tablet 400 mg PO BID metoprolol tartrate 25 mg tablet 50 mg PO BID potassium chloride 20 mEq tablet extended release 20 meq PO QAM ketoconazole 2 % shampoo See Rx Instructions .ROUTE .COMPLEX Rx Instructions: apply TO scalp/face WASH two to three times a week. set FOR FIVE minutes before rinsing iFerex 150 150 mg iron capsule 150 mg PO QAM torsemide 20 mg tablet See Rx Instructions .ROUTE .COMPLEX Rx Instructions: 3 tabs (60mg) po in AM and 2 tabs (40 mg) po afternoon Deep Sea Nasal 0.65 % aerosol,spray 2 spray nasal QID PRN (Reason: Dryness) rosuvastatin 10 mg tablet 10 mg PO QPM Discharge Orders: Discharge ED (Routine); Ordered 01/22/23 Ordered By: Pamela Bishop Referrals: Tiff Mckinney MD [Primary Care Provider] - Discharge Diet: Advance as tolerated Discharge Activity: Resume usual activity Patient Instructions: Opioid Safety, Pain Management Coding Level of Care Code ED Batting 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
[2023-01-22] MEDS: oxymetazoline 0.05% Nasal Spray 15 mL 2 SPRAY NOSTRIL-R (20:54)
== END 2023-01-22 21:05 | disposition home or self-care (01) ==
PROVIDERS: Emergency Provider Family Medicine; PCP Family Medicine
DX: R04.0 Epistaxis (principal); Z79.01 Long term (current) use of anticoagulants; Z95.1 Presence of aortocoronary bypass graft; I25.10 Atherosclerotic heart disease of native coronary artery without angina pectoris; N18.9 Chronic kidney disease, unspecified; E78.5 Hyperlipidemia, unspecified; Z95.0 Presence of cardiac pacemaker
CPT/HCPCS: 30905; 99283

== ENCOUNTER 2023-01-23 08:03 | Outpatient (CLI) | payer MEDICARE, BC, OTHER, SELFPAY ==
--- NOTE | 2023-01-23 08:16 | USCV_ITS ---
Raj Vega Age: 78 Gender: M : 1945 Exam Date: 01/23/2023 08:30 Ordering Phys: Eduard Oseguera DO Technologist: Laron Pacheco Exam Location: [facility] [place] Indication: murmur BP: 140 / 89 HR: 74 Rhythm: Sinus Technical Quality: Adequate MEASUREMENTS (Male / Female) Normal Values 2D ECHO LV Diastolic Diameter PLAX 5.5 cm 4.2 - 5.9 / 3.9 - 5.3 cm LV Systolic Diameter PLAX 4.4 cm IVS Diastolic Thickness 1.2 cm 0.6 - 1.0 / 0.6 - 0.9 cm IVS Systolic Thickness 1.8 cm LVPW Diastolic Thickness 1.0 cm 0.6 - 1.0 / 0.6 - 0.9 cm LVPW Systolic Thickness 1.3 cm LVOT Diameter 2.0 cm LV Ejection Fraction 2D Teich 39.2 % LV Ejection Fraction MOD 2C 47.6 % LV Ejection Fraction 2C AL 47.2 % LA Diameter 5.8 cm M-MODE Aortic Annulus Diameter 4.1 cm LA Ao Ratio MM 1.6 MV E Point Septal Separation 1.8 cm DOPPLER AV Peak Velocity 111.0 cm/s LVOT Peak Velocity 58.0 cm/s AV Area Cont Eq vti 1.5 cm squared AV Area Cont Eq pk 1.7 cm squared MV E' Velocity 11.0 cm/s TR Peak Velocity 264.3 cm/s TR Peak Gradient 27.9 mmHg TV Peak E Velocity 100.0 cm/s Right Atrial Pressure 3.0 mmHg Pulmonary Artery Systolic Pressu 30.9 mmHg RV Acceleration Time 0.1 s FINDINGS Left Ventricle Mildly increased left ventricular cavity size. Diffuse hypokinesia left ventricular ejection fraction around 40% Right Ventricle Catheter/pacemaker wire in the right ventricular cavity. Normal right ventricular size and systolic function. Right Atrium Mildly increased right atrial size. Catheter/pacemaker wire in the right atrial cavity. Left Atrium Mildly increased left atrial size. Mitral Valve Thickened mitral valve. Moderate mitral valve regurgitation. Mild prolapse with anterior mitral leaflet Aortic Valve Thickened aortic valve. Tricuspid Valve Moderate tricuspid valve regurgitation. Pulmonic Valve Pulmonic valve not well visualized. Pericardium No pericardial effusion. Aorta Normal aortic annulus size. IVC Inferior vena cava not visualized. CONCLUSIONS Mildly increased left ventricular cavity size. Diffuse hypokinesia left ventricular ejection fraction around 40%. Mild biatrial enlargement. Moderate mitral and tricuspid regurgitation. Mild prolapse with anterior mitral leaflet. Thickened aortic valve There is no pericardial effusion. Compared to the study from 03/26/2022, there is improvement in the LV ejection fraction. Also there is significant improvement in the right ventricular ejection fraction Dr Alan Strickland MD [facility] (Electronically Signed) Final Date: 23 January 2023 19:20 S
== END 2023-01-23 08:04 | disposition home or self-care (01) ==
LOC: RAD 08:06
PROVIDERS: PCP Family Medicine; Visit Provider Family Medicine
DX: I25.5 Ischemic cardiomyopathy (principal); R01.1 Cardiac murmur, unspecified; I51.7 Cardiomegaly; I34.1 Nonrheumatic mitral (valve) prolapse
CPT/HCPCS: 93306

== ENCOUNTER 2023-01-24 09:19 | Emergency (ER) | payer MEDICARE, BC, OTHER, SELFPAY ==
[2023-01-24 09:33] VITALS: BMI 27.3
[2023-01-24 09:34] VITALS: BP 126/87; PULSE 77; RESP 17; TEMP 36.5; O2SAT 96
--- NOTE | 2023-01-24 09:39 | W.ED.EPISTAX ---
HPI - Epistaxis General: Chief complaint: Epistaxis Stated complaint: nose bleed Time Seen by Provider: 01/24/23 09:25 Source: patient Mode of arrival: ambulatory Limitations: no limitations History of Present Illness: Patient is a 78-year-old male who presents to ED today stating he was told to return to the ED to have his right Rhino Rocket removed. Patient was seen approximately 2 days ago for right-sided epistaxis. He had a Rhino Rocket placed at that visit. He states bleeding has since been controlled. Patient states he has no prior history of nosebleeds. He does take apixaban. complaint: epistaxis Location: right nostril Onset (ago): day(s) (2 days ago) Duration: now resolved (had posterior rhino rocket placed at last visit) Context: other anticoagulant use (apixaban) Associated symptoms: Reports no associated symptoms; Deny fever(s), headache(s), sinus pain or vomiting Review of Systems Const: Denies: fever(s), chills, body aches, fatigue or malaise ENMT: Reports: epistaxis (2 days ago; no prior history); Denies: throat pain, odynophagia, ear or mastoid pain or sinus pain Card: Denies: chest pain Resp: Denies: dyspnea GI: Denies: nausea, vomiting or hematemesis Musc: Denies: neck pain Neuro: Denies: headache(s) or dizziness [facility] ED PFSH: Medical History Arthritis Atherosclerotic heart disease of [place] coronary artery with other forms of angina pectoris Patient had a cardiac catheterization followed by four-vessel coronary bypass surgery in 2014. #1.? Placement of intra-aortic balloon pump utilizing modified Seldinger technique through right femoral artery #2.? Stapling of left atrial appendage #3.? Coronary artery bypass grafting x4 (1 artery and 3 veins) utilizing in situ left internal mammary artery to left anterior descending artery, reverse saphenous vein graft from aorta to distal right coronary artery, reverse saphenous vein graft from aorta to the diagonal artery, and reverse saphenous vein graft from aorta to the obtuse marginal branch of the circumflex artery. #4.? Endoscopic saphenous vein harvesting from the left thigh and leg. Atrial fibrillation Cardiomyopathy Chronic kidney disease Elevated white blood cell count GERD (gastroesophageal reflux disease) Hematuria History of malignant melanoma Hyperlipidemia Hyperparathyroidism Hypothyroid ICD (implantable cardioverter-defibrillator), biventricular, in situ Pacemaker Pleural effusion Surgical History Hx of CABG Hx of cholecystectomy S/P removal of parathyroid gland Family History Mother Cancer Father Stroke Denies family history of Diabetes CAD (coronary artery disease) Clotting disorder Dementia Chronic kidney disease (CKD) Suicide Anesthesia complication Bleeding disorder Lung disease Social History Smoking and tobacco status: never smoked Alcohol intake: never Substance/Drug Use: never Physical Exam Const: COMMON NORMALS: no acute distress, average body habitus, patient oriented x3, no limitations, alert and well nourished HENMT: FACE & SINUS: normal facial exam NOSE: Other nasal findings present (rhino rocket placed right nare-this was removed) OTHER: after removal of rhino rocket he was monitored for about 10 mins and there was re-appearance of bleeding unfortunately; it looks to be an anterior source; will apply Afrin and nasal clamp and reassess Eye: GENERAL EYE: appearance normal, both eyes and all related structures Neck/C-Spine: COMMON NORMALS: no lymphadenopathy and no meningeal signs Resp: COMMON NORMALS: normal respiratory effort and clear to auscultation bilaterally AUSCULTATION: clear to auscultation bilaterally Cardio: COMMON NORMALS: regular rate and regular rhythm RATE: regular rate RHYTHM: regular rhythm Neuro: COMMON NORMALS: patient oriented x3 SENSORIUM/ORIENTATION: Yes alert MENINGEAL SIGNS: Yes no meningeal signs Course Vital Signs: Vital signs: Vital Signs Temperature 97.7 F 01/24/23 09:34 Pulse Rate 79 01/24/23 11:33 Respiratory Rate 17 01/24/23 09:34 Blood Pressure 126/87 01/24/23 09:34 Pulse Oximetry 94 01/24/23 11:33 Oxygen Delivery Me thod Room Air 01/24/23 09:34 MDM - Epistaxis Medical Decision Making Rhino Rocket was removed without difficulty. Patient was watched for approximately 15 to 20 minutes and he did have a small amount of bleeding that resumed. Afrin was instilled and nasal clamp placed for approximately 20 minutes. After that he was reassessed and bleeding has subsided. He was held here for an additional 30 minutes of bleeding never resumed. Patient states at this point he would like to hold off on any further nasal packing as it was incredibly uncomfortable. I think this is acceptable. Patient was sent home with Afrin and nasal clamp for home. Strict return ED precautions given. No radiology studies performed this visit Discharge Plan Discharge Patient Disposition: Home Clinical Impression: Epistaxis Condition: Stable Prescriptions: No Action alprazolam 0.25 mg tablet 0.125 mg PO .EVERY OTHER DAY pantoprazole [Protonix] 20 mg tablet,delayed release (DR/EC) 20 mg PO QAM spironolactone 25 mg tablet 25 mg PO QAM allopurinol 100 mg tablet 200 mg PO QPM Eliquis 5 mg tablet 5 mg PO BID L.acidoph,saliva-B.bif-S.therm [Acidophilus Probiotic Blend] 175 mg Capsule 1 cap PO QAM albuterol sulfate 2.5 mg /3 mL (0.083 %) solution for nebulization 2.5 mg inhalation QID PRN (Reason: Wheezing) acetaminophen 500 mg Tablet 1,000 mg PO QAM levothyroxine 125 mcg tablet 125 mcg PO QAM nitroglycerin [Nitrostat] 0.4 mg Tablet, Sublingual 0.4 mg SUBLINGUAL Q5M PRN (Reason: Chest Pain) Rx Instructions: do not exceed 3 doses per episode albuterol sulfate 90 mcg/actuation Hfa Aerosol Inhaler 2 puff INHALATION QID PRN (Reason: Shortness Of Breath) amiodarone [Pacerone] 200 mg tablet 400 mg PO QAM magnesium oxide 400 mg (241.3 mg magnesium) tablet 400 mg PO BID metoprolol tartrate 25 mg tablet 50 mg PO BID potassium chloride 20 mEq tablet extended release 20 meq PO QAM ketoconazole 2 % shampoo See Rx Instructions .ROUTE .COMPLEX Rx Instructions: apply TO scalp/face WASH two to three times a week. set FOR FIVE minutes before rinsing iFerex 150 150 mg iron capsule 150 mg PO QAM torsemide 20 mg tablet See Rx Instructions .ROUTE .COMPLEX Rx Instructions: 3 tabs (60mg) po in AM and 2 tabs (40 mg) po afternoon Deep Sea Nasal 0.65 % aerosol,spray 2 spray nasal QID PRN (Reason: Dryness) rosuvastatin 10 mg tablet 10 mg PO QPM Discharge Orders: Discharge ED (Routine); Ordered 01/24/23 Ordered By: Gail Salvador Referrals: Tiff Mckinney MD [Primary Care Provider] - Patient Instructions: Epistaxis - Adult Activity Restrictions/Additional Instructions: As we discussed you may continue to use the Afrin as needed over the next 1 to 2 days as well as the nasal cramp if nare begins to bleed again. If you cannot get bleeding controlled with these conservative therapies please return to the emergency department for re-evaluation/treatment. Coding Level of Care Code ED Research Advisor for [employer]
[2023-01-24] MEDS: oxymetazoline 0.05% Nasal Spray 15 mL 2 SPRAY NOSTRIL-R (09:59)
[2023-01-24 11:33] VITALS: PULSE 79; O2SAT 94
== END 2023-01-24 11:30 | disposition home or self-care (01) ==
PROVIDERS: Emergency Provider Physician Assistant; PCP Family Medicine
DX: R04.0 Epistaxis (principal); Z79.01 Long term (current) use of anticoagulants; I25.10 Atherosclerotic heart disease of native coronary artery without angina pectoris; N18.9 Chronic kidney disease, unspecified; E78.5 Hyperlipidemia, unspecified; Z95.0 Presence of cardiac pacemaker; Z95.1 Presence of aortocoronary bypass graft
CPT/HCPCS: 99283

== ENCOUNTER → 2023-01-25 14:33 | Outpatient (BNVA) | payer MEDICARE, BC, OTHER, SELFPAY | PROVIDERS: PCP Family Medicine; Visit Provider Nurse Practitioner Family | DX: I48.91 Unspecified atrial fibrillation (principal); Z95.810 Presence of automatic (implantable) cardiac defibrillator; I25.5 Ischemic cardiomyopathy; Z87.898 Personal history of other specified conditions | CPT/HCPCS: 99214 ==

== ENCOUNTER → 2023-02-20 07:44 | Outpatient (BNVA) | payer MEDICARE, BC, OTHER, SELFPAY | PROVIDERS: PCP Family Medicine; Visit Provider Podiatrist Foot & Ankle Surgery | DX: L60.8 Other nail disorders (principal); I73.9 Peripheral vascular disease, unspecified; L60.3 Nail dystrophy | CPT/HCPCS: 11721 ==

== ENCOUNTER 2023-03-01 10:05 | Emergency (ER) | payer MEDICARE, BC, OTHER, SELFPAY ==
[2023-03-01 10:11] VITALS: BP 118/90; PULSE 106; RESP 16; TEMP 36.5; O2SAT 95; BMI 31.1
--- NOTE | 2023-03-01 10:16 | XR_ITS ---
WS: [id number] Exam: XR chest 1V portable [id number] Date/Time of Exam: 03/01/2023 10:16 AM Reason For Exam: dyspnea, ? fluid retention Comparison 01/05/2023. The lungs are clear and fully expanded. Mild plaque atelectasis in the RIGHT base. Mild cardiac enlar gement unchanged. Signs of previous CABG surgery. A cardiac pacer superimposes the LEFT chest. Region al bony structures are unremarkable. No pleural effusion. IMPRESSION: 1. Cardiac enlargement unchanged. No acute process.
--- NOTE | 2023-03-01 10:16 | ECG_ITS ---
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 Measurements Intervals [place] Rate: 109 P: 113 [place]: 98 QRS: -79 QRSD: 208 T: 61 QT: 466 QTc: 629 Interpretive Statements ELECTRONIC VENTRICULAR PACEMAKER ABNORMAL RHYTHM ECG Compared to ECG 01/05/2023 15:20:43 Sinus rhythm no longer present First degree AV block no longer present Left-axis deviation no longer present Left bundle-branch block no longer present Electronically Signed On 03-01-2023 11:30:53 CDT by Margot Cardenas M.D. [id number]
--- NOTE | 2023-03-01 10:29 | ED_ITS ---
HPI - Arrhythmia/Palpitations General: Chief Complaint: Arrhythmia/Palpitations Stated Complaint: heart rate is high Time Seen by Provider: 03/01/23 10:11 History of Present Illness: 78-year-old male presents the emergency department along with his who is an independent historian as well. They report that he had some palpitations last night and felt a flip-flop sensation in his chest. He has a history of atrial fibrillation managed on Eliquis, amiodarone, metoprolol. They thought he might be having atrial fibrillation. He does have a pacemaker and a defibrillator. Ernesto cox did not experience any shocks. He reports he has been fatigued with exertion for the last several weeks but no abrupt change. He also endorses chronic bilateral lower extremity edema which is also gotten slightly worse over the last few weeks. His doctor started him on metolazone but they have not seen a significant difference. He is considered prediabetic according to his but they have been checking his blood sugar and it has been in the high 100s and low 200s over the last 48 hours. This was also one of their concerns today. Patient reports he tried a nitroglycerin with the flip-flop sensation in his chest. He did not notice much of a difference. His heart rate was still in the 130s. He has a history of coronary artery disease and had a quadruple bypass in the remote past. Currently, patient tells me that he is not having any symptoms. His heart rate is 104 and paced at time of examination. He did take his morning medications. He reports that he has had a little bit of a dry cough over the last few weeks which his doctor thought was due to either a virus or po ssibly some fluid retention. Associated symptoms: Deny syncope or vomiting Review of Systems General: Reports: 10 or more systems reviewed and unremarkable except in HPI and below Const: Denies: fever(s), chills or body aches Eyes: Denies: change in vision ENMT: Denies: throat pain Card: Denies: chest pain or syncope Resp: Denies: productive cough GI: Denies: abdominal pain, vomiting or diarrhea : Denies: flank pain, dysuria or urinary frequency Musc: Denies: neck pain, back pain or extremity pain Skin/Breast: Denies: rash or erythema Neuro: Denies: headache(s), numbness in extremities, weakness in extremities, lack of coordination or difficulty walking PFSH ED PFSH: Medical History Arthritis Atherosclerotic heart disease of [place] coronary artery with other forms of angina pectoris Patient had a cardiac catheterization followed by four-vessel coronary bypass surgery in 2015. #1.? Placement of intra-aortic balloon pump utilizing modified Seldinger technique through right femoral artery #2.? Stapling of left atrial appendage #3.? Coronary artery bypass grafting x4 (1 artery and 3 veins) utilizing in situ left internal mammary artery to left anterior descending artery, reverse saphenous vein graft from aorta to distal right coronary artery, reverse saphenous vein graft from aorta to the diagonal artery, and reverse saphenous vein graft from aorta to the obtuse marginal branch of the circumflex artery. #4.? Endoscopic saphenous vein harvesting from the left thigh and leg. 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 MARKETING-D Implant 05/24/22 Pacemaker Pleural effusion Surgical History Hx of CABG Hx of cholecystectomy S/P removal of parathyroid gland Family History Mother Cancer Father Stroke Denies family history of Diabetes CAD (coronary artery disease) Clotting disorder Dementia Chronic kidney disease (CKD) Suicide Anesthesia complication Bleeding disorder Lung disease Social History Smoking and tobacco/nicotine status: never used tobacco/nicotine Alcohol intake: never Substance/Drug Use: never Physical Exam Narrative: EXAM NARRATIVE: Salient findings include a elderly, deconditioned male in no acute distress. He is conversational. No apparent respiratory distress. A few fine crackles in the lung bases, otherwise clear. No JVD noted. There is bilateral lower extremity pitting edema. His skin is pale. Heart rate is between 101 105 and appears to be ventricularly paced on telemetry. Const: COMMON NORMALS: no limitations, alert and well nourished EXAM LIMITATIONS: no altered mental status HENMT: COMMON NORMALS: normocephalic, atraumatic and external ears normal HEAD & SCALP: normocephalic and atraumatic EXTERNAL EAR: Yes external ears normal MOUTH: no muffled voice Eye: COMMON NORMALS: EOMs intact bilaterally, conjunctivae normal and no scleral icterus CONJUNCTIVA: Yes conjunctivae normal Neck/C-Spine: COMMON NORMALS: no JVD GENERAL: Yes normal visual inspection and Yes trachea midline Resp: COMMON NORMALS: normal respiratory effort and No use of accessory muscles Cardio: COMMON NORMALS: no JVD and regular rhythm RHYTHM: regular rhythm GI: COMMON NORMALS: Soft to palpation and non-tender PALPATION: Yes Soft to palpation and No Guarding due to palpation present (GI) Neuro: COMMON NORMALS: moves all extremities, no focal motor deficits and no sensory deficits noted SENSORIUM/ORIENTATION: Yes alert SPEECH: speech normal Psych: COMMON NORMALS: mental status grossly normal, Normal thought process present, cooperative, normal affect and speech normal SPEECH: Yes normal speech THOUGHT PROCESS: Normal thought process present Skin: COMMON NORMALS: turgor normal and no jaundice GENERAL SKIN EXAM: turgor normal Course Vital Signs: Vital signs: Vital Signs Temperature 97.7 F 03/01/23 10:11 Pulse Rate 111 H 03/01/23 11:03 Respiratory Rate 18 03/01/23 11:03 Blood Pressure 113/76 03/01/23 11:03 Pulse Oximetry 95 03/01/23 11:03 Oxygen Delivery Me thod Room Air 03/01/23 11:03 MDM - Arrhythmia/Palpitations Medical Decision Making EKG obtained at 10:16 AM shows a ventricularly paced rhythm with a rate of 109, indeterminate axis, QRS duration 208 ms, no apparent pathologically elevated discordant ST changes. Differential diagnosis includes but is not limited to congestive heart failure, pulmonary hypertension, pleural effusion, pulmonary toxicity from amiodarone, infectious etiology, atrial fibrillation with rapid ventricular response, diabetes with hyperglycemia, anemia, acute coronary syndrome, other arrhythmia, deconditioning, aging, medication interaction, fluid overload, renal failure, other. Update Hemoglobin 15.2, normal white blood cell count, normal platelets. Patient is exhibiting ongoing signs of chronic kidney disease. BUN is elevated at 48, not significantly changed from prior. Patient's fasting blood sugar this morning was over 200 and here in the emergency department is 146. This is consistent with diabetes. This will need to be managed and him going to start the patient on 500 mg of metformin extended release daily. Patient also found to have transaminitis the last 2 times its been tested. He continues to have transaminitis and is slightly worse today. So many reasons why this could be present, this will need to be managed as an outpatient. Sometimes congestive heart failure can lead to liver engorgement and elevated. Other common causes include medication side effects. We will have him trend this and follow-up with PCP. Troponin mildly elevated. BNP significantly elevated, especially in comparison to prior. I think this troponin elevation is secondary to congestive heart failure. Patient has orthopnea, dyspnea on exertion, peripheral edema, elevated BNP, cardiomegaly, known CHF. Suspect the primary diagnosis today will be CHF exacerbation. Because of this, Dana put him on 10 days of an increased torsemi de dose. He was taking 60 mg in the morning and 40 in the evening. I am going to put him on 100 mg in the morning and 60 mg in the evening. I have explained to him that this could challenge his kidneys significantly and changes electrolytes. He is going to follow-up with his PCP mid next week to make sure that his kidneys are handling this. We did get the patient's [employer] pacemaker report. Battery life is normal. No issues with programming. Patient did have episodes of ATR yesterday at 180bpm, Avg V Rate in ATR was 89.. He has not had any ventricular fibrillation or ventricular tachycardia. Percentage of atrial tachycardia/atrial fibrillation is 96% since June 13 and 98% since December 01 of this year. It appears that the pacemaker is working normally. I am going to trend a second troponin and if stable, patient can be discharged with the medication adjustments I have made. I have explained to him that he definitely has diabetes based on these blood sugars. I have explained him starting metformin. I have also explained the heart failure and need to increase diuretics temporarily. I have explained low-salt diet and mild fluid restriction. Lab Data 03/01/23 10:35 03/01/23 10:35 Laboratory Results WBC 10.55 10^3/uL (3.29-11.43) 03/01/23 10:35 RBC 5.00 10^6/uL (3.85-5.65) 03/01/23 10:35 Hgb 15.20 g/dL (11.27-16.99) 03/01/23 10:35 Hct 46.9 % (37-53) 03/01/23 10:35 MCV 93.8 fl (82-101) 03/01/23 10:35 MCH 30.4 pg (27-33) 03/01/23 10:35 MCHC 32.4 g/dL (30-55) 03/01/23 10:35 RDW 16.4 % (12.1-15.1) H 03/01/23 10:35 Plt Count 225 10^3/cmm (157-399) 03/01/23 10:35 MPV 9.1 fL (7.4-10.4) 03/01/23 10:35 Neut % (Auto) 44.0 % 03/01/23 10:35 Lymph % (Auto) 44.6 % 03/01/23 10:35 Howard % (Auto) 9.9 % 03/01/23 10:35 Eos % (Auto) 0.5 % 03/01/23 10:35 Baso % (Auto) 0.5 % 03/01/23 10:35 Neut # (Auto) 4.65 10^3/uL (1.8-7.7) 03/01/23 10:35 Lymph # (Auto) 4.7 10^3/uL (0.8-4.8) 03/01/23 10:35 Howard # (Auto) 1.0 10^3/uL (0.2-0.9) H 03/01/23 10:35 Eos # (Auto) 0.1 10^3/uL (0.0-0.8) 03/01/23 10:35 Baso # (Auto) 0.1 10^3/uL (0.0-0.1) 03/01/23 10:35 Nucleated RBC % (auto) 0 % 03/01/23 10:35 Nucleated RBCs # 0.0 /100WBC 03/01/23 10:35 Sodium 136 mmol/L (136-145) 03/01/23 10:35 Potassium 3.5 mmol/L (3.5-5.1) 03/01/23 10:35 Chloride 89 mmol/L (98-107) L 03/01/23 10:35 Carbon Dioxide 35 mmol/L (22-29) H 03/01/23 10:35 Anion Gap 15.5 (5-19) 03/01/23 10:35 BUN 48 mg/dL (8-23) H 03/01/23 10:35 Creatinine 2.0 mg/dL (0.7-1.2) H 03/01/23 10:35 GFR Calculation Not Reportable 03/01/23 10:35 Glucose 146 mg/dL (65-115) H 03/01/23 10:35 Calculated Osmolality 297 mOsm/kg (285-295) H 03/01/23 10:35 Calcium 9.4 mg/dL (8.5-10.5) 03/01/23 10:35 Total Bilirubin 1.2 mg/dL (0.15-1.2) 03/01/23 10:35 AST 70 U/L (0-40) H 03/01/23 10:35 ALT 72 U/L (0-41) H 03/01/23 10:35 Alkaline Phosphatase 195 U/L (40-130) H 03/01/23 10:35 Troponin T Baseline 46 ng/L (0-15) H 03/01/23 10:35 Troponin T 120 Minute 42.99 ng/L (0-15) H 03/01/23 12:26 Delta Troponin T -3.01 ABS# (0-10) L 03/01/23 12:26 NT-Pro-B Natriuret Pep 8123 pg/mL (0-450) H 03/01/23 10:35 Total Protein 6.7 g/dL (6.6-8.7) 03/01/23 10:35 Albumin 4.0 g/dL (3.5-5.2) 03/01/23 10:35 Globulin 2.7 g/dL (1.3-4.6) 03/01/23 10:35 All radiology interpretation(s) finalized by discharge Discharge Plan Discharge Patient Disposition: Home Clinical Impression: Acute exacerbation of CHF (congestive heart failure), Atrial fibrillation, CKD (chronic kidney disease), Presence of combination internal cardiac defibrillator (ICD) and pacemaker, Encounter for interrogation of cardiac pacemaker, Tr ansaminitis, Diabetes mellitus type 2 in obese Condition: Stable Prescriptions: New metformin 500 mg tablet extended release 24 hr 500 mg PO DAILY Qty: 30 0RF torsemide 100 mg tablet 100 mg PO QAM 10 Days Qty: 10 0RF torsemide 20 mg tablet 60 mg PO QPM 10 Days Qty: 30 0RF Discontinued torsemide 20 mg tablet See Rx Instructions .ROUTE .COMPLEX Rx Instructions: 3 tabs (60mg) po in AM and 2 tabs (40 mg) po afternoon No Action alprazolam 0.25 mg tablet 0.125 mg PO .EVERY OTHER DAY pantoprazole [Protonix] 20 mg tablet,delayed release (DR/EC) 20 mg PO QAM spironolactone 25 mg tablet 25 mg PO QAM allopurinol 100 mg tablet 200 mg PO QPM nitroglycerin [Nitrostat] 0.4 mg tablet, sublingual 0.4 mg SUBLINGUAL Q5M PRN (Reason: Chest Pain) Qty: 25 5RF Rx Instructions: do not exceed 3 doses per episode L.acidoph,saliva-B.bif-S.therm [Acidophilus Probiotic Blend] 175 mg Capsule 1 cap PO QAM albuterol sulfate 2.5 mg /3 mL (0.083 %) solution for nebulization 2.5 mg inhalation QID PRN (Reason: Wheezing) acetaminophen 500 mg Tablet 1,000 mg PO QAM levothyroxine 125 mcg tablet 125 mcg PO QAM albuterol sulfate 90 mcg/actuation Hfa Aerosol Inhaler 2 puff INHALATION QID PRN (Reason: Shortness Of Breath) amiodarone [Pacerone] 200 mg tablet 400 mg PO QAM magnesium oxide 400 mg (241.3 mg magnesium) tablet 400 mg PO BID metoprolol tartrate 25 mg tablet 50 mg PO BID potassium chloride 20 mEq tablet extended release 20 meq PO QAM ketoconazole 2 % shampoo See Rx Instructions .ROUTE .COMPLEX Rx Instructions: apply TO scalp/face WASH two to three times a week. set FOR FIVE minutes before rinsing polysaccharide iron complex [iFerex 150] 150 mg iron capsule 150 mg PO QAM Deep Sea Nasal 0.65 % aerosol,spray 2 spray nasal QID PRN (Reason: Dryness) rosuvastatin 10 mg tablet 10 mg PO QPM metolazone 2.5 mg tablet 2.5 mg PO DAILY Eliquis 2.5 mg tablet 2.5 mg PO BID Discharge Orders: Discharge ED (Routine); Ordered 03/01/23 Ordered By: Tuan Quintana Referrals: Tiff Mckinney MD [Primary Care Provider] - 4-7 days (temporarily increased torsemide -->Recheck renal and hepatic function; f/u CHF exacerbation) Alan Strickland MD [Physician] - 7-10 days (CHF exacerbation) Patient Instructions: Opioid Safety, Pain Management Activity Restrictions/Additional Instructions: For the next 10 days your torsemide dose will be changed. He will take 100 mg in the morning and 60 mg in the afternoon. You will need to have your kidney function and electrolytes rechecked next week. Please call your doctor to schedule this. After 10 days is up you will resume taking 60 mg of torsemide in the morning and 40 mg in the evening. You are in atrial fibrillation a vast majority of the time. Your pacemaker is doing what it supposed to to overdrive pace or help alleviate when the atrial fibrillatio stent n causes the ventricle to be too fast. Please make a follow-up appointment with Dr. Strickland. Coding Level of Care Code ED Customer Marketing Manager for [employer]
[2023-03-01 10:42] LABS: Basophils # 0.1 10^3/uL (0.0-0.1); Basophils % 0.5 %; Eosinophils # 0.1 10^3/uL (0.0-0.8); Eosinophils % 0.5 %; Hematocrit 46.9 % (37-53); Lymphocytes # 4.7 10^3/uL (0.8-4.8); Lymphocytes % 44.6 %; Mean Corpuscular HGB Conc 32.4 g/dL (30-55); Mean Corpuscular Hemoglobin 30.4 pg (27-33); Mean Corpuscular Volume 93.8 fl (82-101); Mean Platelet Volume 9.1 fL (7.4-10.4); Monocytes % 9.9 %; Neutrophils # 4.65 10^3/uL (1.8-7.7); Nucleated Red Blood Cells % 0 %; Platelet Count 225 10^3/cmm (157-399); Red Cell Distribution Width 16.4 % (12.1-15.1); White Blood Count 10.55 10^3/uL (3.29-11.43)
[2023-03-01 11:03] VITALS: BP 113/76; PULSE 111; RESP 18; O2SAT 94; O2SAT 95
[2023-03-01 11:07] LABS: Troponin(5th) Baseline 46 ng/L (0-15)
[2023-03-01 11:10] LABS: Slide Review Slide Review Perform
[2023-03-01 11:17] LABS: Alanine Aminotransferase 72 U/L (0-41); Alkaline Phosphatase 195 U/L (40-130); Anion Gap 15.5 (5-19); Aspartate Amino Transferase 70 U/L (0-40); Blood Urea Nitrogen 48 mg/dL (8-23); Calcium 9.4 mg/dL (8.5-10.5); Carbon Dioxide 35 mmol/L (22-29); Chloride 89 mmol/L (98-107); Globulin 2.7 g/dL (1.3-4.6); Glucose 146 mg/dL (65-115); NT Pro B Type Natriuretic Pept 8123 pg/mL (0-450); Osmolality Calculated 297 mOsm/kg (285-295); Potassium 3.5 mmol/L (3.5-5.1); Sodium 136 mmol/L (136-145); Total Bilirubin 1.2 mg/dL (0.15-1.2); Total Protein 6.7 g/dL (6.6-8.7)
--- NOTE | 2023-03-01 11:31 | PC.NURSE ---
PACEMAKER INTERROGATED.
[2023-03-01 12:00] VITALS: BP 108/72; PULSE 109; RESP 17; O2SAT 93
--- NOTE | 2023-03-01 12:16 | ECG_ITS ---
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 Measurements Intervals [place] Rate: 109 P: 204 AR: 89 QRS: 258 QRSD: 213 T: 70 QT: 473 QTc: 637 Interpretive Statements ELECTRONIC VENTRICULAR PACEMAKER ABNORMAL RHYTHM ECG Compared to ECG 03/01/2023 10:16:32 No significant changes Electronically Signed On 03-01-2023 16:45:10 CDT by Margot Cardenas M.D. [email or web address] health [email or web address] - [email or web address] medical [email or web address]/[id number]
[2023-03-01 12:56] LABS: Troponin 5 2HR 42.99 ng/L (0-15)
[2023-03-01 12:57] LABS: Troponin 5 2HR Delta -3.01 ABS# (0-10)
[2023-03-01 13:00] VITALS: BP 120/82; PULSE 110; RESP 17; O2SAT 91
[2023-03-01 14:10] VITALS: BP 104/76; PULSE 101; RESP 17; O2SAT 94
[2023-03-01 14:12] VITALS: BP 104/76; PULSE 112; RESP 15; O2SAT 92
== END 2023-03-01 14:13 | disposition home or self-care (01) ==
PROVIDERS: Emergency Provider Emergency Medicine; PCP Family Medicine
DX: I48.91 Unspecified atrial fibrillation (principal); I13.0 Hypertensive heart and chronic kidney disease with heart failure and stage 1 through stage 4 chronic kidney disease, or unspecified chronic kidney disease; E11.22 Type 2 diabetes mellitus with diabetic chronic kidney disease; N18.9 Chronic kidney disease, unspecified; I50.9 Heart failure, unspecified; Z95.810 Presence of automatic (implantable) cardiac defibrillator; R74.01 Elevation of levels of liver transaminase levels; E66.9 Obesity, unspecified; Z68.31 Body mass index [BMI] 31.0-31.9, adult; Z45.018 Encounter for adjustment and management of other part of cardiac pacemaker; Z79.01 Long term (current) use of anticoagulants; I25.10 Atherosclerotic heart disease of native coronary artery without angina pectoris; E78.5 Hyperlipidemia, unspecified; Z95.1 Presence of aortocoronary bypass graft
CPT/HCPCS: 36415; 71045; 80053; 83880; 84484; 85025; 93005; 99285

== ENCOUNTER 2023-03-06 10:03 | Inpatient (IN) | payer MEDICARE, BC, OTHER, SELFPAY ==
[2023-03-06] VITALS (78 sets, daily range): BP systolic 91–112; BP diastolic 71–87; PULSE 108–132; RESP 15–32; TEMP 35.9–36.8; O2SAT 90–98; BMI 30.5
--- NOTE | 2023-03-06 10:11 | ECG_ITS ---
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 Measurements Intervals [place] Rate: 112 P: 0 [place]: 0 QRS: 151 QRSD: 222 T: -7 QT: 427 QTc: 583 Interpretive Statements ELECTRONIC VENTRICULAR PACEMAKER ABNORMAL RHYTHM ECG INTERPRETATION BASED ON A DEFAULT AGE OF 40 YEARS Compared to ECG 03/01/2023 12:18:02 No significant changes Electronically Signed On 03-06-2023 12:20:55 CDT by Margot Cardenas M.D. [id number]
[2023-03-06 10:50] LABS: Hematocrit 50.6 % (37-53); Mean Corpuscular Volume 93.7 fl (82-101); Mean Platelet Volume 9.9 fL (7.4-10.4); Platelet Count 243 10^3/cmm (157-399); Red Cell Distribution Width 16.9 % (12.1-15.1); White Blood Count 13.42 10^3/uL (3.29-11.43)
[2023-03-06 11:13] LABS: Troponin(5th) Baseline 44 ng/L (0-15)
[2023-03-06 11:14] LABS: Alanine Aminotransferase 67 U/L (0-41); Albumin Level 4.3 g/dL (3.5-5.2); Alkaline Phosphatase 173 U/L (40-130); Aspartate Amino Transferase 81 U/L (0-40); Calcium 9.6 mg/dL (8.5-10.5); Carbon Dioxide 28 mmol/L (22-29); Chloride 83 mmol/L (98-107); Globulin 2.5 g/dL (1.3-4.6); Glucose 231 mg/dL (65-115); Osmolality Calculated 304 mOsm/kg (285-295); Sodium 129 mmol/L (136-145); Total Bilirubin 1.4 mg/dL (0.15-1.2); Total Protein 6.8 g/dL (6.6-8.7)
[2023-03-06 11:28] LABS: Blood Urea Nitrogen 92 mg/dL (8-23)
[2023-03-06 11:29] LABS: Anion Gap 21.7 (5-19); Potassium 3.7 mmol/L (3.5-5.1)
[2023-03-06 11:45] LABS: Absolute Eosinophils 0.1 10^3/cmm (0.0-0.7); Absolute Segmented Neutrophil 8.1 10/cmm (1.6-7.1); Band Neutrophils Absolute 0.1 10^3/cmm (0.0-1.2); Eosinophils 1 %; Lymphocytes 9 %; Lymphocytes Absolute 4.7 10^3/cmm (1.2-3.4); Monocytes Absolute 0.4 10^3/cmm (0.1-0.6); Segmented Neutrophils 60 %; Slide Review Slide Review Perform; Total Cells Counted 100 (0-100)
[2023-03-06 11:46] LABS: Absolute Neutrophil 8.2 10^3/cmm (1.4-6.5); Platelet Estimate Normal (Normal)
--- NOTE | 2023-03-06 12:00 | W.ED.ARRPALP ---
Documented by User: Eduard Oseguera DO 03/06/23 17:25 HPI - Arrhythmia/Palpitations General: Chief Complaint: Arrhythmia/Palpitations Stated Complaint: High heart rate Time Seen by Provider: 03/06/23 10:05 Source: patient Mode of arrival: ambulatory History of Present Illness: MD complaint: rapid heart beat and heart racing Severity: mild PFSH ED PFSH: Medical History (Updated 03/06/23 @ 16:55 by Jael Goodson MD) Anxiety Arthritis Atherosclerotic heart disease of [place] coronary artery with other forms of angina pectoris Patient had a cardiac catheterization followed by four-vessel coronary bypass surgery in 2014. #1.? Placement of intra-aortic balloon pump utilizing modified Seldinger technique through right femoral artery #2.? Stapling of left atrial appendage #3.? Coronary artery bypass grafting x4 (1 artery and 3 veins) utilizing in situ left internal mammary artery to left anterior descending artery, reverse saphenous vein graft from aorta to distal right coronary artery, reverse saphenous vein graft from aorta to the diagonal artery, and reverse saphenous vein graft from aorta to the obtuse marginal branch of the circumflex artery. #4.? Endoscopic saphenous vein harvesting from the left thigh and leg. Atrial fibrillation Cardiomyopathy Chronic kidney disease Elevated white blood cell count Failure of cardiac resynchronization therapy defibrillator (SCOUT LEASER-D) lead 03/2022 GERD (gastroesophageal reflux disease) Hematuria History of malignant melanoma Hyperlipidemia Hyperparathyroidism Hypothyroid ICD (implantable cardioverter-defibrillator), biventricular, in situ [employer] SCOUT LEASER-D Implant 05/24/22 Nocturnal hypoxemia Uses oxygen with sleep Pacemaker Pleural effusion Surgical History Hx of CABG Hx of cholecystectomy S/P removal of parathyroid gland Family History Mother Cancer Father Stroke Denies family history of Diabetes CAD (coronary artery disease) Clotting disorder Dementia Chronic kidney disease (CKD) Suicide Anesthesia complication Bleeding disorder Lung disease Social History (Updated 03/06/23 @ 15:15 by Jael Goodson MD) Smoking and tobacco/nicotine status: never used tobacco/nicotine Alcohol intake: never Substance/Drug Use: never Household members: spouse Marital status: service: Yes Course Vital Signs: Vital signs: Vital Signs Temperature 97.9 F 03/06/23 17:04 Pulse Rate 114 H 03/06/23 17:04 Respiratory Rate 16 03/06/23 17:04 Blood Pressure 110/85 03/06/23 17:04 Pulse Oximetry 92 03/06/23 17:04 Oxygen Delivery Me thod Room Air 03/06/23 16:00 MDM - Arrhythmia/Palpitations Medical Decision Making Patient presented to the ER for not feeling good and having a high heart rate. EKG was obtained which showed ventricular paced rhythm, chest x-ray showed no acute findings, lab work showed low sodium of 129, elevated BUN and creatinine of 92 and 2.3, elevated BNP of around 12,000. Chart was reviewed ER visit 3 days ago where his torsemide was essentially doubled. I discussed these results with family members and talk about putting the patient in the hospital until we figure out what is going on. Dr. Goodson was consulted who agreed patient needed inpatient evaluation and treatment. Initially signed up for patient and made initial orders however Dr. Morgan seen and patient did not participate in care see his notes on the chart Lab Data 03/06/23 10:30 03/06/23 10:30 Radiology Impressions Chest X-Ray 03/06/23 12:10 IMPRESSION: No acute finding. Laboratory Results WBC 13.42 10^3/uL (3.29-11.43) H 03/06/23 10:30 RBC 5.40 10^6/uL (3.85-5.65) 03/06/23 10:30 Hgb 16.20 g/dL (11.27-16.99) 03/06/23 10:30 Hct 50.6 % (37-53) 03/06/23 10:30 MCV 93.7 fl (82-101) 03/06/23 10:30 MCH 30.0 pg (27-33) 03/06/23 10:30 MCHC 32.0 g/dL (30-55) 03/06/23 10:30 RDW 16.9 % (12.1-15.1) H 03/06/23 10:30 Plt Count 243 10^3/cmm (157-399) 03/06/23 10:30 MPV 9.9 fL (7.4-10.4) 03/06/23 10:30 Lymph % (Auto) Not Reportable 03/06/23 10:30 Stark % (Auto) Not Reportable 03/06/23 10:30 Lymph # (Auto) Not Reportable 03/06/23 10:30 Stark # (Auto) Not Reportable 03/06/23 10:30 Total Counted 100 (0-100) 03/06/23 10:30 Atypical Lymphs % 26.0 % (0-5) H 03/06/23 10:30 Absolute Neutrophils 8.2 10^3/cmm (1.4-6.5) H 03/06/23 10:30 Segmented Neutrophils 60 % 03/06/23 10:30 Abs Segm Neuts (Man) 8.1 10/cmm (1.6-7.1) H 03/06/23 10:30 Band Neutrophils 1.0 % 03/06/23 10:30 Abs Band Neuts (Man) 0.1 10^3/cmm (0.0-1.2) 03/06/23 10:30 Absolute Lymphocytes 4.7 10^3/cmm (1.2-3.4) H 03/06/23 10:30 Lymphocytes (Manual) 9 % 03/06/23 10:30 Monocytes (Manual) 3.0 % 03/06/23 10:30 Absolute Monocytes 0.4 10^3/cmm (0.1-0.6) 03/06/23 10:30 Eosinophils (Manual) 1 % 03/06/23 10:30 Absolute Eosinophils 0.1 10^3/cmm (0.0-0.7) 03/06/23 10:30 Basophils (Manual) 0.0 % 03/06/23 10:30 Absolute Basophils 0.0 10^3/cmm (0.0-0.2) 03/06/23 10:30 Platelet Estimate Normal (Normal) 03/06/23 10:30 Sodium 129 mmol/L (136-145) L 03/06/23 10:30 Potassium 3.7 mmol/L (3.5-5.1) 03/06/23 10:30 Chloride 83 mmol/L (98-107) L 03/06/23 10:30 Carbon Dioxide 28 mmol/L (22-29) 03/06/23 10:30 Anion Gap 21.7 (5-19) H 03/06/23 10:30 BUN 92 mg/dL (8-23) H* D 03/06/23 10:30 Creatinine 2.3 mg/dL (0.7-1.2) H 03/06/23 10:30 GFR Calculation Not Reportable 03/06/23 10:30 Glucose 231 mg/dL (65-115) H 03/06/23 10:30 Calculated Osmolality 304 mOsm/kg (285-295) H 03/06/23 10:30 Uric Acid 9.7 mg/dL (3.4-7.0) H 03/06/23 10:30 Calcium 9.6 mg/dL (8.5-10.5) 03/06/23 10:30 Phosphorus 4.9 mg/dL (2.5-4.5) H 03/06/23 10:30 Magnesium 2.4 mg/dL (1.7-2.3) H 03/06/23 10:30 Total Bilirubin 1.4 mg/dL (0.15-1.2) H 03/06/23 10:30 AST 81 U/L (0-40) H 03/06/23 10:30 ALT 67 U/L (0-41) H 03/06/23 10:30 Alkaline Phosphatase 173 U/L (40-130) H 03/06/23 10:30 Lactate Dehydrogenase 323 U/L (135-225) H 03/06/23 10:30 Troponin T Baseline 44 ng/L (0-15) H 03/06/23 10:30 Troponin T 120 Minute 45.85 ng/L (0-15) H 03/06/23 12:30 Delta Troponin T 1.85 ABS# (0-10) 03/06/23 12:30 NT-Pro-B Natriuret Pep 94979 pg/mL (0-450) H 03/06/23 10:30 Total Protein 6.8 g/dL (6.6-8.7) 03/06/23 10:30 Albumin 4.3 g/dL (3.5-5.2) 03/06/23 10:30 Globulin 2.5 g/dL (1.3-4.6) 03/06/23 10:30 TSH 8.81 uIU/mL (0.27-4.20) H 03/06/23 10:30 Free T4 2.35 ng/dL (0.82-1.77) H 03/06/23 10:30 Free T3 1.5 PG/ML (2.0-4.4) L 03/06/23 10:30 Urine Color Yellow (Yellow) 03/06/23 12:51 Urine Appearance Clear (CLEAR) 03/06/23 12:51 Urine pH 5 (5-7) 03/06/23 12:51 Ur Specific [place] 1.015 (1.005-1.030) 03/06/23 12:51 Urine Protein Neg (Negative) 03/06/23 12:51 Urine Glucose (UA) Norm (Normal) 03/06/23 12:51 Urine Ketones Negative (Negative) 03/06/23 12:51 Urine Blood Neg (Negative) 03/06/23 12:51 Urine Nitrate Negative (Negative) 03/06/23 12:51 Urine Bilirubin Neg (Negative) 03/06/23 12:51 Urine Urobilinogen Norm mg/dL (Negative) 03/06/23 12:51 Ur Leukocyte Esterase Negative (Negative) 03/06/23 12:51 Ur Random Sodium 13 mmol/L 03/06/23 12:51 Urine Creatinine 87 mg/dL (39-259) 03/06/23 12:51 Discharge Plan Discharge Patient Disposition: Admitted As Inpatient Admit Provider: Jael Goodson Clinical Impression: Atypical lymphocytosis, Acute kidney injury, Ischemic cardiomyopathy, Chronic anticoagulation Condition: Stable Coding Level of Care Code 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 Patient does have a pacemaker and is on amiodarone. Patient says his heart rate got up to 175 beats a minute this morning and has not slept in about 3 days because his heart has been racing off and on the entire time. Patient denies any chest pain nausea vomiting shortness of breath diaphoresis. 3 days ago for similar symptoms and had his torsemide increased at that time. Review of Systems General: Reports: 10 or more systems reviewed and unremarkable except in HPI and below PFSH ED PFSH: Medical History (Updated 03/06/23 @ 16:55 by Jael Goodson MD) Anxiety Arthritis Atherosclerotic heart disease of [place] coronary artery with other forms of angina pectoris Patient had a cardiac catheterization followed by four-vessel coronary bypass surgery in 2014. #1.? Placement of intra-aortic balloon pump utilizing modified Seldinger technique through right femoral artery #2.? Stapling of left atrial appendage #3.? Coronary artery bypass grafting x4 (1 artery and 3 veins) utilizing in situ left internal mammary artery to left anterior descending artery, reverse saphenous vein graft from aorta to distal right coronary artery, reverse saphenous vein graft from aorta to the diagonal artery, and reverse saphenous vein graft from aorta to the obtuse marginal branch of the circumflex artery. #4.? Endoscopic saphenous vein harvesting from the left thigh and leg. Atrial fibrillation Cardiomyopathy Chronic kidney disease Elevated white blood cell count Failure of cardiac resynchronization therapy defibrillator (SCOUT LEASER-D) lead 03/2022 GERD (gastroesophageal reflux disease) Hematuria History of malignant melanoma Hyperlipidemia Hyperparathyroidism Hypothyroid ICD (implantable cardioverter-defibrillator), biventricular, in situ [employer] SCOUT LEASER-D Implant 05/24/22 Nocturnal hypoxemia Uses oxygen with sleep Pacemaker Pleural effusion Surgical History Hx of CABG Hx of cholecystectomy S/P removal of parathyroid gland Family History Mother Cancer Father Stroke Denies family history of Diabetes CAD (coronary artery disease) Clotting disorder Dementia Chronic kidney disease (CKD) Suicide Anesthesia complication Bleeding disorder Lung disease Social History (Updated 03/06/23 @ 15:15 by Jael Goodson MD) Smoking and tobacco/nicotine status: never used tobacco/nicotine Alcohol intake: never Substance/Drug Use: never Household members: spouse Marital status: service: Yes Physical Exam Const: COMMON NORMALS: no acute distress, average body habitus, patient oriented x3, no limitations, healthy appearing, alert and well nourished HENMT: COMMON NORMALS: normocephalic, atraumatic, hearing grossly normal bilaterally, external ears normal, Normal external nose present, moist oral mucous membranes and oropharynx normal HEAD & SCALP: normocephalic and atraumatic NOSE: Normal external nose present EXTERNAL EAR: Yes external ears normal Neck/C-Spine: COMMON NORMALS: full ROM, no lymphadenopathy, supple, no meningeal signs, no JVD and Thyroid normal THYROID: Thyroid normal Chest: COMMONS NORMALS: normal inspection of the chest and normal palpation of entire chest wall Resp: COMMON NORMALS: normal respiratory effort, No retractions, No use of accessory muscles and clear to auscultation bilaterally AUSCULTATION: clear to auscultation bilaterally Cardio: COMMON NORMALS: no JVD, regular rhythm, S1 normal heart sound present, S2 normal heart sound present, No gallops present (Cardio), No clicks present (Cardio) and No murmurs present (Cardio); negative for regular rate (Tachycardic) RATE: abnormal rate (Tachycardic) RHYTHM: regular rhythm HEART SOUNDS: S1 normal heart sound present and S2 normal heart sound present GI: COMMON NORMALS: Normal to inspection, nondistended, normoactive bowel sounds present, Soft to palpation, non-tender, No hepatosplenomegaly present and no masses PALPATION: Yes Soft to palpation and Yes No hepatosplenomegaly present Neuro: COMMON NORMALS: patient oriented x3 SENSORIUM/ORIENTATION: Yes alert MENINGEAL SIGNS: Yes no meningeal signs Course Vital Signs: Vital signs: Vital Signs Temperature 97.9 F 03/06/23 17:04 Pulse Rate 114 H 03/06/23 17:04 Respiratory Rate 16 03/06/23 17:04 Blood Pressure 110/85 03/06/23 17:04 Pulse Oximetry 92 03/06/23 17:04 Oxygen Delivery Me thod Room Air 03/06/23 16:00 MDM - Arrhythmia/Palpitations Medical Decision Making Patient presented to the ER for not feeling good and having a high heart rate. EKG was obtained which showed ventricular paced rhythm, chest x-ray showed no acute findings, lab work showed low sodium of 129, elevated BUN and creatinine of 92 and 2.3, elevated BNP of around 12,000. Chart was reviewed ER visit 3 days ago where his torsemide was essentially doubled. I discussed these results with family members and talk about putting the patient in the hospital until we figure out what is going on. Dr. Goodson was consulted who agreed patient needed inpatient evaluation and treatment. Differential Diagnosis Likely sinus tachycardia; Unlikely palpitations, anxiety, artial fibrillation, artial flutter, ventricular premature beats, supraventricular tachycardia, ventricular tachycardia or WPW Medical Records I reviewed the patient's medical records. Lab Data I reviewed the patient's lab results. 03/06/23 10:30 03/06/23 10:30 Radiology Impressions Chest X-Ray 03/06/23 12:10 IMPRESSION: No acute finding. Laboratory Results WBC 13.42 10^3/uL (3.29-11.43) H 03/06/23 10:30 RBC 5.40 10^6/uL (3.85-5.65) 03/06/23 10:30 Hgb 16.20 g/dL (11.27-16.99) 03/06/23 10:30 Hct 50.6 % (37-53) 03/06/23 10:30 MCV 93.7 fl (82-101) 03/06/23 10:30 MCH 30.0 pg (27-33) 03/06/23 10:30 MCHC 32.0 g/dL (30-55) 03/06/23 10:30 RDW 16.9 % (12.1-15.1) H 03/06/23 10:30 Plt Count 243 10^3/cmm (157-399) 03/06/23 10:30 MPV 9.9 fL (7.4-10.4) 03/06/23 10:30 Lymph % (Auto) Not Reportable 03/06/23 10:30 Stark % (Auto) Not Reportable 03/06/23 10:30 Lymph # (Auto) Not Reportable 03/06/23 10:30 Stark # (Auto) Not Reportable 03/06/23 10:30 Total Counted 100 (0-100) 03/06/23 10:30 Atypical Lymphs % 26.0 % (0-5) H 03/06/23 10:30 Absolute Neutrophils 8.2 10^3/cmm (1.4-6.5) H 03/06/23 10:30 Segmented Neutrophils 60 % 03/06/23 10:30 Abs Segm Neuts (Man) 8.1 10/cmm (1.6-7.1) H 03/06/23 10:30 Band Neutrophils 1.0 % 03/06/23 10:30 Abs Band Neuts (Man) 0.1 10^3/cmm (0.0-1.2) 03/06/23 10:30 Absolute Lymphocytes 4.7 10^3/cmm (1.2-3.4) H 03/06/23 10:30 Lymphocytes (Manual) 9 % 03/06/23 10:30 Monocytes (Manual) 3.0 % 03/06/23 10:30 Absolute Monocytes 0.4 10^3/cmm (0.1-0.6) 03/06/23 10:30 Eosinophils (Manual) 1 % 03/06/23 10:30 Absolute Eosinophils 0.1 10^3/cmm (0.0-0.7) 03/06/23 10:30 Basophils (Manual) 0.0 % 03/06/23 10:30 Absolute Basophils 0.0 10^3/cmm (0.0-0.2) 03/06/23 10:30 Platelet Estimate Normal (Normal) 03/06/23 10:30 Sodium 129 mmol/L (136-145) L 03/06/23 10:30 Potassium 3.7 mmol/L (3.5-5.1) 03/06/23 10:30 Chloride 83 mmol/L (98-107) L 03/06/23 10:30 Carbon Dioxide 28 mmol/L (22-29) 03/06/23 10:30 Anion Gap 21.7 (5-19) H 03/06/23 10:30 BUN 92 mg/dL (8-23) H* D 03/06/23 10:30 Creatinine 2.3 mg/dL (0.7-1.2) H 03/06/23 10:30 GFR Calculation Not Reportable 03/06/23 10:30 Glucose 231 mg/dL (65-115) H 03/06/23 10:30 Calculated Osmolality 304 mOsm/kg (285-295) H 03/06/23 10:30 Uric Acid 9.7 mg/dL (3.4-7.0) H 03/06/23 10:30 Calcium 9.6 mg/dL (8.5-10.5) 03/06/23 10:30 Phosphorus 4.9 mg/dL (2.5-4.5) H 03/06/23 10:30 Magnesium 2.4 mg/dL (1.7-2.3) H 03/06/23 10:30 Total Bilirubin 1.4 mg/dL (0.15-1.2) H 03/06/23 10:30 AST 81 U/L (0-40) H 03/06/23 10:30 ALT 67 U/L (0-41) H 03/06/23 10:30 Alkaline Phosphatase 173 U/L (40-130) H 03/06/23 10:30 Lactate Dehydrogenase 323 U/L (135-225) H 03/06/23 10:30 Troponin T Baseline 44 ng/L (0-15) H 03/06/23 10:30 Troponin T 120 Minute 45.85 ng/L (0-15) H 03/06/23 12:30 Delta Troponin T 1.85 ABS# (0-10) 03/06/23 12:30 NT-Pro-B Natriuret Pep 56823 pg/mL (0-450) H 03/06/23 10:30 Total Protein 6.8 g/dL (6.6-8.7) 03/06/23 10:30 Albumin 4.3 g/dL (3.5-5.2) 03/06/23 10:30 Globulin 2.5 g/dL (1.3-4.6) 03/06/23 10:30 TSH 8.81 uIU/mL (0.27-4.20) H 03/06/23 10:30 Free T4 2.35 ng/dL (0.82-1.77) H 03/06/23 10:30 Free T3 1.5 PG/ML (2.0-4.4) L 03/06/23 10:30 Urine Color Yellow (Yellow) 03/06/23 12:51 Urine Appearance Clear (CLEAR) 03/06/23 12:51 Urine pH 5 (5-7) 03/06/23 12:51 Ur Specific [place] 1.015 (1.005-1.030) 03/06/23 12:51 Urine Protein Neg (Negative) 03/06/23 12:51 Urine Glucose (UA) Norm (Normal) 03/06/23 12:51 Urine Ketones Negative (Negative) 03/06/23 12:51 Urine Blood Neg (Negative) 03/06/23 12:51 Urine Nitrate Negative (Negative) 03/06/23 12:51 Urine Bilirubin Neg (Negative) 03/06/23 12:51 Urine Urobilinogen Norm mg/dL (Negative) 03/06/23 12:51 Ur Leukocyte Esterase Negative (Negative) 03/06/23 12:51 Ur Random Sodium 13 mmol/L 03/06/23 12:51 Urine Creatinine 87 mg/dL (39-259) 03/06/23 12:51 All radiology interpretation(s) finalized by discharge Discharge Plan Discharge Patient Disposition: Admitted As Inpatient Admit Provider: Jael Goodson Clinical Impression: Atypical lymphocytosis, Acute kidney injury, Ischemic cardiomyopathy, Chronic anticoagulation Condition: Stable Coding Level of Care Code ED 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
--- NOTE | 2023-03-06 12:10 | XRR_ITS ---
PROCEDURE INFORMATION: Exam: XR Chest Exam date and time: 03/06/2023 12:24 PM Age: 78 years old Clinical indication: Prior surgery; Surgery date: 6+ months; Surgery type: Pacemaker 2014; Patient HX: Tachycardia; Dyspnea; A fib; ; Additional info: Dyspnea tachycardia TECHNIQUE: Imaging protocol: Radiologic exam of the chest. Views: 1 view. COMPARISON: CR XR chest 1V portable [id number] 03/01/2023 10:40 AM FINDINGS: Tubes, catheters and devices: There is a left subclavian combination biventricular pacemaker AICD device. Lungs: No pulmonary vascular congestion, pulmonary edema or pneumonia. Pleural spaces: No pleural effusion or pneumothorax. Heart/Mediastinum: The cardiac silhouette is enlarged. Prior CABG. Bones/joints: Prior sternotomy. XR/XR chest 1V portable [id number] IMPRESSION: No acute finding.
--- NOTE | 2023-03-06 12:14 | ECG_ITS ---
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 Measurements Intervals [place] Rate: 111 P: 0 [place]: 0 QRS: 268 QRSD: 221 T: 83 QT: 430 QTc: 586 Interpretive Statements ELECTRONIC VENTRICULAR PACEMAKER ABNORMAL RHYTHM ECG Electronically Signed On 03-06-2023 12:21:53 CDT by Margot Cardenas M.D. [id number]
[2023-03-06 12:50] LABS: Magnesium 2.4 mg/dL (1.7-2.3); NT Pro B Type Natriuretic Pept 12831 pg/mL (0-450); Thyroid Stimulating Hormone 8.81 uIU/mL (0.27-4.20)
[2023-03-06] MEDS: metoprolol tartrate 1 mg/1 mL SDV 5 mL 5 MG IVP (13:52)
[2023-03-06] MEDS: LORazepam 2 mg/mL INJ 1 mL 1 MG IVP (13:56)
[2023-03-06 14:17] LABS: Add Urine Microscopic? NO; Charge for UA Resulting for Rev
[2023-03-06 14:20] LABS: Bilirubin Urine Neg (Negative); Blood Urine Neg (Negative); Glucose Urine UA Norm (Normal); Ketones Urine Negative (Negative); Leukocyte Esterase Urine Negative (Negative); Nitrate Urine Negative (Negative); Protein Urine Neg (Negative); Specific Gravity, Urine 1.015 (1.005-1.030); Urine Appearance Clear (CLEAR); Urine Color Yellow (Yellow); Urobilinogen Urine Norm (Negative); pH Urine 5 (5-7)
[2023-03-06 14:23] LABS: Troponin 5 2HR 45.85 ng/L (0-15)
[2023-03-06 14:27] LABS: Troponin 5 2HR Delta 1.85 ABS# (0-10)
--- NOTE | 2023-03-06 14:33 | PM.HP ---
Providers/Chief Complaint Admitting Physician: Jael Goodson MD Primary Care Provider: Tiff Mckinney MD Chief Complaint: High heart rate History of Present Illness Raj Vega is a 78 year old male who presented to the emergency room with chief complaint of palpitations. He has had elevated heart rate the last few days. It has been enough that he has not been able to sleep well. He was seen in the emergency room last week with similar symptoms. At that time he was noted to have edema that had been worse over the preceding couple of weeks along with a cough. Primary care provider had added metolazone to his usual diuretic regimen at the end of January but he had not seen clinical improvement with this. His torsemide dosing was increased last week. In addition he was noted to have blood sugars above 200. Not previously noted to be diabetic but had been checking sugars and finding them more elevated lately. In addition to increase in diuretic, metformin was started with plan for follow-up primary care provider. Since starting metformin he has had nausea and vomiting. He has had no appetite. Intake of food has led to vomiting. In addition he has had diarrhea since then. He has continued taking his medications as prescribed. He has had decreased urine output. No blood noted in his urine or dysuria. No blood in his stools. He does not usually have issues with diarrhea. Denies abdominal pain but overall has not felt well. With the persistent tachycardia and increasing malaise he came to the emergency room again for repeat evaluation. On arrival heart rate in the 110s. Blood pressures lower than his usual but within normal range. He was given IV metoprolol and some IV lorazepam without any significant improvement in his heart rate. EKG showed a ventricular paced rhythm. Initial troponin at 44 with 2-hour delta of 1.85. No reports of any chest pain. He did try some nitroglycerin to see if it would help with his heart rate at 1 point with no improvement. In addition to tachycardia he was found to have evidence of acute kidney injury, elevation in BNP from previous values, elevation in TSH and an elevation in white count. Chest x-ray was unremarkable for acute findings. Hospitalist were contacted for admission for further evaluation and management of Mr. Vega's symptoms and findings. Mr. Vega chronically follows with Dr. Strickland from a cardiology standpoint. He has an implanted AICD/pacemaker. Last echocardiogram was done in January showing an ejection fraction of 40% which was an improvement though he continued to have diffuse hypokinesis of the left ventricle. He had pacemaker checked at last cardiology clinic visit in January as well as at ED visit last week and today. No recent AICD firings. Known to have chronic atrial fibrillation managed with amiodarone and metoprolol and is on chronic anticoagulation with Eliquis. Last cardiac catheterization was in November of this year revealing mild disease in the left main, moderate disease in the mid LAD and first diagonal, total occlusion of the mid circumflex and mid RCA with patent vein grafts to the diagonal, obtuse marginal and right coronary artery as well as a patent SANCHEZ to the distal LAD. Review of Systems General: Reports: Other (ROS as per HPI or as otherwise noted here) Const: Reports: change in appetite (decreased), change in weight (~15lb lost last few weeks from ~220 to 207), fatigue, malaise, night sweats and change in sleep pattern (not sleeping due to palpitations); Denies: fever(s) Eyes: Denies: change in vision ENMT: Reports: dry mouth and nasal congestion Card: Reports: palpitations, swelling of feet/ankles and dyspnea on exertion; Denies: chest pain, syncope or orthopnea Resp: Reports: productive cough and non-productive cough; Denies: hemoptysis GI: Reports: nausea, vomiting, heartburn and diarrhea; Denies: abdominal pain, hematemesis or hematochezia : Reports: oliguria; Denies: difficulty urinating Neuro: Reports: weakness in extremities (general); Denies: frequent falls Psych: Reports: anxiety Endo: Reports: tired all the time Damien/Lymph: Reports: other (ED visit 01/24 with epistaxis) All/Imm: Reports: seasonal rhinorrhea Medications/Allergies Home Medications Medication Instructions Recorded Confirmed Last Taken Type alprazolam 0.25 mg tablet 0.25 mg PO DAILY 06/01/19 03/06/23 03/05/23 History allopurinol 100 mg tablet 200 mg PO QPM 11/28/19 03/06/23 03/06/23 History pantoprazole 20 mg tablet,delayed 20 mg PO QAM 12/03/19 03/06/23 03/06/23 History release (Protonix) L.acidophil,salivari-Bifido 1 cap PO QAM 12/14/19 03/06/23 03/06/23 History bifidum-Strep thermoph 175 mg capsule (Acidophilus Probiotic Blend) spironolactone 25 mg tablet 25 mg PO QAM 02/21/22 03/06/23 03/06/23 History acetaminophen 500 mg tablet 1,000 mg PO QAM 09/12/22 03/06/23 03/06/23 History albuterol sulfate 2.5 mg/3 mL 2.5 mg inhalation QID PRN Wheezing 09/12/22 03/06/23 01/05/23 History (0.083 %) solution for nebulization albuterol sulfate 90 mcg/actuation 2 puff inhalation QID PRN 09/12/22 03/06/23 11/21/22 05:00 History aerosol inhaler Shortness Of Breath amiodarone 200 mg tablet (Pacerone) 400 mg PO QAM 09/12/22 03/06/23 03/06/23 History levothyroxine 125 mcg tablet 125 mcg PO QAM 09/12/22 03/06/23 03/06/23 History magnesium oxide 400 mg (241.3 mg 400 mg PO BID 09/12/22 03/06/23 03/06/23 History magnesium) tablet metoprolol tartrate 25 mg tablet 50 mg PO BID 09/12/22 03/06/23 03/06/23 History potassium chloride 20 mEq 20 meq PO QAM 09/12/22 03/06/23 03/06/23 History tablet,extended release ketoconazole 2 % shampoo See Rx Instructions .Route .COMPLEX 01/05/23 03/06/23 03/01/23 History polysaccharide iron complex 150 mg 150 mg PO QAM 01/05/23 03/06/23 03/06/23 History iron capsule (iFerex 150) rosuvastatin 10 mg tablet 10 mg PO QPM 01/05/23 03/06/23 03/06/23 History sodium chloride 0.65 % nasal spray 2 spray nasal QID PRN Dryness 01/05/23 03/06/23 03/06/23 History aerosol (Deep Sea Nasal) nitroglycerin 0.4 mg sublingual 0.4 mg sublingual Q5M PRN Chest 02/28/23 03/06/23 03/01/23 Rx tablet (Nitrostat) Pain #25 tabs apixaban 2.5 mg tablet (Eliquis) 2.5 mg PO BID 03/01/23 03/06/23 03/06/23 History metformin 500 mg tablet,extended 500 mg PO DAILY #30 tabs 03/01/23 03/06/23 03/06/23 Rx release 24 hr metolazone 2.5 mg tablet 2.5 mg PO DAILY 03/01/23 03/06/23 03/06/23 History torsemide 100 mg tablet 100 mg PO QAM 10 days #10 tabs 03/01/23 03/06/23 03/06/23 Rx torsemide 20 mg tablet 60 mg PO QPM 03/06/23 03/06/23 03/05/23 History Allergies Allergy/AdvReac Type Severity Reaction Status Date / Time metoclopramide [From Reglan] Allergy Unknown unknown Verified 03/06/23 14:22 pseudoephedrine Allergy Unknown nausea Verified 03/06/23 14:22 potassium Allergy ALGY-Rash Verified 03/06/23 14:22 prednisone Allergy Rash Verified 03/06/23 14:22 tetracycline Allergy Unknown Verified 03/06/23 14:22 cetirizine [From Zyrtec] AdvReac Unknown Verified 03/06/23 14:22 PFSH Acute PFSH: Medical History (Updated 03/06/23 @ 17:28 by Jael Goodson MD) Anxiety Arthritis 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 #1.? Placement of intra-aortic balloon pump utilizing modified Seldinger technique through right femoral artery #2.? Stapling of left atrial appendage #3.? Coronary artery bypass grafting x4 (1 artery and 3 veins) utilizing in situ left internal mammary artery to left anterior descending artery, reverse saphenous vein graft from aorta to distal right coronary artery, reverse saphenous vein graft from aorta to the diagonal artery, and reverse saphenous vein graft from aorta to the obtuse marginal branch of the circumflex artery. #4.? Endoscopic saphenous vein harvesting from the left thigh and leg. Atrial fibrillation Cardiomyopathy Chronic kidney disease Elevated white blood cell count Failure of cardiac resynchronization therapy defibrillator (RELAY TELEGRAPHER-D) lead 03/2022 GERD (gastroesophageal reflux disease) Hematuria History of malignant melanoma Follows with dermatology at [facility] Hyperlipidemia Hyperparathyroidism Hypothyroid ICD (implantable cardioverter-defibrillator), biventricular, in situ [employer] RELAY TELEGRAPHER-D Implant 05/24/22 Nocturnal hypoxemia Uses oxygen with sleep Pacemaker Pleural effusion Surgical History Hx of CABG Hx of cholecystectomy S/P removal of parathyroid gland Family History Mother Cancer Father Stroke Denies family history of Diabetes CAD (coronary artery disease) Clotting disorder Dementia Chronic kidney disease (CKD) Suicide Anesthesia complication Bleeding disorder Lung disease Social History (Updated 03/06/23 @ 15:15 by Jael Goodson MD) Smoking and tobacco/nicotine status: never used tobacco/nicotine Alcohol intake: never Substance/Drug Use: never Household members: spouse Marital status: service: Yes Vitals/I&O/Wt Last Vital Signs Temp 98.3 F 03/06/23 10:12 Pulse 114 H 03/06/23 13:00 Resp 18 03/06/23 10:12 BP 110/86 03/06/23 11:46 Pulse Ox 97 03/06/23 10:12 O2 Del Method Room Air 03/06/23 10:12 Weight last 48 hrs Weight 93.894 kg Physical Exam Narrative: Patient asleep initially after having received some lorazepam but did awaken later during my history taking and examination. Sleepy but able to answer questions. Has an indention in his left frontal parietal area from an old scar but otherwise normal cephalic. Eyes are slightly sunken with right upper eyelid more droopy than the left. No other facial drooping noted. Pupils are equally reactive and extraocular movements are intact. Nasopharynx with some clear rhinorrhea. Oropharynx with very dry mucous membranes. Some postnasal thick mucus noted. Neck is supple. No palpable asymmetry in the thyroid. Lungs are clear to auscultation bilaterally without any rales rhonchi or wheezes noted. Cardiovascular exam reveals a tachycardic but regular rhythm. No murmurs noted. No JVD. Apical impulse nondisplaced. Abdomen is soft, nontender with positive bowel sounds. Extremities with trace ankle edema. Chronic skin changes and loss of hair noted distally with hyperkeratotic nails. Pedal pulses are diminished but capillary refill equal at both great toes. Overall skin is dry with decreased turgor. Scattered minor ecchymoses. No large areas of bruising noted. Speech is a little difficult to understand initially upon patient's awakening but improves as he became more alert. Handgrip is equal bilaterally. No abnormal movements. Data 03/06/23 10:30 03/06/23 10:30 Other Labs: Radiology Impressions Chest X-Ray 03/06/23 12:10 IMPRESSION: No acute finding. Laboratory Results WBC 13.42 10^3/uL (3.29-11.43) H 03/06/23 10:30 RBC 5.40 10^6/uL (3.85-5.65) 03/06/23 10:30 Hgb 16.20 g/dL (11.27-16.99) 03/06/23 10:30 Hct 50.6 % (37-53) 03/06/23 10:30 MCV 93.7 fl (82-101) 03/06/23 10:30 MCH 30.0 pg (27-33) 03/06/23 10:30 MCHC 32.0 g/dL (30-55) 03/06/23 10:30 RDW 16.9 % (12.1-15.1) H 03/06/23 10:30 Plt Count 243 10^3/cmm (157-399) 03/06/23 10:30 MPV 9.9 fL (7.4-10.4) 03/06/23 10:30 Lymph % (Auto) Not Reportable 03/06/23 10:30 Boundary % (Auto) Not Reportable 03/06/23 10:30 Lymph # (Auto) Not Reportable 03/06/23 10:30 Boundary # (Auto) Not Reportable 03/06/23 10:30 Total Counted 100 (0-100) 03/06/23 10:30 Atypical Lymphs % 26.0 % (0-5) H 03/06/23 10:30 Absolute Neutrophils 8.2 10^3/cmm (1.4-6.5) H 03/06/23 10:30 Segmented Neutrophils 60 % 03/06/23 10:30 Abs Segm Neuts (Man) 8.1 10/cmm (1.6-7.1) H 03/06/23 10:30 Band Neutrophils 1.0 % 03/06/23 10:30 Abs Band Neuts (Man) 0.1 10^3/cmm (0.0-1.2) 03/06/23 10:30 Absolute Lymphocytes 4.7 10^3/cmm (1.2-3.4) H 03/06/23 10:30 Lymphocytes (Manual) 9 % 03/06/23 10:30 Monocytes (Manual) 3.0 % 03/06/23 10:30 Absolute Monocytes 0.4 10^3/cmm (0.1-0.6) 03/06/23 10:30 Eosinophils (Manual) 1 % 03/06/23 10:30 Absolute Eosinophils 0.1 10^3/cmm (0.0-0.7) 03/06/23 10:30 Basophils (Manual) 0.0 % 03/06/23 10:30 Absolute Basophils 0.0 10^3/cmm (0.0-0.2) 03/06/23 10:30 Platelet Estimate Normal (Normal) 03/06/23 10:30 Sodium 129 mmol/L (136-145) L 03/06/23 10:30 Potassium 3.7 mmol/L (3.5-5.1) 03/06/23 10:30 Chloride 83 mmol/L (98-107) L 03/06/23 10:30 Carbon Dioxide 28 mmol/L (22-29) 03/06/23 10:30 Anion Gap 21.7 (5-19) H 03/06/23 10:30 BUN 92 mg/dL (8-23) H* D 03/06/23 10:30 Creatinine 2.3 mg/dL (0.7-1.2) H 03/06/23 10:30 GFR Calculation Not Reportable 03/06/23 10:30 Glucose 231 mg/dL (65-115) H 03/06/23 10:30 Calculated Osmolality 304 mOsm/kg (285-295) H 03/06/23 10:30 Calcium 9.6 mg/dL (8.5-10.5) 03/06/23 10:30 Magnesium 2.4 mg/dL (1.7-2.3) H 03/06/23 10:30 Total Bilirubin 1.4 mg/dL (0.15-1.2) H 03/06/23 10:30 AST 81 U/L (0-40) H 03/06/23 10:30 ALT 67 U/L (0-41) H 03/06/23 10:30 Alkaline Phosphatase 173 U/L (40-130) H 03/06/23 10:30 Troponin T Baseline 44 ng/L (0-15) H 03/06/23 10:30 Troponin T 120 Minute 45.85 ng/L (0-15) H 03/06/23 12:30 Delta Troponin T 1.85 ABS# (0-10) 03/06/23 12:30 NT-Pro-B Natriuret Pep 21777 pg/mL (0-450) H 03/06/23 10:30 Total Protein 6.8 g/dL (6.6-8.7) 03/06/23 10:30 Albumin 4.3 g/dL (3.5-5.2) 03/06/23 10:30 Globulin 2.5 g/dL (1.3-4.6) 03/06/23 10:30 TSH 8.81 uIU/mL (0.27-4.20) H 03/06/23 10:30 Urine Color Yellow (Yellow) 03/06/23 12:51 Urine Appearance Clear (CLEAR) 03/06/23 12:51 Urine pH 5 (5-7) 03/06/23 12:51 Ur Specific Clyde 1.015 (1.005-1.030) 03/06/23 12:51 Urine Protein Neg (Negative) 03/06/23 12:51 Urine Glucose (UA) Norm (Normal) 03/06/23 12:51 Urine Ketones Negative (Negative) 03/06/23 12:51 Urine Blood Neg (Negative) 03/06/23 12:51 Urine Nitrate Negative (Negative) 03/06/23 12:51 Urine Bilirubin Neg (Negative) 03/06/23 12:51 Urine Urobilinogen Norm mg/dL (Negative) 03/06/23 12:51 Ur Leukocyte Esterase Negative (Negative) 03/06/23 12:51 Other data: Atypical Lymphs trend 06/07/18 09/12/22 11/21/22 09:30 14:40 06:10 Atypical Lymphs % 4.0 26.0 H 23.0 H 07/26/23 10/31/23 09:31 10:30 Atypical Lymphs % 15.0 H 26.0 H WBC trend 06/07/18 09/12/22 11/21/22 09:30 14:40 06:10 WBC 8.3 11.8 H 12.8 H 11/29/22 03/06/23 09:31 10:30 WBC 12.6 H 13.42 H BUN/Cr trend 09/12/22 11/29/22 01/05/23 14:40 09:31 14:09 BUN 41 H 45 H 34 H Creatinine 1.7 H 1.8 H 1.7 H 03/01/23 03/06/23 10:35 10:30 BUN 48 H 92 H* D Creatinine 2.0 H 2.3 H A&P Assessment and plan (1) Atrial fibrillation: Chronic, paced rhythm, presently with rapid ventricular response, I suspect due to volume depletion from diuresis, vomiting, diarrhea and decreased oral intake along with associated metabolic abnormalities. Has elevated TSH that may be contributing. Managed with amiodarone and metoprolol in addition to pacemaker/aicd. On eliquis for anticoagulation. Qualifiers: Atrial fibrillation type: longstanding persistent Qualified Code(s): I48.11 - Longstanding persistent atrial fibrillation (2) Acute kidney injury: Secondary to volume depletion from diuresis and GI losses related to azotemia and medication effect. Has associated anion gap acidosis, hyponatremia, hypochloremia, hyperosmolarity. Baseline renal function looks to be Bun 35-45/creatinine 1.7-1.8, consistent with chronic kidney disease stage IIIb by my calculations. No difficulty urinating, just decreased urine output. No indication of urinary infection. Ischemic or other cause of ATN in differential, but history, recent diuretic changes and current exam more suggestive of pre-renal etiology. (3) Ischemic cardiomyopathy: Chronic, not acute, currently looks clinically dry with dry skin, dry mouth, minimal edema, decreased urine output and no acute respiratory symptoms, tachycardia, lower blood pressures than baseline values in record. Last echocardiogram done 01/23/23 demonstrated improved EF at 40% with diffuse hypokinesis noted of left ventricle, mild anterior mitral leaflet prolapse, moderate mitral and tricuspid regurgitation. 2 hr troponin delta not significant. Not on an DEMETRIA inhibitor or ARB chronically due to chronic kidney disease from I can determine from review of previous visits. Has previously been managed with torsemide 60mg am and 40mg pm and 25 mg daily spironolactone. Metolazone 2.5mg added on 01/30 by PCP for increasing edema. Torsemide dosing increased to 100mg am and 60 mg pm on 03/01 by ED for acute CHF presentation. Currently with elevated BNP beyond previous values, but suspect related to renal function rather than reflective of vascular congestion. (4) Hypothyroid: Chronic acquired hypothyroidism, managed with 125mcg levothyroxine daily, with compliance reported. Currently with elevated TSH. On chronic amiodarone therapy. Also with acute illness as described. Qualifiers: Hypothyroidism type: acquired Qualified Code(s): E03.9 - Hypothyroidism, unspecified (5) Atypical lymphocytosis: This has been a trend this year as shown going back to labs from September 2022. Platelets normal. Hemoglobin at upper range of normal, but currently dry. Has sinus symptoms lately so viral or other infectious process within differential but lymphocytosis has persisted over a period of several months. No known history of hematological malignancies but has history of melanoma. Eosinophils are normal. Does report night sweats and about 15 pound weight loss recently. No fevers. (6) Elevated liver enzymes: Previous cholecystectomy. Had mild transaminase elevation since September, when atypical lymphocytosis became apparent. Now also with mild elevation in total bilirubin and alkaline phosphatase. May be related to medications, volume status. No abdominal pain. (7) Hyperglycemia: Blood sugars have ranged 120-230 the last 2 years. Hgb A1c in 03/2022 6.1. Was started on metformin on 03/01 from ED visit, but has had nausea, vomiting, loss of appetite and diarrhea since. Has not tried dietary modifications, though , who is diabetic willing to try. (8) Nocturnal hypoxemia: Chronically on 1L bnc oxygen with sleep. Does not carry a formal diagnosis of sleep apnea, but could also be a contributor to tachyarrhythmia. During my examination, saturations into low 80s with sleep, improve upon awakening, no definite apnea observed. (9) Peripheral arterial disease: Chronic diagnosis, has nail hyperkeratosis, chronic distal extremity changes, diminished distal pulses but equal capillary refill at great toes. (10) GERD (gastroesophageal reflux disease): Chronically on PPI (11) Anxiety: On xanax low dose as needed chronically (12) Presence of combination internal cardiac defibrillator (ICD) and pacemaker: Aware. Last interrogated today and on 03/01/23 in ED,with other PPM checks noted in December, January and early February. No recent defibrillations. Plan Inpatient admission Hold diuretics for now IVFs with potassium at low rate, monitoring response closely Telemetry monitoring Continue usual metoprolol dosing Decrease amiodarone to 200mg per day Continue serial cardiac enzymes Had echo 01/23/2023 with EF 40% Strict I&O and daily weights Recheck electrolytes in am Can discuss with Dr Strickland, his lithographic general worker upon his return later this week; briefly discussed plan with community relations director cardiology Check free T3 and free T4 Continue current levothyroxine dosing for now Check LDH, uric acid, phosphorus Peripheral smear review by pathology Recheck LFTs in am Check coags, though chronically on eliquis so expect some increase Check hemoglobin A1c Stop metformin with plan to not resume at discharge Dietary for diabetic education with patient and Consistent carbohydrate cardiac diet Sliding scale insulin presently Oxygen with sleep, increasing to 2L bnc, discussed with and patient Continue home eliquis Add compression stockings Continue home statin Continue home allopurinol Continue home PPI Continue home xanax dosing as needed Continue nasal saline spray as needed Fall precautions Supportive care otherwise Findings, concerns and plans as described discussed with patient, , daughter and son in room and all given an opportunity to ask questions Anticipate discharge home with close outpatient follow-up to primary care provider and cardiology. His next scheduled heart care center appointment is not until July 2023. May benefit from home health initially for CHF monitoring, labs and medication management plus education regarding diabetes, CHF and arrhythmia. FULL CODE Attestations Medical Necessity Statement*: Anticipated stay greater than two midnights in this patient presenting with similar complaints more than once in the past week now with persistent tachycardia, acute kidney injury, side effects from medications and continued decline overall despite attempts at management in outpatient setting with follow up to PCP. Currently requiring IVFs, holding or adjustment in dosage of multiple cardiac medications, telemetry monitoring, repeat laboratory studies and close monitoring for clinical changes. At high risk of continued clinical decline up to and including possibility of without direct intervention given baseline ischemic cardiomyopathy and current arrhythmia. Other issue and associated plans as noted above. Coding Level of Care Code 83528 High MDM includes number and complexity of problems actively addressed during encounter (BARBIE, CHF, arrhythmia, lymphocytosis, thyroid abnormalities, elevated blood sugar), amount and/or complexity of data reviewed/ordered [ previous or external records, resulted lab(s)/test(s), ordered lab(s)/test(s), independent historian () and other healthcare professional discussion (cardiology)] and described risk of complication, morbidity or mortality of management (decision to admit for management reviewed with /patient) as documented Diagnoses Atrial fibrillation I48.11 Atrial fibrillation type: longstanding persistent Acute kidney injury N17.9 Ischemic cardiomyopathy I25.5 Hypothyroid E03.9 Hypothyroidism type: acquired Atypical lymphocytosis D72.820 Elevated liver enzymes R74.8 Hyperglycemia R73.9 Nocturnal hypoxemia G47.34 Peripheral arterial disease I73.9 GERD (gastroesophageal reflux disease) K21.9 Anxiety F41.9 Presence of combination internal cardiac defibrillator (ICD) and pacemaker Z95.810
[2023-03-06 14:58] LABS: Free T4 Free Thyroxine 2.35 ng/dL (0.82-1.77); Phosphorus 4.9 mg/dL (2.5-4.5); T3 Free 1.5 PG/ML (2.0-4.4); Uric Acid 9.7 mg/dL (3.4-7.0)
[2023-03-06 14:59] LABS: Creatinine Urine, Random 87 mg/dL (39-259)
[2023-03-06 15:00] LABS: Urine Random Sodium 13 mmol/L
[2023-03-06 15:06] LABS: Lactate Dehydrogenase 323 U/L (135-225)
--- NOTE | 2023-03-06 16:05 | ECG_ITS ---
[facility] Test Date: 2023-03-06 Pat Name: Raj Vega Department: Room: 106 Gender: Male [employer] Agent: : 1945 Requested By: Eduard Lance Order Number: [id number] Cain MD: Margot Cardenas M.D. Measurements Intervals Central Rate: 115 P: 0 WI: 0 QRS: -88 QRSD: 224 T: 114 QT: 426 QTc: 591 Interpretive Statements ELECTRONIC VENTRICULAR PACEMAKER ABNORMAL RHYTHM ECG Compared to ECG 03/06/2023 12:14:36 No significant changes Electronically Signed On 03-06-2023 17:47:29 CDT by Margot Cardenas M.D. [id number]
[2023-03-06] MEDS: sodium chlor 0.9% + KCl 20 mEq 20 MEQ/1,000 ML BAG 75 MEQ IV (16:17)
[2023-03-06 17:22] LABS: Troponin 5 6HR 35.17 ng/L (0-15)
[2023-03-06 17:25] LABS: Troponin 5 6HR Delta -8.83 ng/L (0-12)
[2023-03-06 17:48] LABS: Glucose Point of Care 210 mg/dL (70-110)
[2023-03-06 17:48] LABS: LAB Peripheral Smear Sent for Review
[2023-03-06] MEDS: magnesium oxide 400 mg tablet PO (18:36)
[2023-03-06] MEDS: insulin lispro 100 unit/1 mL SUBCUT ×2 (18:36→20:46)
[2023-03-06 20:33] LABS: Glucose Point of Care 262 mg/dL (70-110)
[2023-03-06] MEDS: atorvastatin 40 mg Tablet PO (20:45)
[2023-03-06] MEDS: allopurinol 100 mg Tablet PO (20:45)
[2023-03-06] MEDS: metoprolol tartrate 25 mg Tablet 50 MG PO (20:45)
[2023-03-06] MEDS: apixaban 5 mg Tablet 2.5 MG PO (20:45)
[2023-03-07] VITALS (51 sets, daily range): BP systolic 95–118; BP diastolic 74–94; PULSE 108–120; RESP 17–33; TEMP 35.9–36.4; O2SAT 96–99
[2023-03-07 04:16] LABS: Basophils # 0.1 10^3/uL (0.0-0.1); Basophils % 0.4 %; Eosinophils % 0.1 %; Hematocrit 48.9 % (37-53); Lymphocytes # 6.5 10^3/uL (0.8-4.8); Lymphocytes % 39.6 %; Mean Corpuscular HGB Conc 31.7 g/dL (30-55); Mean Corpuscular Hemoglobin 29.5 pg (27-33); Mean Platelet Volume 9.9 fL (7.4-10.4); Monocytes # 1.5 10^3/uL (0.2-0.9); Monocytes % 9.2 %; Neutrophils # 8.17 10^3/uL (1.8-7.7); Neutrophils % 49.9 %; Nucleated Red Blood Cells % 0 %; Platelet Count 231 10^3/cmm (157-399); Red Blood Count 5.26 10^6/uL (3.85-5.65); Red Cell Distribution Width 16.7 % (12.1-15.1); White Blood Count 16.38 10^3/uL (3.29-11.43)
[2023-03-07 04:29] LABS: INR 1.59 (0.8-1.2)
[2023-03-07 04:30] LABS: Partial Thromboplastin Time 47.7 SECONDS (23.9-36.7)
[2023-03-07 04:31] LABS: Estmated Average Glucose 174; Hemoglobin A1C 7.7 % (4.0-6.0)
[2023-03-07 04:35] LABS: Slide Review Slide Review Perform
[2023-03-07 04:40] LABS: Chol HDL Ratio 3.29 mg/dL (1.0-5.00); Cholesterol 92 mg/dL (0-200); HDL Cholesterol 28 mg/dL (60-100); LDL Cholesterol Calculated 33 mg/dL (50-129); LDL HDL Ratio 1.18 RATIO (0.00-3.22); Triglycerides 156 mg/dL (0-150)
[2023-03-07 04:41] LABS: Alanine Aminotransferase 78 U/L (0-41); Albumin Level 3.7 g/dL (3.5-5.2); Alkaline Phosphatase 159 U/L (40-130); Aspartate Amino Transferase 86 U/L (0-40); Calcium 9.8 mg/dL (8.5-10.5); Carbon Dioxide 25 mmol/L (22-29); Chloride 86 mmol/L (98-107); Globulin 3.4 g/dL (1.3-4.6); Glucose 192 mg/dL (65-115); Magnesium 2.5 mg/dL (1.7-2.3); Osmolality Calculated 302 mOsm/kg (285-295); Phosphorus 4.4 mg/dL (2.5-4.5); Sodium 129 mmol/L (136-145); Total Bilirubin 1.5 mg/dL (0.15-1.2); Total Protein 7.1 g/dL (6.6-8.7)
[2023-03-07 04:44] LABS: Blood Urea Nitrogen 93 mg/dL (8-23)
[2023-03-07] MEDS: levothyroxine 125 mcg Tablet PO (04:46)
[2023-03-07] MEDS: amiodarone 200 mg Tablet PO (04:46)
[2023-03-07] MEDS: sodium chlor 0.9% + KCl 20 mEq 20 MEQ/1,000 ML BAG 75 MEQ IV (04:47)
[2023-03-07] MEDS: metoprolol tartrate 25 mg Tablet 50 MG PO (08:09)
[2023-03-07] MEDS: magnesium oxide 400 mg tablet PO (08:09)
[2023-03-07] MEDS: pantoprazole DR 40 mg Tablet PO (08:09)
[2023-03-07] MEDS: apixaban 5 mg Tablet 2.5 MG PO ×2 (08:10→20:29)
[2023-03-07] MEDS: acetaminophen 325 mg Tablet 650 MG PO (08:10)
[2023-03-07] MEDS: insulin lispro 100 unit/1 mL SUBCUT ×4 (08:11→20:29)
--- NOTE | 2023-03-07 08:29 | PC.NURSE ---
Dr. Otto ordered an additional metoprolol 25mg this morning.
[2023-03-07] MEDS: metoprolol tartrate 25 mg Tablet PO (08:50)
--- NOTE | 2023-03-07 09:50 | PM.PN ---
Subjective Subjective: Worsening leukocytosis noted Atypical lymphocytosis BUN/creatinine noted High anion gap Patient is very lethargic endorsing anorexia At 20% of his breakfast No active chest pain Heart rate 120s with paced rhythm No active chest pain Vitals/I&O/Wt Last Vital Signs Temp 97.5 F L 03/07/23 07:30 Pulse 115 H 03/07/23 07:30 Resp 20 H 03/07/23 07:30 BP 107/86 03/07/23 07:30 Pulse Ox 98 03/07/23 07:30 O2 Del Method Nasal Cannula 03/07/23 07:30 O2 Flow Rate 2 03/06/23 19:18 03/06/23 03/07/23 03/07/23 22:59 06:59 14:59 Intake Total 937.5 / 937.5 320 / 320 Balance 937.5 / 937.5 320 / 320 Weight last 48 hrs Weight 93.894 kg Physical Exam Narrative: Patient awake and alert Fatigue lethargic Nonfocal exam Currently on 2 L nasal cannula He uses 2 L at nighttime No signs of uremia No signs of stroke Nonfocal neuro exam Clinically looks dehydrated Abdomen soft A-fib with wide QRS tachycardia Paced rhythm Data 03/07/23 03:42 03/07/23 03:42 A&P Assessment and plan (1) Hypothyroid: Qualifiers: Hypothyroidism type: acquired Qualified Code(s): E03.9 - Hypothyroidism, unspecified (2) GERD (gastroesophageal reflux disease): (3) Pacemaker: (4) Atrial fibrillation: Qualifiers: Atrial fibrillation type: longstanding persistent Qualified Code(s): I48.11 - Longstanding persistent atrial fibrillation (5) Chronic kidney disease: Qualifiers: Chronic kidney disease stage: stage 3 (moderate) Qualified Code(s): N18.3 - Chronic kidney disease, stage 3 (moderate) (6) Diabetic peripheral neuropathy associated with type 2 diabetes mellitus: (7) Peripheral arterial disease: (8) History of malignant melanoma: (9) Chronic anticoagulation: (10) Congestive heart failure with cardiomyopathy: (11) ICD (implantable cardioverter-defibrillator), biventricular, in situ: (12) Atypical lymphocytosis: (13) Generalized weakness: (14) Anorexia: Plan Generalized weakness and anorexia Could be related to worsening of multiple comorbid conditions including A-fib RVR uremia and dehydration We will cast physical therapy We will give him gentle fluid hydration Check TSH at home takes levothyroxine 125 mcg Atypical lymphocytosis leukocytosis however no active fever We will request COVID antigen Viral panel Chronic kidney disease with uremia high anion gap Likely related to uremia. Nursing high anion gap Clinically patient is dehydrated Gentle fluid hydration Type 2 diabetes discontinue metformin A-fib with RVR Increase dose of metoprolol Gentle fluid hydration Continue Eliquis Continue amiodarone Patient is full code Cardiac consistent carb diet We will request PT Depending on PT evaluation we will decide on disposition plan Monitor for any signs of fluid overload, patient extremities dehydrated clinically Attestations Medical Necessity Statement*: Patient will stay 1 more day Diagnoses Hypothyroid E03.9 Hypothyroidism type: acquired GERD (gastroesophageal reflux disease) K21.9 Pacemaker Z95.0 Atrial fibrillation I48.11 Atrial fibrillation type: longstanding persistent Chronic kidney disease N18.3 Chronic kidney disease stage: stage 3 (moderate) Diabetic peripheral neuropathy associated with type 2 diabetes mellitus E11.42 Peripheral arterial disease I73.9 History of malignant melanoma Z85.820 Chronic anticoagulation Z79.01 Congestive heart failure with cardiomyopathy I50.9; I42.9 ICD (implantable cardioverter-defibrillator), biventricular, in situ Z95.810 Atypical lymphocytosis D72.820 Generalized weakness R53.1 Anorexia R63.0
[2023-03-07 10:05] LABS: Vitamin B12 693 pg/mL (232-1245)
[2023-03-07 10:31] LABS: Thyroid Stimulating Hormone 8.71 uIU/mL (0.27-4.20)
--- NOTE | 2023-03-07 11:06 | PC.CHAP ---
Pastoral Care Encounter/Spiritual Assessment Type of Contact [] Declined newsperson visit [] Patient/Family/Request visit [] Outpatient visit [] Follow-up visit [] Physician referral [] Code/Alert [x] Routine visit [] Staff referral [] Actively dying [] Patient sleeping [x] Family support [] [] Out of room [] Palliative care [] [] Receiving care in room [] Pre-surgical visit [] Trauma [] Long length of stay [] ICU visit [] Other: Relational/Emotional Strength [x] Patient feels connected with others/family/visitors/staff [] Distress [] Loneliness/isolation [] Abandonment Spirituality of Patient [x] Person of Lyric [x] Attends Buddhism of their Lyric [x] Believes in Prayer [x] Reads Bible or Sikh materials [] There are Spiritual issues to be addressed Banking Manager Interventions [x] Prayer [x] Active listening [] Non-anxious presence [] Spiritual/emotional support [] Crisis/trauma care [] Spiritual counseling [] Bereavement support [] Provided bereavement packet [] Provided Bible/devotional materials [] Provided toy/stuffed animal, coloring book to patient or family member [] Provided Communion [] Anointing/[place] [] Salvation [] Completed spiritual assessment [] Other: Impact on Illness or Injury [] Angry [] Fearful [] Anxious [] Often cries [] Exhaustion [] Unable to work [] Unable to attend jewish [] Unable to walk/stand [] Unable to read [] Unable to drive [] Unable to eat/drink [] Unable to sleep [] Unable to be with family [] Patient intubated [] Other: Summary Raj is a [facility] and Keisha. Time spent with patient 20 min
[2023-03-07 11:45] LABS: Glucose Point of Care 178 mg/dL (70-110)
[2023-03-07 11:45] LABS: Glucose Point of Care 227 mg/dL (70-110)
--- NOTE | 2023-03-07 12:28 | PC.NURSE ---
Order is clarified the provider wants patients NS with K stopped and NS started. Provider was also notified the patients heart rate has still been 110-120. Provider ordered cardizem 5mg IVP once. Order placed.
[2023-03-07] MEDS: sodium chloride 0.9% 1,000 ML 75 ML IV (12:36)
[2023-03-07] MEDS: dilTIAZem 5 mg/mL SDV 5 mL IVP (12:50)
--- NOTE | 2023-03-07 14:18 | PC.NURSE ---
Provider ordered a urinary catheter for patient. This is explained to patient and and patient is refusing the catheter at this time. I told him that he will need to use the urinal so we can keep accurate measurements of his output. Patient and state understanding.
[2023-03-07 16:21] LABS: Glucose Point of Care 230 mg/dL (70-110)
[2023-03-07] MEDS: ondansetron 2 mg/ML SDV 2 mL 4 MG IVP (18:09)
[2023-03-07 20:16] LABS: Glucose Point of Care 229 mg/dL (70-110)
[2023-03-07] MEDS: allopurinol 100 mg Tablet PO (20:29)
[2023-03-07] MEDS: metoprolol tartrate 50 mg Tablet 100 MG PO (20:29)
[2023-03-07] MEDS: atorvastatin 40 mg Tablet PO (20:29)
--- NOTE | 2023-03-07 21:13 | PC.NURSE ---
This RN agrees with all documented assessments performed by SN.
[2023-03-08] VITALS (9 sets, daily range): BP systolic 95–111; BP diastolic 57–86; PULSE 88–117; RESP 20–30; TEMP 36.4–36.6; O2SAT 92–96
[2023-03-08 04:27] LABS: Basophils # 0.1 10^3/uL (0.0-0.1); Basophils % 0.3 %; Hematocrit 48.8 % (37-53); Lymphocytes # 8.4 10^3/uL (0.8-4.8); Lymphocytes % 34.5 %; Mean Corpuscular Hemoglobin 29.9 pg (27-33); Mean Corpuscular Volume 93.7 fl (82-101); Mean Platelet Volume 10.6 fL (7.4-10.4); Monocytes # 1.9 10^3/uL (0.2-0.9); Monocytes % 7.8 %; Neutrophils # 13.75 10^3/uL (1.8-7.7); Neutrophils % 56.3 %; Nucleated Red Blood Cells # 0.1 /100WBC; Nucleated Red Blood Cells % 0.3 %; Platelet Count 237 10^3/cmm (157-399); Red Blood Count 5.21 10^6/uL (3.85-5.65); Red Cell Distribution Width 17.1 % (12.1-15.1); White Blood Count 24.41 10^3/uL (3.29-11.43)
[2023-03-08] MEDS: amiodarone 200 mg Tablet PO ×2 (05:00→17:59)
[2023-03-08] MEDS: levothyroxine 125 mcg Tablet PO (05:00)
[2023-03-08 05:11] LABS: Slide Review Slide Review Perform
[2023-03-08 06:51] LABS: Calcium 9.3 mg/dL (8.5-10.5); Carbon Dioxide 14 mmol/L (22-29); Chloride 89 mmol/L (98-107); Glucose 144 mg/dL (65-115); Osmolality Calculated 285 mOsm/kg (285-295); Sodium 122 mmol/L (136-145)
[2023-03-08 07:02] LABS: Blood Urea Nitrogen 91 mg/dL (8-23)
[2023-03-08 07:03] LABS: Anion Gap 23.6 (5-19); Potassium 4.6 mmol/L (3.5-5.1)
--- NOTE | 2023-03-08 07:13 | PM.PN ---
Subjective Subjective: Heart rate has been 110s to 120s Metoprolol dose was optimized Amiodarone dose increased to 400 today Patient still endorsing weakness and fatigue with lethargy Vitals/I&O/Wt Last Vital Signs Temp 97.9 F 03/08/23 03:41 Pulse 116 H 03/08/23 05:22 Resp 20 H 03/08/23 03:41 BP 109/86 03/08/23 03:41 Pulse Ox 95 03/08/23 03:41 O2 Del Method Nasal Cannula 03/08/23 03:41 O2 Flow Rate 2 03/06/23 19:18 03/07/23 03/08/23 03/08/23 22:59 06:59 14:59 Intake Total 791.25 / 1931.25 250 / 2181.25 Output Total 520 / 520 100 / 620 Balance 271.25 / 1411.25 150 / 1561.25 Weight last 48 hrs Weight 101.333 kg Weight 93.894 kg Physical Exam Narrative: A-fib RVR Euvolemic GCS 15 Pleasant cooperative Currently on 2 L nasal cannula Abdomen soft Nonfocal neuro exam Data 03/08/23 03:55 03/08/23 06:10 A&P Assessment and plan (1) Anorexia: (2) Hypothyroid: Qualifiers: Hypothyroidism type: acquired Qualified Code(s): E03.9 - Hypothyroidism, unspecified (3) GERD (gastroesophageal reflux disease): (4) Generalized weakness: (5) Pacemaker: (6) Atrial fibrillation: Qualifiers: Atrial fibrillation type: longstanding persistent Qualified Code(s): I48.11 - Longstanding persistent atrial fibrillation (7) Hyperlipidemia: Qualifiers: Hyperlipidemia type: mixed hyperlipidemia Qualified Code(s): E78.2 - Mixed hyperlipidemia Plan Hypothyroidism: Patient will need optimization of levothyroxine TSH is still high Hyponatremia related to poor p.o. intake Gentle fluid hydration A-fib RVR optimize metoprolol and amiodarone dose Acute on chronic kidney disease creatinine seems to be worsening related to poor p.o. intake and recent diarrhea Monitor closely for worsening of fluid overload considering ischemic cardiomyopathy Full code Consistent carb diet with cardiac DVT prophylaxis covered with anticoagulating agent Patient agreeable for rehab if indicated we will follow-up with PT Attestations Medical Necessity Statement*: Continue medical management Diagnoses Anorexia R63.0 Hypothyroid E03.9 Hypothyroidism type: acquired GERD (gastroesophageal reflux disease) K21.9 Generalized weakness R53.1 Pacemaker Z95.0 Atrial fibrillation I48.11 Atrial fibrillation type: longstanding persistent Hyperlipidemia E78.2 Hyperlipidemia type: mixed hyperlipidemia
[2023-03-08 07:30] LABS: Glucose Point of Care 154 mg/dL (70-110)
[2023-03-08] MEDS: metoprolol tartrate 50 mg Tablet 100 MG PO ×2 (08:12→21:40)
[2023-03-08] MEDS: insulin lispro 100 unit/1 mL SUBCUT ×4 (08:12→21:41)
[2023-03-08] MEDS: pantoprazole DR 40 mg Tablet PO (08:12)
[2023-03-08] MEDS: apixaban 5 mg Tablet 2.5 MG PO ×2 (08:13→21:41)
[2023-03-08] MEDS: dilTIAZem 30 mg Tablet PO ×3 (11:31→21:40)
[2023-03-08] MEDS: sodium chloride 0.9% 1,000 ML 30 ML IV (11:32)
[2023-03-08 11:36] LABS: Glucose Point of Care 196 mg/dL (70-110)
[2023-03-08 13:49] LABS: Add Urine Microscopic? YES; Bilirubin Urine 1+ (Negative); Blood Urine Neg (Negative); Glucose Urine UA Norm (Normal); Ketones Urine 1+ (Negative); Leukocyte Esterase Urine Negative (Negative); Nitrate Urine Negative (Negative); Protein Urine Trace (Negative); Urine Appearance Clear (CLEAR); Urine Color Yellow (Yellow); Urobilinogen Urine 1 mg/dL (Negative); pH Urine 5 (5-7)
[2023-03-08 14:01] LABS: Bacteria Urine TRACE /hpf; Fine Granular Casts Urine 0-4 /lpf; Mucus Urine 2+ /hpf; Other Sediment, Urine T; RBC Urine 0-4 /hpf (0-2); Squamous Epithelial Cell Urine 0-4 /hpf (0-5); WBC Urine 0-4 /hpf (0-5)
[2023-03-08 14:02] LABS: Add Urine Culture? No
[2023-03-08 21:09] LABS: Glucose Point of Care 216 mg/dL (70-110)
[2023-03-08] MEDS: atorvastatin 40 mg Tablet PO (21:40)
[2023-03-08] MEDS: allopurinol 100 mg Tablet PO (21:40)
[2023-03-09] VITALS (30 sets, daily range): BP systolic 87–132; BP diastolic 63–82; PULSE 69–109; RESP 18–37; TEMP 35.6–36.6; O2SAT 89–95
[2023-03-09 01:59] LABS: Glucose Point of Care 183 mg/dL (70-110)
[2023-03-09 04:06] LABS: Anion Gap 27.3 (5-19); Calcium 9.5 mg/dL (8.5-10.5); Carbon Dioxide 20 mmol/L (22-29); Chloride 84 mmol/L (98-107); Glucose 160 mg/dL (65-115); Osmolality Calculated 300 mOsm/kg (285-295); Potassium 5.3 mmol/L (3.5-5.1); Sodium 126 mmol/L (136-145)
[2023-03-09 04:07] LABS: Blood Urea Nitrogen 110 mg/dL (8-23)
[2023-03-09] MEDS: dilTIAZem 30 mg Tablet PO (04:48)
[2023-03-09] MEDS: levothyroxine 125 mcg Tablet PO (04:48)
[2023-03-09 06:44] LABS: Glucose Point of Care 174 mg/dL (70-110)
[2023-03-09] MEDS: insulin lispro 100 unit/1 mL SUBCUT ×4 (09:17→21:52)
[2023-03-09] MEDS: apixaban 5 mg Tablet 2.5 MG PO ×2 (09:18→21:12)
[2023-03-09] MEDS: amiodarone 200 mg Tablet PO ×2 (09:18→17:55)
[2023-03-09] MEDS: metoprolol tartrate 50 mg Tablet 100 MG PO ×2 (09:18→21:12)
[2023-03-09] MEDS: pantoprazole DR 40 mg Tablet PO (09:19)
--- NOTE | 2023-03-09 10:35 | PM.PN ---
Subjective Subjective: Creatinine rising Potassium 5.3 Given Kayexalate We will start IV Lasix Normal saline was given for last 2 days for total of 12 to 13 hours Urine output has reduced today [place] urine color I have asked nurse to change his blood pressure cuff size to size 11 size 10 should not be used Patient wants to change his CODE STATUS to DNR/DNI does not want dialysis in case this is indicated in future Vitals/I&O/Wt Last Vital Signs Temp 97.9 F 03/09/23 04:00 Pulse 90 03/09/23 08:12 Resp 28 H 03/09/23 08:00 BP 97/80 03/09/23 08:00 Pulse Ox 94 03/09/23 08:12 O2 Del Method Nasal Cannula 03/09/23 08:12 O2 Flow Rate 2 03/09/23 08:12 03/08/23 03/09/23 03/09/23 22:59 06:59 14:59 Intake Total 480 / 1080 1472.5 / 2552.5 360 / 360 Output Total 220 / 220 Balance 480 / 1080 1252.5 / 2332.5 360 / 360 Weight last 48 hrs Weight 101.65 kg Weight 101.333 kg Physical Exam Narrative: Mild signs of fluid overload with edema of extremities GCS 15 Currently on 2 L Blood pressure is soft Awake and alert Eating breakfast at the bedside [place] urine S1, S2 variable paced rhythm heart rate in 90s Urinary Catheter Management: Kitchen: Cath Placed During This Visit: yes Reason for Continuing Indwelling Catheter: Acute Urinary Retention or Obstruction Urinary Catheter Date of Insertion: 03/08/23 Urinary Catheter Time of Insertion: 15:23 Data 03/08/23 03:55 03/09/23 03:15 A&P Assessment and plan (1) Anorexia: (2) Generalized weakness: (3) Hypothyroid: Qualifiers: Hypothyroidism type: acquired Qualified Code(s): E03.9 - Hypothyroidism, unspecified (4) GERD (gastroesophageal reflux disease): (5) Hyperlipidemia: Qualifiers: Hyperlipidemia type: mixed hyperlipidemia Qualified Code(s): E78.2 - Mixed hyperlipidemia (6) Pacemaker: (7) Atrial fibrillation: Qualifiers: Atrial fibrillation type: longstanding persistent Qualified Code(s): I48.11 - Longstanding persistent atrial fibrillation (8) Chronic kidney disease: Qualifiers: Chronic kidney disease stage: stage 3 (moderate) Qualified Code(s): N18.3 - Chronic kidney disease, stage 3 (moderate) (9) Diabetic peripheral neuropathy associated with type 2 diabetes mellitus: (10) Peripheral arterial disease: (11) History of malignant melanoma: (12) Chronic anticoagulation: (13) Congestive heart failure with cardiomyopathy: (14) ICD (implantable cardioverter-defibrillator), biventricular, in situ: (15) Atypical lymphocytosis: (16) Nocturnal hypoxemia: (17) Hyperkalemia: Plan Acute on chronic kidney disease Patient is oliguric He received IV fluids in last 48 hours We will give Lasix trial today Consulted nephro Hyperkalemia we will give Kayexalate Mild acidosis [place] brown urine color Creatinine worsening Considering chronic kidney disease she should not have used metformin outpatient Systolic CHF exacerbation Lasix today A-fib status post AV laquita ablation status post pacemaker Patient responded well to amiodarone Cardizem and metoprolol considering low blood pressure I will discontinue Cardizem today Not a candidate of digoxin Generalized weakness and anorexia Likely related to worsening uremia Hypervolemic hyponatremia Lasix today Hyperkalemia: Given Kayexalate CODE STATUS changed to DNR/DNI he does not want dialysis in case that is indicated in future For now disposition is plan for assisted placement In case of any worsening patient might opt for comfort care at the bedside PT requested Attestations Medical Necessity Statement*: Anticipating stay until Sunday Diagnoses Anorexia R63.0 Generalized weakness R53.1 Hypothyroid E03.9 Hypothyroidism type: acquired GERD (gastroesophageal reflux disease) K21.9 Hyperlipidemia E78.2 Hyperlipidemia type: mixed hyperlipidemia Pacemaker Z95.0 Atrial fibrillation I48.11 Atrial fibrillation type: longstanding persistent Chronic kidney disease N18.3 Chronic kidney disease stage: stage 3 (moderate) Diabetic peripheral neuropathy associated with type 2 diabetes mellitus E11.42 Peripheral arterial disease I73.9 History of malignant melanoma Z85.820 Chronic anticoagulation Z79.01 Congestive heart failure with cardiomyopathy I50.9; I42.9 ICD (implantable cardioverter-defibrillator), biventricular, in situ Z95.810 Atypical lymphocytosis D72.820 Nocturnal hypoxemia G47.34 Hyperkalemia E87.5
[2023-03-09] MEDS: FUROsemide 10 mg/mL SDV 2mL 20 MG IVP (11:00)
[2023-03-09] MEDS: sodium polystyrene sulfonate 15 gm/60 mL Btl PO (11:05)
[2023-03-09 11:34] LABS: Glucose Point of Care 249 mg/dL (70-110)
--- NOTE | 2023-03-09 12:13 | PM.CONSULT ---
Providers/Reason For Consult Consulting Physician/Specialty*: kommana/nephrology Reason for Consult*: Acute on chronic kidney disease Attending Physician: Akhil Otto MD Primary Care Provider: Tfif Mckinney MD History of Present Illness History of Present Illness Raj Vega is a 78 year old male With past medical history of cardiomyopathy with recent ejection fraction 40%, coronary artery disease with prior CABG, hypertension, GERD, history of ICD placement, dyslipidemia, chronic kidney disease stage IV with a baseline creatinine of 2-3 range presented to the emergency department due to palpitations. Patient also noted to have worsening lower extremity edema recently and his torsemide dose was increased as well as metolazone was added. Was also taking metformin for diabetes. Patient follows with Dr. Mccoy from nephrology in [place] and has known CKD stage IV. Prior discussions were held with the patient about dialysis options and patient has declined dialysis and only opted for conservative/medical management. He is admitted to the hospital for further management. Lab data was significant for BUN of 92 on presentation worsened to 110 today, creatinine of 2.3 worsened to 3.8 currently. Also today noted to have potassium of 5.3 has elevated BNP. Chest x-ray noted, no vascular congestion. Review of Systems Narrative: Patient's at bedside providing history, other 12 point review of systems negative Medications/Allergies Home Medications Medication Instructions Recorded Confirmed Last Taken Type alprazolam 0.25 mg tablet 0.25 mg PO DAILY 06/01/19 03/06/23 03/05/23 History allopurinol 100 mg tablet 200 mg PO QPM 11/28/19 03/06/23 03/06/23 History pantoprazole 20 mg tablet,delayed 20 mg PO QAM 12/03/19 03/06/23 03/06/23 History release (Protonix) L.acidophil,salivari-Bifido 1 cap PO QAM 12/14/19 03/06/23 03/06/23 History bifidum-Strep thermoph 175 mg capsule (Acidophilus Probiotic Blend) spironolactone 25 mg tablet 25 mg PO QAM 02/21/22 03/06/23 03/06/23 History acetaminophen 500 mg tablet 1,000 mg PO QAM 09/12/22 03/06/23 03/06/23 History albuterol sulfate 2.5 mg/3 mL 2.5 mg inhalation QID PRN Wheezing 09/12/22 03/06/23 01/05/23 History (0.083 %) solution for nebulization albuterol sulfate 90 mcg/actuation 2 puff inhalation QID PRN 09/12/22 03/06/23 11/21/22 05:00 History aerosol inhaler Shortness Of Breath amiodarone 200 mg tablet (Pacerone) 400 mg PO QAM 09/12/22 03/06/23 03/06/23 History levothyroxine 125 mcg tablet 125 mcg PO QAM 09/12/22 03/06/23 03/06/23 History magnesium oxide 400 mg (241.3 mg 400 mg PO BID 09/12/22 03/06/23 03/06/23 History magnesium) tablet metoprolol tartrate 25 mg tablet 50 mg PO BID 09/12/22 03/06/23 03/06/23 History potassium chloride 20 mEq 20 meq PO QAM 09/12/22 03/06/23 03/06/23 History tablet,extended release ketoconazole 2 % shampoo See Rx Instructions .Route .COMPLEX 01/05/23 03/06/23 03/01/23 History polysaccharide iron complex 150 mg 150 mg PO QAM 01/05/23 03/06/23 03/06/23 History iron capsule (iFerex 150) rosuvastatin 10 mg tablet 10 mg PO QPM 01/05/23 03/06/23 03/06/23 History sodium chloride 0.65 % nasal spray 2 spray nasal QID PRN Dryness 01/05/23 03/06/23 03/06/23 History aerosol (Deep Sea Nasal) nitroglycerin 0.4 mg sublingual 0.4 mg sublingual Q5M PRN Chest 02/28/23 03/06/23 03/01/23 Rx tablet (Nitrostat) Pain #25 tabs apixaban 2.5 mg tablet (Eliquis) 2.5 mg PO BID 03/01/23 03/06/23 03/06/23 History metformin 500 mg tablet,extended 500 mg PO DAILY #30 tabs 03/01/23 03/06/23 03/06/23 Rx release 24 hr metolazone 2.5 mg tablet 2.5 mg PO DAILY 03/01/23 03/06/23 03/06/23 History torsemide 100 mg tablet 100 mg PO QAM 10 days #10 tabs 03/01/23 03/06/23 03/06/23 Rx torsemide 20 mg tablet 60 mg PO QPM 03/06/23 03/06/23 03/05/23 History Allergies Allergy/AdvReac Type Severity Reaction Status Date / Time metoclopramide [From Reglan] Allergy Unknown unknown Verified 03/06/23 14:22 pseudoephedrine Allergy Unknown nausea Verified 03/06/23 14:22 potassium Allergy ALGY-Rash Verified 03/06/23 14:22 prednisone Allergy Rash Verified 03/06/23 14:22 tetracycline Allergy Unknown Verified 03/06/23 14:22 cetirizine [From [facility]] AdvReac Unknown Verified 03/06/23 14:22 Current Medications Generic Name Dose Route Start Last Admin Trade Name Freq PRN Reason Stop Dose Admin Acetaminophen 650 mg 03/06/23 17:35 03/07/23 08:10 Acetaminophen 325 Mg Tablet PO 650 mg Q6H PRN Administration Mild/Mod Pain Or Temp >/= 101 Allopurinol 100 mg 03/06/23 21:00 03/08/23 21:40 Allopurinol 100 Mg Tablet PO 100 mg BEDTIME DOROTHY Administration Amiodarone HCl 200 mg 03/08/23 18:00 03/09/23 09:18 Amiodarone 200 Mg Tablet PO 200 mg BID DOROTHY Administration Apixaban 2.5 mg 03/06/23 21:00 03/09/23 09:18 Apixaban 5 Mg Tablet PO 2.5 mg BID@0900,2100 DOROTHY Administration Atorvastatin Calcium 40 mg 03/06/23 21:00 03/08/23 21:40 Atorvastatin 40 Mg Tablet PO 40 mg BEDTIME DOROTHY Administration Furosemide 20 mg 03/09/23 10:45 03/09/23 11:00 Furosemide 10 Mg/Ml Sdv 2ml IVP 20 mg Q24H DOROTHY Administration Insulin Human Lispro 0 unit 03/06/23 21:00 03/08/23 21:41 Insulin Lispro 100 Unit/1 Ml SUBCUT 2 unit BEDTIME DOROTHY Administration Protocol Insulin Human Lispro 0 unit 03/06/23 18:00 03/09/23 11:34 Insulin Lispro 100 Unit/1 Ml SUBCUT 6 unit TIDWM DOROTHY Administration Protocol Levothyroxine Sodium 125 mcg 03/07/23 06:00 03/09/23 04:48 Levothyroxine 125 Mcg Tablet PO 125 mcg QAM DOROTHY Administration Magnesium Oxide 400 mg 03/06/23 18:00 03/07/23 08:09 Magnesium Oxide 400 Mg Tablet PO 400 mg BID DOROTHY Administration Metoprolol Tartrate 100 mg 03/07/23 21:00 03/09/23 09:18 Metoprolol Tartrate 50 Mg Tablet PO 100 mg BID@0900,2100 DOROTHY Administration Ondansetron HCl 4 mg 03/06/23 17:35 03/07/23 18:09 Ondansetron 2 Mg/Ml Sdv 2 Ml IVP 4 mg Q8H PRN Administration vomiting, or N/V if npo Pantoprazole Sodium 40 mg 03/07/23 09:00 03/09/23 09:[address] 40 Mg Tablet PO 40 mg DAILY DOROTHY Administration PFSH Acute PFSH: Medical History (Updated 03/09/23 @ 10:37 by Akhil Otto MD) Anxiety Arthritis Atherosclerotic heart disease of [place] coronary artery with other forms of angina pectoris Patient had a cardiac catheterization followed by four-vessel coronary bypass surgery in 2014. #1.? Placement of intra-aortic balloon pump utilizing modified Seldinger technique through right femoral artery #2.? Stapling of left atrial appendage #3.? Coronary artery bypass grafting x4 (1 artery and 3 veins) utilizing in situ left internal mammary artery to left anterior descending artery, reverse saphenous vein graft from aorta to distal right coronary artery, reverse saphenous vein graft from aorta to the diagonal artery, and reverse saphenous vein graft from aorta to the obtuse marginal branch of the circumflex artery. #4.? Endoscopic saphenous vein harvesting from the left thigh and leg. Atrial fibrillation Cardiomyopathy Chronic kidney disease Elevated white blood cell count Failure of cardiac resynchronization therapy defibrillator (BLUE LINE TRIMMER-D) lead 03/2022 GERD (gastroesophageal reflux disease) Hematuria History of malignant melanoma Follows with dermatology at [facility] Hyperlipidemia Hyperparathyroidism Hypothyroid ICD (implantable cardioverter-defibrillator), biventricular, in situ [employer] BLUE LINE TRIMMER-D Implant 05/24/22 Nocturnal hypoxemia Uses oxygen with sleep Pacemaker Pleural effusion Surgical History Hx of CABG Hx of cholecystectomy S/P removal of parathyroid gland Family History Mother Cancer Father Stroke Denies family history of Diabetes CAD (coronary artery disease) Clotting disorder Dementia Chronic kidney disease (CKD) Suicide Anesthesia complication Bleeding disorder Lung disease Social History (Updated 03/06/23 @ 15:15 by Jael Goodson MD) Smoking and tobacco/nicotine status: never used tobacco/nicotine Alcohol intake: never Substance/Drug Use: never Household members: spouse Marital status: service: Yes Vitals/I&O/Wt Last Vital Signs Temp 97.9 F 03/09/23 04:00 Pulse 90 03/09/23 08:12 Resp 28 H 03/09/23 08:00 BP 97/80 03/09/23 08:00 Pulse Ox 94 03/09/23 08:12 O2 Del Method Nasal Cannula 03/09/23 08:12 O2 Flow Rate 2 03/09/23 08:12 03/08/23 03/09/23 03/09/23 22:59 06:59 14:59 Intake Total 480 / 1080 1472.5 / 2552.5 360 / 360 Output Total 220 / 220 Balance 480 / 1080 1252.5 / 2332.5 360 / 360 Weight last 48 hrs Weight 101.65 kg Weight 101.333 kg Physical Exam Narrative: Patient is awake, no acute distress Lungs clear per report S1-S2 regular rate and rhythm per report Has lower extremity edema. Urinary Catheter Management: Kitchen: Cath Placed During This Visit: yes Reason for Continuing Indwelling Catheter: Acute Urinary Retention or Obstruction Urinary Catheter Date of Insertion: 03/08/23 Urinary Catheter Time of Insertion: 15:23 Data 03/08/23 03:55 03/09/23 03:15 A&P Assessment and plan (1) Acute kidney injury: (2) Chronic kidney disease: Qualifiers: Chronic kidney disease stage: stage 3 (moderate) Qualified Code(s): N18.3 - Chronic kidney disease, stage 3 (moderate) (3) Hyperlipidemia: Qualifiers: Hyperlipidemia type: mixed hyperlipidemia Qualified Code(s): E78.2 - Mixed hyperlipidemia Plan 1. Acute on chronic kidney disease stage IV: Baseline creatinine in the 2-3 range, presented with a creatinine of 2.5 worsened to 3.8 currently, also has hyperkalemia and metabolic acidosis. -The etiology of BARBIE most likely due to recent aggressive diuresis with addition of metolazone and increasing torsemide dose. Patient also is on metformin and spironolactone. -Has severe uremia, will hold diuretics temporarily, and will give gentle IV fluids-bicarbonate drip at 75 cc an hour x12 hours. -Watch ins and outs closely, -Discussed with patient and at bedside, patient follows with Dr. Mccoy as outpatient from nephrology, patient has decided against initiating dialysis in the past. 2. Hyperkalemia: Placed on low K diet, 3. Metabolic acidosis: Mild, will place on bicarbonate drip 4. History of coronary artery disease, CHF, AICD: Diuretics on hold temporarily 5. Hyponatremia: Likely intravascular volume depletion Patient evaluated using audiovisual cart. Time spent 40 minutes. Consult Attestations Medical Necessity Statement: Per medicine team Coding Level of Care Code [id number] (50 min) Diagnoses Acute kidney injury N17.9 Chronic kidney disease N18.3 Chronic kidney disease stage: stage 3 (moderate) Hyperlipidemia E78.2 Hyperlipidemia type: mixed hyperlipidemia
--- NOTE | 2023-03-09 13:25 | PC.SOCIAL ---
IMM Update pg 2 of IMM updated and reviewed w/ patient and his . Copy provided and copy dated, initialed and placed in chart.
[2023-03-09] MEDS: albumin 25 G/100 ML BAG 60 G IV ×2 (14:19→20:49)
[2023-03-09 16:50] LABS: Glucose Point of Care 287 mg/dL (70-110)
[2023-03-09 17:44] LABS: Calcium 8.8 mg/dL (8.5-10.5); Carbon Dioxide 17 mmol/L (22-29); Chloride 78 mmol/L (98-107); Glucose 231 mg/dL (65-115); Osmolality Calculated 286 mOsm/kg (285-295)
[2023-03-09 17:47] LABS: Anion Gap 27.5 (5-19); Creatinine Clr Calc Pharmacy 16.6375; Potassium 5.5 mmol/L (3.5-5.1)
[2023-03-09 17:49] LABS: Sodium 117 mmol/L (136-145)
[2023-03-09 17:50] LABS: Blood Urea Nitrogen 109 mg/dL (8-23)
[2023-03-09] MEDS: sodium chloride 3% 500 ML 25 ML IV (19:39)
[2023-03-09] MEDS: allopurinol 100 mg Tablet PO (21:12)
[2023-03-09] MEDS: atorvastatin 40 mg Tablet PO (21:12)
[2023-03-09 21:45] LABS: Glucose Point of Care 230 mg/dL (70-110)
[2023-03-09 22:34] LABS: Calcium 8.8 mg/dL (8.5-10.5); Carbon Dioxide 17 mmol/L (22-29); Chloride 79 mmol/L (98-107); Glucose 190 mg/dL (65-115)
[2023-03-09 22:35] LABS: Anion Gap 28.3 (5-19); Potassium 5.3 mmol/L (3.5-5.1)
[2023-03-09 22:40] LABS: Osmolality Calculated 290 mOsm/kg (285-295); Sodium 119 mmol/L (136-145)
[2023-03-09 22:41] LABS: Blood Urea Nitrogen 117 mg/dL (8-23)
--- NOTE | 2023-03-09 23:47 | PC.NURSE ---
Critical sodium and BUN called to dr Mehta. No new orders given.
[2023-03-10] VITALS (45 sets, daily range): BP systolic 83–151; BP diastolic 58–93; PULSE 86–109; RESP 19–36; TEMP 36.1–36.5; O2SAT 91–95
[2023-03-10 03:02] LABS: Sodium 123 mmol/L (136-145)
[2023-03-10] MEDS: albumin 25 G/100 ML BAG 60 G IV ×2 (04:02→12:56)
[2023-03-10 05:33] LABS: Basophils % 0.1 %; Hematocrit 45.8 % (37-53); Lymphocytes # 6.6 10^3/uL (0.8-4.8); Lymphocytes % 24.7 %; Mean Corpuscular HGB Conc 32.5 g/dL (30-55); Mean Corpuscular Hemoglobin 30.1 pg (27-33); Mean Corpuscular Volume 92.5 fl (82-101); Mean Platelet Volume 11.3 fL (7.4-10.4); Monocytes # 1.8 10^3/uL (0.2-0.9); Monocytes % 6.8 %; Neutrophils # 17.79 10^3/uL (1.8-7.7); Neutrophils % 67.2 %; Nucleated Red Blood Cells # 0.1 /100WBC; Nucleated Red Blood Cells % 0.3 %; Platelet Count 154 10^3/cmm (157-399); Red Blood Count 4.95 10^6/uL (3.85-5.65); Red Cell Distribution Width 17.9 % (12.1-15.1); White Blood Count 26.49 10^3/uL (3.29-11.43)
[2023-03-10] MEDS: levothyroxine 125 mcg Tablet PO (05:51)
[2023-03-10 06:04] LABS: Anion Gap 28.3 (5-19); Calcium 8.5 mg/dL (8.5-10.5); Carbon Dioxide 16 mmol/L (22-29); Chloride 84 mmol/L (98-107); Glucose 176 mg/dL (65-115); Potassium 5.3 mmol/L (3.5-5.1); Sodium 123 mmol/L (136-145)
[2023-03-10 06:11] LABS: Osmolality Calculated 298 mOsm/kg (285-295)
[2023-03-10 06:12] LABS: Blood Urea Nitrogen 117 mg/dL (8-23)
[2023-03-10 06:16] LABS: Slide Review Slide Review Perform
[2023-03-10 06:26] LABS: Glucose Point of Care 159 mg/dL (70-110)
--- NOTE | 2023-03-10 08:04 | XRR_ITS ---
PROCEDURE INFORMATION: Exam: XR Chest Exam date and time: 03/10/2023 10:05 AM Age: 78 years old Clinical indication: Shortness of breath; Additional info: SOB, SOB TECHNIQUE: Imaging protocol: Radiologic exam of the chest. Views: 1 view. COMPARISON: CR XR chest 1V portable [id number] 03/06/2023 12:24 PM FINDINGS: Tubes, catheters and devices: Left-sided pacing device. Lungs: Unremarkable. No consolidation. Pleural spaces: Unremarkable. No pleural effusion. No pneumothorax. Heart/Mediastinum: Cardiomegaly. Bones/joints: Unremarkable. XR/XR chest 1V portable [id number] IMPRESSION: Cardiomegaly with no acute process
--- NOTE | 2023-03-10 08:12 | P.PN_ITS ---
Subjective Subjective: c/o abdominal pain c/o sob no uop bp low in 80's Medications: Reviewed: Yes Vitals/I&O/Wt Last Vital Signs Temp 97.5 F L 03/10/23 04:00 Pulse 106 H 03/10/23 06:00 Resp 28 H 03/10/23 04:00 BP 83/65 03/10/23 04:00 Pulse Ox 92 03/10/23 04:00 O2 Del Method Nasal Cannula 03/10/23 04:00 O2 Flow Rate 2 03/09/23 08:12 03/09/23 03/10/23 03/10/23 22:59 06:59 14:59 Intake Total 845 / 1325 270 / 1595 Output Total 0 / 0 Balance 845 / 1325 270 / 1595 Weight last 48 hrs Weight 107.456 kg Weight 101.65 kg Physical Exam Narrative: Patient is awake, no acute distress Lungs clear per report S1-S2 regular rate and rhythm per report Has lower extremity edema. Urinary Catheter Management: Kitchen: Cath Placed During This Visit: yes Reason for Continuing Indwelling Catheter: Acute Urinary Retention or Obstruction Urinary Catheter Date of Insertion: 03/08/23 Urinary Catheter Time of Insertion: 15:23 Data 03/10/23 04:58 03/10/23 04:58 A&P Assessment and plan (1) Acute kidney injury: (2) Chronic kidney disease: Qualifiers: Chronic kidney disease stage: stage 3 (moderate) Qualified Code(s): N18 .3 - Chronic kidney disease, stage 3 (moderate) (3) Hyperlipidemia: Qualifiers: Hyperlipidemia type: mixed hyperlipidemia Qualified Code(s): E78.2 - Mixed hyperlipidemia Plan 1. Acute on chronic kidney disease stage IV: Baseline creatinine in the 2-3 range, presented with a creatinine of 2.5 worsened to 3.8 currently, also has hyperkalemia and metabolic acidosis. -The etiology of BARBIE most likely due to cardiorenal/ recent aggressive diuresis with addition of metolazone and increasing torsemide dose. Patient also is on metformin and spironolactone. -Has severe uremia,and volume overload , unable to diurese due to hypotension , will add midodrine ,and may benefit from adding pressors and then attempt diuresis -Discussed with patient and at bedside, patient follows with Dr. Mccoy as outpatient from nephrology, patient has decided against initiating dialysis 2. Hyperkalemia: Placed on low K diet, 3. Metabolic acidosis: Mild, added bicitra 4. History of coronary artery disease, CHF, AICD: Diuretics on hold temporarily 5. Hyponatremia: on 3% saline @ 25 cc/hr d/w family @ bedside Patient evaluated using audiovisual cart. Time spent 40 minutes. Attestations Medical Necessity Statement*: per medicine team Coding Level of Care Code Acute Code for [facility] Fwd Diagnoses Acute kidney injury N17.9 Chronic kidney disease N18.3 Chronic kidney disease stage: stage 3 (moderate) Hyperlipidemia E78.2 Hyperlipidemia type: mixed hyperlipidemia
--- NOTE | 2023-03-10 08:40 | PC.NURSE ---
NOtified Dr. Nuñez about the pt's Low BP that had been consistently low for the past 12+ hours and that I was not going to give the metoprolol unless there was some other reason that the pt needed. Dr. Otto replied with transfer pt to ICU.
[2023-03-10] MEDS: insulin lispro 100 unit/1 mL SUBCUT ×4 (08:50→17:54)
[2023-03-10] MEDS: citric acid-sodium citrate 30 mL UDC PO (08:53)
[2023-03-10] MEDS: pantoprazole DR 40 mg Tablet PO (08:53)
[2023-03-10] MEDS: amiodarone 200 mg Tablet PO ×2 (09:00→17:53)
[2023-03-10] MEDS: apixaban 5 mg Tablet 2.5 MG PO (09:00)
--- NOTE | 2023-03-10 11:07 | PC.NURSE ---
Report called to Suly in the ICU.
[2023-03-10 11:13] LABS: Sodium 120 mmol/L (136-145)
--- NOTE | 2023-03-10 11:55 | PM.PN ---
Subjective Subjective: We will transfer patient to ICU for Levophed Patient and family agreeable for Levophed use in ICU Did not want dialysis chest compressions defibrillation or intubation Patient is stating that in case he gets worse he would opt for hospice [facility] Patient is also endorsing low appetite Vitals/I&O/Wt Last Vital Signs Temp 97.5 F L 03/10/23 04:00 Pulse 102 H 03/10/23 08:00 Resp 26 H 03/10/23 08:00 BP 92/65 03/10/23 08:00 Pulse Ox 94 03/10/23 08:00 O2 Del Method Nasal Cannula 03/10/23 08:00 O2 Flow Rate 2 03/09/23 08:12 03/09/23 03/10/23 03/10/23 22:59 06:59 14:59 Intake Total 845 / 1325 470 / 1795 Output Total 0 / 0 Balance 845 / 1325 470 / 1795 Weight last 48 hrs Weight 107.456 kg Weight 101.65 kg Physical Exam Narrative: Fluid overloaded Lethargic and fatigued Currently on 2 L GCS 15 Pleasant cough NIH 0 Able to comprehend Family at the bedside Abdomen distended Fluid overloaded Urinary Catheter Management: Kitchen: Cath Placed During This Visit: yes Reason for Continuing Indwelling Catheter: Acute Urinary Retention or Obstruction Urinary Catheter Date of Insertion: 03/08/23 Urinary Catheter Time of Insertion: 15:23 Data 03/10/23 04:58 03/10/23 10:21 A&P Assessment and plan (1) Hyperkalemia: (2) Anorexia: (3) Generalized weakness: (4) Hypothyroid: Qualifiers: Hypothyroidism type: acquired Qualified Code(s): E03.9 - Hypothyroidism, unspecified (5) GERD (gastroesophageal reflux disease): (6) Hyperlipidemia: Qualifiers: Hyperlipidemia type: mixed hyperlipidemia Qualified Code(s): E78.2 - Mixed hyperlipidemia (7) Pacemaker: (8) Atrial fibrillation: Qualifiers: Atrial fibrillation type: longstanding persistent Qualified Code(s): I48.11 - Longstanding persistent atrial fibrillation (9) Chronic kidney disease: Qualifiers: Chronic kidney disease stage: stage 3 (moderate) Qualified Code(s): N18.3 - Chronic kidney disease, stage 3 (moderate) (10) Diabetic peripheral neuropathy associated with type 2 diabetes mellitus: (11) History of malignant melanoma: (12) Chronic anticoagulation: (13) Acute kidney injury: (14) Atypical lymphocytosis: (15) Nocturnal hypoxemia: (16) ICD (implantable cardioverter-defibrillator), biventricular, in situ: Plan Transfer to ICU We will give Levophed because of low blood pressure Once blood pressure improves we can give trial of Lasix Patient does not want dialysis or any aggressive measures in case of further worsening would opt for hospice/palliative care All questions were answered He is DNI/DNI Diarrhea improved Signs of dehydration improved now patient is retaining fluid volume with an urea Appreciate nephro recommendations Leukocytosis worsening has history of atypical lymphocytosis Change the dose of Eliquis considering worsening of creatinine History of A-fib status post pacemaker heart rate is better Attestations Medical Necessity Statement*: Continue medical management Diagnoses Hyperkalemia E87.5 Anorexia R63.0 Generalized weakness R53.1 Hypothyroid E03.9 Hypothyroidism type: acquired GERD (gastroesophageal reflux disease) K21.9 Hyperlipidemia E78.2 Hyperlipidemia type: mixed hyperlipidemia Pacemaker Z95.0 Atrial fibrillation I48.11 Atrial fibrillation type: longstanding persistent Chronic kidney disease N18.3 Chronic kidney disease stage: stage 3 (moderate) Diabetic peripheral neuropathy associated with type 2 diabetes mellitus E11.42 History of malignant melanoma Z85.820 Chronic anticoagulation Z79.01 Acute kidney injury N17.9 Atypical lymphocytosis D72.820 Nocturnal hypoxemia G47.34 ICD (implantable cardioverter-defibrillator), biventricular, in situ Z95.810
[2023-03-10 12:46] LABS: Glucose Point of Care 258 mg/dL (70-110)
[2023-03-10] MEDS: FUROsemide 10 mg/mL SDV 4mL 40 MG IVP (12:56)
[2023-03-10] MEDS: sodium chloride 3% 500 ML 25 ML IV (16:39)
[2023-03-10 16:44] LABS: Glucose Point of Care 251 mg/dL (70-110)
[2023-03-10] MEDS: heparin 5,000 unit/mL INJ 1 mL 5000 UNIT SUBCUT (17:53)
[2023-03-10 18:08] LABS: Sodium 122 mmol/L (136-145)
[2023-03-10] MEDS: allopurinol 100 mg Tablet PO (21:13)
[2023-03-10 21:24] LABS: Glucose Point of Care 222 mg/dL (70-110)
[2023-03-10 22:22] LABS: Sodium 122 mmol/L (136-145)
[2023-03-11] VITALS (27 sets, daily range): BP systolic 77–117; BP diastolic 52–84; PULSE 55–95; RESP 15–35; TEMP 36.2; O2SAT 91–94
[2023-03-11 04:43] LABS: Basophils # 0.1 10^3/uL (0.0-0.1); Basophils % 0.2 %; Eosinophils % 0.1 %; Hematocrit 46.3 % (37-53); Lymphocytes # 6.6 10^3/uL (0.8-4.8); Lymphocytes % 23.5 %; Mean Corpuscular Hemoglobin 30.7 pg (27-33); Mean Corpuscular Volume 92.8 fl (82-101); Mean Platelet Volume 11.5 fL (7.4-10.4); Monocytes # 1.7 10^3/uL (0.2-0.9); Monocytes % 6.2 %; Neutrophils # 19.39 10^3/uL (1.8-7.7); Neutrophils % 69.1 %; Nucleated Red Blood Cells # 0.1 /100WBC; Nucleated Red Blood Cells % 0.5 %; Platelet Count 156 10^3/cmm (157-399); Red Blood Count 4.99 10^6/uL (3.85-5.65); Red Cell Distribution Width 18.4 % (12.1-15.1); White Blood Count 28.03 10^3/uL (3.29-11.43)
[2023-03-11] MEDS: heparin 5,000 unit/mL INJ 1 mL 5000 UNIT SUBCUT (06:04)
[2023-03-11] MEDS: levothyroxine 125 mcg Tablet PO (06:04)
[2023-03-11 06:06] LABS: Calcium 8.5 mg/dL (8.5-10.5); Carbon Dioxide 14 mmol/L (22-29); Chloride 83 mmol/L (98-107); Glucose 176 mg/dL (65-115); Sodium 122 mmol/L (136-145)
[2023-03-11 06:18] LABS: Slide Review Slide Review Perform
[2023-03-11 06:25] LABS: Anion Gap 31.1 (5-19); Osmolality Calculated 303 mOsm/kg (285-295); Potassium 6.1 mmol/L (3.5-5.1)
[2023-03-11 06:26] LABS: Blood Urea Nitrogen 138 mg/dL (8-23)
[2023-03-11 08:10] LABS: Glucose Point of Care 187 mg/dL (70-110)
[2023-03-11] MEDS: insulin lispro 100 unit/1 mL SUBCUT ×3 (08:33→17:37)
[2023-03-11] MEDS: pantoprazole DR 40 mg Tablet PO (08:34)
[2023-03-11] MEDS: amiodarone 200 mg Tablet PO (08:34)
[2023-03-11] MEDS: ALPRAZolam 0.5 mg Tablet 0.25 MG PO (10:13)
[2023-03-11] MEDS: morphine 4 mg/mL SDV 1 mL IVP (10:14)
--- NOTE | 2023-03-11 12:22 | PM.PN ---
Subjective Subjective: patient is oliguric Fatigue lethargic Hyperkalemic with worsening of creatinine Wants to pursue hospice care while in the hospital and then get discharged to care home with hospice on Sunday family is at the bedside ICU nurse at the bedside as well patient can be transferred out of ICU to [facility] Vitals/I&O/Wt Last Vital Signs Temp 97.1 F L 03/11/23 08:30 Pulse 76 03/11/23 09:00 Resp 15 03/11/23 10:14 BP 94/52 03/11/23 10:30 Pulse Ox 93 03/11/23 12:00 O2 Del Method Nasal Cannula 03/11/23 08:30 O2 Flow Rate 2 03/11/23 08:30 03/10/23 03/11/23 03/11/23 23:59 06:59 14:59 Intake Total 951.25 / 951.25 Output Total Balance 951.25 / 951.25 Weight last 48 hrs Weight 108.409 kg Weight 107.456 kg Physical Exam Narrative: Anasarca GCS 15 Fatigued and lethargic S1, S2 currently on 2 L Abdomen soft Labored breathing Infiltration of IV right arm S1, S2 variable Urinary Catheter Management: Kitchen: Cath Placed During This Visit: yes Reason for Continuing Indwelling Catheter: Acute Urinary Retention or Obstruction Urinary Catheter Date of Insertion: 03/08/23 Urinary Catheter Time of Insertion: 15:23 Data 03/11/23 03:57 03/11/23 05:38 A&P Assessment and plan (1) Hospice care: Plan 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
[2023-03-11 12:49] LABS: Glucose Point of Care 285 mg/dL (70-110)
--- NOTE | 2023-03-11 14:25 | PC.NURSE ---
Rec'd pt at 1400 from ICU
[2023-03-11] MEDS: LORazepam 2 mg/mL INJ 1 mL IVP (14:53)
[2023-03-11] MEDS: atropine 1% op soln 2 mL Btl 3 DROP SUBLINGUAL ×2 (15:08→23:21)
[2023-03-11 17:14] LABS: Glucose Point of Care 252 mg/dL (70-110)
[2023-03-11] MEDS: morphine 10 mg/0.5 mL oral liq UD SUBLINGUAL ×4 (17:36→23:21)
[2023-03-12] MEDS: morphine 10 mg/0.5 mL oral liq UD SUBLINGUAL ×3 (00:39→07:52)
[2023-03-12] MEDS: atropine 1% op soln 2 mL Btl 3 DROP SUBLINGUAL (05:02)
--- NOTE | 2023-03-12 06:30 | P.DS_ITS ---
Discharge Providers Date of Admission: 03/06/23 16:31 Date of Discharge: March 12, 2023 Attending Provider at Admission: Jael Goodson MD Attending Provider at Discharge: Sol Christianson MD Primary Care Provider: Tiff Mckinney MD Diagnoses at Discharge Discharge Diagnosis (1) Hospice care: Status: Acute Reason for Visit Reason for Visit: High heart rate Hospital Course Hospital Course 78-year-old male who was admitted to the hospital for management evaluation of dehydration related to recent use of metformin metformin was discontinued, patient was hydrated with IV fluids, his symptoms improved, he remained afebrile, he does have chronic kidney disease which started getting worse, nephrology was consulted for hyponatremia and worsening creatinine, patient was getting oliguric, he suffered from acute tubular necrosis, received hypertonic saline, multiple family meetings were conducted, patient wanted to stay DNR/DNI and avoid hemodialysis catheter, he was gradually getting lethargic, his urine output decreased significantly, he was kept in ICU for 24 hours to use Levophed to see if we could use Lasix that would improve his urine output however that did not show any significant improvement,, patient and family decided to pursue palliative/hospice care in the hospital and they want to get discharged to a skilled nursing. Physical Exam Narrative: Anasarca Radiologic Requiring 2 L GCS 15 Abdomen soft Urinary Catheter Management: Kitchen: Cath Placed During This Visit: yes Reason for Continuing Indwelling Catheter: Acute Urinary Retention or Obstruction Urinary Catheter Date of Insertion: 03/08/23 Urinary Catheter Time of Insertion: 15:23 Discharge Data Studies Completed and Pending Completed Studies During Hospitalization Category Date Time Status CXRP [XR chest 1V portable [id number]] Routine Exams 03/10/23 08:04 Completed XR chest 1V portable [id number] Stat Exams 03/06/23 12:10 Completed Radiology Impressions Chest X-Ray 03/10/23 08:04 IMPRESSION: Cardiomegaly with no acute process Laboratory Results WBC 28.03 10^3/uL (3.29-11.43) H 03/11/23 03:57 RBC 4.99 10^6/uL (3.85-5.65) 03/11/23 03:57 Hgb 15.30 g/dL (11.27-16.99) 03/11/23 03:57 Hct 46.3 % (37-53) 03/11/23 03:57 MCV 92.8 fl (82-101) 03/11/23 03:57 MCH 30.7 pg (27-33) 03/11/23 03:57 MCHC 33.0 g/dL (30-55) 03/11/23 03:57 RDW 18.4 % (12.1-15.1) H 03/11/23 03:57 Plt Count 156 10^3/cmm (157-399) L 03/11/23 03:57 MPV 11.5 fL (7.4-10.4) H 03/11/23 03:57 Neut % (Auto) 69.1 % 03/11/23 03:57 Lymph % (Auto) 23.5 % 03/11/23 03:57 Glenn % (Auto) 6.2 % 03/11/23 03:57 Eos % (Auto) 0.1 % 03/11/23 03:57 Baso % (Auto) 0.2 % 03/11/23 03:57 Neut # (Auto) 19.39 10^3/uL (1.8-7.7) H 03/11/23 03:57 Lymph # (Auto) 6.6 10^3/uL (0.8-4.8) H 03/11/23 03:57 Glenn # (Auto) 1.7 10^3/uL (0.2-0.9) H 03/11/23 03:57 Eos # (Auto) 0.0 10^3/uL (0.0-0.8) 03/11/23 03:57 Baso # (Auto) 0.1 10^3/uL (0.0-0.1) 03/11/23 03:57 Nucleated RBC % (auto) 0.5 % 03/11/23 03:57 Total Counted 100 (0-100) 03/06/23 10:30 Atypical Lymphs % 26.0 % (0-5) H 03/06/23 10:30 Absolute Neutrophils 8.2 10^3/cmm (1.4-6.5) H 03/06/23 10:30 Segmented Neutrophils 60 % 03/06/23 10:30 Abs Segm Neuts (Man) 8.1 10/cmm (1.6-7.1) H 03/06/23 10:30 Band Neutrophils 1.0 % 03/06/23 10:30 Abs Band Neuts (Man) 0.1 10^3/cmm (0.0-1.2) 03/06/23 10:30 Absolute Lymphocytes 4.7 10^3/cmm (1.2-3.4) H 03/06/23 10:30 Lymphocytes (Manual) 9 % 03/06/23 10:30 Monocytes (Manual) 3.0 % 03/06/23 10:30 Absolute Monocytes 0.4 10^3/cmm (0.1-0.6) 03/06/23 10:30 Eosinophils (Manual) 1 % 03/06/23 10:30 Absolute Eosinophils 0.1 10^3/cmm (0.0-0.7) 03/06/23 10:30 Basophils (Manual) 0.0 % 03/06/23 10:30 Absolute Basophils 0.0 10^3/cmm (0.0-0.2) 03/06/23 10:30 Nucleated RBCs # 0.1 /100WBC 03/11/23 03:57 Platelet Estimate Normal (Normal) 03/06/23 10:30 Peripher Smr Path Cons Sent for review 03/06/23 10:30 PT 19.50 SECONDS (12.1-14.9) H 03/07/23 03:42 INR 1.59 (0.8-1.2) H 03/07/23 03:42 APTT 47.7 SECONDS (23.9-36.7) H 03/07/23 03:42 Sodium 122 mmol/L (136-145) L 03/11/23 05:38 Potassium 6.1 mmol/L (3.5-5.1) H 03/11/23 05:38 Chloride 83 mmol/L (98-107) L 03/11/23 05:38 Carbon Dioxide 14 mmol/L (22-29) L 03/11/23 05:38 Anion Gap 31.1 (5-19) H 03/11/23 05:38 BUN 138 mg/dL (8-23) H* 03/11/23 05:38 Creatinine 5.6 mg/dL (0.7-1.2) H* 03/11/23 05:38 GFR Calculation Not Reportable 03/11/23 05:38 Glucose 176 mg/dL (65-115) H 03/11/23 05:38 POC Glucose 252 mg/dL (70-110) H 03/11/23 17:09 Estimat Average Glucose 174 03/07/23 03:42 Hemoglobin A1c 7.7 % (4.0-6.0) H 03/07/23 03:42 Calculated Osmolality 303 mOsm/kg (285-295) H 03/11/23 05:38 Uric Acid 9.7 mg/dL (3.4-7.0) H 03/06/23 10:30 Calcium 8.5 mg/dL (8.5-10.5) 03/11/23 05:38 Phosphorus 4.4 mg/dL (2.5-4.5) 03/07/23 03:42 Magnesium 2.5 mg/dL (1.7-2.3) H 03/07/23 03:42 Total Bilirubin 1.5 mg/dL (0.15-1.2) H 03/07/23 03:42 AST 86 U/L (0-40) H 03/07/23 03:42 ALT 78 U/L (0-41) H 03/07/23 03:42 Alkaline Phosphatase 159 U/L (40-130) H 03/07/23 03:42 Lactate Dehydrogenase 323 U/L (135-225) H 03/06/23 10:30 Troponin T Baseline 44 ng/L (0-15) H 03/06/23 10:30 Troponin T 120 Minute 45.85 ng/L (0-15) H 03/06/23 12:30 Delta Troponin T 1.85 ABS# (0-10) 03/06/23 12:30 Troponin T Hi Sens 6Hr 35.17 ng/L (0-15) H 03/06/23 16:36 Troponin T Hi Sens 6Hr Delta -8.83 ng/L (0-12) L 03/06/23 16:36 NT-Pro-B Natriuret Pep 38546 pg/mL (0-450) H 03/06/23 10:30 Total Protein 7.1 g/dL (6.6-8.7) 03/07/23 03:42 Albumin 3.7 g/dL (3.5-5.2) 03/07/23 03:42 Globulin 3.4 g/dL (1.3-4.6) 03/07/23 03:42 Triglycerides 156 mg/dL (0-150) H 03/07/23 03:42 Cholesterol 92 mg/dL (0-200) 03/07/23 03:42 LDL Cholesterol, Calc 33 mg/dL (50-129) L 03/07/23 03:42 HDL Cholesterol 28 mg/dL (60-100) L 03/07/23 03:42 LDL/HDL Ratio 1.18 RATIO (0.00-3.22) 03/07/23 03:42 Cholesterol/HDL Ratio 3.29 mg/dL (1.0-5.00) 03/07/23 03:42 Vitamin B12 693 pg/mL (232-1245) 03/07/23 03:42 TSH 8.71 uIU/mL (0.27-4.20) H 03/07/23 03:42 Free T4 2.35 ng/dL (0.82-1.77) H 03/06/23 10:30 Free T3 1.5 PG/ML (2.0-4.4) L 03/06/23 10:30 Urine Color Yellow (Yellow) 03/08/23 12:27 Urine Appearance Clear (CLEAR) 03/08/23 12:27 Urine pH 5 (5-7) 03/08/23 12:27 Ur Specific Tyner 1.020 (1.005-1.030) 03/08/23 12:27 Urine Protein Trace (Negative) 03/08/23 12:27 Urine Glucose (UA) Norm (Normal) 03/08/23 12:27 Urine Ketones 1+ (Negative) H 03/08/23 12:27 Urine Blood Neg (Negative) 03/08/23 12:27 Urine Nitrate Negative (Negative) 03/08/23 12:27 Urine Bilirubin 1+ (Negative) H 03/08/23 12:27 Urine Urobilinogen 1 mg/dL (Negative) H 03/08/23 12:27 Ur Leukocyte Esterase Negative (Negative) 03/08/23 12:27 Urine RBC 0-4 /hpf (0-2) H 03/08/23 12:27 Urine WBC 0-4 /hpf (0-5) H 03/08/23 12:27 Ur Squamous Epith Cells 0-4 /hpf (0-5) H 03/08/23 12:27 Amorphous Sediment Not Reportable 03/08/23 12:27 Urine Bacteria Trace /hpf (NONE) 03/08/23 12:27 Hyaline Casts 10-15 /lpf H 03/08/23 12:27 Fine Granular Casts 0-4 /lpf H 03/08/23 12:27 Urine Mucus 2+ /hpf 03/08/23 12:27 Ur Random Sodium 13 mmol/L 03/06/23 12:51 Urine Creatinine 87 mg/dL (39-259) 03/06/23 12:51 Vitals Last Vital Signs Temp 97.1 F L 03/11/23 08:30 Pulse 81 03/11/23 13:40 Resp 16 03/11/23 13:40 BP 94/52 03/11/23 10:30 Pulse Ox 94 03/11/23 13:40 O2 Del Method Nasal Cannula 03/11/23 13:40 O2 Flow Rate 2 03/11/23 20:00 Discharge Plan Discharge Patient Disposition: Hospice - Medical Facility Condition: Stable Prescriptions: Discontinued alprazolam 0.25 mg tablet 0.25 mg PO DAILY pantoprazole [Protonix] 20 mg tablet,delayed release (DR/EC) 20 mg PO QAM spironolactone 25 mg tablet 25 mg PO QAM allopurinol 100 mg tablet 200 mg PO QPM nitroglycerin [Nitrostat] 0.4 mg tablet, sublingual 0.4 mg SUBLINGUAL Q5M PRN (Reason: Chest Pain) Qty: 25 5RF Rx Instructions: do not exceed 3 doses per episode L.acidoph,saliva-B.bif-S.therm [Acidophilus Probiotic Blend] 175 mg Capsule 1 cap PO QAM albuterol sulfate 2.5 mg /3 mL (0.083 %) solution for nebulization 2.5 mg inhalation QID PRN (Reason: Wheezing) acetaminophen 500 mg Tablet 1,000 mg PO QAM levothyroxine 125 mcg tablet 125 mcg PO QAM albuterol sulfate 90 mcg/actuation Hfa Aerosol Inhaler 2 puff INHALATION QID PRN (Reason: Shortness Of Breath) amiodarone [Pacerone] 200 mg tablet 400 mg PO QAM magnesium oxide 400 mg (241.3 mg magnesium) tablet 400 mg PO BID metoprolol tartrate 25 mg tablet 50 mg PO BID potassium chloride 20 mEq tablet extended release 20 meq PO QAM torsemide 20 mg tablet 60 mg PO QPM ketoconazole 2 % shampoo See Rx Instructions .ROUTE .COMPLEX Rx Instructions: apply TO scalp/face WASH two to three times a week. set FOR FIVE minutes before rinsing polysaccharide iron complex [iFerex 150] 150 mg iron capsule 150 mg PO QAM Deep Sea Nasal 0.65 % aerosol,spray 2 spray nasal QID PRN (Reason: Dryness) rosuvastatin 10 mg tablet 10 mg PO QPM metolazone 2.5 mg tablet 2.5 mg PO DAILY Eliquis 2.5 mg tablet 2.5 mg PO BID metformin 500 mg tablet extended release 24 hr 500 mg PO DAILY Qty: 30 0RF torsemide 100 mg tablet 100 mg PO QAM 10 Days Qty: 10 0RF Referrals: [facility] [Outside] Tiff Mckinney MD [Primary Care Provider] - Patient Instructions: Heart Failure (DC), CHF Stoplight, Opioid Safety, Pain Management Coding Level of Care Code Acute Code for [facility] Fwd Diagnoses Hospice care Z51.5
--- NOTE | 2023-03-12 08:45 | PC.NURSE ---
[facility] notified of patient passing @0840. Full release from [facility], currently holding for Saving Site. Medsurg smelter charger notified of updates.
--- NOTE | 2023-03-12 08:57 | PM.DDS ---
Discharge Providers DDS Date of Admission: 03/06/23 16:31 Date Summary Completed: 03/12/23 Attending Provider at Admission: Jael Goodson MD Time of : 08:00 Attending Provider at Discharge: Sol Christianson MD Primary Care Provider: Tiff Mckinney MD DS Diagnoses Hospital Diagnoses (1) Hospice care: Reason for Visit Reason for Visit High heart rate Summary Date and Time of Date of : 03/12/23 Time of : 08:00 Summary Summary: 78-year-old male who was admitted to the hospital for management evaluation of dehydration related to recent use of metformin metformin was discontinued, patient was hydrated with IV fluids, his symptoms improved, he remained afebrile, he does have chronic kidney disease which started getting worse, nephrology was consulted for hyponatremia and worsening creatinine, patient was getting oliguric, he suffered from acute tubular necrosis, received hypertonic saline, multiple family meetings were conducted, patient wanted to stay DNR/DNI and avoid hemodialysis catheter, he was gradually getting lethargic, his urine output decreased significantly, he was kept in ICU for 24 hours to use Levophed to see if we could use Lasix that would improve his urine output however that did not show any significant improvement,, patient and family decided to pursue palliative/hospice care in the hospital and they want to get discharged to a [place] [facility] facility. Patient unfortunately in the hospital setting. (Above summary by previous attending physician Dr. Otto). Patient passed before he could be seen by attending physician today during rounds. Time of 8 Am. Additional Data Confirmation of as documented by pronouncing clinician: no pulse, no respirations, no heart sounds and pupils fixed and dilated Advance directives?: No Discharge Plan Discharge Patient Disposition: Condition: Prescriptions: Discontinued alprazolam 0.25 mg tablet 0.25 mg PO DAILY pantoprazole [Protonix] 20 mg tablet,delayed release (DR/EC) 20 mg PO QAM spironolactone 25 mg tablet 25 mg PO QAM allopurinol 100 mg tablet 200 mg PO QPM nitroglycerin [Nitrostat] 0.4 mg tablet, sublingual 0.4 mg SUBLINGUAL Q5M PRN (Reason: Chest Pain) Qty: 25 5RF Rx Instructions: do not exceed 3 doses per episode L.acidoph,saliva-B.bif-S.therm [Acidophilus Probiotic Blend] 175 mg Capsule 1 cap PO QAM albuterol sulfate 2.5 mg /3 mL (0.083 %) solution for nebulization 2.5 mg inhalation QID PRN (Reason: Wheezing) acetaminophen 500 mg Tablet 1,000 mg PO QAM levothyroxine 125 mcg tablet 125 mcg PO QAM albuterol sulfate 90 mcg/actuation Hfa Aerosol Inhaler 2 puff INHALATION QID PRN (Reason: Shortness Of Breath) amiodarone [Pacerone] 200 mg tablet 400 mg PO QAM magnesium oxide 400 mg (241.3 mg magnesium) tablet 400 mg PO BID metoprolol tartrate 25 mg tablet 50 mg PO BID potassium chloride 20 mEq tablet extended release 20 meq PO QAM torsemide 20 mg tablet 60 mg PO QPM ketoconazole 2 % shampoo See Rx Instructions .ROUTE .COMPLEX Rx Instructions: apply TO scalp/face WASH two to three times a week. set FOR FIVE minutes before rinsing polysaccharide iron complex [iFerex 150] 150 mg iron capsule 150 mg PO QAM Deep Sea Nasal 0.65 % aerosol,spray 2 spray nasal QID PRN (Reason: Dryness) rosuvastatin 10 mg tablet 10 mg PO QPM metolazone 2.5 mg tablet 2.5 mg PO DAILY Eliquis 2.5 mg tablet 2.5 mg PO BID metformin 500 mg tablet extended release 24 hr 500 mg PO DAILY Qty: 30 0RF torsemide 100 mg tablet 100 mg PO QAM 10 Days Qty: 10 0RF Referrals: [facility] [Outside] Tiff Mckinney MD [Primary Care Provider] - Patient Instructions: Heart Failure (DC), CHF Stoplight, Opioid Safety, Pain Management DS Attestations Time Spent in /Discharge Care*: less than 30 min Quality - AMI: AMI present?: No Quality - Stroke: CVA present?: No Symptom Onset Unknown: No Quality - VTE: VTE present?: No Deep Vein Thrombosis/Pulmonary Embolism Present on Admission: No Coding Level of Care Code Acute Code for Chg Fwd Diagnoses Hospice care Z51.5
--- NOTE | 2023-03-12 13:00 | PC.NURSE ---
patient at 0[address]. Dr. Christianson notified at 0815. patient picked up by home.
== END 2023-03-12 13:37 | disposition expired | DRG 682 ==
LOC: ER 15:42 → CSU 16:31 → ICU 03-10 11:12 → MEDSURG 03-11 14:00
PROVIDERS: Family Medicine; Hospitalist; Internal Medicine; Admitting Provider Hospitalist; Emergency Provider Emergency Medicine; PCP Family Medicine; Visit Provider Internal Medicine
DX: N17.0 Acute kidney failure with tubular necrosis (principal); I50.23 Acute on chronic systolic (congestive) heart failure; I48.11 Longstanding persistent atrial fibrillation; E87.20 Acidosis, unspecified; E87.1 Hypo-osmolality and hyponatremia; E86.0 Dehydration; F41.9 Anxiety disorder, unspecified; M19.90 Unspecified osteoarthritis, unspecified site; I25.10 Atherosclerotic heart disease of native coronary artery without angina pectoris; Z95.1 Presence of aortocoronary bypass graft; Z79.01 Long term (current) use of anticoagulants; I25.5 Ischemic cardiomyopathy; E11.22 Type 2 diabetes mellitus with diabetic chronic kidney disease; N18.30 Chronic kidney disease, stage 3 unspecified; K21.9 Gastro-esophageal reflux disease without esophagitis; E03.9 Hypothyroidism, unspecified; Z95.810 Presence of automatic (implantable) cardiac defibrillator; E11.42 Type 2 diabetes mellitus with diabetic polyneuropathy; E11.65 Type 2 diabetes mellitus with hyperglycemia; Z66 Do not resuscitate; Z51.5 Encounter for palliative care; E78.2 Mixed hyperlipidemia; R19.7 Diarrhea, unspecified; D72.820 Lymphocytosis (symptomatic); R09.02 Hypoxemia; E11.51 Type 2 diabetes mellitus with diabetic peripheral angiopathy without gangrene; R63.0 Anorexia; E87.5 Hyperkalemia; T38.3X5A Adverse effect of insulin and oral hypoglycemic [antidiabetic] drugs, initial encounter
CPT/HCPCS: 36415; 36416; 51702; 51798; 71045; 80048; 80053; 80061; 80503; 81001; 81003; 81015; 82575; 82607; 82962; 83036; 83615; 83735; 83880; 84100; 84295; 84300; 84439; 84443; 84481; 84484; 84550; 85007; 85025; 85610; 85730; 93005; 96372; 96374; 96375; 96376; 97161; 99291; 99292; J1644; J1815; J1940; J2060; J2270; J2405; J3480; J3490; J7030; J7070; J7131; P9046; Q3014